=== PATIENT | female | born 1945 | race Caucasian/White ===

== ENCOUNTER → 2018-11-16 10:27 | Day surgery (SDC) | payer MEDICARE, OTHER ==
[~2018-11-16 10:27] MED LIST: Acetaminophen TAB* 325 MG PO PRN; Diazepam TAB(*) 5 MG ONE; Flumazenil* 0.1 MG/ML 5 ML MDV ONE; Lidocaine 1% INJ* 10 MG/ML 30 ML SDV ONE; Midazolam* 1 MG/ML 5 ML VIAL (5 MG) ONE; Naloxone* 0.4 MG/ML 1 ML VIAL ONE; ceFAZolin VIAL 1 GM in NS *SYRINGE * * 10 ML ONE; ceFAZolin* 2 GM* ONE DOSE (Duplex) IVPB; fentaNYL* 50 MCG/ML 2 ML VIAL (100 MCG VIAL) ONE
[2018-11-16 14:14] VITALS: BP 104/64
--- NOTE | 2018-11-17 00:14 | OP ---
CC: Dr. Anaya Nicole * DATE OF OPERATION: 11/16/18 - [facility] CATH DATE OF : 45 SURGEON: Umair Jarrett MD. ANESTHESIA: Local anesthesia with conscious sedation. PRE-OP DIAGNOSIS: Hypertrophic obstructive cardiomyopathy, ICD at elective replacement indicator. POST-OP DIAGNOSIS: Hypertrophic obstructive cardiomyopathy, ICD at elective replacement indicator. OPERATIVE PROCEDURE: Dual-chamber ICD generator change. ESTIMATED BLOOD LOSS: Nil. COMPLICATIONS: None. INDICATIONS: Patient is a 73-year-old female with a history of hypertrophic obstructive cardiomyopathy, history of ICD implantation in 2011. Patient has been followed by Dr. Nicole. Patient's ICD reached elective replacement indicator, generator change was recommended. DESCRIPTION OF PROCEDURE: Patient was brought to the procedure room in a fasting state. Informed consent had been obtained prior to the procedure. All labs were reviewed. Patient was placed supine on the procedure table. Her left deltopectoral area was cleaned and draped in usual fashion; 1% lidocaine was used for local anesthesia. A 4 cm incision was made across the previous incision line and blunt dissection was carried down to the fiber sheath. This fiber sheath was opened and the pacemaker was removed from the pocket. The pacemaker ICD was quickly transferred from the old generator to the new generator as patient was pacemaker dependent. Patient's explanted device is a Medtronic, model Q416YZZ, serial number [id number]. The new generator is a Medtronic, model [id number], serial number [id number]. The device was placed in the pocket. The device was checked and noted to be functioning normally. The atrial and ventricular leads were functioning normally. The surgical incision was closed in 3 layers. Patient returned to the holding area in stable condition. [id number]/[facility] #: [id number] [facility]
== END | disposition home or self-care (01) ==
LOC: CHICATH 10:27
PROVIDERS: ATTEND Specialist
DX: Z45.02 Encounter for adjustment and management of automatic implantable cardiac defibrillator (principal); I42.1 Obstructive hypertrophic cardiomyopathy; I50.32 Chronic diastolic (congestive) heart failure; I48.0 Paroxysmal atrial fibrillation; Z79.01 Long term (current) use of anticoagulants; I44.2 Atrioventricular block, complete; J44.9 Chronic obstructive pulmonary disease, unspecified; Z87.891 Personal history of nicotine dependence
CPT/HCPCS: 33263; 88300; A9270-GY; C1721; J0690; J2250; J2310; J3010

== ENCOUNTER 2019-09-16 17:22 | Inpatient (IN) | payer MEDICARE ==
--- NOTE | 2019-09-16 17:46 | ED ---
Shortness of Breath - HPI Summary HPI Summary: Patient is a 74 y/o F presenting to the ED for a chief complaint of shortness of breath that began on 09/16/18. Patient was seen by her visiting nurse and had labwork drawn on 09/16/18. The labs were sent to the patient's PCP who found that her WBC count was 13 and CO2 was 49, so her PCP recommended the patient be seen at [facility]. Patient refused to go to [facility] earlier in the day, but her called EMS after the patient's shortness of breath worsened. Patient admits cough and has abdominal distention at baseline, but denies fever , or bilateral LE edema. She denies any aggravating or alleviating factors. She is unable to ambulate at home. Patient uses 3 L of oxygen at home. PMHx is significant for hypertrophic cardiomyopathy, congestive heart failure, and COPD. - History of Current Complaint Chief Complaint: EDShortnessOfBreath Time Seen by Provider: 09/16/19 17:43 Hx Obtained From: Patient Onset/Duration: Sudden Onset, Still Present Timing: Constant Current Severity: Moderate Dyspnea At: Rest Aggravating Factors: Nothing Alleviating Factors: Nothing Associated Signs & Symptoms: Cough (Nonproductive) - Allergy/Home Medications Allergies/Adverse Reactions: Allergies Allergy/AdvReac Type Severity Reaction Status Date / Time MS Bupropion Allergy Hives Verified 06/14/14 18:28 [From Wellbutrin] MS Lactose Intolerance (GI) Allergy Diarrhea Verified 06/14/14 18:28 [Lactose Intolerance (GI)] MS Sotalol [Sotalol] Allergy Unknown Verified 06/27/14 21:22 Reaction Details MS Zolpidem [From Ambien] AdvReac Intermediate hearing Verified 06/14/14 18:28 voices Home Medications: Home Medications Acetaminophen [Acetaminophen Extra Strength] 1,000 mg PO TID PRN 09/16/19 [ History Confirmed 09/16/19] Aflibercept [Eylea] 2 mg INJ .Q4-6M 09/16/19 [History Confirmed 09/16/19] Aspirin EC TAB* [Ecotrin EC Low Dose 81 MG*] 81 mg PO DAILY 09/16/19 [History Confirmed 09/16/19] Cholecalciferol (Vitamin D3) [Vitamin D3] 2,000 unit PO DAILY 09/16/19 [History Confirmed 09/16/19] Cyanocobalamin TAB* [Vitamin B12 TAB*] 1,000 mcg PO DAILY 09/16/19 [History Confirmed 09/16/19] FLUoxetine CAP* [PROzac CAP*] 20 mg PO DAILY 09/16/19 [History Confirmed ] Fexofenadine (NF) [Leonor (NF)] 60 mg PO DAILY PRN 09/16/19 [History Confirmed 09/16/19] Folic Acid TAB* [Folvite TAB*] 1 mg PO DAILY 09/16/19 [History Confirmed ] L.acidoph,Paracasei, B.lactis [Probiotic] 1 cap PO DAILY 09/16/19 [History Confirmed 09/16/19] Magnesium Oxide TAB* [MagOx 400 TAB*] 400 mg PO DAILY 09/16/19 [History Confirmed 09/16/19] Metolazone TAB* [Zaroxolyn TAB*] 2.5 mg PO EVERY OTHER DAY 09/16/19 [History Confirmed 09/16/19] Potassium Chloride [Klor-Con M20] 20 meq PO BID 09/16/19 [History Confirmed 12/01] Rosuvastatin (NF) [Crestor (NF)] 40 mg PO DAILY 09/16/19 [History Confirmed 12/01] Sennosides/Docusate Sodium [Senokot S] 2 tab PO DAILY 09/16/19 [History Confirmed 09/16/19] Simethicone [Gas-X] 125 mg PO BID PRN 09/16/19 [History Confirmed 09/16/19] Spironolactone TAB* [Aldactone TAB*] 25 mg PO DAILY 09/16/19 [History Confirmed 09/16/19] Vit C/E/Zn/Coppr/Lutein/Zeaxan [Preservision Areds 2 Softgel] 2 cap PO DAILY 12/01 [History Confirmed 09/16/19] guaiFENesin ER TAB [Mucinex*] 1,200 mg PO BID 09/16/19 [History Confirmed ] PMH/Surg Hx/FS Hx/Imm Hx Previously Healthy: Yes Endocrine/Hematology History: Reports: Hx Anticoagulant Therapy, Hx Blood Disorders - anemia, Hx Anemia, Hx Unexplained Bleeding Denies: Hx Blood Transfusions, Hx Bone Marrow Disease, Hx Diabetes, Hx Systemic Lupus Erythematosus, Hx Sickle Cell Disease, Hx Thyroid Disease, Other Endocrine/Hematological Disorders Cardiovascular History: Reports: Hx Angina, Hx Auto Implanted Cardiovert Defib, Hx Cardiomegaly, Hx Congenital Heart Disease, Hx Congestive Heart Failure, Hx Coronary Artery Disease, Hx Hypercholesterolemia, Hx Hypotension, Hx Hypertension, Hx Pacemaker/ICD, Hx Rheumatic Fever, Hx Syncope, Other Cardiovascular Problems/Disorders - ABLASION X 3 AT [facility]; CAD; HEART MURMUR; Denies: Hx Aneurysm, Hx Angioplasty, Hx Cardiac Arrest, Hx Deep Vein Thrombosis, Hx Myocardial Infarction, Hx Peripheral Vascular Disease, Hx Valvular Heart Disease Respiratory History: Reports: Hx Chronic Obstructive Pulmonary Disease (COPD), Hx Pneumonia, Other Respiratory Problems/Disorders - PNA Denies: Hx Asthma, Hx Chronic Bronchitis, Hx Cystic Fibrosis, Hx Lung Cancer , Hx Pleural Effusion, Hx Pulmonary Edema, Hx Pulmonary Embolism, Hx Seasonal Allergies, Hx Sleep Apnea GI History: Reports: Hx Gastroesophageal Reflux Disease, Hx Hiatal Hernia, Hx Ulcer Denies: Hx Cirrhosis, Hx Crohn's Disease, Hx Diverticulosis, Hx Gall Bladder Disease, Hx Gastrointestinal Bleed, Hx Irritable Bowel, Hx Jaundice, Hx Obstructive Bowel, Hx Ileostomy, Hx Pyloric Stenosis, Other GI Disorders History: Denies: Hx Acute Renal Failure, Hx Benign Prostatic Hyperplasia, Hx Chronic Renal Failure, Hx Dialysis, Hx Kidney Infection, Hx Kidney Stones, Other Problems/Disorders Musculoskeletal History: Reports: Hx Arthritis - right knee & leg, Hx Back Problems - lower back pain, chronic undiagnosed Denies: Hx Bursitis, Hx Congenital Bone Abnormalities, Hx Fibromyalgia, Hx Gout, Hx Orthopedic Injury, Hx Osteoporosis, Hx Scoliosis, Hx Tendonitis, Other Musculoskeletal History Sensory History: Denies: Hx Cataracts, Hx Contacts or Glasses, Hx Eye Injury, Hx Eye Prosthesis, Hx Glaucoma, Hx Legally Blind, Hx Macular Degeneration, Hx Vision Problem, Hx Deafness, Hx Hearing Aid, Hx Hearing Problem, Other Sensory Impairments Opthamlomology History: Denies: Hx Cataracts, Hx Contacts or Glasses, Hx Eye Injury, Hx Eye Prosthesis, Hx Glaucoma, Hx Legally Blind, Hx Macular Degeneration, Hx Vision Problem, Other Sensory Impairments EENT History: Denies: Hx Deafness Neurological History: Reports: Hx Headaches, Hx Migraine, Other Neuro Impairments/Disorders - right leg neuritis Denies: Hx Dementia, Hx Developmental Delay, Hx Seizures, Hx Spinal Cord Injury, Hx Transient Ischemic Attacks (TIA) Psychiatric History: Reports: Hx Anxiety, Hx Depression Denies: Hx Attention Deficit Hyperactivity Disorder, Hx Eating Disorder, Hx Panic Disorder, Hx Post Traumatic Stress Disorder, Hx Inpatient Treatment, Hx Community Mental Health Tx, Hx Schizophrenia, Hx Bipolar Disorder, Hx Suicide Attempt, Hx of Violent Episodes Against Others, Hx Substance Abuse, Other Psychiatric Issues/Disorders - Cancer History Hx Chemotherapy: No Hx Radiation Therapy: No - Surgical History Surgical History: Yes Surgery Procedure, Year, and Place: bilateral cataract surgery-2011. tonsillectomy as a child. exploratory abdominal surgery . colonoscopies. ICD/pacer Hx Anesthesia Reactions: No - Immunization History Date of Tetanus Vaccine: UNKNOWN Infectious Disease History: No Infectious Disease History: Reports: Hx of Known/Suspected MRSA Denies: Hx Clostridium Difficile, Hx Hepatitis, Hx Human Immunodeficiency Virus (HIV), Hx Shingles, Hx Tuberculosis, Traveled Outside the in Last 30 Days - Family History Known Family History: Negative: Seizure Disorder - Social History Occupation: Retired Lives: With Family Alcohol Use: None Alcohol Amount: 1 beer every 2 months Hx Substance Use: No Substance Use Type: Reports: None Hx Tobacco Use: Yes Smoking Status (MU): Former Smoker Type: Cigarettes Amount Used/How Often: 1ppd Length of Time of Smoking/Using Tobacco: 30 Have You Smoked in the Last Year: No Review of Systems Negative: Fever Positive: Shortness Of Breath, Cough Positive: Other - Positive abdominal distention at baseline Negative: Edema - Bilateral LE All Other Systems Reviewed And Are Negative: Yes Physical Exam - Summary Physical Exam Summary: Constitutional: Well-developed. Elderly. Skin: Warm, Dry HENT: Normocephalic; Atraumatic Eyes: Conjunctiva normal Neck: Musculoskeletal ROM normal neck. (-) JVD, (-) Stridor, (-) Nuchal rigidity Cardio: Rhythm regular, rate normal, Heart sounds normal; Intact distal pulses; Radial pulses are 2+ and symmetric. (-) Murmur Pulmonary/Chest wall: (-) Wheezes, (-) Rales. + Tachypneic. Abd: Soft, (-) tenderness, (-) Guarding, (-) Rebound. Distended/protuberant abdomen. Musculoskeletal: (-) Edema Lymph: (-) Cervical adenopathy Neuro: Alert, Oriented x3 Psych: Mood and affect Normal Triage Information Reviewed: Yes Vital Signs On Initial Exam: Initial Vitals Temp Pulse Resp BP Pulse Ox 97.3 F 64 18 146/72 93 09/16/19 17:30 09/16/19 17:30 09/16/19 17:30 09/16/19 17:30 09/16/19 17:30 Vital Signs Reviewed: Yes Procedures - Sedation Patient Received Moderate/Deep Sedation with Procedure: No Diagnostics - Vital Signs Vital Signs Temp Pulse Resp BP Pulse Ox 09/16/19 17:30 97.3 F 64 18 146/72 93 - Laboratory Result Diagrams: 09/16/19 17:58 09/16/19 17:58 Lab Statement: Any lab studies that have been ordered have been reviewed, and results considered in the medical decision making process. - Radiology Chest X-ray Radiology Interpretation Completed By: ED Physician Summary of Radiographic Findings: Chest X-ray IMPRESSION: pulmonary edema. Reviewed and interpreted by Dr. Wen, pending official radiology report. - EKG 17:57 Cardiac Rate: Other Rate - [address] Segment: Normal Ectopy: None Summary of EKG Findings: An EKG at 17:57 reveals ventricular-paced rhythm with 92 BPM, nml axis, nml intervals. No STEMI. No acute changes. Compared to an EKG on 01/27/19, there is no significant change. Reviewed and interpreted by Dr. Wen. Course/Dx - Course Course Of Treatment: 74 y/o F w hx hypertrophic cardiomyopathy, congestive heart failure, and COPD p/w elevated CO2 likely in setting of COPD. - on baseline O2 2.5L (up to 3 L intermittently), labs here w CO2 44. CXR w ?pulm edema vs over penetration. BNP elevated, likely in setting of chronic CHF, does not appear overly volume overloaded. EKG paced, trop 0.08 lower than prior, no CP. - abg 7.4/85/77 likely chronic resp alkalosis, compensated. - admit to medicine for SOB. CT ordered by hospitalist. - Diagnoses Provider Diagnoses: Shortness of breath, Hypercarbia - Physician Notifications Discussed Care of Patient With: Niko Dailey - At 20:29, patients case was reviewed by Dr. Niko Dailey who agrees to admit the patient to [facility] with a diagnosis of shortness of breath. Time Discussed With Above Provider: 20:29 Instructed by Provider To: Admit As Inpatient Discharge ED - Sign-Out/Discharge Documenting (check all that apply): Patient Departure - Admit - Discharge Plan Condition: Stable Disposition: ADMITTED TO [facility] Referrals: Monico Dyson MD [Primary Care Provider] - - Billing Disposition and Condition Condition: STABLE Disposition: Admitted to [facility] - Attestation Statements Document Initiated by Scribe: Yes Documenting Scribe: Suly Henriquez Provider For Whom Marilin is Documenting (Include Credential): Lazaro Wen MD Scribe Attestation: ISuly, scribed for Lazaro Wen MD on 09/16/19 at 2050. Scribe Documentation Reviewed: Yes Provider Attestation: The documentation as recorded by the dimitriosibeSuly accurately reflects the service I personally performed and the decisions made by , Lazaro Wen MD Status of Scribe Document: Viewed
[2019-09-16 18:40] LABS: ABS Lymphocytes 0.9 10^3/ul (1.0-4.8); ABS Neutrophils 9.4 10^3/ul (1.5-7.7); Eosinophil % 0.4 %; Hematocrit 32 % (35-47); Hemoglobin 9.9 g/dL (12.0-16.0); Lymphocyte % 7.8 %; Mean Corpuscular HGB Conc 32 g/dL (31-36); Mean Corpuscular Hemoglobin 31 pg (27-31); Mean Corpuscular Volume 99 fL (80-97); Mean Platelet Volume 9.6 fL (7.4-10.4); Platelet Count 234 10^3/uL (150-450); Red Blood Count 3.18 10^6 /uL (3.70-4.87); Red Cell Distribution Width 14 % (10-15); White Blood Count 11.4 10^3/uL (3.5-10.8)
[2019-09-16 18:48] LABS: Blood Urea Nitrogen 21 mg/dL (6-24); Calcium 9.6 mg/dL (8.6-10.3); Chloride 88 mmol/L (101-111); EGFR African American 118.2 (>60); EGFR Non-African American 97.7 (>60); Glucose 145 mg/dL (70-100); Potassium 4.5 mmol/L (3.5-5.0); Sodium 139 mmol/L (135-145)
[2019-09-16 18:51] LABS: Troponin I 0.08 ng/mL (<0.03)
[2019-09-16 19:15] LABS: CO2 Carbon Dioxide 48 mmol/L (22-32)
[2019-09-16] MEDS ORDERED: Iodixanol* (CONTRAST) 320 MG/ML 100 ML SDV IV ONE (20:40)
[2019-09-16 23:04] LABS: Activated Partial Thrombo Time 47.8 seconds (26.0-38.0); INR 3.12 (0.82-1.09)
[2019-09-16 23:21] LABS: Troponin I 0.09 ng/mL (<0.03)
[2019-09-16] MEDS ORDERED: ALPRAZolam TAB* 0.5 MG PO PRN (23:27)
[2019-09-16] MEDS ORDERED: Docusate CAP* 100 MG PO PRN (23:27)
[2019-09-16] MEDS ORDERED: Cetirizine* 10 MG TAB PO PRN (23:27)
[2019-09-16] MEDS ORDERED: Polyethylene Glycol 3350* 17 GM PACKET PO PRN (23:27)
[2019-09-16] MEDS ORDERED: SIMETHICONE 125 MG PO PRN (23:27)
[2019-09-16] MEDS ORDERED: Calcium Carbonate CHEW TAB* 500 MG (TUMS) PO PRN (23:27)
[2019-09-16] MEDS ORDERED: Magnesium Hydroxide LIQ* 30 ML UDC PO ONE (23:52)
--- NOTE | 2019-09-17 01:36 | HP ---
CC: Dr. Ness Dennis; Dr. Anaya Nicole ADMISSION HISTORY AND PHYSICAL: DATE OF ADMISSION: 09/16/19 CHIEF COMPLAINT: Shortness of breath. PRIMARY CARE PHYSICIAN: Dr. Ness Dennis. PRIMARY ELECTRONIC ENGINEERING TECHNICIAN: Dr. Anaya Nicole. HISTORY OF PRESENT ILLNESS: This is a 74-year-old female with a past medical history of congestive heart failure due to obstructive hypertrophic cardiomyopathy with multiple ablations to the septum, on multiple diuretics; COPD; paroxysmal atrial fibrillation, on anticoagulation with Coumadin; chronic constipation; anemia; hypertension; cardiomyopathy, status post AICD and pacemaker, was sent to the hospital after primary care physician's abnormal labs. The patient had visiting nurses who luiz her labs, which showed elevated white count and elevated bicarb and recommended to be sent to the ER in the morning; however, the patient refused to go to the ER, but later on had worsened shortness of breath which has been ongoing for the last day, worsened and the decided to call EMS to bring her to the ER. The patient also stated that she has been having cough which is nonproductive. No fever or chills. Worsening shortness of breath. No chest pain or palpitations. According to the , she does have a hospital bed at home and mostly is bedbound and only gets up to use the bathroom, which she uses a wheelchair and also uses her as support to get to the bathroom. She denies any other lower extremity swelling, but she did state that she has been having worsening constipation for the last 3 days and her abdomen is a bit more distended than her baseline and thinks that that could also be contributing to her breathing difficulty. PAST MEDICAL HISTORY: Hypertrophic obstructive cardiomyopathy; congestive heart failure; COPD; chronic constipation; AFib, on Coumadin; AICD in situ with chronic pacemaker use; anemia; diastolic heart failure; glaucoma; depression; and wet macular degeneration. PAST SURGICAL HISTORY: Include 3 alcohol ablations to the septum, all done at [place] for which she was intubated and had a chest drainage, dual chamber pacemaker placement for which she had a followup appointment recently with her machine builder in [place]. FAMILY HISTORY: Father had heart disease, mother had diabetes and heart disease. There is a significant family history of cholesterol as well. SOCIAL HISTORY: She lives with her . 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 Has been mostly bedbound for the last year and a year and a half and only gets up to use the bathroom and that too with assistance with her . Uses hospital bed at home. She had a previous history of smoking, but quit in 2011. Prior to that had 35 years history of smoking. Denies any other alcohol or drug use and designates her , Billy, as the healthcare proxy and wishes to be full code and reiterates that she does not want to be DNR. REVIEW OF SYSTEMS: A 14-point review of systems did not reveal any new information other than what was mentioned in the HPI. PHYSICAL EXAMINATION GENERAL: The patient is awake, alert, and oriented x3, was morbidly obese female in no acute respiratory distress. VITAL SIGNS: In the ER, BP was noted to be 155/63, heart rate 73, respiration rate 31, saturation 94% on 4 L nasal cannula, temperature 97.3. HEAD AND NECK: Atraumatic, normocephalic. Bilateral pupils were reactive. Oral mucosa was dry. Neck was obese. Difficult to discern jugular venous distention. LUNGS: The patient had bibasilar crackles. HEART: S1, S2. Irregular rate and rhythm ABDOMEN: Obese and distended with positive bowel sounds without any tenderness. EXTREMITIES: No cyanosis, clubbing, or edema. DIAGNOSTIC STUDIES/LAB DATA: CBC shows minimally elevated white count at 11.4 , hemoglobin and hematocrit was low at 9.9 but stable when compared to her baseline from this morning, platelet count was normal. Coagulation profile shows INR of 3.09. ABG was showing pH of 7.42, pCO2 of 85 with oxygen saturation of 96% on nasal cannula. Comprehensive metabolic panel shows normal sodium and potassium, however, low chloride at 88 and bicarb elevated at 48. Random glucose elevated at 145. Troponin I initial 10.08, followup was 0.09. B-elias was noted to be 1235. EKG was showing ventricularly paced rhythm at 92 beats per minute, difficult to get any other information due to the fact that it was ventricularly paced. When compared to her old EKG from 2018, it is essentially unchanged. CT chest was read as mild cardiomegaly with pacemaker in position and coronary calcification, minimal right pleural effusion with slight interstitial prominence and minimal scattered fibroelastic changes and minimal patchy ground- glass infiltrates, mild prominence of main pulmonary artery measures 36 mm which may be seen with pulmonary hypertension, bilateral adrenal nodules which are incompletely visualized but are probably similar to previous suboptimal opacification of the pulmonary artery, pulmonary embolism was not excluded on the basis of this exam. IMPRESSION: This is a 74-year-old female with congestive heart failure, here due to worsening shortness of breath and cough without any fever and minimal white count, noted to have elevated bicarb as well. ASSESSMENT: 1. Worsening shortness of breath, likely secondary to congestive heart failure and possibly component of constipation causing inhibition of the diaphragmatic movement. For now, we will restart her home medications and give the patient laxatives. 2. Chronic obstructive pulmonary disease, does not appear to be in any exacerbation of chronic obstructive pulmonary disease. The elevated pCO2 is well compensated and the pH is more alkalotic suggesting this is a primary metabolic alkalosis likely secondary to diuretic use causing CO2 retention rather than an acute COPD with CO2 retention. For now, we will monitor the patient's oxygen status and restart her home medications. 3. History of congestive heart failure and hypertrophic cardiomyopathy, status post multiple septal ablation with elevated troponin. We will consult Cardiology in the morning to evaluate the patient and follow up an echocardiogram. 4. History of hypertension. Restart home medications. 5. History of depression. Restart home medications. 6. History of anxiety. Restart home medications. 7. History of dyslipidemia. Restart Crestor. 8. History of atrial fibrillation. Continue Coumadin. 9. DVT prophylaxis. The patient is already on therapeutic Coumadin. We will continue with daily INR 's. 10. Code status. The patient is otherwise full code with her , Billy, being healthcare proxy. [id number]/[facility] #: [id number] TATUM
[2019-09-17 03:27] LABS: Troponin I 0.08 ng/mL (<0.03)
--- NOTE | 2019-09-17 06:20 | PN ---
Resident Interval ProgressNote Date of Service: 09/17/19 Was called to see patient for asymmetric legs, Right lower extremity more swollen (slight difference), hot on palpitation, non tender, not redness Concern for DVT continue to monitor, consider US DVT
[2019-09-17] MEDS ORDERED: acetaZOLAMIDE TAB* 250 MG PO ONE (07:30)
[2019-09-17] MEDS: DISOPYRAMIDE 100 MG PO SCH ×3 (08:30→22:16)
[2019-09-17] MEDS: Cyanocobalamin TAB* 500 MCG PO SCH (08:30)
[2019-09-17] MEDS: Warfarin TAB(*) 5 MG PO SCH (08:42)
[2019-09-17] MEDS: Aspirin EC TAB* 81 MG TAB.EC PO SCH (08:42)
[2019-09-17] MEDS: FLUoxetine CAP* 20 MG PO SCH (08:43)
[2019-09-17] MEDS: Folic Acid TAB* 1 MG PO SCH (08:43)
[2019-09-17] MEDS: Lactobacillus Acidophilus* 1 TAB PO SCH (08:43)
[2019-09-17] MEDS: Potassium Chlor TAB* 20 MEQ TAB.ER PO SCH ×2 (08:44→22:18)
[2019-09-17] MEDS: guaiFENesin ER TAB 600 MG PO SCH ×2 (08:44→22:17)
[2019-09-17] MEDS: Magnesium Oxide TAB* 400 MG PO SCH (08:45)
[2019-09-17] MEDS: Spironolactone TAB* 25 MG PO SCH (08:46)
[2019-09-17] MEDS: Atorvastatin* 80 MG TAB PO SCH (08:46)
[2019-09-17] MEDS: Cholecalciferol TAB* 1000 UNITS PO SCH (08:46)
[2019-09-17] MEDS: Metoprolol Tartrate TAB* 50 mg PO SCH ×2 (08:47→22:16)
[2019-09-17] MEDS: Senna TAB 8.6 mg* TAB PO SCH (08:53)
[2019-09-17] MEDS: Docusate CAP* 100 MG PO SCH (08:53)
--- NOTE | 2019-09-17 11:37 | PN ---
Subjective Date of Service: 09/17/19 Interval History: Concern for asymmetric leg exam overnight (right calf is warm). Afebrile 4 BMs today. subacute complaint of pain warmth, redness of luis ermaker that was placed November 26 2018. At first she says this has been going on for a month but then that she has already been evaluated in [place] with Dr. Keen on 07/31 for these complaints. Reportedly functioning normally. Worse SOB (on chronic 2L),Orthopnea, abdominal bloating, dry cough for 1 week They don't weigh her at home, her eye sight is bad. She has some concerns about whether Jaswant could do weights but refused to elaborate. Objective Active Medications: Alprazolam (Xanax Tab*) 0.5 mg PO TID PRN PRN Reason: ANXIETY Aspirin (Aspirin Ec Tab*) 81 mg PO DAILY [facility] Last Admin: 09/17/19 08:42 Dose: 81 mg Atorvastatin Calcium (Lipitor*) 80 mg PO DAILY [facility] Last Admin: 09/17/19 08:46 Dose: 80 mg Bumetanide (Bumex Tab*) 2 mg PO EVERY OTHER DAY [facility] Bumetanide (Bumex*) 2 mg SLOW PUSH ONCE [facility] Calcium Carbonate (Tums*) 500 mg PO BID PRN PRN Reason: INDIGESTION Cetirizine HCl (Zyrtec*) 10 mg PO BEDTIME PRN; Protocol PRN Reason: Allergy Symptoms Cholecalciferol (Vitamin D Tab*) 2,000 units PO DAILY [facility] Last Admin: 09/17/19 08:46 Dose: 2,000 units Cyanocobalamin (Vitamin B12 Tab*) 1,000 mcg PO DAILY [facility] Disopyramide Phosphate (Norpace Cap*) 200 mg PO TID [facility] Docusate Sodium (Colace Cap*) 200 mg PO DAILY PRN PRN Reason: CONSTIPATION Docusate Sodium (Colace Cap*) 100 mg PO DAILY [facility] Last Admin: 09/17/19 08:53 Dose: Not Given Fluoxetine HCl (Prozac Cap*) 20 mg PO DAILY [facility] Last Admin: 09/17/19 08:43 Dose: 20 mg Folic Acid (Folvite Tab*) 1 mg PO DAILY [facility] Last Admin: 09/17/19 08:43 Dose: 1 mg Guaifenesin (Mucinex*) 1,200 mg PO BID [facility] Last Admin: 09/17/19 08:44 Dose: 1,200 mg Lactobacillus Rhamnosus (Lactobacillus Acidophilus*) 1 tab PO DAILY [facility] Last Admin: 09/17/19 08:43 Dose: 1 tab Magnesium Oxide (Magox 400 Tab*) 400 mg PO DAILY [facility] Last Admin: 09/17/19 08:45 Dose: 400 mg Metoprolol Tartrate (Lopressor Tab*) 75 mg PO BID [facility] Last Admin: 09/17/19 08:47 Dose: 75 mg Multivitamins/Minerals (Preservision Areds 2) 2 cap PO DAILY [facility] Non-Formulary Medication (Simethicone [Gas-X]) 125 mg PO BID PRN PRN Reason: gas Polyethylene Glycol/Electrolytes (Miralax*) 17 gm PO DAILY PRN PRN Reason: CONSTIPATION Potassium Chloride (Klor Con Er Tab*) 20 meq PO BID [facility] Last Admin: 09/17/19 08:44 Dose: 20 meq Senna (Senokot 8.6 Mg Tab*) 2 tab PO DAILY [facility] Last Admin: 09/17/19 08:53 Dose: Not Given Spironolactone (Aldactone Tab*) 25 mg PO DAILY [facility] Last Admin: 09/17/19 08:46 Dose: 25 mg Warfarin Sodium (Coumadin Tab(*)) 5 mg PO DAILY [facility]; Protocol Last Admin: 09/17/19 08:42 Dose: 5 mg Oxygen Devices in Use Now: Nasal Cannula Appearance: chronically ill appearing. Eyes: No Scleral Icterus Ears/Nose/Mouth/Throat: NL Teeth, Lips, Gums Neck: NL Appearance and Movements; NL JVP Respiratory: Symmetrical Chest Expansion and Respiratory Effort, Clear to Auscultation Cardiovascular: NL Sounds; No Murmurs; No JVD Abdominal: - - distended, soft, nontender, no rebound or guarding. Extremities: No Edema, - - right calf warm, no erythema Neurological: Alert and Oriented x 3 Nutrition: Taking PO's Result Diagrams: 09/16/19 17:58 09/16/19 17:58 Additional Lab and Data: Laboratory Results - last 24 hr 09/16/19 09/16/19 09/16/19 17:58 17:58 17:58 WBC 11.4 H RBC 3.18 L Hgb 9.9 L Hct 32 L MCV 99 H MCH 31 MCHC 32 RDW 14 Plt Count 234 MPV 9.6 Neut % (Auto) 82.4 Lymph % (Auto) 7.8 [place] % (Auto) 9.0 Eos % (Auto) 0.4 Baso % (Auto) 0.4 Absolute Neuts (auto) 9.4 H Absolute Lymphs (auto) 0.9 L Absolute Monos (auto) 1.0 H Absolute Eos (auto) 0.0 Absolute Basos (auto) 0.0 Absolute Nucleated RBC 0.0 Nucleated RBC % 0.0 INR (Anticoag Therapy) APTT Patient Temperature ABG pH ABG pH (Temp Correct) ABG pCO2 ABG pCO2 (Temp Corrct ABG pO2 ABG pO2 (Temp Correct ABG HCO3 ABG O2 Saturation ABG Base Excess Respiration Rate O2 Delivery Device Ventilator Type Vent Mode FiO2 Inspiratory Time PEEP Pressure Support Pressure Control EPAP IPAP BiPAP Sodium 139 Potassium 4.5 Chloride 88 L Carbon Dioxide 48 H* Anion Gap Not Reportable BUN 21 Creatinine 0.60 Est GFR ( Amer) 118.2 Est GFR (Non-Af Amer) 97.7 BUN/Creatinine Ratio 35.0 H Glucose 145 H Lactic Acid 1.0 Calcium 9.6 Troponin I 0.08 H* B-Natriuretic Peptide 09/16/19 09/16/19 09/16/19 17:58 20:36 22:49 WBC RBC Hgb Hct MCV MCH MCHC RDW Plt Count MPV Neut % (Auto) Lymph % (Auto) [place] % (Auto) Eos % (Auto) Baso % (Auto) Absolute Neuts (auto) Absolute Lymphs (auto) Absolute Monos (auto) Absolute Eos (auto) Absolute Basos (auto) Absolute Nucleated RBC Nucleated RBC % INR (Anticoag Therapy) APTT Patient Temperature Not Reportable ABG pH 7.42 ABG pH (Temp Correct) Not Reportable ABG pCO2 85 H* ABG pCO2 (Temp Corrct Not Reportable ABG pO2 77 L ABG pO2 (Temp Correct Not Reportable ABG HCO3 44.4 H* ABG O2 Saturation 96.0 ABG Base Excess 25.0 H Respiration Rate Not Reportable O2 Delivery Device N/c Ventilator Type Not Reportable Vent Mode Not Reportable FiO2 Not Reportable Inspiratory Time Not Reportable PEEP Not Reportable Pressure Support Not Reportable Pressure Control Not Reportable EPAP Not Reportable IPAP Not Reportable BiPAP Not Reportable Sodium Potassium Chloride Carbon Dioxide Anion Gap BUN Creatinine Est GFR ( Amer) Est GFR (Non-Af Amer) BUN/Creatinine Ratio Glucose Lactic Acid Calcium Troponin I 0.09 H* B-Natriuretic Peptide 1235 H 09/16/19 09/17/19 22:49 01:18 WBC RBC Hgb Hct MCV MCH MCHC RDW Plt Count MPV Neut % (Auto) Lymph % (Auto) [place] % (Auto) Eos % (Auto) Baso % (Auto) Absolute Neuts (auto) Absolute Lymphs (auto) Absolute Monos (auto) Absolute Eos (auto) Absolute Basos (auto) Absolute Nucleated RBC Nucleated RBC % INR (Anticoag Therapy) 3.12 H APTT 47.8 H Patient Temperature ABG pH ABG pH (Temp Correct) ABG pCO2 ABG pCO2 (Temp Corrct ABG pO2 ABG pO2 (Temp Correct ABG HCO3 ABG O2 Saturation ABG Base Excess Respiration Rate O2 Delivery Device Ventilator Type Vent Mode FiO2 Inspiratory Time PEEP Pressure Support Pressure Control EPAP IPAP BiPAP Sodium Potassium Chloride Carbon Dioxide Anion Gap BUN Creatinine Est GFR ( Amer) Est GFR (Non-Af Amer) BUN/Creatinine Ratio Glucose Lactic Acid Calcium Troponin I 0.08 H* B-Natriuretic Peptide Microbiology and Other Data: Microbiology 09/16/19 23:30 Nasal Nasal Screen MRSA (PCR) - Final Mrsa Not Detected Assess/Plan/Problems-Billing Assessment: 74 yo female PMH diastolic CHH, HOCM, pAfib(coumadin), morbid obesity (BMI 44), s/p AICD, COPD, chronic hypoxic respiratory failure p/w SOB, nonproductive cough, orthopnea for 1 week - Patient Problems (1) Acute and chronic respiratory failure Current Visit: Yes Status: Acute Code(s): J96.20 - ACUTE AND CHR RESP FAILURE, UNSP W HYPOXIA OR HYPERCAPNIA SNOMED Code(s): 79342345 Comment: DDx acute on chronic diastolic CHF vs PE (CTA could not rule out though of note patient is therapeutic with her anticoagulation, will add on DDimer) vs worsening anemia. ECHO. increase diuresis, daily weights, strict ios. Duplex US. Iron,TIBC,ferritin. (2) Acute on chronic heart failure Current Visit: No Status: Acute Priority: High Onset Date: 06/14/14 Code (s): I50.9 - HEART FAILURE, UNSPECIFIED SNOMED Code(s): 129150106 Comment: bumex 2mg IV now. strict io, daily weights. ECHO (3) Atrial fibrillation Current Visit: No Status: Acute Priority: High Onset Date: 06/14/14 Code (s): I48.91 - UNSPECIFIED ATRIAL FIBRILLATION SNOMED Code(s): 95358782 Comment: Paced. Continue metoprolol succinat 100mg BID, disopyramide 200mg TID and warfarin. INR therapeutic. (4) Constipation Current Visit: No Status: Acute Code(s): K59.00 - CONSTIPATION, UNSPECIFIED SNOMED Code(s): 12869937 Comment: Resolved. Patient has had multiple bowel movements. (5) COPD (chronic obstructive pulmonary disease) Current Visit: No Status: Chronic Priority: Medium Code(s): J44.9 - CHRONIC OBSTRUCTIVE PULMONARY DISEASE, UNSPECIFIED SNOMED Code(s): 88492009 Comment: try to find PFTs. no inhalers at home. reported 10 pack year former smoker. (6) Hypertension Current Visit: No Status: Chronic Priority: Medium Code(s): I10 - ESSENTIAL (PRIMARY) HYPERTENSION SNOMED Code(s): 43112959 Comment: SBP 110-150. Continue metoprolol,bumex, spironolacotone. (7) DVT prophylaxis Current Visit: No Status: Acute Code(s): OHU9835 - SNOMED Code(s): 196384425 Comment: INR therapeutic. (8) Full code status Current Visit: No Status: Acute Code(s): Z78.9 - OTHER SPECIFIED HEALTH STATUS SNOMED Code(s): 283478368 Status and Disposition: medicine inpatient, waiting on ECHO, duplex, diuresis.
[2019-09-17 11:41] LABS: ABS Lymphocytes 0.7 10^3/ul (1.0-4.8); ABS Monocytes 1.1 10^3/ul (0-0.8); ABS Neutrophils 11.7 10^3/ul (1.5-7.7); Eosinophil % 0.1 %; Hematocrit 30 % (35-47); Hemoglobin 9.8 g/dL (12.0-16.0); Lymphocyte % 4.9 %; Mean Corpuscular HGB Conc 32 g/dL (31-36); Mean Corpuscular Hemoglobin 31 pg (27-31); Mean Corpuscular Volume 98 fL (80-97); Mean Platelet Volume 9.7 fL (7.4-10.4); Nucleated Red Blood Cells % 0.1; Platelet Count 238 10^3/uL (150-450); Red Cell Distribution Width 14 % (10-15); White Blood Count 13.6 10^3/uL (3.5-10.8)
[2019-09-17 11:54] LABS: INR 2.78 (0.82-1.09)
[2019-09-17 11:57] LABS: BUN/Creatinine Ratio 32.4 (8-20); C Reactive Protein 57.42 mg/L (<8.01); Calcium 9.7 mg/dL (8.6-10.3); EGFR African American 97.4 (>60); EGFR Non-African American 80.5 (>60); Potassium 4.5 mmol/L (3.5-5.0)
[2019-09-17] MEDS: Bumetanide IV* 0.25 MG/ML 4 ML VIAL SLOW PUSH ONE ×2 (13:16→14:11)
[2019-09-17 13:20] LABS: % Iron Saturation 12 % (15-55); Iron 43 ug/dL (50-212); Total Iron Binding Capacity 363 mcg/dL (250-450); Transferrin 259 mg/dL (203-362)
[2019-09-17] MEDS ORDERED: Bumetanide TAB* 2 MG PO ONE (13:31)
[2019-09-17 13:40] LABS: Ferritin 64.8 ng/mL (11-307)
[2019-09-17] MEDS: SPIRIVA Respimat* (tiotropium) 2.5 mcg/inh Inhaler INH SCH (14:01)
[2019-09-17] MEDS: Mometasone/Formoter 200/5 MDI INH SCH ×2 (14:01→19:55)
[2019-09-17] MEDS: PTO:Multivitamins/Mins (NF) AREDS2 1 CAP CAP PO SCH (14:09)
[2019-09-17] MEDS ORDERED: Albuterol/Ipratropium NEB.SOL* Albuterol 2.5 MG/Ipratropium 0.5 MG 3 ML INH PRN (15:14)
[2019-09-17] MEDS: DOXYcycline CAP(*) 100 MG PO SCH ×2 (15:53→22:17)
[2019-09-17] MEDS ORDERED: Simethicone TAB* 80 MG TAB.CHEW PO PRN (15:57)
--- NOTE | 2019-09-17 16:34 | CONS ---
CC: Dr. Anaya Nicole; Dr. Keren Dennis CARDIOLOGY CONSULTATION: DATE OF CONSULT: 09/17/19 REFERRING PHYSICIAN: Dr. Kory Gaona and Dr. Niko Dailey. REASON FOR CONSULTATION: Increased serum bicarbonate in patient with history of hypertrophic cardiomyopathy. HISTORY OF PRESENT ILLNESS: The patient is accompanied by her on the medical joya where I am seeing her. She states that yesterday she had blood work drawn and had a high serum bicarbonate, so she was referred by her PCP to come to the hospital. The patient herself notes chronic shortness of breath, which may be a little worse than usual, but she denies chest pain or any other acute complaints. The patient's original blood work completed yesterday showed sodium 139, potassium 4.5, chloride 88, bicarbonate 48, BUN 21, and creatinine yesterday was 0.60. Today, her bicarbonate is decreased to 45 after receiving a dose of Diamox. Her troponin was minimally elevated to 0.09, 0.08, 0.10. BNP 1235, which seems overall stable for her. PAST MEDICAL HISTORY: Includes hypertrophic cardiomyopathy. She has had 3 alcohol septal ablations in the past at the [facility]. She has history of paroxysmal atrial fibrillation for which she has undergone AV josef ablation. She also has a history of an ICD placement and chronic pain at the ICD site, not felt to require revision. Other past medical history includes COPD, she is on 2 L of oxygen chronically; constipation; diastolic heart failure; glaucoma; depression; wet macular degeneration. OUTPATIENT MEDICATIONS: Include: 1. Lopressor 75 mg p.o. b.i.d. 2. Coumadin 5 mg once a day. 3. Disopyramide 200 mg p.o. t.i.d. 4. Bumex 2 mg p.o. every other day (apparently, the patient was prescribed Zaroxolyn also, but has not been taking). 5. Eylea 2 mg injections. 6. Aspirin 81 mg once a day. 7. Crestor 40 mg once a day. 8. Fluoxetine 20 mg once a day. 9. Aldactone 25 mg once a day. 10. Magnesium oxide 400 mg once a day. ALLERGIES TO MEDICATIONS: BUSPAR, LACTOSE, SOTALOL, AMBIEN. FAMILY HISTORY: Positive for cardiac disease and cancer as well as diabetes. No family history of stroke. SOCIAL HISTORY: She has been for 34 years and she is accompanied by her today. 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 and is a college graduate. She quit smoking in 2011 after having accumulated approximately 40-pack year. She does not abuse alcohol, no use of illicit drugs. She does not do regular exercise. REVIEW OF SYSTEMS: She denies personal history of stroke, cancer, vomiting up blood, coughing up blood, bright red blood per rectum, bleeding stomach ulcers, renal calculi, cholelithiasis. She denies asthma. She has had pneumonia requiring hospitalization. She denies tuberculosis, sleep apnea. She does use 2 L of nasal cannula chronically for her COPD. She denies diabetes. She denies hypertension. She has a history of hypertrophic cardiomyopathy as above. Apparently during one of her alcohol septal ablations, she was found to have CAD and underwent coronary PCI. She denies palpitations. She denies history of anxiety and depression. She denies lupus, psoriasis, seizures, Parkinson disease, myasthenia gravis, thyroid disorders, liver disorders, kidney disorders , claudication symptoms, pulmonary emboli, deep venous thrombosis, or peripheral arterial disease. She denies peripheral edema. She does note some heartburn. All other review of systems are negative x14 except as per this documentation. PHYSICAL EXAM: Height 5 feet 1 inch, weight 233 pounds. Temperature 97.6 degrees Fahrenheit, pulse 65, blood pressure 134/58, O2 saturation 93%. On general exam, she is a plethoric appearing lady, who is able to lie fairly flat , in no acute distress. HEENT shows the cranium is normocephalic and atraumatic. She has dry mucosal membranes. Neck veins are not distended on limited assessment. There are no carotid bruits. Visible skin warm and perfused. Affect appropriate. She appears oriented. She does become sleepy easily. Mild kyphoscoliosis on back exam. Lungs are clear to auscultation. No wheezes. No rales. Cardiac Exam: S1, S2. Regular rate. Soft systolic murmur heard without radiation. There is no rub or gallop. PMI is nondisplaced. Abdomen: Soft and nondistended, appears benign. Extremities with trivial peripheral edema. Pulses appear grossly intact. DIAGNOSTIC STUDIES/LAB DATA: Today, sodium 134, potassium 4.5, chloride 94, bicarbonate 45 (bicarbonate yesterday 48), and her bicarb has been as high as 45 on 06/28/15. Troponin 0.09 followed by 0.08 followed by 0.10. BNP 1235 and was 1023 and greater than 4906 in the past. Echocardiogram done in the past on 06/29/15 showed hyperdynamic left ventricular ejection fraction of greater than 65% with mild aortic stenosis. White blood cell count 13.6, hematocrit 30, platelet count 238. INR 2.78. A 12-lead EKG reviewed shows V-paced rhythm likely atrial sensing. IMPRESSION: Ms. Barger is a 74-year-old woman with history of hypertrophic cardiomyopathy, status post ICD with septal ablation and AV josef ablation as well as paroxysmal atrial fibrillation (well suppressed at this time). Her ICD site does appear benign today and she follows that with [facility]. She has been admitted with high serum bicarbonate, however, that is very well compensated as her blood gas done yesterday showed pH 7.42, pCO2 of 85, pO2 of 77. The increased pCO2 appears to be chronic obstructive pulmonary disease exacerbation and her chronically increased serum bicarb is compensatory with now some superimposed metabolic contraction alkalosis. If anything, I feel the patient is intravascularly volume depleted. There is no evidence of acute coronary syndrome and her increased BNP is likely due to chronic right heart strain. RECOMMENDATIONS: 1. I think it is reasonable to continue her on low dose Diamox as has been started here, and I would not increase the Bumex further (as was being considered) nor restart Zaroxolyn as the patient appears to be intravascularly volume depleted. Can follow serum bicarbonate which is chronically elevated. 2. At this point, there does not appear to be active cardiac issues and it appears that her shortness of breath is due to progressive COPD. 3. Given her history of CAD with PAF and normal LV function in the past, she will continue aspirin, statin, Norpace, Lopressor, Aldactone, Coumadin. I do think it is reasonable to decrease her Bumex especially as we are adding Diamox , to Bumex 2 mg alternating with 1 mg every other day. 4. May discontinue telemetry. 5. The patient may follow up with Dr. Nicole in next 2 to 3 weeks following discharge and consider further outpatient testing at that time including echocardiogram as outpatient. The case was discussed with Dr. Gaona. The case has been discussed with the patient and her and they appeared to be in agreement with these recommendations.The patient was originally wanting to leave today but she is now willing to stay until tomorrow morning to make sure she is tolerating her Diamox initiation. Dear Dr. Gaona, many thanks for this kind cardiovascular consultation opportunity. Please do not hesitate to contact me if you have any questions or concerns regarding the patient's cardiovascular consultative care. [id number]/[facility] #: [id number] TATUM
--- NOTE | 2019-09-17 21:37 | PN ---
Resident Interval ProgressNote Date of Service: 09/17/19 Called to see patient for fall, She wanted to go to bathroom badly, but her knee gave up, thus her body leaned forward, and eventually she hit the ground with her knee and buttock. Never hit head She denied dizziness, chest pain, palpitation before the fall, no loss of consciousness, no confusion, no seizure acitivities, no pain post fall, no headache, no vision changes PE: vital: stable other than sBP 150s which was not new Alert oriented x3 No tenderness over spine left buttock tenderness Left knee tenderness ROM intact for bilateral knee and hip, though mild tenderness on left knee on movement Neurological: PEERLA, mentation normal, strength intact, no hyperreflexia A: Fall P: XR left hip XR left knee Fall precaution Up with assistance
[2019-09-18 07:00] LABS: ABS Basophils 0.1 10^3/ul (0-0.2); ABS Lymphocytes 1.2 10^3/ul (1.0-4.8); ABS Neutrophils 9.8 10^3/ul (1.5-7.7); Eosinophil % 0.2 %; Hematocrit 30 % (35-47); Hemoglobin 9.8 g/dL (12.0-16.0); Lymphocyte % 9.8 %; Mean Corpuscular HGB Conc 33 g/dL (31-36); Mean Corpuscular Hemoglobin 32 pg (27-31); Mean Corpuscular Volume 97 fL (80-97); Mean Platelet Volume 9.5 fL (7.4-10.4); Platelet Count 237 10^3/uL (150-450); Red Blood Count 3.08 10^6 /uL (3.70-4.87); Red Cell Distribution Width 14 % (10-15); White Blood Count 12.1 10^3/uL (3.5-10.8)
[2019-09-18 07:16] LABS: INR 3.41 (0.82-1.09)
[2019-09-18 07:23] LABS: BUN/Creatinine Ratio 29.9 (8-20); Calcium 9.8 mg/dL (8.6-10.3); EGFR African American 88.7 (>60); EGFR Non-African American 73.3 (>60); Potassium 3.6 mmol/L (3.5-5.0)
[2019-09-18] MEDS: SPIRIVA Respimat* (tiotropium) 2.5 mcg/inh Inhaler INH SCH (08:21)
[2019-09-18] MEDS: Mometasone/Formoter 200/5 MDI INH SCH ×2 (08:22→20:00)
[2019-09-18] MEDS ORDERED: acetaZOLAMIDE TAB* 250 MG PO SCH (09:00)
[2019-09-18] MEDS ORDERED: Bumetanide TAB* 2 MG PO SCH (09:00)
[2019-09-18] MEDS: Spironolactone TAB* 25 MG PO SCH (09:05)
[2019-09-18] MEDS: Lactobacillus Acidophilus* 1 TAB PO SCH (09:05)
[2019-09-18] MEDS: Cyanocobalamin TAB* 500 MCG PO SCH (09:05)
[2019-09-18] MEDS: FLUoxetine CAP* 20 MG PO SCH (09:06)
[2019-09-18] MEDS: Aspirin EC TAB* 81 MG TAB.EC PO SCH (09:06)
[2019-09-18] MEDS: Warfarin TAB(*) 5 MG PO SCH (09:06)
[2019-09-18] MEDS: guaiFENesin ER TAB 600 MG PO SCH (09:06)
[2019-09-18] MEDS: Magnesium Oxide TAB* 400 MG PO SCH (09:06)
[2019-09-18] MEDS: Potassium Chlor TAB* 20 MEQ TAB.ER PO SCH (09:06)
[2019-09-18] MEDS: Senna TAB 8.6 mg* TAB PO SCH (09:07)
[2019-09-18] MEDS: DOXYcycline CAP(*) 100 MG PO SCH (09:07)
[2019-09-18] MEDS: Docusate CAP* 100 MG PO SCH (09:07)
[2019-09-18] MEDS: Metoprolol Tartrate TAB* 50 mg PO SCH (09:08)
[2019-09-18] MEDS: Atorvastatin* 80 MG TAB PO SCH (09:08)
[2019-09-18] MEDS: PTO:Multivitamins/Mins (NF) AREDS2 1 CAP CAP PO SCH (09:09)
[2019-09-18] MEDS: Folic Acid TAB* 1 MG PO SCH (09:09)
[2019-09-18] MEDS: DISOPYRAMIDE 100 MG PO SCH ×2 (09:10→15:33)
[2019-09-18] MEDS: Cholecalciferol TAB* 1000 UNITS PO SCH (10:45)
[2019-09-18 13:04] VITALS: BP 147/67
[2019-09-19] MEDS ORDERED: Bumetanide TAB* 2 MG PO SCH (09:00)
--- NOTE | 2019-09-19 11:06 | DS ---
DISCHARGE SUMMARY: DATE OF ADMISSION: 09/16/19 DATE OF DISCHARGE: 09/18/19 ADMITTING PROVIDER: Niko Dailey M.D. PRIMARY CARE PHYSICIAN: Ness Dennis MD OUTPATIENT TECHNICAL ACCOUNT EXECUTIVE: Anaya Nicole MD INPATIENT CONSULTING TECHNICAL ACCOUNT EXECUTIVE: Dr. Basim Yo. ATTENDING PHYSICIAN ON DAY OF DISCHARGE: Kory Gaona MD CHIEF COMPLAINT: Shortness of breath; abnormal lab value. PRINCIPAL DIAGNOSES: 1. [id number]-fp-fuufyeg hypoxic-hypercapnic respiratory failure. 2. Obesity-hypoventilation syndrome. 3. Chronic obstructive pulmonary disease. 4. Contraction metabolic acidosis in the setting of loop diuretic. HISTORY OF PRESENT ILLNESS/HOSPITAL COURSE: Britni Barger is a 74-year-old female with past medical history of diastolic congestive heart failure, obstructive hypertrophic cardiomyopathy, status post alcohol ablation, COPD ( unknown inhalers), paroxysmal atrial fibrillation, on Coumadin, hypertension, anemia, constipation, status post AICD. Please see H and P of Dr. Niko Dailey for full details, but briefly she had a visiting nurses draw labs, which showed elevated white count and bicarb, and they asked her to present to ED for further evaluation. She initially refused, but later drove via EMS given some worsening of shortness of breath. She had a nonproductive cough. Denies any fever or chills. She been mostly bedbound or wheelchair-bound. She had worsening mobility it seems after her recent pacemaker was changed in November and she has developed decreased mobility in the left shoulder. Initial workup included a chest x-ray, which demonstrated cardiomegaly and elevated left hemidiaphragm, but no definitive pneumonia, though evaluation was severely limited due to malpositioning. She had a chest CTA, which was also severely limited due to suboptimal opacification of the pulmonary arteries; pulmonary embolism could not be excluded on the basis of the exam. There was a minimal right pleural effusion with slight interstitial prominence and minimal scattered fibroatelectatic change and minimal patchy ground-glass infiltrates. She had mild prominence of the main pulmonary artery measuring 36 mm, which could be seen with pulmonary hypertension and bilateral adrenal nodules incompletely visualized, but probably similar to 03/19/13. Her BNP was elevated to 1235. Troponins were elevated and flat at 0.08, 0.09, 0.08, 0.10. She denied chest pain. EKG showed paced rhythm. Her ABG demonstrated a metabolic alkalosis with pH of 7.42, pCO2 of 85, pO2 of 77, and bicarb of 44.4, initial serum bicarb was 48. She was started on Diamox and bicarb downtrended to 45 and then [address] of [address] Basim Yo evaluated the patient in consultation and thought the patient's shortness of breath was not cardiac related and more likely related to COPD. On hospital day #2, she was started on new inhalers (she had been on briefly for about 1 year for the first time associated with COPD approximately in 2012), also started on doxycycline. She had some increased warmth in her right lower extremity compared to the left and she had a duplex Doppler that did show no DVT. The right peroneal vein could not be well visualized. She had a negative D-dimer at less than 200. An echocardiogram was ordered initially on admission , but Dr. Yo canceled that study. He did recommend that the patient's Bumex be decreased given concern for some contraction metabolic acidosis contributing to her symptoms and lab values. She had been on 2 mg every other day and this was changed to 2 mg alternating with 1 mg with a day in between each dose. She attested to snoring history, and given her BMI of 45.5, increased neck girth, and chronic hypercapnic respiratory failure, she was advised to pursue sleep study, which she has never done before she says, though there is concern that she may not be able to tolerate CPAP or BiPAP. She is not sure which ones she has been on before, but did not go well. Her course was complicated on hospital day #2 by an episode of weakness and she fell down onto her knees. She had a knee and a hip x-ray, which showed no acute process. As stated, one of the primary reasons she was in the hospital was concern for a lab value and she was a fairly poor historian about actually new and was eager and pleading for discharge ever since hospital day #2. She did have an episode where she seemed to be quite deeply asleep and required sternal rub on morning of discharge and attested that she had not been getting much sleep in the hospital. She is certainly at risk for developing worsening hypercapnic failure and the patient's goal saturation was emphasized to be between 88% and 92%. She had been on 2 L at home chronically. She was anemic with hemoglobin of 9.8 and hematocrit of 30. She had a mild leukocytosis between 11.4 and 13.6 and this is consistent with previous values stretching back to 2013. She does not know her dry weight and does not weigh herself at home, but they do have a scale. DISCHARGE MEDICATIONS: Include: 1. Acetaminophen 1000 mg p.o. t.i.d. 2. Acetazolamide 250 mg p.o. b.i.d. for 5 days (new). 3. Aflibercept 2 mg injections q.4 to 6 months. 4. Ventolin 1 puff inhaled q.6 hours p.r.n. (new). 5. Xanax 0.5 mg p.o. t.i.d. p.r.n. 6. Aspirin 81 mg daily. 7. Bumex 2 mg on day #1 followed by 0 on day #2, 1 mg on day #3, and then 0 mg on day #4, and repeat indefinitely this cycle. 8. Calcium carbonate 500 mg p.o. b.i.d. 9. Cholecalciferol 2000 units p.o. daily. 10. Cyanocobalamin 1000 mcg p.o. daily. 11. Disopyramide 200 mg p.o. t.i.d. 12. Docusate 200 mg p.o. daily p.r.n. 13. Doxycycline 100 mg p.o. b.i.d. for 4 more days. 14. Leonor 60 mg p.o. daily p.r.n. 15. Fluoxetine 20 mg p.o. daily. 16. Advair 1 puff inhaled b.i.d. (new). 17. Folic acid 1 mg p.o. daily. 18. Guaifenesin 1200 mg p.o. b.i.d. 19. Probiotic 1 capsule p.o. daily. 20. Magnesium oxide 400 mg p.o. daily. 21. Metoprolol tartrate 75 mg p.o. b.i.d. 22. MiraLAX 17 g p.o. daily. 23. Potassium chloride 20 mEq p.o. b.i.d. 24. Crestor 40 mg p.o. daily. 25. Sennosides-docusate sodium 2 tabs p.o. daily. 26. Simethicone 125 mg p.o. b.i.d. p.r.n. 27. Spironolactone 25 mg p.o. daily. 28. PreserVision AREDS 2 softgel p.o. daily. 29. Warfarin 5 mg p.o. daily. DISPOSITION: Home. CONDITION: Guarded. DIET: Heart healthy, unchanged. FOLLOWUP: The patient should follow up with PCP, Dr. Ness Dennis, within 7 days. She should follow up Dr. Nicole within 2 weeks. She will follow up with Dr. Winkler within 4 weeks with consideration to pursue sleep study. She should have repeat BMP drawn within 7 days. TIME SPENT ON DISCHARGE: 45 minutes. [id number]/[facility] #: [id number] MTDD
[2019-09-19] MEDS ORDERED: Warfarin TAB(*) 5 MG PO SCH (17:00)
[2019-09-21] MEDS ORDERED: Bumetanide TAB* 2 MG PO SCH (09:00)
== END 2019-09-18 17:50 | disposition home or self-care (01) | DRG 291 ==
LOC: ED 17:22 → MEDTELE 23:22
PROVIDERS: ADMIT Internal Medicine; ATTEND Internal Medicine
DX: I50.33 Acute on chronic diastolic (congestive) heart failure (principal); J96.22 Acute and chronic respiratory failure with hypercapnia; J96.21 Acute and chronic respiratory failure with hypoxia; E66.2 Morbid (severe) obesity with alveolar hypoventilation; Z68.42 Body mass index [BMI] 45.0-49.9, adult; E87.2 Acidosis; I42.1 Obstructive hypertrophic cardiomyopathy; I27.20 Pulmonary hypertension, unspecified; J44.9 Chronic obstructive pulmonary disease, unspecified; I11.0 Hypertensive heart disease with heart failure; I48.0 Paroxysmal atrial fibrillation; Z99.81 Dependence on supplemental oxygen; D64.9 Anemia, unspecified; M79.89 Other specified soft tissue disorders; K59.00 Constipation, unspecified; E78.5 Hyperlipidemia, unspecified; F32.9 Major depressive disorder, single episode, unspecified; F41.9 Anxiety disorder, unspecified; H35.3290 Exudative age-related macular degeneration, unspecified eye, stage unspecified; W18.30XA Fall on same level, unspecified, initial encounter; Y92.230 Patient room in hospital as the place of occurrence of the external cause; Z95.810 Presence of automatic (implantable) cardiac defibrillator; Z99.3 Dependence on wheelchair; Z74.01 Bed confinement status; Z82.49 Family history of ischemic heart disease and other diseases of the circulatory system; Z83.3 Family history of diabetes mellitus; Z83.42 Family history of familial hypercholesterolemia; Z87.891 Personal history of nicotine dependence; I25.10 Atherosclerotic heart disease of native coronary artery without angina pectoris
CPT/HCPCS: 36415; 71046; 71275; 80048; 82728; 82803; 83540; 83550; 83605; 83880; 84484; 85025; 85379; 85610; 85730; 86140; 87070; 87205; 87641; 93005; 93970; 94640; 99285; A9270-GY; J3535; Q9967

== ENCOUNTER 2019-09-22 05:35 | Inpatient (IN) | payer MEDICARE ==
--- NOTE | 2019-09-22 05:47 | ED ---
Altered Mental Status - HPI Summary HPI Summary: 74-year-old female with a significant past medical history of hypertrophic obstructive cardiomyopathy, congestive heart failure, COPD, chronic constipation , atrial fibrillation on Coumadin, AICD in situ with chronic pacemaker use, anemia, diastolic heart failure, glaucoma, depression, wet macular degeneration presents to the emergency department today via EMS with altered mental status. per EMS was called for AMS and mechanical fall from standing, became less responsive on way to ER in the ambulance. Patient was recently discharged from the hospital approximately 4 days ago for hypercarbic hypoxic respiratory failure. Patient presents to emergency department today with altered mental status as compared to baseline at discharge. Patient is alert and oriented to person and place but not time. Patient is in no acute distress and has no evidence of significant trauma. Patient is breathing well. GCS 10 upon arrival. Medical history is difficult to obtain due to patient's altered mental status. - History Of Current Complaint Stated Complaint: FALL PER PT Time Seen by Provider: 09/22/19 05:44 Hx Obtained From: EMS Hx From Patient Unobtainable Due To: Altered Mental Status Onset/Duration: Unknown Timing: Constant Severity Initially: Mild Severity Currently: Severe Character: Confusion, Lethargy Aggravating Factor(s): Unknown Alleviating Factor(s): Unknown Associated Signs And Symptoms: Negative: Vomiting, Fever - Allergies/Home Medications Allergies/Adverse Reactions: Allergies Allergy/AdvReac Type Severity Reaction Status Date / Time bupropion [From Wellbutrin] Allergy Hives Verified 09/16/19 23:34 lactose Allergy Diarrhea Verified 09/16/19 23:34 sotalol Allergy Unknown Verified 09/16/19 23:34 Reaction Details zolpidem [From Ambien] Allergy Hallucinati Verified 09/16/19 23:34 ons PMH/Surg Hx/FS Hx/Imm Hx Endocrine/Hematology History: Reports: Hx Anticoagulant Therapy, Hx Blood Disorders - anemia, Hx Anemia, Hx Unexplained Bleeding Denies: Hx Blood Transfusions, Hx Bone Marrow Disease, Hx Diabetes, Hx Systemic Lupus Erythematosus, Hx Sickle Cell Disease, Hx Thyroid Disease, Other Endocrine/Hematological Disorders Cardiovascular History: Reports: Hx Angina, Hx Auto Implanted Cardiovert Defib, Hx Cardiomegaly, Hx Congenital Heart Disease, Hx Congestive Heart Failure, Hx Coronary Artery Disease, Hx Hypercholesterolemia, Hx Hypotension, Hx Hypertension, Hx Pacemaker/ICD, Hx Rheumatic Fever, Hx Syncope, Other Cardiovascular Problems/Disorders - ABLASION X 3 AT [facility]; CAD; HEART MURMUR; Denies: Hx Aneurysm, Hx Angioplasty, Hx Cardiac Arrest, Hx Deep Vein Thrombosis, Hx Myocardial Infarction, Hx Peripheral Vascular Disease, Hx Valvular Heart Disease Respiratory History: Reports: Hx Chronic Obstructive Pulmonary Disease (COPD), Hx Pneumonia, Other Respiratory Problems/Disorders - PNA Denies: Hx Asthma, Hx Chronic Bronchitis, Hx Cystic Fibrosis, Hx Lung Cancer , Hx Pleural Effusion, Hx Pulmonary Edema, Hx Pulmonary Embolism, Hx Seasonal Allergies, Hx Sleep Apnea GI History: Reports: Hx Gastroesophageal Reflux Disease, Hx Hiatal Hernia, Hx Ulcer Denies: Hx Cirrhosis, Hx Crohn's Disease, Hx Diverticulosis, Hx Gall Bladder Disease, Hx Gastrointestinal Bleed, Hx Irritable Bowel, Hx Jaundice, Hx Obstructive Bowel, Hx Ileostomy, Hx Pyloric Stenosis, Other GI Disorders History: Denies: Hx Acute Renal Failure, Hx Benign Prostatic Hyperplasia, Hx Chronic Renal Failure, Hx Dialysis, Hx Kidney Infection, Hx Kidney Stones, Other Problems/Disorders Musculoskeletal History: Reports: Hx Arthritis - right knee & leg, Hx Back Problems - lower back pain, chronic undiagnosed Denies: Hx Bursitis, Hx Congenital Bone Abnormalities, Hx Fibromyalgia, Hx Gout, Hx Orthopedic Injury, Hx Osteoporosis, Hx Scoliosis, Hx Tendonitis, Other Musculoskeletal History Sensory History: Reports: Hx Cataracts, Hx Glaucoma, Hx Macular Degeneration, Hx Vision Problem Denies: Hx Contacts or Glasses, Hx Eye Injury, Hx Eye Prosthesis, Hx Legally Blind, Hx Deafness, Hx Hearing Aid, Hx Hearing Problem, Other Sensory Impairments Opthamlomology History: Reports: Hx Cataracts, Hx Glaucoma, Hx Macular Degeneration, Hx Vision Problem Denies: Hx Contacts or Glasses, Hx Eye Injury, Hx Eye Prosthesis, Hx Legally Blind, Other Sensory Impairments Neurological History: Reports: Hx Headaches, Hx Migraine, Other Neuro Impairments/Disorders - right leg neuritis Denies: Hx Dementia, Hx Developmental Delay, Hx Seizures, Hx Spinal Cord Injury, Hx Transient Ischemic Attacks (TIA) Psychiatric History: Reports: Hx Anxiety, Hx Depression Denies: Hx Attention Deficit Hyperactivity Disorder, Hx Eating Disorder, Hx Panic Disorder, Hx Post Traumatic Stress Disorder, Hx Inpatient Treatment, Hx Community Mental Health Tx, Hx Schizophrenia, Hx Bipolar Disorder, Hx Suicide Attempt, Hx of Violent Episodes Against Others, Hx Substance Abuse, Other Psychiatric Issues/Disorders - Cancer History Hx Chemotherapy: No Hx Radiation Therapy: No - Surgical History Surgery Procedure, Year, and Place: bilateral cataract surgery-2012. tonsillectomy as a child. exploratory abdominal surgery . colonoscopies. ICD/pacer Hx Anesthesia Reactions: No - Immunization History Date of Tetanus Vaccine: UNKNOWN Infectious Disease History: Reports: Hx of Known/Suspected MRSA Denies: Hx Clostridium Difficile, Hx Hepatitis, Hx Human Immunodeficiency Virus (HIV), Hx Shingles, Hx Tuberculosis, Traveled Outside the [place] in Last 30 Days - Family History Known Family History: Negative: Seizure Disorder - Social History Alcohol Use: None Alcohol Amount: 1 beer every 2 months Hx Substance Use: No Substance Use Type: Reports: None Hx Tobacco Use: Yes Smoking Status (MU): Former Smoker Type: Cigarettes Amount Used/How Often: 1ppd Length of Time of Smoking/Using Tobacco: 30 Have You Smoked in the Last Year: No Review of Systems - ROS Summary Review of Systems Summary: Adequate review of systems is difficult to obtain due to patient's mental status. Negative: Fever Negative: Cough Negative: Vomiting Positive: Weakness All Other Systems Reviewed And Are Negative: Yes Physical Exam - Summary Physical Exam Summary: Obese female in no acute distress. She has no evidence of cyanosis or jaundice. GCS 10 upon arrival. There is significant distention of the abdomen as well as mild edema of the lower extremities. No evidence of JVD. There are no significant musculoskeletal deformities. No evidence of hemotympanum or carranza sign indicative of basilar skull fracture. Patient is full passive range of motion of the hips and shoulders. Triage Information Reviewed: Yes Vital Signs Reviewed: Yes Appearance: Positive: No Pain Distress, Well-Nourished, Ill-Appearing, Obese Skin: Positive: Warm, Skin Color Reflects Adequate Perfusion Eyes: Positive: TIM, Conjunctiva Clear ENT: Positive: Hearing grossly normal Respiratory/Lung Sounds: Positive: Clear to Auscultation, Breath Sounds Present , Decreased Breath Sounds Cardiovascular: Positive: RRR, Murmur, S1, S2 Abdomen Description: Positive: Nontender, Soft, Distended. Negative: Guarding, Peritoneal Signs Bowel Sounds: Positive: Present Neurological: Positive: Disoriented, Facial Symmetry, Speech Normal. Negative: Alert, Oriented to Person Place, Time Psychiatric: Positive: Normal AVPU Assessment: Verbal (Reponds To) Procedures - Sedation Patient Received Moderate/Deep Sedation with Procedure: No Diagnostics - Laboratory Result Diagrams: 09/22/19 05:58 09/22/19 05:58 Lab Statement: Any lab studies that have been ordered have been reviewed, and results considered in the medical decision making process. Altered Mental Statu Course/Dx - Course Course Of Treatment: Patient was evaluated in the emergency department today for altered mental status. Patient was seen and evaluated her vitals were stable and she is afebrile. GCS upon arrival is 10. EKG was done promptly which shows atrial/ventricle dual paced rhythm at 75 bpm with no evidence of STEMI. This EKG is unchanged compared to prior done on 09/16/2019. POC Blood glucose was 151. Based on physical exam is a high suspicion for CO2 narcosis and laboratory studies were drawn. Chest x-ray shows significant pulmonary congestion consistent with CHF. Venous blood gas returned showing significant respiratory acidosis with a pH of 7.23 PCO2 of 94. Patient placed on BiPAP and given 40 mg of IV Lasix and topical nitro paste for CHF exacerbation and CO2 narcosis. CT scan of the brain without contrast shows no evidence of intracranial bleed. Labs returned showing leukocytosis with a white count of 15.6. There is mild anemia which is patients baseline. there are no significant electrolyte abnormalities however hyperglycemia is noted with a BG of 142. BUN is elevated at 31 which is likely caused by CHF. Negative toxicology screening. Troponin is 0.10 likely caused by demand ischemia from acute on chronic hypercarbic hypoxemic respiratory failure. urinalysis is negative for UTI. Soap Drier Operator, Dr. Brambila was consulted at 07 and agreed to admit the patient to the ICU for further managment. - Diagnoses Differential Diagnosis/HQI/PQRI: CVA, Hypoglycemia, Hypoxia, Injury, Intoxication, Intracranial Bleed, Metabolic Disorder, Postictal State, Seizure, TIA Provider Diagnoses: Altered mental status Is Visit Related: No - Provider Notifications Discussed Care Of Patient With: Marco Antonio Brambila - Agreed to admit pt to ICU Time Discussed With Above Provider: 07:30 Instructed by Provider To: Admit As Inpatient Admit/Transition Orders Completed By ED Provider: No - Critical Care Time Critical Care Time: 30-74 min - Upon my evaluation, this patient had a high probability of imminent or life-threatening deterioration due to respiratory failure which required my direct attention, intervention, and personal management. I have personally provided 35 minutes of critical care time exclusive of time spent on separately billable procedures. Time includes review of laboratory data, radiology results, discussion with consultants, and monitoring for potential decompensation. Interventions were performed as documented above. Lazaro Wen MD Discharge ED - Sign-Out/Discharge Documenting (check all that apply): Patient Departure - Discharge Plan Condition: Stable Disposition: ADMITTED TO [facility] - Billing Disposition and Condition Condition: STABLE Disposition: Admitted to [facility] - Attestation Statements Provider Attestation: I have seen the patient with the ERICKA and agree with the plan and documentation below except as noted: 24-year-old female who presents obtunded secondary to hypercarbia. Patient placed on BiPAP, repeat ABG with worsening CO2 likely in the setting of poor ventilation. ICU at bedside increased inspiratory pressure , tidal volume. Lazaro Wen MD
[2019-09-22 06:22] LABS: Hematocrit 33 % (35-47); Hemoglobin 10.6 g/dL (12.0-16.0); Mean Corpuscular HGB Conc 32 g/dL (31-36); Mean Corpuscular Hemoglobin 32 pg (27-31); Mean Corpuscular Volume 98 fL (80-97); Mean Platelet Volume 8.7 fL (7.4-10.4); Platelet Count 358 10^3/uL (150-450); Red Blood Count 3.34 10^6 /uL (3.70-4.87); Red Cell Distribution Width 14 % (10-15); White Blood Count 15.6 10^3/uL (3.5-10.8)
[2019-09-22 06:34] LABS: Urine Appearance Clear; Urine Bilirubin Negative (Negative); Urine Blood Negative (Negative); Urine Color Amber; Urine Glucose Negative (Negative); Urine Ketones Negative (Negative); Urine Nitrite Negative (Negative); Urine Protein Negative (Negative); Urine Urobilinogen Negative (Negative)
[2019-09-22 06:46] LABS: ALT 21 U/L (7-52); AST 21 U/L (13-39); Albumin 3.6 g/dL (3.2-5.2); Albumin/Globulin Ratio 1.2 (1-3); Alkaline Phosphatase 89 U/L (34-104); Anion Gap 5 mmol/L (2-11); BUN/Creatinine Ratio 41.3 (8-20); Blood Urea Nitrogen 31 mg/dL (6-24); CO2 Carbon Dioxide 38 mmol/L (22-32); Calcium 9.8 mg/dL (8.6-10.3); Chloride 87 mmol/L (101-111); EGFR African American 91.4 (>60); EGFR Non-African American 75.5 (>60); Glucose 142 mg/dL (70-100); Potassium 4.5 mmol/L (3.5-5.0); Sodium 130 mmol/L (135-145); Total Protein 6.6 g/dL (6.4-8.9)
[2019-09-22] MEDS ORDERED: Furosemide IV* 10 MG/ML VIAL (40 MG) IV ONE (07:01)
[2019-09-22] MEDS ORDERED: Nitro 2% OINT* (Nitroglycerin) 1 INCH/PAK PAK TOPICAL ONE (07:03)
[2019-09-22 07:09] LABS: Urine Benzodiazepine Screen None Detected (None Detect); Urine Opiates Screen None Detected (None Detect)
[2019-09-22 07:18] LABS: ABS Monocytes 1.5 10^3/ul (0-0.8); ABS Neutrophils 13.1 10^3/ul (1.5-7.7); ABS Nucleated RBC 0.1 10^3/ul; Eosinophil % 0.1 %; Lymphocyte % 6.5 %; Nucleated Red Blood Cells % 0.4
[2019-09-22 07:25] LABS: Acetaminophen < 15 mcg/mL; Alcohol < 10 mg/dL (<10); Salicylate < 2.50 mg/dL (<30)
[2019-09-22 07:41] LABS: TSH (Thyroid Stimulating Horm) 1.76 mcIU/mL (0.34-5.60)
[2019-09-22] MEDS ORDERED: Albuterol HFA INHALER* 8 gm MDI INH PRN (08:45)
[2019-09-22] MEDS ORDERED: Calcium Carbonate CHEW TAB* 500 MG (TUMS) PO PRN (08:45)
[2019-09-22] MEDS ORDERED: SIMETHICONE SUSP* ORALSYR 66.66 MG/ML PO PRN (08:45)
[2019-09-22] MEDS ORDERED: Cetirizine* 10 MG TAB PO PRN (08:45)
[2019-09-22] MEDS ORDERED: Docusate CAP* 100 MG PO PRN (08:45)
[2019-09-22] MEDS ORDERED: Polyethylene Glycol 3350* 17 GM PACKET PO PRN (08:45)
[2019-09-22] MEDS ORDERED: Iohexol 300* (CONTRAST) 10 ML SDV IV ONE (08:46)
[2019-09-22 08:51] LABS: INR 4.08 (0.82-1.09)
[2019-09-22] MEDS ORDERED: Enoxaparin(*) 40 MG/0.4 ML SYR SUBCUT SCH (09:00)
[2019-09-22] MEDS: Multivitamins/Minerals TAB PO SCH (10:44)
[2019-09-22] MEDS: Magnesium Oxide TAB* 400 MG PO SCH (10:44)
[2019-09-22] MEDS: Potassium Chlor TAB* 20 MEQ TAB.ER PO SCH ×2 (10:44→21:54)
[2019-09-22] MEDS: Spironolactone TAB* 25 MG PO SCH (10:44)
[2019-09-22] MEDS: Senna TAB 8.6 mg* TAB PO SCH (10:44)
[2019-09-22] MEDS: Mometasone/Formoter 200/5 MDI INH SCH ×2 (10:44→19:36)
[2019-09-22] MEDS: Metoprolol Tartrate TAB* 50 mg PO SCH ×2 (10:44→21:54)
[2019-09-22] MEDS: DISOPYRAMIDE 100 MG PO SCH ×3 (10:45→21:53)
[2019-09-22] MEDS: FLUoxetine CAP* 10 MG PO SCH (10:45)
[2019-09-22] MEDS: Aspirin EC TAB* 81 MG TAB.EC PO SCH (10:45)
[2019-09-22] MEDS: Cholecalciferol TAB* 1000 UNITS PO SCH (10:45)
[2019-09-22] MEDS: acetaZOLAMIDE TAB* 250 MG PO SCH ×2 (10:45→21:54)
[2019-09-22] MEDS: Folic Acid TAB* 1 MG PO SCH (10:45)
[2019-09-22] MEDS: Cyanocobalamin TAB* 500 MCG PO SCH (10:45)
[2019-09-22] MEDS: Lactobacillus Acidophilus* 1 TAB PO SCH (10:45)
[2019-09-22] MEDS: Atorvastatin* 80 MG TAB PO SCH (10:45)
[2019-09-22] MEDS: guaiFENesin ER TAB 600 MG PO SCH ×2 (10:45→21:54)
[2019-09-22] MEDS ORDERED: WARFARIN - No Order Today* 1 NOTE MISC FOLLOW UP SCH (11:00)
--- NOTE | 2019-09-22 11:23 | HP ---
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 Most of the history is taken from patient as patient was drowsy and not able to participate on history taking. According to her she was apparently well until today morning, when she got up from bed to go to bathroom and rocio a fall. She did not hit her head or sustained other trauma. She was not confused, no seizures and talking well after the fall. But after some time, she became confused and was altered which prompted her to call EMS and come to ED. She was recently admitted to [facility] from 09/15 to 09/18 and was discharged with diagnosis of Acute on chronic respiratory failure and suspected ADAIR/OHS. She was scheduled to see sleep clinic for CPAP/BiPAP. She was using 2 L of oxygen at home. Her denies fever and worsening cough; although she has baseline cough which is productive at times. Hospital Course She was brought by EMS and was lethargic and altered throughout. Her GCS was 10 on presentation. Her vitals were stable; slight systolic hypertension. Blood work showed WBC 15.6 with left shift, Hb 10.6, Na 130, CO2 38, Cl 87, Ammonia 65, Troponin 0.10, BNP>1300 and blood gas showing Respiratory acidosis. Patient placed on BiPAP and given 40 mg of IV Lasix and topical nitro paste for CHF exacerbation and CO2 narcosis. CT scan of the brain without contrast shows no evidence of intracranial bleed. Chest xray showed pulmonary edema with questionable consolidation on left side and pleural effusion. Negative toxicology screening. She was admitted to ICU service for hypoxia management and is on BiPAP. - Past Medical History Past Medical History: 1. Hypertrophic obstructive cardiomyopathy 2. Heart Failure with preserved Heart failure 3. COPD on home o2. 4. pAF on coumadin 5. AICD and pacemaker 6. Anemia 7. Depression 8. Glaucoma 9. Wet macular degeneration 10. Chronic constipation - Past Surgical History Past Surgical History: 1. Septal [place] X 3[place]. 2. Dual chamber pacemaker placement - Past Family History Past Family History: Father had heart disease and Mother had diabetes and heart disease. Family history positive for hyperlipidemia as well. - Past Social History Past Social History: She lives with her and he is her primary nougat candy maker helper. 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 She is bedbound since 1-2 year and only gets upto go to bathroom with her assistance. Uses hospital bed at home. She quit smoking in 2011; smoked for 35 years. Denies alcohol or recreational drug use. Her HCP is her , Billy. She is full code. Medications: Home Medications Medication Instructions Recorded Confirmed Type ALPRAZolam TAB* [Xanax TAB*] 0.5 mg PO TID PRN 06/27/14 09/22/19 History Calcium Carbonate CHEW TAB* [Tums*] 500 mg PO BID PRN 06/27/14 09/22/19 History Docusate CAP* [Colace Cap*] 200 mg PO DAILY PRN 06/27/14 09/22/19 History Polyethylene Glycol 3350* 17 gm PO DAILY PRN 06/27/14 09/22/19 History [Miralax*] Disopyramide CAP* [Norpace CAP*] 200 mg PO TID 06/28/15 09/22/19 History Metoprolol Tartrate TAB* 75 mg PO BID 06/28/15 09/22/19 History [Lopressor TAB*] Warfarin TAB(*) [Coumadin TAB(*)] 5 mg PO DAILY 06/28/15 09/22/19 History Acetaminophen [Acetaminophen Extra 1,000 mg PO TID PRN 09/16/19 09/22/19 History Strength] Aflibercept [Eylea] 2 mg INJ .Q4-6M 09/16/19 09/22/19 History Aspirin EC TAB* [Ecotrin EC Low 81 mg PO DAILY 09/16/19 09/22/19 History Dose 81 MG*] Cholecalciferol (Vitamin D3) 2,000 unit PO DAILY 09/16/19 09/22/19 History [Vitamin D3] Cyanocobalamin TAB* [Vitamin B12 1,000 mcg PO DAILY 09/16/19 09/22/19 History TAB*] FLUoxetine CAP* [Prozac CAP*] 20 mg PO DAILY 09/16/19 09/22/19 History Fexofenadine (NF) [Leonor (NF)] 60 mg PO DAILY PRN 09/16/19 09/22/19 History Folic Acid TAB* [Folvite TAB*] 1 mg PO DAILY 09/16/19 09/22/19 History L.acidoph,Paracasei, B.lactis 1 cap PO DAILY 09/16/19 09/22/19 History [Probiotic] Magnesium Oxide TAB* [MagOx 400 400 mg PO DAILY 09/16/19 09/22/19 History TAB*] Potassium Chloride [Klor-Con M20] 20 meq PO BID 09/16/19 09/22/19 History Rosuvastatin (NF) [Crestor (NF)] 40 mg PO DAILY 09/16/19 09/22/19 History Sennosides/Docusate Sodium 2 tab PO DAILY 09/16/19 09/22/19 History [Senokot-S Tablet] Simethicone [Gas-X] 125 mg PO BID PRN 09/16/19 09/22/19 History Spironolactone TAB* [Aldactone TAB 25 mg PO DAILY 09/16/19 09/22/19 History 25 MG*] Vit C/E/Zn/Coppr/Lutein/Zeaxan 2 cap PO DAILY 09/16/19 09/22/19 History [Preservision Areds 2 Softgel] guaiFENesin ER TAB [Mucinex*] 1,200 mg PO BID 09/16/19 09/22/19 History Albuterol HFA INHALER* [Ventolin 1 puff INH Q6H PRN #1 mdi 09/18/19 09/22/19 Rx HFA Inhaler*] Bumetanide TAB* [Bumex 2 MG TAB*] 2 mg PO SEE INSTRUCTIONS #30 tab 09/18/1906/03 Rx Doxycycline Monohydrate 100 mg PO BID #8 cap 09/18/19 09/22/19 Rx Fluticas/Salmet 230/21 HFA(NF) 1 puff INH BID #1 mdi 09/18/19 09/22/19 Rx [Advair HFA 23O (NF)] acetaZOLAMIDE TAB* [Diamox Tab*] 250 mg PO BID #10 tab 09/18/19 09/22/19 Rx Allergies/Adverse Reactions: Allergies Allergy/AdvReac Type Severity Reaction Status Date / Time bupropion [From Wellbutrin] Allergy Hives Verified 09/16/19 23:34 lactose Allergy Diarrhea Verified 09/16/19 23:34 sotalol Allergy Unknown Verified 09/16/19 23:34 Reaction Details zolpidem [From Ambien] Allergy Hallucinati Verified 09/16/19 23:34 ons Review of Systems - Review of Systems Constitutional: Negative: Fever, Chills, Sweats, Weakness, Malaise, Other Eyes: Negative: Pain, Vision Change, Conjunctivae Inflammation, Eyelid Inflammation, Redness, Other ENT: Negative: Ear Pain, Ear Discharge, Nose Pain, Nose Discharge, Nose Congestion, Mouth Pain, Mouth Swelling, Throat Pain, Throat Swelling, Other Respiratory: Positive: Cough, Shortness of Breath. Negative: Dry, Hemoptysis, SOB with Excertion, Pleuritic Pain, Sputum, Wheezing Cardiovascular: Negative: Chest Pain, Palpitations, Orthopnea, Paroxysmal Noc. Dyspnea, Edema, Light Headedness, Other Gastrointestinal: Positive: Constipation. Negative: Nausea, Vomiting, Abdominal Pain, Diarrhea, Melena, Hematochezia, Other Genitourinary: Negative: Dysuria, Frequency, Incontinence, Hematuria, Retention , Other Musculoskeletal: Negative: Neck Pain, Shoulder Pain, Arm Pain, Back Pain, Hand Pain, Leg Pain, Foot Pain, Other Skin: Negative: Rash, Lesions, Thompson, Bruising, Other Neurological: Positive: Confusion. Negative: Weakness, Numbness, Incoordination , Change in Speech, Seizures, Other Exam Vital Signs: Vital Signs (72 hours) 09/22/19 09/22/19 09/22/19 05:38 05:48 05:52 Temperature 95.8 F Pulse Rate 66 66 59 Respiratory 28 Rate Blood Pressure 163/74 163/74 (mmHg) O2 Sat by Pulse 97 97 91 Oximetry 09/22/19 09/22/19 09/22/19 06:00 06:23 06:57 Temperature 95.8 F Pulse Rate 57 62 52 Respiratory 28 23 Rate Blood Pressure 163/70 (mmHg) O2 Sat by Pulse 99 90 100 Oximetry 09/22/19 09/22/19 09/22/19 07:00 07:09 07:19 Temperature Pulse Rate 56 54 54 Respiratory 14 20 20 Rate Blood Pressure 125/56 151/55 (mmHg) O2 Sat by Pulse 100 100 100 Oximetry 09/22/19 09/22/19 09/22/19 07:49 08:00 08:19 Temperature Pulse Rate 55 55 55 Respiratory 23 20 21 Rate Blood Pressure 132/52 136/54 (mmHg) O2 Sat by Pulse 100 100 100 Oximetry 09/22/19 09/22/19 09/22/19 08:49 09:00 09:19 Temperature Pulse Rate 55 55 55 Respiratory 18 18 20 Rate Blood Pressure 121/52 135/42 (mmHg) O2 Sat by Pulse 100 100 98 Oximetry 09/22/19 09/22/19 09/22/19 10:00 10:20 10:25 Temperature 95.9 F Pulse Rate 55 65 55 Respiratory 20 22 23 Rate Blood Pressure 130/81 130/78 (mmHg) O2 Sat by Pulse 96 99 99 Oximetry Exam: Patient is lying on a bed with Bipap machine HEENT: On Bipap. PERRLA Neck: No JVD visible because of obesity Lungs: Distant breath sounds; minimally audible crackles Heart: Normal in rate and rhythm. Abdomen: Obese and distended and nontender. 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 Found to have acute on chronic respiratory failure with hypercapnia, acute exacerbation of HF, leucocytosis, hyperammoninemia, elevated troponin and elevated BNP. On BiPAP and on lasix. Plan: Hospital Diagnosis 1. Acute on chronic respiratory failure with hypercapnia 2. Acute exacerbation of HF 3. Elevated troponin-likley demand 4. Supratherapeutic INR Cardiovascular: (1) Acute HF exacerbation (2) pAF (3) HCOM (4) Hypertension (5) AICD and pacemaker --HR: 55-65 --SBP: 102-163 --Trop:0.1; likely demand from heart failure exacerbation; trend --BNP>1300 --Pending ECHO: last echo was on 2014 with normal EF, LV hypertrophy, mild to moderate LA dilatation. --CXR: pulmonary edema --continue iv lasix --Continue aspirin, statin, spironolactone, disopyramide, metoprolol. 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; no whezing --Continue home inhalers --Home med: fexofenadine, guaifenesin, advair, albuterol inhaler Gastrointestinal: (1) Constipation --Bowel regimen: senokot,miralax, --Gi prophylaxis: not needed --Home meds: senokot, miralax Neurological: (1) Altered mental status (2) Depression --secondary to hypercapnia --No focal deficit --Home meds: fluoxetine Infectious: None --WBC: 15 Temp 97.9 -- concern for consolidation on CXR --CT chest negative for consolidation; shows atelectasis and pulmonary edema with pleural effusion --pending urine legio and strept -- No abx at present --recently treated with doxy --Home meds: doxycycline Hematological: (1) Anemia (2) Supratherapeutic INR --Hb: 10.6 -Plt: 358 -has chronic anemia; macrocytic --takes coumadin for afib; inr is 4; hold warfarin for today --restart tomorrow. --Home meds: coumadin, Vitamin B12, folic acid Renal: None --Creatinine 0.75 --Na is 130; trend --Home meds: potassium chloride, mag oxide Metabolic: Respiratory acidosis --on diamox Other: None Condition: Critical Prognosis: Guarded DVT Prophylaxis: None; supratherapeutic INR Disposition: Continue ICU care updated at bedside regarding interval events and plan of care Cumulative time spent in the care of this patient (excluding any procedure time) : at least 65 minutes. Patient care included clinical interview (with patient and/or family), bedside exam of the patient, review of labs, x-rays, and other ancillary data, coordination of (respiratory, nursing care, review of patient's records, discussion regarding patients management with involved consultants, primary physician, pharmacists, and other healthcare personnel (dietary, case management , physical/occupational therapy etc.) Critical Care Time: 65 Attestation Documenting Resident: Kamala Tan Supervising Physician: Marco Antonio Brambila Attending/Supervising Physician Comment: Presents with acute on chronic hypercapnic respiratory failure secondary to obstructive sleep apnea +/- OHS. We have adjusted her BiPAP placed in the ED to a higher driving pressure as exam and ABG showed no improvement. With exhaled TV at 500 range and MV closer to 10L she is now wakeful and improved. She will clearly require formal sleep study as planned but also cannot be safely DC'd to home without some form of BiPAP in the interim. CT shows she's dropping lobes, needs bronchodilators and PPV on a routine basis to try and keep her open. She does not seem to be acutely infected. Weight loss is the definitive treatment of her problem. D/W in detail at bedside in ED. Attestation: This service has been performed in part by a resident under the direction of a teaching physician.I, Marco Antonio Brambila, performed the service, or was physically present during the critical, or prather portions of the service, furnished by the resident. I participated in the management of the patient.
[2019-09-22 11:58] LABS: Influenza A Molecular NEGATIVE (Negative); Influenza B Molecular NEGATIVE (Negative)
[2019-09-22] MEDS ORDERED: Furosemide IV* 10 MG/ML VIAL (40 MG) IV SCH (12:00)
[2019-09-22] MEDS ORDERED: Perflutren Lipid Microsphere* 3 ML VIAL ONE (14:09)
--- NOTE | 2019-09-22 16:41 | ECHO ---
*[facility]* [place] [address] Fax #: [phone] Transthoracic Echocardiogram Patient: Britni Barger : 1945 Study Date: 09/22/2019 Age: 74 Gender: F HR: 55 bpm Height: 61 in /154.9 cm BSA: 2.15 m^2 Weight: 269.4 lb /122.5 kg BMI: 51 kg/m^2 *Bolt Maker: Ying Castornea *Referring Physician: * Kamala Tan *Reading Physician: * Bruce Vera MD Indications: Congestive Heart Failure. History: Atrial fibrillation. Mitral stenosis. Risk factors: HOCM. COPD Labs, prior tests, procedures, and surgery: Permanent pacemaker system implantation. Conclusions Summary: - Left ventricle: The cavity size is mildly reduced. Wall thickness is moderately increased. Systolic function is vigorous. The estimated ejection fraction is 65-70%. - Right ventricle: The cavity size is normal. Pacer wire noted in the right ventricle. - Ventricular septum: There is abnormal interventricular septal wall motion consistent with an RV pacemaker. - Left atrium: The atrium is mildly to moderately dilated. - Mitral valve: Appears moderate to severely calcified. The leaflets are mildly thickened. The findings are consistent with mild stenosis. - Aortic valve: The findings are consistent with mild stenosis. - Pulmonary arteries: Systolic pressure is mildly increased. Recommendations: Compared to prior study from 06/2015, findings are similar. Study data: Transthoracic echocardiogram. Procedure: Transthoracic echocardiography was performed. Image quality was suboptimal. Intravenous Definity , 2 mlswas administered. Complete 2D, spectral Doppler, and color flow Doppler. Location: ICU Patient status: Inpatient. Patient room number: 10. Findings Left ventricle: The cavity size is mildly reduced. Wall thickness is moderately increased. Systolic function is vigorous. The estimated ejection fraction is 65-70%. Wall motion is normal; there are no regional wall motion abnormalities. Left ventricular diastolic function parameters are normal. Right ventricle: The cavity size is normal. Pacer wire noted in the right ventricle. Systolic function is normal. Ventricular septum: There is abnormal interventricular septal wall motion consistent with an RV pacemaker. Left atrium: The atrium is mildly to moderately dilated. Right atrium: Not well visualized. The atrium is normal in size. Pacer wire noted in right atrium. Mitral valve: Appears moderate to severely calcified. The leaflets are mildly thickened. The findings are consistent with mild stenosis. There is no significant regurgitation. Aortic valve: The valve is probably trileaflet. The leaflets are mildly calcified. The findings are consistent with mild stenosis. There is no significant regurgitation. Tricuspid valve: The leaflets are normal thickness. There is no evidence of stenosis. There is mild regurgitation. Pulmonic valve: Not well visualized. There is no evidence of stenosis. There is trace regurgitation. Aorta: The aortic root appears normal. Pericardium: There is no significant pericardial effusion. Pulmonary arteries: Systolic pressure is mildly increased. Systemic veins: Not visualized. Pulmonary veins: Not well visualized. Measurements Left ventricle Value Ref Aortic valve Value Ref SACHA, LAX 4.7 cm 3.8 - 5.2 Peak v, S 1.98 m/sec ----- ESD, LAX 3.0 cm 2.2 - 3.5 VTI, S 45.4 cm ----- FS, LAX 36 % 27 - 45 Mean grad, S 15.0 mm Hg ----- PW, ED, LAX (H) 1.3 cm 0.6 - 0.9 Peak grad, S 16.0 mm Hg ----- FS 36 % 27 - 45 PEPE, VTI 2.08 cm^2 ----- Mid-wall FS 12 % PEPE, Vmax 1.65 cm^2 ----- PW, ED (H) 1.3 cm 0.6 - 0.9 PW/ID, ED 0.27 Mitral valve Value Ref E', lat evelin, TDI 10.1 cm/sec >=10.0 Peak E 1.45 m/sec ----- E/e', lat evelin, 14 Peak A 0.3 m/sec --- -- TDI Decel time 489 ms ----- E', med evelin, TDI (L) 4.3 cm/sec >=7.0 PHT 112 ms ----- E/e', med evelin, 34 Mean grad, D 6.0 mm Hg --- -- TDI Peak grad, D 11.0 mm Hg ----- E', avg, TDI 7.2 cm/sec Peak E/A ratio 4.8 --- -- E/e', avg, TDI (H) 20 <=14 MVA, PHT 1.9 cm^2 ----- MVA, LVOT cont 1.8 cm^2 ----- LVOT Value Ref Diam, S 2.00 cm Pulmonic valve Value Ref Area 3.1 cm^2 Peak v, S 0.66 m/sec ----- Peak ny, S 1.04 m/sec Peak grad, S 2.0 mm Hg ----- Mean grad, S 3 mm Hg SV 75 ml Tricuspid valve Value Ref SV/bsa 35 ml/m^2 TR peak v (H) 3.06 m/sec <=2.8 Peak RV-RA grad, S 37 mm Hg ----- Ventricular septum Value Ref Max TR ny 3.06 m/sec ----- IVS, ED (H) 1.8 cm 0.6 - 0.9 Aortic root Value Ref Right ventricle Value Ref Root diam 3.0 cm <4.3 SACHA, LAX 4.0 cm SACHA minor ax, A4C (H) 3.7 cm 1.9 - 3.5 Ascending aorta Value Ref mid AAo AP diam, S 3.1 cm ----- Left atrium Value Ref Inferior vena cava Value Ref AP dim, ES (H) 4.40 cm 2.70 - Diam 1.7 cm ----- 3.80 Vol/bsa, ES, 1-p 26 ml/m^2 11 - 40 A4C Vol/bsa, ES, 1-p 35 ml/m^2 13 - 40 A2C Legend: (L) and (H) glo values outside specified reference range. Prepared and electronically signed by Bruce Vera MD 09/22/2019 16:40
[2019-09-22] MEDS ORDERED: ALBUMIN HUMAN 25% IV ONE (17:57)
[2019-09-22] MEDS: Albumin Human 5%* 12.5 GM/250 ML BTL IV SCH ×2 (18:00→19:23)
[2019-09-22] MEDS ORDERED: Phenylephrine 10 MG/ML VIAL* 50 MG in NS 0.9% 250 ML* 245 ML IV SCH (18:00)
[2019-09-23 05:48] LABS: Hematocrit 30 % (35-47); Hemoglobin 9.5 g/dL (12.0-16.0); Mean Corpuscular HGB Conc 32 g/dL (31-36); Mean Corpuscular Hemoglobin 32 pg (27-31); Mean Corpuscular Volume 98 fL (80-97); Mean Platelet Volume 8.3 fL (7.4-10.4); Platelet Count 339 10^3/uL (150-450); Red Blood Count 3.01 10^6 /uL (3.70-4.87); Red Cell Distribution Width 15 % (10-15); White Blood Count 15.4 10^3/uL (3.5-10.8)
[2019-09-23 05:58] LABS: ABS Eosinophils 0.1 10^3/ul (0-0.6); ABS Lymphocytes 1.5 10^3/ul (1.0-4.8); ABS Monocytes 1.7 10^3/ul (0-0.8); ABS Neutrophils 11.4 10^3/ul (1.5-7.7); Eosinophil % 0.4 %; Lymphocyte % 10.2 %; Nucleated Red Blood Cells % 0.2
[2019-09-23 06:06] LABS: Anion Gap 6 mmol/L (2-11); BUN/Creatinine Ratio 29.7 (8-20); Blood Urea Nitrogen 27 mg/dL (6-24); CO2 Carbon Dioxide 40 mmol/L (22-32); Calcium 9.2 mg/dL (8.6-10.3); Chloride 90 mmol/L (101-111); EGFR African American 73.1 (>60); EGFR Non-African American 60.4 (>60); Glucose 81 mg/dL (70-100); Potassium 3.5 mmol/L (3.5-5.0); Sodium 136 mmol/L (135-145)
[2019-09-23 06:11] LABS: Troponin I 0.14 ng/mL (<0.03)
[2019-09-23] MEDS: Mometasone/Formoter 200/5 MDI INH SCH ×2 (07:32→20:02)
[2019-09-23 08:38] LABS: INR 3.71 (0.82-1.09)
[2019-09-23] MEDS: Senna TAB 8.6 mg* TAB PO SCH (09:09)
[2019-09-23] MEDS: Lactobacillus Acidophilus* 1 TAB PO SCH (09:09)
[2019-09-23] MEDS: Cyanocobalamin TAB* 500 MCG PO SCH (09:09)
[2019-09-23] MEDS: Folic Acid TAB* 1 MG PO SCH (09:09)
[2019-09-23] MEDS: Magnesium Oxide TAB* 400 MG PO SCH (09:09)
[2019-09-23] MEDS: Docusate CAP* 100 MG PO SCH (09:09)
[2019-09-23] MEDS: Aspirin EC TAB* 81 MG TAB.EC PO SCH (09:09)
[2019-09-23] MEDS: guaiFENesin ER TAB 600 MG PO SCH ×2 (09:10→20:37)
[2019-09-23] MEDS: Atorvastatin* 80 MG TAB PO SCH (09:10)
[2019-09-23] MEDS: Spironolactone TAB* 25 MG PO SCH (09:10)
[2019-09-23] MEDS: Multivitamins/Minerals TAB PO SCH (09:10)
[2019-09-23] MEDS: Cholecalciferol TAB* 1000 UNITS PO SCH (09:10)
[2019-09-23] MEDS: DISOPYRAMIDE 100 MG PO SCH ×3 (09:11→20:37)
[2019-09-23] MEDS: Metoprolol Tartrate TAB* 50 mg PO SCH (09:11)
[2019-09-23] MEDS: FLUoxetine CAP* 10 MG PO SCH (09:24)
[2019-09-23] MEDS: Potassium Chlor TAB* 20 MEQ TAB.ER PO SCH ×2 (09:24→20:37)
--- NOTE | 2019-09-23 11:38 | PN ---
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 Found to have acute on chronic respiratory failure with hypercapnia, acute exacerbation of HF, leucocytosis, hyperammoninemia, elevated troponin and elevated BNP. On BiPAP. Lasix stopped because of hypotension. Most likely ADAIR/ OHS causing CO2 retention. Needs to be in positive pressure ventilation during sleep and while naping. HD 2 on 09/23 Overnight: No acute overnight events. saturating 98% on 4 L of oxygen Vitals: stable Patient is alert and oriented and says that the room is little warm. Saturating well on 4 L of oxygen. Patient counselled on need of sleep study and need of BiPAP/CPAP and she has wear it at night. Patient seems to understand. updated and says she is 90% better than what she was yesterday. Has atlectasis of lung; will order metaneb and will need pulm consult in future. She was recently treated for Pneumonia on last hospitalization 09/15-09/18/2019. Has elevated trop: looks demand; has chronic mild elevation of trop; likely right heart strain from ADAIR/OHS; patient needs positive pressure ventilation at discharge. Patient takes warfarin for atrial fibrillation; warfarin held because of supratherapeutic INR; need to trend INR and restart warfarin. Metoprolol and lasix not given this morning because of hypotension; can restart once normotensive. Vital Signs: Temp Pulse Resp BP SpO2 FiO2 98.1 F 56 25 136/55 96 40 09/23/19 03:54 09/23/19 10:09/23/19 10:09/23/19 10:09/23/19 10:09/22 20:00 Physical Exam: Gen:Patient resting on a bed with no acute distress. HEENT: Normocephalic and atraumatic Lungs: clear but diminished Cardiac: Normal in rate and rhythm Abdomen: soft, obese and nontender. Normal BS heard Extremities: warm and dry Neuro: Alert, oriented and coperative Fluid Balance (Past 24 Hours): I= O= Net Intake & Output 09/21/19 09/22/19 09/23/19 09/24/19 06:59 06:59 06:59 06:59 Intake Total 276 300 Output Total 1999 100 Balance -1724 200 Weight 122.47 kg 101.1 kg Intake: Medicated IV 276 GEN - Albumin 276 Oral 300 Output: Boyd 1999 100 Labs: Laboratory Results - last 24 hr 09/22/19 09/22/19 09/23/19 11:32 13:00 05:38 WBC 15.4 H RBC 3.01 L Hgb 9.5 L Hct 30 L MCV 98 H MCH 32 H MCHC 32 RDW 15 Plt Count 339 MPV 8.3 Neut % (Auto) 77.6 Lymph % (Auto) 10.2 [place] % (Auto) 11.6 Eos % (Auto) 0.4 Baso % (Auto) 0.2 Absolute Neuts (auto) 11.4 H Absolute Lymphs (auto) 1.5 Absolute Monos (auto) 1.7 H Absolute Eos (auto) 0.1 Absolute Basos (auto) 0.0 Absolute Nucleated RBC 0.0 Nucleated RBC % 0.2 INR (Anticoag Therapy) Patient Temperature Not Reportable ABG pH 7.44 ABG pH (Temp Correct) Not Reportable ABG pCO2 62 H ABG pCO2 (Temp Corrct Not Reportable ABG pO2 79 L ABG pO2 (Temp Correct Not Reportable ABG HCO3 36.5 H ABG O2 Saturation 96.4 ABG Base Excess 14.9 H Respiration Rate Not Reportable O2 Delivery Device bipap Ventilator Type Not Reportable Vent Mode Not Reportable FiO2 40 Inspiratory Time Not Reportable PEEP Not Reportable Pressure Support Not Reportable Pressure Control Not Reportable EPAP 5 IPAP 25 BiPAP Not Reportable Sodium Potassium Chloride Carbon Dioxide Anion Gap BUN Creatinine Est GFR ( Amer) Est GFR (Non-Af Amer) BUN/Creatinine Ratio Glucose Calcium Magnesium Troponin I Influenza A (Rapid) Negative Influenza B (Rapid) Negative 09/23/19 09/23/19 05:38 05:38 WBC RBC Hgb Hct MCV MCH MCHC RDW Plt Count MPV Neut % (Auto) Lymph % (Auto) [place] % (Auto) Eos % (Auto) Baso % (Auto) Absolute Neuts (auto) Absolute Lymphs (auto) Absolute Monos (auto) Absolute Eos (auto) Absolute Basos (auto) Absolute Nucleated RBC Nucleated RBC % INR (Anticoag Therapy) 3.71 H Patient Temperature ABG pH ABG pH (Temp Correct) ABG pCO2 ABG pCO2 (Temp Corrct ABG pO2 ABG pO2 (Temp Correct ABG HCO3 ABG O2 Saturation ABG Base Excess Respiration Rate O2 Delivery Device Ventilator Type Vent Mode FiO2 Inspiratory Time PEEP Pressure Support Pressure Control EPAP IPAP BiPAP Sodium 136 Potassium 3.5 Chloride 90 L Carbon Dioxide 40 H Anion Gap 6 BUN 27 H Creatinine 0.91 Est GFR ( Amer) 73.1 Est GFR (Non-Af Amer) 60.4 BUN/Creatinine Ratio 29.7 H Glucose 81 Calcium 9.2 Magnesium 2.0 Troponin I 0.14 H* Influenza A (Rapid) Influenza B (Rapid) Studies: 09/[address]: No acute intracranial abnormality. Left mastoiditis. Cyst or polyp in sphenoid sinus. CXR: Cardiogenic pulmonary edema with likely consolidation and pleural effusion CHest CT: Atelectasis of left upper lung and right lower lobe. small bilateral pleural effusion. 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 Found to have acute on chronic respiratory failure with hypercapnia, acute exacerbation of HF, leucocytosis, hyperammoninemia, elevated troponin and elevated BNP. On BiPAP. Lasix stopped because of hypotension. Most likely ADAIR/ OHS causing CO2 retention. Needs to be in positive pressure ventilation during sleep and while naping. Plan: Hospital Diagnosis 1. Acute on chronic respiratory failure with hypercapnia 2. Acute exacerbation of HF 3. Elevated troponin-likley demand 4. Supratherapeutic INR Cardiovascular: (1) Acute HF exacerbation (2) pAF (3) HCOM (4) Hypertension (5) AICD and pacemaker --HR: 55-61 --SBP: 98-145 --Trop:0.14; likely demand from right heart strain --BNP>1300 --TTE: EF of 65-70%; moderate LA dilatation; abnormal iv septum motion consistent with RV pacer; Mild MS and mild --CXR: pulmonary edema --lasix stopped because of Hypotension; can be restarted once normotensive --Continue aspirin, statin, spironolactone, disopyramide, metoprolol. --HOme meds: Aspirin, metoprolol, spironolactone, disopyramide, aflibercept, rosuvastatin, bumex Pulmonary: (1) Acute on chronic respiratory failure with hypercapnia (2) COPD on home o2 (3) sospicion of ADAIR/OHS --RR: 17-28 --Spo2: 96-98% on 4 L of oxygen --CXR: pulmonary edema --Chest CT: atelactasis with bilateral Pleural effusion and cardiomegaly --Continue Bipap --No e/o LEGAL ASSISTANT exacerbation; no wheezing --has atelectasis of lung: metaneb and bronchodilator to open her up --cmpleted course of doxycycline on last hospitalization; does not look acutely infected --Continue home inhalers --Home med: fexofenadine, guaifenesin, advair, albuterol inhaler Gastrointestinal: (1) Constipation --Bowel regimen: senokot,miralax, --Gi prophylaxis: not needed --Home meds: senokot, miralax Neurological: (1) Depression --secondary to hypercapnia --No focal deficit --Home meds: fluoxetine Infectious: None --WBC: 15.4 form 15.6 Temp 98.1 --CT chest negative for consolidation; shows atelectasis and pulmonary edema with pleural effusion --urine legio and strep negative -- No abx at present --recently treated with doxy --Home meds: doxycycline Hematological: (1) Anemia (2) Supratherapeutic INR --Hb: 9.5 from 10.6 -Plt: 339 from 358 -has chronic anemia; macrocytic --takes coumadin for afib; inr is 3.7; hold warfarin for today --restart when INR is 2-3 --Home meds: coumadin, Vitamin B12, folic acid Renal: None --Creatinine 0.75 --Na is 136 --Home meds: potassium chloride, mag oxide Metabolic: None Other: None Condition: Critical Prognosis: Guarded DVT Prophylaxis: None; supratherapeutic INR Disposition: Continue ICU care updated at bedside regarding interval events and plan of care Cumulative time spent in the care of this patient (excluding any procedure time) : at least 65 minutes. Patient care included clinical interview (with patient and/or family), bedside exam of the patient, review of labs, x-rays, and other ancillary data, coordination of (respiratory, nursing care, review of patient's records, discussion regarding patients management with involved consultants, primary physician, pharmacists, and other healthcare personnel (dietary, case management , physical/occupational therapy etc.) Critical Care Time: 65 <Roberta Winkler - Last Filed: 09/23/19 18:36> Vital Signs: Temp Pulse Resp BP SpO2 FiO2 98.5 F 55 21 144/51 98 40 09/23/19 18:16 09/23/19 15:01 09/23/19 15:01 09/23/19 15:01 09/23/19 15:01 09/23 14:25 Physical Exam: Gen: HEENT: Lungs: Cardiac: Abdomen: Extremities: Neuro: Fluid Balance (Past 24 Hours): I= O= Net Intake & Output 09/21/19 09/22/19 09/23/19 09/24/19 06:59 06:59 06:59 06:59 Intake Total 276 300 Output Total 1999 400 Balance -1724 -100 Weight 270 lb 222 lb 14.197 oz Intake: Medicated IV 276 GEN - Albumin 276 Oral 300 Output: Boyd 1999 400 Labs: Laboratory Results - last 24 hr 09/23/19 09/23/19 09/23/19 05:38 05:38 05:38 WBC 15.4 H RBC 3.01 L Hgb 9.5 L Hct 30 L MCV 98 H MCH 32 H MCHC 32 RDW 15 Plt Count 339 MPV 8.3 Neut % (Auto) 77.6 Lymph % (Auto) 10.2 [place] % (Auto) 11.6 Eos % (Auto) 0.4 Baso % (Auto) 0.2 Absolute Neuts (auto) 11.4 H Absolute Lymphs (auto) 1.5 Absolute Monos (auto) 1.7 H Absolute Eos (auto) 0.1 Absolute Basos (auto) 0.0 Absolute Nucleated RBC 0.0 Nucleated RBC % 0.2 INR (Anticoag Therapy) 3.71 H Sodium 136 Potassium 3.5 Chloride 90 L Carbon Dioxide 40 H Anion Gap 6 BUN 27 H Creatinine 0.91 Est GFR ( Amer) 73.1 Est GFR (Non-Af Amer) 60.4 BUN/Creatinine Ratio 29.7 H Glucose 81 Calcium 9.2 Magnesium 2.0 Troponin I 0.14 H* Plan: Attending physician attestation: Pt with acute on chronic hypercapnic resp failure, improved with BiPAP. Pt is stable this morning. Her CT chest showed progression of atlectasis and volume loss. Suspect dynamic collapse from bronchomalacia and mucus trapping. Her O2 status is improved with no urgent need for bronchoscopy. Would recommend bronchoscopic evaluation as out pt. This service has been performed in part by a resident under the direction of a teaching physician. I, Nate Winkler, performed the service, or was physically present during the critical, or prather portions of the service, furnished by the resident. I participated in the management of the patient.
[2019-09-24 05:39] LABS: ABS Eosinophils 0.1 10^3/ul (0-0.6); ABS Lymphocytes 1.4 10^3/ul (1.0-4.8); ABS Monocytes 1.3 10^3/ul (0-0.8); ABS Neutrophils 8.6 10^3/ul (1.5-7.7); Eosinophil % 0.9 %; Hematocrit 29 % (35-47); Hemoglobin 9.3 g/dL (12.0-16.0); Lymphocyte % 12.1 %; Mean Corpuscular HGB Conc 32 g/dL (31-36); Mean Corpuscular Hemoglobin 31 pg (27-31); Mean Corpuscular Volume 98 fL (80-97); Mean Platelet Volume 8.1 fL (7.4-10.4); Nucleated Red Blood Cells % 0.3; Platelet Count 317 10^3/uL (150-450); Red Blood Count 2.97 10^6 /uL (3.70-4.87); Red Cell Distribution Width 15 % (10-15); White Blood Count 11.4 10^3/uL (3.5-10.8)
[2019-09-24 05:48] LABS: INR 2.9 (0.82-1.09)
[2019-09-24 05:55] LABS: BUN/Creatinine Ratio 24.3 (8-20); Calcium 9.3 mg/dL (8.6-10.3); EGFR Non-African American 81.8 (>60); Potassium 3.3 mmol/L (3.5-5.0)
[2019-09-24] MEDS: Mometasone/Formoter 200/5 MDI INH SCH ×2 (08:13→20:22)
[2019-09-24] MEDS: Multivitamins/Minerals TAB PO SCH (08:38)
[2019-09-24] MEDS: Cholecalciferol TAB* 1000 UNITS PO SCH (08:38)
[2019-09-24] MEDS: guaiFENesin ER TAB 600 MG PO SCH ×2 (08:39→20:50)
[2019-09-24] MEDS: Docusate CAP* 100 MG PO SCH (08:39)
[2019-09-24] MEDS: Spironolactone TAB* 25 MG PO SCH (08:39)
[2019-09-24] MEDS: Aspirin EC TAB* 81 MG TAB.EC PO SCH (08:39)
[2019-09-24] MEDS: Senna TAB 8.6 mg* TAB PO SCH (08:39)
[2019-09-24] MEDS: Cyanocobalamin TAB* 500 MCG PO SCH (08:39)
[2019-09-24] MEDS: Folic Acid TAB* 1 MG PO SCH (08:39)
[2019-09-24] MEDS: Magnesium Oxide TAB* 400 MG PO SCH (08:40)
[2019-09-24] MEDS: FLUoxetine CAP* 10 MG PO SCH (08:40)
[2019-09-24] MEDS: Potassium Chlor TAB* 20 MEQ TAB.ER PO SCH ×2 (08:40→20:51)
[2019-09-24] MEDS: Lactobacillus Acidophilus* 1 TAB PO SCH (08:40)
[2019-09-24] MEDS: Atorvastatin* 80 MG TAB PO SCH (08:40)
[2019-09-24] MEDS: DISOPYRAMIDE 100 MG PO SCH ×3 (11:06→20:51)
[2019-09-24] MEDS: Simethicone TAB* 80 MG TAB.CHEW PO PRN (12:17)
--- NOTE | 2019-09-24 15:32 | PN ---
Subjective Date of Service: 09/24/19 Interval History: HOSPITALIST PROGRESS NOTE Patient seen and examined at bedside. Care reviewed and d/w Rosio Galan RN. She feels a little better today. Breathing is easier, but not back to baseline yet. C/o abdominal distention due to gas. Family History: Unchanged from Admission Social History: Unchanged from Admission Past Medical History: Unchanged from Admission Objective Active Medications: Albuterol (Ventolin Hfa Inhaler*) 1 puff INH Q6H PRN PRN Reason: SHORTNESS OF BREATH Aspirin (Aspirin Ec Tab*) 81 mg PO DAILY [facility] Last Admin: 09/24/19 08:39 Dose: 81 mg Atorvastatin Calcium (Lipitor*) 80 mg PO DAILY [facility] Last Admin: 09/24/19 08:40 Dose: 80 mg Calcium Carbonate (Tums*) 500 mg PO BID PRN PRN Reason: INDIGESTION Cetirizine HCl (Zyrtec*) 10 mg PO DAILY PRN; Protocol PRN Reason: Allergy Symptoms Cholecalciferol (Vitamin D Tab*) 2,000 units PO DAILY [facility] Last Admin: 09/24/19 08:38 Dose: 2,000 units Cyanocobalamin (Vitamin B12 Tab*) 1,000 mcg PO DAILY [facility] Last Admin: 09/24/19 08:39 Dose: 1,000 mcg Disopyramide Phosphate (Norpace Cap*) 200 mg PO TID [facility] Last Admin: 09/24/19 11:06 Dose: 200 mg Docusate Sodium (Colace Cap*) 200 mg PO DAILY PRN PRN Reason: CONSTIPATION Docusate Sodium (Colace Cap*) 100 mg PO DAILY [facility] Last Admin: 09/24/19 08:39 Dose: 100 mg Fluoxetine HCl (Prozac Cap*) 20 mg PO DAILY [facility] Last Admin: 09/24/19 08:40 Dose: 20 mg Folic Acid (Folvite Tab*) 1 mg PO DAILY [facility] Last Admin: 09/24/19 08:39 Dose: 1 mg Guaifenesin (Mucinex*) 1,200 mg PO BID [facility] Last Admin: 09/24/19 08:39 Dose: 1,200 mg Lactobacillus Rhamnosus (Lactobacillus Acidophilus*) 1 tab PO DAILY [facility] Last Admin: 09/24/19 08:40 Dose: 1 tab Magnesium Oxide (Magox 400 Tab*) 400 mg PO DAILY [facility] Last Admin: 09/24/19 08:40 Dose: 400 mg Mometasone Furoate/Formoterol Fumar (Dulera 200/5 Mdi*) 2 puff INH BID [facility]; Protocol Last Admin: 09/24/19 08:13 Dose: 2 puff Multivitamins/Minerals (Theragran/Minerals Tab*) 1 tab PO DAILY [facility] Last Admin: 09/24/19 08:38 Dose: 1 tab Pharmacy Profile Note (Coumadin Daily Reminder*) 1 note FOLLOW UP 1700 [facility] Last Admin: 09/23/19 19:15 Dose: 1 note Polyethylene Glycol/Electrolytes (Miralax*) 17 gm PO DAILY PRN PRN Reason: CONSTIPATION Last Admin: 09/23/19 16:19 Dose: 17 gm Potassium Chloride (Klor Con Er Tab*) 20 meq PO BID [facility] Last Admin: 09/24/19 08:40 Dose: 20 meq Senna (Senokot 8.6 Mg Tab*) 2 tab PO DAILY [facility] Last Admin: 09/24/19 08:39 Dose: 2 tab Simethicone (Mylicon Tab*) 80 mg PO Q6H PRN PRN Reason: Gas/Abdominal distention Last Admin: 09/24/19 12:17 Dose: 80 mg Spironolactone (Aldactone Tab*) 25 mg PO DAILY [facility] Last Admin: 09/24/19 08:39 Dose: 25 mg Vital Signs - 8 hr 09/24/19 09/24/19 07:55 11:57 Temperature 98.3 F 97.4 F Pulse Rate 63 56 Respiratory 22 24 Rate Blood Pressure 131/64 139/69 (mmHg) O2 Sat by Pulse 96 99 Oximetry Oxygen Devices in Use Now: Nasal Cannula Appearance: Elderly morbid obese lady sitting up in bed in [employer]. Eyes: No Scleral Icterus Ears/Nose/Mouth/Throat: Mucous Membranes Moist Neck: Trachea Midline Respiratory: Symmetrical Chest Expansion and Respiratory Effort, - - BS+ bilaterally diminished with no added sounds Cardiovascular: RRR - Normal S1 and S2 Abdominal: NL Sounds; No Tenderness; No Distention - obese Neurological: Alert and Oriented x 3, NL Muscle Strength and Tone Result Diagrams: 09/24/19 05:30 09/24/19 05:30 Microbiology and Other Data: Microbiology 09/22/19 11:32 Nasal Screen MRSA (PCR) - Final Nasal Mrsa Not Detected 09/22/19 06:15 Legionella Urinary Antigen - Final Urine Negative Legionella Antigen Streptococcus pneumoniae Ag Screen - Final Negative S. pneumo Antigen Assess/Plan/Problems-Billing Assessment: Mrs Barger is a 74yo F with PMH of HOCM s/p ablation, HFpEF, COPD on home O2 , PAF on Warfarin, s/p AICD/pacer, anemia, depression, glaucoma, recent admission to [facility] with acute on chronic hypercapnic respiratory failure secondary to COPD/OHS. Plan was for sleep study as outpatient, but patient was readmitted 4 days later. - Patient Problems (1) Acute on chronic heart failure Comment: - Acute diastolic CHF exacerbation. - Was diuresed with Furosemide, will change back to Bumetanide QOD. - Echo showed EF 65-70% with mildly reduced cavity size. (2) Acute and chronic respiratory failure Comment: - Acute on chronic hypercapnic respiratory failure secondary to CHF and likely OHS. - Continue BIPAP for naps and at night. (3) COPD (chronic obstructive pulmonary disease) Comment: - No exacerbation at this time. - Continue bronchodilators and inhaled steroids. (4) Atrial fibrillation Comment: - Paced rhythm. - Continue disopyramide 200mg. - INR 2.9 - resume Warfarin. - Resume Metoprolol at lower dose (50mg BID) and monitor BP. (5) DVT prophylaxis Comment: - Warfarin. (6) Full code status Status and Disposition: Inpatient.
[2019-09-24] MEDS ORDERED: Bumetanide TAB* 2 MG PO ONE (15:58)
[2019-09-24] MEDS: Warfarin TAB(*) 5 MG PO SCH (17:20)
[2019-09-24] MEDS ORDERED: Metoprolol Tartrate TAB* 50 mg PO SCH (21:00)
[2019-09-25] MEDS: Simethicone TAB* 80 MG TAB.CHEW PO PRN (03:57)
[2019-09-25 05:08] LABS: Hematocrit 32 % (35-47); Hemoglobin 10.2 g/dL (12.0-16.0); Mean Corpuscular HGB Conc 32 g/dL (31-36); Mean Corpuscular Hemoglobin 31 pg (27-31); Mean Corpuscular Volume 98 fL (80-97); Mean Platelet Volume 8.3 fL (7.4-10.4); Platelet Count 361 10^3/uL (150-450); Red Blood Count 3.24 10^6 /uL (3.70-4.87); Red Cell Distribution Width 15 % (10-15); White Blood Count 11.5 10^3/uL (3.5-10.8)
[2019-09-25 05:13] LABS: INR 2.76 (0.82-1.09)
[2019-09-25 05:25] LABS: BUN/Creatinine Ratio 19.5 (8-20); EGFR African American 88.7 (>60); EGFR Non-African American 73.3 (>60); Potassium 3.5 mmol/L (3.5-5.0)
[2019-09-25 05:29] LABS: ABS Basophils 0.1 10^3/ul (0-0.2); ABS Eosinophils 0.1 10^3/ul (0-0.6); ABS Lymphocytes 1.2 10^3/ul (1.0-4.8); ABS Monocytes 1.2 10^3/ul (0-0.8); ABS Nucleated RBC 0.1 10^3/ul; Eosinophil % 0.8 %; Lymphocyte % 10.3 %; Nucleated Red Blood Cells % 0.7
[2019-09-25] MEDS: Mometasone/Formoter 200/5 MDI INH SCH ×2 (08:04→20:58)
[2019-09-25] MEDS: DISOPYRAMIDE 100 MG PO SCH ×3 (08:59→20:47)
[2019-09-25] MEDS: Docusate CAP* 100 MG PO SCH (09:00)
[2019-09-25] MEDS ORDERED: Metoprolol Tartrate TAB* 25 MG PO SCH (09:00)
[2019-09-25] MEDS: Spironolactone TAB* 25 MG PO SCH (09:00)
[2019-09-25] MEDS: Senna TAB 8.6 mg* TAB PO SCH (09:01)
[2019-09-25] MEDS: Cholecalciferol TAB* 1000 UNITS PO SCH (09:01)
[2019-09-25] MEDS: Magnesium Oxide TAB* 400 MG PO SCH (09:02)
[2019-09-25] MEDS: guaiFENesin ER TAB 600 MG PO SCH ×2 (09:02→20:47)
[2019-09-25] MEDS: Cyanocobalamin TAB* 500 MCG PO SCH (09:02)
[2019-09-25] MEDS: Aspirin EC TAB* 81 MG TAB.EC PO SCH (09:02)
[2019-09-25] MEDS: Atorvastatin* 80 MG TAB PO SCH (09:03)
[2019-09-25] MEDS: Multivitamins/Minerals TAB PO SCH (09:03)
[2019-09-25] MEDS: Folic Acid TAB* 1 MG PO SCH (09:03)
[2019-09-25] MEDS: FLUoxetine CAP* 10 MG PO SCH (09:03)
[2019-09-25] MEDS: Potassium Chlor TAB* 20 MEQ TAB.ER PO SCH ×2 (09:04→20:48)
[2019-09-25] MEDS: Lactobacillus Acidophilus* 1 TAB PO SCH (09:04)
--- NOTE | 2019-09-25 14:08 | PN ---
Subjective Date of Service: 09/25/19 Interval History: HOSPITALIST PROGRESS NOTE Patient seen and examined at bedside. Care reviewed and d/w Angelina Kelly RN. She was compliant with her BIPAP last night and is wearing it this morning while napping. Easily arousable, Ox3, denies dyspnea. Family History: Unchanged from Admission Social History: Unchanged from Admission Past Medical History: Unchanged from Admission Objective Active Medications: Acetaminophen (Tylenol Tab*) 650 mg PO Q6H PRN PRN Reason: MILD PAIN or TEMP > 100.4 Albuterol (Ventolin Hfa Inhaler*) 1 puff INH Q6H PRN PRN Reason: SHORTNESS OF BREATH Aspirin (Aspirin Ec Tab*) 81 mg PO DAILY [facility] Last Admin: 09/25/19 09:02 Dose: 81 mg Atorvastatin Calcium (Lipitor*) 80 mg PO DAILY [facility] Last Admin: 09/25/19 09:03 Dose: 80 mg Bumetanide (Bumex Tab*) 2 mg PO EVERY OTHER DAY [facility] Calcium Carbonate (Tums*) 500 mg PO BID PRN PRN Reason: INDIGESTION Cetirizine HCl (Zyrtec*) 10 mg PO DAILY PRN; Protocol PRN Reason: Allergy Symptoms Cholecalciferol (Vitamin D Tab*) 2,000 units PO DAILY [facility] Last Admin: 09/25/19 09:01 Dose: 2,000 units Cyanocobalamin (Vitamin B12 Tab*) 1,000 mcg PO DAILY [facility] Last Admin: 09/25/19 09:02 Dose: 1,000 mcg Disopyramide Phosphate (Norpace Cap*) 200 mg PO TID [facility] Last Admin: 09/25/19 08:59 Dose: 200 mg Docusate Sodium (Colace Cap*) 200 mg PO DAILY PRN PRN Reason: CONSTIPATION Docusate Sodium (Colace Cap*) 100 mg PO DAILY [facility] Last Admin: 09/25/19 09:00 Dose: 100 mg Fluoxetine HCl (Prozac Cap*) 20 mg PO DAILY [facility] Last Admin: 09/25/19 09:03 Dose: 20 mg Folic Acid (Folvite Tab*) 1 mg PO DAILY [facility] Last Admin: 09/25/19 09:03 Dose: 1 mg Guaifenesin (Mucinex*) 1,200 mg PO BID [facility] Last Admin: 09/25/19 09:02 Dose: 1,200 mg Lactobacillus Rhamnosus (Lactobacillus Acidophilus*) 1 tab PO DAILY [facility] Last Admin: 09/25/19 09:04 Dose: Not Given Magnesium Oxide (Magox 400 Tab*) 400 mg PO DAILY [facility] Last Admin: 09/25/19 09:02 Dose: 400 mg Mometasone Furoate/Formoterol Fumar (Dulera 200/5 Mdi*) 2 puff INH BID [facility]; Protocol Last Admin: 09/25/19 08:04 Dose: 2 puff Multivitamins/Minerals (Theragran/Minerals Tab*) 1 tab PO DAILY [facility] Last Admin: 09/25/19 09:03 Dose: 1 tab Pharmacy Profile Note (Coumadin Daily Reminder*) 1 note FOLLOW UP 1700 [facility] Last Admin: 09/24/19 17:55 Dose: 1 note Polyethylene Glycol/Electrolytes (Miralax*) 17 gm PO DAILY PRN PRN Reason: CONSTIPATION Last Admin: 09/23/19 16:19 Dose: 17 gm Potassium Chloride (Klor Con Er Tab*) 20 meq PO BID [facility] Last Admin: 09/25/19 09:04 Dose: 20 meq Senna (Senokot 8.6 Mg Tab*) 2 tab PO DAILY [facility] Last Admin: 09/25/19 09:01 Dose: 2 tab Simethicone (Mylicon Tab*) 80 mg PO Q6H PRN PRN Reason: Gas/Abdominal distention Last Admin: 09/25/19 03:57 Dose: 80 mg Spironolactone (Aldactone Tab*) 25 mg PO DAILY [facility] Last Admin: 09/25/19 09:00 Dose: 25 mg Warfarin Sodium (Coumadin Tab(*)) 5 mg PO DAILY@1700 [facility]; Protocol Last Admin: 09/24/19 17:20 Dose: 5 mg Vital Signs - 8 hr 09/25/19 09/25/19 09/25/19 07:57 08:00 11:53 Temperature 98.3 F 97.3 F Pulse Rate 55 55 Respiratory 22 20 24 Rate Blood Pressure 113/41 148/51 (mmHg) O2 Sat by Pulse 98 100 Oximetry Oxygen Devices in Use Now: BiPAP Appearance: Elderly morbid obese lady lying in bed in NAD Eyes: No Scleral Icterus Ears/Nose/Mouth/Throat: Mucous Membranes Moist Neck: Trachea Midline Respiratory: Symmetrical Chest Expansion and Respiratory Effort, - - BS+ bilaterally diminished with no added sounds Cardiovascular: RRR - Normal S1 and S2 Abdominal: NL Sounds; No Tenderness; No Distention Neurological: Alert and Oriented x 3, NL Muscle Strength and Tone Result Diagrams: 09/25/19 04:36 09/25/19 04:36 Microbiology and Other Data: Microbiology 09/22/19 11:32 Nasal Screen MRSA (PCR) - Final Nasal Mrsa Not Detected 09/22/19 06:15 Legionella Urinary Antigen - Final Urine Negative Legionella Antigen Streptococcus pneumoniae Ag Screen - Final Negative S. pneumo Antigen Assess/Plan/Problems-Billing Assessment: Mrs Barger is a 74yo F with PMH of HOCM s/p ablation, HFpEF, COPD on home O2 , PAF on Warfarin, s/p AICD/pacer, anemia, depression, glaucoma, recent admission to [facility] with acute on chronic hypercapnic respiratory failure secondary to COPD/OHS. Plan was for sleep study as outpatient, but patient was readmitted 4 days later. - Patient Problems (1) Acute on chronic heart failure Comment: - Acute diastolic CHF exacerbation. - Was diuresed with Furosemide, will change back to Bumetanide QOD (2mg every other day instead of 2mg alternating with 1mg). - Echo showed EF 65-70% with mildly reduced cavity size. (2) Acute and chronic respiratory failure Comment: - Acute on chronic hypercapnic respiratory failure secondary to CHF and likely OHS. - Continue BIPAP for naps and at night. (3) COPD (chronic obstructive pulmonary disease) Comment: - No exacerbation at this time. - Continue bronchodilators and inhaled steroids. (4) Atrial fibrillation Comment: - Paced rhythm. - Continue disopyramide 200mg. - Continue Warfarin. - Metoprolol was held in the seeting of bradycardia - she is continuously paced. (5) DVT prophylaxis Comment: - Warfarin. (6) Full code status Status and Disposition: Inpatient.
[2019-09-25] MEDS: Warfarin TAB(*) 5 MG PO SCH (17:40)
[2019-09-25] MEDS: Acetaminophen TAB* 325 MG PO PRN (20:52)
[2019-09-26] MEDS: Simethicone TAB* 80 MG TAB.CHEW PO PRN ×2 (04:31→18:03)
[2019-09-26 06:11] LABS: INR 4.15 (0.82-1.09)
[2019-09-26 06:22] LABS: BUN/Creatinine Ratio 19.8 (8-20); EGFR Non-African American 64.5 (>60); Potassium 4.6 mmol/L (3.5-5.0)
[2019-09-26] MEDS: Mometasone/Formoter 200/5 MDI INH SCH ×2 (08:56→20:28)
[2019-09-26] MEDS: Multivitamins/Minerals TAB PO SCH (08:58)
[2019-09-26] MEDS: FLUoxetine CAP* 10 MG PO SCH (08:59)
[2019-09-26] MEDS: Potassium Chlor TAB* 20 MEQ TAB.ER PO SCH ×2 (08:59→20:39)
[2019-09-26] MEDS: Atorvastatin* 80 MG TAB PO SCH (08:59)
[2019-09-26] MEDS: Aspirin EC TAB* 81 MG TAB.EC PO SCH (08:59)
[2019-09-26] MEDS: Folic Acid TAB* 1 MG PO SCH (08:59)
[2019-09-26] MEDS: Magnesium Oxide TAB* 400 MG PO SCH (08:59)
[2019-09-26] MEDS: Cholecalciferol TAB* 1000 UNITS PO SCH (08:59)
[2019-09-26] MEDS: Lactobacillus Acidophilus* 1 TAB PO SCH (08:59)
[2019-09-26] MEDS: Cyanocobalamin TAB* 500 MCG PO SCH (09:00)
[2019-09-26] MEDS: guaiFENesin ER TAB 600 MG PO SCH ×2 (09:00→20:39)
[2019-09-26] MEDS: DISOPYRAMIDE 100 MG PO SCH ×3 (09:00→20:39)
[2019-09-26] MEDS ORDERED: Bumetanide TAB* 1 MG PO SCH (09:00)
[2019-09-26] MEDS: Spironolactone TAB* 25 MG PO SCH (09:00)
[2019-09-26] MEDS ORDERED: Bumetanide TAB* 2 MG PO SCH (09:00)
[2019-09-26] MEDS: Docusate CAP* 100 MG PO SCH (09:00)
[2019-09-26] MEDS: Senna TAB 8.6 mg* TAB PO SCH (09:00)
--- NOTE | 2019-09-26 11:53 | PN ---
Subjective Date of Service: 09/26/19 Interval History: Ms. Barger states that she feels weak today. She usually ambulates with the assistance of her and rarely uses a walker. She has been up to BR with walker. She states that her breathing is "pretty good" and that the BiPAP has improved her breathing greatly. She maintains her home dose of 2L supplemental O2 while in the hospital. She states she had some dizziness this a.m., since resolved. She c/o constipation, stating last BM was 2 days ago. No other complaints today. Family History: Unchanged from Admission Social History: Unchanged from Admission Past Medical History: Unchanged from Admission Objective Active Medications: Acetaminophen (Tylenol Tab*) 650 mg PO Q6H PRN PRN Reason: MILD PAIN or TEMP > 100.4 Last Admin: 09/25/19 20:52 Dose: 650 mg Albuterol (Ventolin Hfa Inhaler*) 1 puff INH Q6H PRN PRN Reason: SHORTNESS OF BREATH Aspirin (Aspirin Ec Tab*) 81 mg PO DAILY [facility] Last Admin: 09/26/19 08:59 Dose: 81 mg Atorvastatin Calcium (Lipitor*) 80 mg PO DAILY [facility] Last Admin: 09/26/19 08:59 Dose: 80 mg Bumetanide (Bumex Tab*) 2 mg PO EVERY OTHER DAY [facility] Last Admin: 09/26/19 08:59 Dose: 2 mg Calcium Carbonate (Tums*) 500 mg PO BID PRN PRN Reason: INDIGESTION Cetirizine HCl (Zyrtec*) 10 mg PO DAILY PRN; Protocol PRN Reason: Allergy Symptoms Cholecalciferol (Vitamin D Tab*) 2,000 units PO DAILY [facility] Last Admin: 09/26/19 08:59 Dose: 2,000 units Cyanocobalamin (Vitamin B12 Tab*) 1,000 mcg PO DAILY [facility] Last Admin: 09/26/19 09:00 Dose: 1,000 mcg Disopyramide Phosphate (Norpace Cap*) 200 mg PO TID [facility] Last Admin: 09/26/19 09:00 Dose: 200 mg Docusate Sodium (Colace Cap*) 200 mg PO DAILY PRN PRN Reason: CONSTIPATION Docusate Sodium (Colace Cap*) 100 mg PO DAILY [facility] Last Admin: 09/26/19 09:00 Dose: 100 mg Fluoxetine HCl (Prozac Cap*) 20 mg PO DAILY [facility] Last Admin: 09/26/19 08:59 Dose: 20 mg Folic Acid (Folvite Tab*) 1 mg PO DAILY [facility] Last Admin: 09/26/19 08:59 Dose: 1 mg Guaifenesin (Mucinex*) 1,200 mg PO BID [facility] Last Admin: 09/26/19 09:00 Dose: 1,200 mg Lactobacillus Rhamnosus (Lactobacillus Acidophilus*) 1 tab PO DAILY [facility] Last Admin: 09/26/19 08:59 Dose: 1 tab Magnesium Oxide (Magox 400 Tab*) 400 mg PO DAILY [facility] Last Admin: 09/26/19 08:59 Dose: 400 mg Mometasone Furoate/Formoterol Fumar (Dulera 200/5 Mdi*) 2 puff INH BID [facility]; Protocol Last Admin: 09/26/19 08:56 Dose: 2 puff Multivitamins/Minerals (Theragran/Minerals Tab*) 1 tab PO DAILY [facility] Last Admin: 09/26/19 08:58 Dose: 1 tab Pharmacy Profile Note (Coumadin Daily Reminder*) 1 note FOLLOW UP 1700 [facility] Last Admin: 09/25/19 17:41 Dose: 1 note Polyethylene Glycol/Electrolytes (Miralax*) 17 gm PO DAILY PRN PRN Reason: CONSTIPATION Last Admin: 09/23/19 16:19 Dose: 17 gm Potassium Chloride (Klor Con Er Tab*) 20 meq PO BID [facility] Last Admin: 09/26/19 08:59 Dose: 20 meq Senna (Senokot 8.6 Mg Tab*) 2 tab PO DAILY [facility] Last Admin: 09/26/19 09:00 Dose: 2 tab Simethicone (Mylicon Tab*) 80 mg PO Q6H PRN PRN Reason: Gas/Abdominal distention Last Admin: 09/26/19 04:31 Dose: 80 mg Spironolactone (Aldactone Tab*) 25 mg PO DAILY [facility] Last Admin: 09/26/19 09:00 Dose: 25 mg Warfarin Sodium (Coumadin Tab(*)) 5 mg PO DAILY@1700 [facility]; Protocol Last Admin: 09/25/19 17:40 Dose: 5 mg Vital Signs: Temp Pulse Resp BP Pulse Ox 97.3 F 58 17 119/52 100 09/26/19 10:55 09/26/19 10:55 09/26/19 10:55 09/26/19 10:55 09/26/19 10:55 Oxygen Devices in Use Now: Nasal Cannula Appearance: Ms. Barger is an obese, older white female who is laying flat in bed. She is breathing comfortably on 2L NC, her home dose, and appears to be in no acute distress. Eyes: No Scleral Icterus, PERRLA Ears/Nose/Mouth/Throat: NL Teeth, Lips, Gums, Clear Oropharnyx, Mucous Membranes Moist Neck: NL Appearance and Movements; NL JVP, Trachea Midline Respiratory: Symmetrical Chest Expansion and Respiratory Effort, Clear to Auscultation Cardiovascular: RRR, No Edema, - - systolic murmur; S1, S2 present without JVD or peripheral edema Abdominal: No Hepatosplenomegaly, - - BS in all quadrants; mildly tender to palpation throughout abd; no notable distention Extremities: No Edema, No Clubbing, Cyanosis Neurological: Alert and Oriented x 3, NL Muscle Strength and Tone, - - CN II- XII grossly intact Result Diagrams: 09/25/19 04:36 09/26/19 05:34 Microbiology and Other Data: Microbiology 09/22/19 11:32 Nasal Screen MRSA (PCR) - Final Nasal Mrsa Not Detected 09/22/19 06:15 Legionella Urinary Antigen - Final Urine Negative Legionella Antigen Streptococcus pneumoniae Ag Screen - Final Negative S. pneumo Antigen Assess/Plan/Problems-Billing Assessment: Mrs Barger is a 74yo F with PMH of HOCM s/p ablation, HFpEF, COPD on home O2 , PAF on Warfarin, s/p AICD/pacer, anemia, depression, glaucoma, recent admission to [facility] with acute on chronic hypercapnic respiratory failure secondary to COPD/OHS. Plan was for sleep study as outpatient, but patient was readmitted 4 days later. - Patient Problems (1) Acute on chronic heart failure Comment: -acute diastolic CHF exacerbation -was diuresed with furosemide -resume home bumetanide QOD (2mg every other day instead of 2mg alternating with 1mg every other day) -Echo showed EF 65-70% with mildly reduced cavity size (2) Acute and chronic respiratory failure Comment: -acute on chronic hypercapnic respiratory failure secondary to CHF and likely OHS -continue BiPAP for naps and at night -will require BiPAP at discharge (3) Atrial fibrillation Comment: -paced on tele -continue disopyramide, warfarin -metoprolol was held in the setting of bradycardia - she is continuously paced (4) COPD (chronic obstructive pulmonary disease) Comment: -does not appear to be in exacerbation -continue home inhalers (5) Hyperlipemia Comment: -continue statin (6) Depression Comment: -continue fluoxetine (7) DVT prophylaxis Comment: -continue warfarin; will hold x1 dose due to elevated INR -repeat INR in a.m. (8) Full code status Status and Disposition: Inpatient. Plan for d/c once BiPAP in place.
[2019-09-26] MEDS: Acetaminophen TAB* 325 MG PO PRN (20:42)
[2019-09-27 06:06] LABS: INR 3.48 (0.82-1.09)
[2019-09-27] MEDS: Mometasone/Formoter 200/5 MDI INH SCH (07:52)
[2019-09-27] MEDS: Potassium Chlor TAB* 20 MEQ TAB.ER PO SCH (08:14)
[2019-09-27] MEDS: Senna TAB 8.6 mg* TAB PO SCH (08:14)
[2019-09-27] MEDS: Docusate CAP* 100 MG PO SCH (08:14)
[2019-09-27] MEDS: Atorvastatin* 80 MG TAB PO SCH (08:14)
[2019-09-27] MEDS: Multivitamins/Minerals TAB PO SCH (08:14)
[2019-09-27] MEDS: Spironolactone TAB* 25 MG PO SCH (08:14)
[2019-09-27] MEDS: Folic Acid TAB* 1 MG PO SCH (08:14)
[2019-09-27] MEDS: Cyanocobalamin TAB* 500 MCG PO SCH (08:15)
[2019-09-27] MEDS: Aspirin EC TAB* 81 MG TAB.EC PO SCH (08:15)
[2019-09-27] MEDS: DISOPYRAMIDE 100 MG PO SCH ×2 (08:15→15:06)
[2019-09-27] MEDS: Cholecalciferol TAB* 1000 UNITS PO SCH (08:15)
[2019-09-27] MEDS: FLUoxetine CAP* 10 MG PO SCH (08:15)
[2019-09-27] MEDS: Lactobacillus Acidophilus* 1 TAB PO SCH (08:15)
[2019-09-27] MEDS: guaiFENesin ER TAB 600 MG PO SCH (08:15)
[2019-09-27] MEDS: Magnesium Oxide TAB* 400 MG PO SCH (08:15)
[2019-09-27] MEDS: Acetaminophen TAB* 325 MG PO PRN (08:21)
[2019-09-27] MEDS: Simethicone TAB* 80 MG TAB.CHEW PO PRN (10:07)
[2019-09-27 14:01] LABS: Hematocrit 32 % (35-47); Hemoglobin 10.2 g/dL (12.0-16.0); Mean Corpuscular HGB Conc 32 g/dL (31-36); Mean Corpuscular Hemoglobin 31 pg (27-31); Mean Corpuscular Volume 99 fL (80-97); Mean Platelet Volume 8.7 fL (7.4-10.4); Platelet Count 366 10^3/uL (150-450); Red Blood Count 3.23 10^6 /uL (3.70-4.87); Red Cell Distribution Width 15 % (10-15)
[2019-09-27 14:16] LABS: BUN/Creatinine Ratio 18.1 (8-20); Calcium 9.9 mg/dL (8.6-10.3); EGFR African American 81.3 (>60); EGFR Non-African American 67.2 (>60); Phosphorus 3.8 mg/dL (2.5-5.0)
[2019-09-27 14:18] LABS: Potassium 5.2 mmol/L (3.5-5.0)
[2019-09-27 14:27] LABS: ABS Basophils 0.1 10^3/ul (0-0.2); ABS Eosinophils 0.2 10^3/ul (0-0.6); ABS Lymphocytes 1.3 10^3/ul (1.0-4.8); ABS Monocytes 1.5 10^3/ul (0-0.8); ABS Neutrophils 10.9 10^3/ul (1.5-7.7); Eosinophil % 1.5 %; Nucleated Red Blood Cells % 0.1
[2019-09-27 15:10] VITALS: BP 122/44
[2019-09-27] MEDS ORDERED: Warfarin TAB(*) 5 MG PO SCH (17:00)
--- NOTE | 2019-09-27 18:43 | DS ---
CC: Dr. Monico Dyson * DISCHARGE SUMMARY: DATE OF ADMISSION: 09/22/19 DATE OF DISCHARGE: 09/27/19 PRIMARY CARE PROVIDER: Dr. Monico Dyson. HOSPITAL COURSE: The patient presented to [facility] on 09/22/19 only a few days after she was discharged due to acute on chronic hypoxic/ hypercapnic respiratory failure with obesity hypoventilation syndrome. She was discharged on 09/18/19 and returned to the emergency room on 09/22/19 with altered mentation where the patient did incur a fall after she was trying to get out of the bed to go to the bathroom. It was traumatic. She was unable to get out of the floor. She called EMS and was transported to the hospital. During her initial workup, she did show elevated white count 15,000 and her blood gas did show acute respiratory acidosis secondary to hypercapnia and CO2 narcosis. Blood gas on admission revealed pH 7.2, pCO2 103. She was placed on BiPAP and her repeat blood gas significantly improved with pH 7.44, pCO2 62, pO2 79. She was maintained in the hospital on BiPAP, and we were trying to get her approved for BiPAP in home setting and one of the criteria was suggested by the supply agency that the patient to have nocturnal oximetry on her home O2, and her nocturnal oximetry was done and did not show any significant hypoxia while on oxygen overnight. Her saturation below 88% was only for 4 seconds. Therefore, she did not qualify for the BiPAP based on the discharge respite care provider and the pulse oximetry at night. I saw the patient today for an initial. Given the fact that she was not on BiPAP yesterday, I ordered repeat blood gas today just to see if she does show any sign of CO2 retention. Her blood gas this afternoon on oxygen nasal cannula revealed pH 7.46 with pCO2 52, pO2 77, and bicarb 33, which seems well balanced and actually some slightly metabolic alkalosis pictures in it. Therefore, with this ABG this afternoon, I do not see the reasoning of trying to mandate BiPAP approval as she clearly shows no sign of CO2 retention at this time. Nonetheless, she would still benefit from outpatient sleep study. The patient's at bedside stated he is planning to call in for the appointment tomorrow. He only did not have a chance to do it yet as she was readmitted prior to him making the appointment. Therefore, I evaluated the patient, and it seemed she is medically stable for discharge; however, she is a very high risk for readmission. She is 100% dependent on her . I did visit with them the idea of correction placement. Both of them are against it and they are looking into visiting nurse service and possible private aide. Therefore, at this time with proper care at home and 24-hour supervision which the is willing to provide and declined placement, I see no reason for her ongoing inpatient hospitalization, although I hold high suspicion that she will be easily readmitted due to possible caregiver burnout. PHYSICAL EXAMINATION: Vital Signs: Temperature 97.3, pulse 55, respiratory rate 20, satting 97% on 2 L, blood pressure 122/44. General: She is awake, alert. She is generally and physically deconditioned. She requires assistance to assist her out of bed for examination or sitting at the edge of the bed. The volunteers that he will be able to provide care at home and declined placement. Head and Neck: Normocephalic, atraumatic. Poor air flow bilaterally, diminished breath sounds at the bases. Cardiovascular: S1, S2. Regular rate and rhythm. Abdomen: Obese. Lower Extremities: +1 edema bilaterally. INPATIENT DIAGNOSTIC STUDIES/LAB DATA: CBC multiple, significant for leukocytosis which is chronically elevated. No evidence of fever. INR was elevated at 4. Coumadin has been adjusted and held. Blood gas, pH on admission 7.2, repeated post BiPAP 7.44 and now 7.46 without BiPAP overnight; pCO2, presented with pCO2 103, down to 52 today. Chemistry multiple, significant for potassium of 5.2 today; however, she was on potassium b.i.d. along with spironolactone, which have been adjusted as per the discharge medications below. Influenza A and B negative. Imaging: She had a chest x-ray on 09/22/19, reveals atelectasis, pulmonary vascular congestion. CT of the brain, given the fact she is on warfarin and status post fall, shows no intracranial bleed, left mastoiditis. Chest CT on 09/22/19 reveals atelectasis of the left upper lobe with compressive atelectasis of the right lower lobe, small bilateral pleural effusion. Since then, she was treated with BiPAP. Echocardiogram on 09/22/19 revealed ejection fraction 65% to 70%, pacer wire in the right ventricle, left atrium moderately dilated, mild aortic stenosis, systolic pressure in the right ventricle mildly elevated, similar to her 2015. Nocturnal pulse oximetry on 2 L reveals no sign of hypoxemia where pO2 less than 88%. The most it was about 4 seconds only, which did not qualify for BiPAP. DISCHARGE MEDICATIONS: 1. Simethicone 80 mg every 6 hours as needed for gas. Continue home medications as follows: 1. Tums 500 b.i.d. 2. MiraLAX 17 g daily as needed. 3. Colace 200 mg every day as needed. 4. Xanax 0.5 t.i.d. as needed. 5. Metoprolol 75 b.i.d. 6. Norpace 200 mg 3 times a day. 7. Vitamin C. 8. Eylea 2 mg injection. 9. Guaifenesin 1200 b.i.d. 10. Tylenol as needed. 11. Vitamin B12 1000 mcg daily. 12. Aspirin 81 daily. 13. Probiotic every day. 14. Folic acid 1 mg daily. 15. Senokot 2 tabs every day. 16. Crestor 40 daily. 17. Vitamin D 2000 units daily. 18. Prozac 20 daily. 19. Aldactone 25 mg every day. 20. Magnesium oxide 400 mg daily. 21. Fexofenadine 60 mg every day as needed. 22. Albuterol p.r.n. 23. Bumex 2 mg tablet take as directed, 2 mg day 1, nothing day 2, 1 mg day 3, nothing day 4, and repeat. That was based on her last discharge instructions, which I will continue the same. 24. Doxycycline continue 100 mg b.i.d. 25. Advair. New medications on discharge: 1. Acetazolamide 250 mg, changed to every other day, to take it along with 1 mg a day of the Bumex. 2. Potassium 20 mEq, changed from b.i.d. down to once a day due to her potassium being 5.2. 3. Warfarin has been decreased to 2.5 mg every day with recommendation to have INR in 3 days, BMP in 3 days through her PCP. FOLLOWUP RECOMMENDATIONS: 1. With her primary care in 1 to 3 days. 2. Please follow up on her INR and BMP closely as she was slightly supratherapeutic, being on antibiotic doxycycline. Follow up her electrolytes carefully as I did initiate acetazolamide every other day and the same day with 1 mg of Bumex. Take all medications as prescribed. DISCHARGE CONDITION: Stable. DISCHARGE DISPOSITION: Home. PROGNOSIS: She is a very high risk for readmission due to caregiver burnout. The patient was against referral for correction placement, so does the . [id number]/[facility] #: [id number] TATUM
[2019-09-28] MEDS ORDERED: Bumetanide TAB* 2 MG PO SCH (09:00)
== END 2019-09-27 18:00 | disposition home health service (06) | DRG 189 ==
LOC: ED 05:35 → ICU 08:15 → MEDTELE 09-24 00:25
PROVIDERS: ADMIT Internal Medicine Critical Care Medicine; ATTEND Internal Medicine
DX: J96.22 Acute and chronic respiratory failure with hypercapnia (principal); I50.33 Acute on chronic diastolic (congestive) heart failure; I42.1 Obstructive hypertrophic cardiomyopathy; E66.2 Morbid (severe) obesity with alveolar hypoventilation; E87.4 Mixed disorder of acid-base balance; Z68.41 Body mass index [BMI] 40.0-44.9, adult; J96.11 Chronic respiratory failure with hypoxia; I25.10 Atherosclerotic heart disease of native coronary artery without angina pectoris; I11.0 Hypertensive heart disease with heart failure; E78.00 Pure hypercholesterolemia, unspecified; J44.9 Chronic obstructive pulmonary disease, unspecified; G89.29 Other chronic pain; M54.5 Low back pain; M17.11 Unilateral primary osteoarthritis, right knee; H40.9 Unspecified glaucoma; H35.30 Unspecified macular degeneration; G43.909 Migraine, unspecified, not intractable, without status migrainosus; F41.9 Anxiety disorder, unspecified; I48.0 Paroxysmal atrial fibrillation; R79.1 Abnormal coagulation profile; D53.9 Nutritional anemia, unspecified; F32.9 Major depressive disorder, single episode, unspecified; R40.2422 Glasgow coma scale score 9-12, at arrival to emergency department; K59.09 Other constipation; I95.9 Hypotension, unspecified; Z79.82 Long term (current) use of aspirin; Z95.0 Presence of cardiac pacemaker; Z99.81 Dependence on supplemental oxygen; Z88.6 Allergy status to analgesic agent; Z88.8 Allergy status to other drugs, medicaments and biological substances; Z87.891 Personal history of nicotine dependence; Z91.011 Allergy to milk products
CPT/HCPCS: 36415; 36600; 70450; 71045; 71260; 80048; 80053; 80307; 80320; 80329; 81003; 82140; 82803; 83605; 83735; 83880; 84100; 84443; 84484; 85025; 85610; 87641; 87899; 93005; 93306; 94640; 94660; 94762; 99285; A9270-GY; C8929; G0480; J1940; P9045; P9047; Q9967

== ENCOUNTER 2019-10-09 12:44 | Inpatient (IN) | payer MEDICARE ==
--- NOTE | 2019-10-09 13:01 | ED ---
Shortness of Breath - HPI Summary HPI Summary: This patient is a 74 y F BIBA via EMS to ED with a chief complaint of shortness of breath since a few days ago. She is minimally responsive. Today, the patient slid out of her chair and then called EMS. Patient arrives to ED with O2 sat at 77% so she is put on 5L oxygen and is sating in the 90s. Patient is only able to nod her head and answer questions. She reports she has new onset shortness of breath since a few days ago, but cannot vocalize too much otherwise. Patient is coughing. The patient rates the pain 0/10 in severity. Symptoms aggravated by nothing. Symptoms alleviated by nothing. Patient denies fever. - History of Current Complaint Chief Complaint: EDRespiratoryDistress Time Seen by Provider: 10/09/19 12:45 Hx Obtained From: Patient, EMS Onset/Duration: Gradual Onset, Lasting Days, Still Present, Worse Since Current Severity: Severe Dyspnea At: Rest Aggravating Factors: Nothing Alleviating Factors: Nothing Associated Signs & Symptoms: Negative - Fever, Cough (Nonproductive) - Allergy/Home Medications Allergies/Adverse Reactions: Allergies Allergy/AdvReac Type Severity Reaction Status Date / Time bupropion [From Wellbutrin] Allergy Hives Verified 09/16/19 23:34 lactose Allergy Diarrhea Verified 09/16/19 23:34 sotalol Allergy Unknown Verified 09/16/19 23:34 Reaction Details zolpidem [From Ambien] Allergy Hallucinati Verified 09/16/19 23:34 ons PMH/Surg Hx/FS Hx/Imm Hx Previously Healthy: No Endocrine/Hematology History: Reports: Hx Anticoagulant Therapy, Hx Anemia, Hx Unexplained Bleeding Cardiovascular History: Reports: Hx Angina, Hx Auto Implanted Cardiovert Defib, Hx Cardiomegaly, Hx Congenital Heart Disease, Hx Congestive Heart Failure, Hx Coronary Artery Disease, Hx Hypercholesterolemia, Hx Hypertension, Hx Pacemaker/ ICD, Hx Rheumatic Fever, Hx Syncope Respiratory History: Reports: Hx Chronic Obstructive Pulmonary Disease (COPD), Hx Pneumonia GI History: Reports: Hx Gastroesophageal Reflux Disease, Hx Hiatal Hernia, Hx Ulcer Musculoskeletal History: Reports: Hx Arthritis Neurological History: Reports: Hx Headaches, Hx Migraine, Other Neuro Impairments/Disorders - Right leg neuritis - Surgical History Surgery Procedure, Year, and Place: bilateral cataract surgery-2011. tonsillectomy as a child. exploratory abdominal surgery 1970s. colonoscopies. ICD/pacer Infectious Disease History: No Infectious Disease History: Denies: Traveled Outside the [place] in Last 30 Days - Family History Known Family History: Negative: Seizure Disorder - Social History Alcohol Use: Rare Alcohol Amount: 1 beer every 2 months Hx Substance Use: No Substance Use Type: Reports: None Hx Tobacco Use: Yes Smoking Status (MU): Former Smoker Type: Cigarettes Amount Used/How Often: 1ppd Have You Chewed or Dipped Tobacco in the LAST YEAR: No Length of Time of Smoking/Using Tobacco: 30 years Have You Smoked in the Last Year: No Review of Systems Negative: Fever Positive: Shortness Of Breath, Cough All Other Systems Reviewed And Are Negative: Yes Physical Exam - Summary Physical Exam Summary: Appearance: The patient is well-nourished in no acute distress and in no acute pain. Skin: The skin is warm and dry, and skin color reflects adequate perfusion. HEENT: The head is normocephalic and atraumatic. The pupils are equal and reactive. The conjunctivae are clear and without drainage. Nares are patent and without drainage. Mouth reveals moist mucous membranes, and the throat is without erythema and exudate. The external ears are intact. The ear canals are patent and without drainage. The tympanic membranes are intact. Neck: The neck is supple with full range of motion and non-tender. There are no carotid bruits. There is no neck vein distension. Respiratory: Decreased breath sounds on the left. Cardiovascular: Heart is regular rate and rhythm. There is no murmur or rub auscultated. Mild peripheral edema bilaterally, right worse than left. Abdomen: The abdomen is soft and non-tender. There are normal bowel sounds heard in all four quadrants and there is no organomegaly palpated. Musculoskeletal: Mild peripheral edema bilaterally, right worse than left. Neurological: Patient is alert and oriented to person, place and time. Alert and answering all questions. The patient has symmetrical motor strength in all four extremities. Cranial nerves are grossly intact. Deep tendon reflexes are symmetrical and equal in all four extremities. Psychiatric: The patient has an appropriate affect and does not exhibit any anxiety or depression. Triage Information Reviewed: Yes Vital Signs On Initial Exam: Initial Vitals Temp Pulse Resp BP Pulse Ox 97.0 F 57 20 128/54 97 10/09/19 12:48 10/09/19 12:48 10/09/19 12:48 10/09/19 12:48 10/09/19 12:48 Vital Signs Reviewed: Yes Procedures - Sedation Patient Received Moderate/Deep Sedation with Procedure: No - Intubation Time of Intubation: 12:20 - 20mg of etomidate given at 1219 Intubation Method: orotracheal Tube Size (cm): 7.5 Breath Sounds after Intubation: equal Intubation Complications: O2 saturation decreased - On first intubation attempt Post Intubation Xray: Yes - Done in ICU as patient taken there immediately after procedure. Diagnostics - Vital Signs Vital Signs Temp Pulse Resp BP Pulse Ox 10/09/19 12:48 97.0 F 57 20 128/54 97 - Laboratory Result Diagrams: 10/09/19 13:05 10/09/19 13:05 Lab Statement: Any lab studies that have been ordered have been reviewed, and results considered in the medical decision making process. - Radiology CXR Radiology Interpretation Completed By: Radiologist Summary of Radiographic Findings: LIMITED STUDY. PULMONARY INTERSTITIAL EDEMA. Dr. Dean has reviewed this radiology report. - EKG 1259 Cardiac Rate: NL - 60 Summary of EKG Findings: An EKG at 1259 revealed paced rhythm at [address] Dean has reviewed and interpreted this EKG. Re-Evaluation - Re-Evaluation First Eval Re-Evaluation Time: 14:10 Comment: Discussed Dr. Vera's suggestions with patient's who agrees with intubation. Risks and benefits discussed, informed consent obtained. Second Eval Re-Evaluation Time: 14:18 Comment: Performed intubation procedure on patient. 20mg etomidate given at 1419. First intubation attempted at 1420 unsuccessful as patient O2 sat dropped to 60% within seconds. Second intubation attempted at 1422 was successful without complications. Dr. Vera at bedside, took patient straight up to ICU, so post-intubation XR was done in ICU. Course/Dx - Course Course Of Treatment: Ms. Barger presented with respiratory insufficiency. She was answering questions and oriented 3. Her pulse ox would drop down she was taken off oxygen at all. Chest x-ray and labs including an ABG were obtained. Her ABG showed her PCO2 to be 88. We placed her on BiPAP. A chest x -ray showed her to have congestive heart failure and her BNP was quite elevated. She takes Bumex at home and was given IV Lasix here. In spite of the BiPAP she began to become much less responsive. I did consult with Dr. Vera who came to the department to evaluate the patient and recommended intubation. She was intubated and transferred to the intensive care unit. - Diagnoses Provider Diagnoses: Respiratory insufficiency, CHF (congestive heart failure) - Physician Notifications Discussed Care of Patient With: Duy Vera Time Discussed With Above Provider: 14:06 Instructed by Provider To: Other - Discussed patient case with Dr. Vera, who accepted the patient for admission to the ICU and recommended intubation. - Critical Care Time Critical Care Time: 30-74 min - 30 minutes Discharge ED - Sign-Out/Discharge Documenting (check all that apply): Patient Departure - Admit - Discharge Plan Condition: Fair Disposition: ADMITTED TO [facility] - Billing Disposition and Condition Condition: FAIR Disposition: Admitted to [facility] - Attestation Statements Document Initiated by Nidae: Yes Documenting Scribe: Yusuf Norwood Provider For Whom Marilin is Documenting (Include Credential): Reagan Dean MD Scribe Attestation: I, Yusuf Norwood, scribed for Reagan Dean MD on 10/09/19 at 1813. Scribe Documentation Reviewed: Yes Provider Attestation: The documentation as recorded by the Yusuf gonzalez accurately reflects the service I personally performed and the decisions made by me, Reagan Dean MD Status of Scribe Document: Viewed
[2019-10-09 13:18] LABS: ABS Lymphocytes 0.8 10^3/ul (1.0-4.8); ABS Monocytes 0.9 10^3/ul (0-0.8); ABS Neutrophils 8.3 10^3/ul (1.5-7.7); ABS Nucleated RBC 0.1 10^3/ul; Eosinophil % 0.2 %; Hematocrit 36 % (35-47); Lymphocyte % 8.3 %; Mean Corpuscular HGB Conc 31 g/dL (31-36); Mean Corpuscular Hemoglobin 31 pg (27-31); Mean Corpuscular Volume 99 fL (80-97); Mean Platelet Volume 8.7 fL (7.4-10.4); Nucleated Red Blood Cells % 0.6; Platelet Count 278 10^3/uL (150-450); Red Blood Count 3.58 10^6 /uL (3.70-4.87); Red Cell Distribution Width 15 % (10-15); White Blood Count 10.2 10^3/uL (3.5-10.8)
[2019-10-09 13:24] LABS: INR 3.61 (0.82-1.09)
[2019-10-09 13:30] LABS: ALT 82 U/L (7-52); AST 70 U/L (13-39); Albumin 3.5 g/dL (3.2-5.2); Albumin/Globulin Ratio 1.2 (1-3); Alkaline Phosphatase 125 U/L (34-104); BUN/Creatinine Ratio 32.9 (8-20); Blood Urea Nitrogen 27 mg/dL (6-24); C Reactive Protein 20.25 mg/L (<8.01); CO2 Carbon Dioxide 34 mmol/L (22-32); Calcium 9.7 mg/dL (8.6-10.3); Chloride 100 mmol/L (101-111); EGFR African American 82.5 (>60); EGFR Non-African American 68.1 (>60); Glucose 178 mg/dL (70-100); Sodium 138 mmol/L (135-145); Total Protein 6.5 g/dL (6.4-8.9)
[2019-10-09 13:31] LABS: Anion Gap 4 mmol/L (2-11); Potassium 5.6 mmol/L (3.5-5.0)
[2019-10-09 13:43] LABS: Troponin I 0.07 ng/mL (<0.03)
[2019-10-09] MEDS ORDERED: Furosemide IV* 10 MG/ML 10 ML VIAL (100 MG) IV ONE (14:01)
[2019-10-09] MEDS ORDERED: Propofol* 100 ML ONE (14:24)
[2019-10-09] MEDS ORDERED: Etomidate* 2 MG/ML 20 ML VIAL (40 MG) ONE (15:00)
[2019-10-09] MEDS ORDERED: Propofol* 100 ML IV SCH (15:00)
[2019-10-09] MEDS: Chlorhexidine MOUTHWASH 0.12%* 15 ML UDC SWISH SPIT SCH ×3 (15:38→23:01)
[2019-10-09] MEDS ORDERED: Docusate CAP* 100 MG PO PRN (15:56)
[2019-10-09] MEDS ORDERED: Heparin VIAL(*) 5000 UNITS/ML VIAL (FIVE THOUSAND) SUBCUT SCH (16:00)
[2019-10-09 16:27] LABS: Urine Appearance Cloudy; Urine Bilirubin Negative (Negative); Urine Blood Negative (Negative); Urine Color Amber; Urine Glucose Negative (Negative); Urine Ketones Negative (Negative); Urine Nitrite Negative (Negative); Urine Protein Negative (Negative); Urine Specific Gravity 1.019 (1.010-1.030); Urine Urobilinogen Negative (Negative)
[2019-10-09 16:42] LABS: Glucose 148 mg/dL (70-100); Magnesium 2.1 mg/dL (1.9-2.7)
[2019-10-09 16:47] LABS: Troponin I 0.05 ng/mL (<0.03)
[2019-10-09] MEDS: Propofol* 100 ML IV SCH (18:32)
--- NOTE | 2019-10-09 19:18 | HP ---
CC: Dr. Monico Dyson * ADMISSION HISTORY AND PHYSICAL: DATE OF ADMISSION: 10/09/19 PRIMARY CARE PROVIDER: Dr. Monico Dyson. ATTENDING FOR THIS ADMISSION: Dr. Duy Vera.* (DICTATED BY VALE MARTINEZ NP) HISTORY OF PRESENT ILLNESS: Ms. Barger is a 74-year-old female patient with recent admissions on both 09/16/19 and 09/22/19, both with respiratory distress and hypercarbia. Apparently, the patient was just discharged from the hospital on 09/27/19 after being admitted for hypoxic/hypercarbic respiratory failure. At that time, the discharge notes state that the patient did not qualify for BiPAP, although she clearly did need it throughout both of her hospital admissions and apparently the instrument used to determine whether the patient would qualify for BiPAP in the community is an overnight pulse oximetry study. Because the patient only had a 4-second O2 saturation that dipped to 88% on her overnight pulse ox, it was determined that the patient would not qualify for home BiPAP, so the patient was discharged to home without it. Unfortunately, the patient's issue is not an oxygenation issue, it is one of CO2 retention and she presented to the hospital today in the emergency department short of breath and altered. Per the ED notes, the patient started getting short of breath a few days ago and was minimally responsive. She apparently slid out of her chair and then EMS was called. Her O2 saturation was 77%, was placed on 5 L and then was satting in the 90s. The patient was able to answer questions in the ED initially with the emergency physician; however, when a blood gas was obtained, it was noted that her CO2 was 88, pH was 7.23. At that time, the patient was placed on BiPAP. The patient began to have further changes in mental status after being placed on BiPAP and became minimally responsive. At that point, the ED physician reached out to the ICU for admission and we determined at that time that the patient should be intubated for airway protection and altered mental status. She was subsequently intubated by Dr. Alessio Dean, the emergency physician. She has since been placed on sedation with propofol and we are admitting the patient to ICU service. PAST MEDICAL HISTORY: Significant for COPD, on home oxygen at 2 L continuous; probable obstructive sleep apnea and obesity hypoventilation syndrome; atrial fibrillation, status post ablations; pacemaker insertion; chronic anemia; hypertension; obesity; hypertrophic cardiomyopathy; and heart failure with preserved ejection fraction. PAST SURGICAL HISTORY: Significant for septal ablation x3 at [facility], dual chamber pacemaker placement. SOCIAL HISTORY: The patient lives at home with her . She did have a smoking history, quit in 2011. No history of alcohol or drug use. She is essentially disabled, unable to ambulate without any assistance. She is otherwise bedbound. Healthcare proxy is her , Jaswant. She is a full code. FAMILY HISTORY: Father with coronary artery disease, mother with heart disease and diabetes. ALLERGIES: The patient has allergies to BUPROPION, LACTULOSE, SOTALOL and ZOLPIDEM. MEDICATIONS: Home medications, which have not been reconciled yet, but per the record are: 1. Guaifenesin 1200 mg p.o. b.i.d. 2. Diamox 250 mg p.o. every other day. 3. Warfarin 2.5 mg p.o. daily. 4. PreserVision AREDS 2 softgels 2 caps p.o. daily. 5. Aldactone 25 mg p.o. daily. 6. Simethicone 125 mg p.o. b.i.d. and 80 mg p.o. q.6 hours as needed. 7. Senokot 2 tabs p.o. daily. 8. Crestor 40 mg p.o. daily. 9. Klor-Con 20 mEq p.o. daily. 10. MiraLAX 17 g p.o. daily as needed. 11. Lopressor 75 mg p.o. b.i.d. 12 Mag-Ox 400 mg p.o. daily. 13. Probiotic 1 cap p.o. daily. 14. Folic acid 1 mg p.o. daily. 15. Advair 1 puff inhaled b.i.d. 16. Leonor 60 mg p.o. daily as needed. 17. Prozac 20 mg p.o. daily. 18. Docusate 200 mg p.o. daily as needed. 19. Norpace 200 mg p.o. 3 times a day . 20 Vitamin B12 1000 mcg p.o. daily. 21. Vitamin D3 2000 units p.o. daily. 22. Aspirin 81 mg p.o. daily. 23. Bumex 2 mg day 1, skip a day, 1 mg day 3, skip a day and then repeat, alternating with her Diamox. 24. Tums as needed. 25. Ventolin inhaler 1 puff inhaled q.6 hours as needed. 26. Aflibercept 2 mg injected q.4 to 6 months. 27. Tylenol 1000 mg p.o. 3 times a day as needed. 28. Xanax 0.5 mg p.o. 3 times a day as needed. REVIEW OF SYSTEMS: Unable to obtain secondary to intubation and sedation. PHYSICAL EXAMINATION GENERAL: The patient again is intubated and appears comfortable on sedation. HEENT: The patient is atraumatic, normocephalic. She has PERRLA with nonicteric sclerae. She is edentulous. Oral mucosa is dry. NECK: Obese. Unable to assess for JVD, but no bruits noted. LUNGS: Clear at the apices, otherwise diminished throughout the lung conrad. CARDIOVASCULAR: S1, S2 present. Rate is paced, rhythm is regular. ABDOMEN: Obese, soft, hypoactive bowel sounds noted. : Deferred. MUSCULOSKELETAL: There is no clubbing, no cyanosis, no peripheral edema. She has brisk cap refill. NEURO: Sedated on propofol. DIAGNOSTIC STUDIES/LAB DATA: WBC 10.2, RBC 3.58, hemoglobin 11.0, hematocrit 36 , MCV 99, MCH 31, MCHC 31, RDW 15, platelets 278. Sodium 138, potassium 5.6, chloride 100, CO2 of 34, anion gap 4, BUN 27, creatinine 0.82, GFR 68.1. BUN- creatinine ratio 32.9, glucose 178, lactic acid 1.4, calcium 9.7, bilirubin 0.30 , AST 70, ALT 82, alk phos 125. Troponin 0.07. CRP 20.25. BNP greater than 1300. Total protein 6.5, albumin 3.5, globulin 3.0, albumin-globulin ratio 1.2. INR 3.61. ABG; pH of 7.23, pCO2 of 88, pO2 of 94, bicarb 29.6, O2 saturation 97.2, base excess 6.1. Imaging: Chest x-ray as interpreted by radiologist, reads pulmonary interstitial edema, does not appear to be any consolidation. EKG appears to be a paced rhythm with rate of 60. IMPRESSION: Ms. Barger is a 74-year-old female with a past medical history of chronic obstructive pulmonary disease; congestive heart failure; paroxysmal atrial fibrillation, on Coumadin; multiple recent admissions for hypoxic/ hypercarbic respiratory failure who presents to the emergency department today, also in acute exacerbation of heart failure and having acute on chronic respiratory failure again, exhibiting hypercapnia and hypoxia, having failed BiPAP in the emergency department, now currently intubated. DIAGNOSES: 1. Acute on chronic hypoxic/hypercarbic respiratory failure. 2. Acute on chronic diastolic heart failure with pulmonary edema. 3. Troponinemia. 4. Supratherapeutic INR. 5. Transaminitis. PLAN: The patient has been admitted to ICU. Neuro: The patient is currently intubated. She has been sedated with propofol. She will be titrated to a RASS of negative 1. Weaning will commence when respiratory status is stable. Cardiovascular: Currently she is pacing on telemetry. Systolic blood pressures were initially stable, now they have dipped likely secondary to propofol. However, she does not appear to need pressors at this time. Her BNP is quite elevated at greater than 1300. 80 mg of Lasix has been ordered. Boyd catheter has been inserted for hemodynamic monitoring. She just recently had an echocardiogram, which shows hypertrophied LV and an ejection fraction of 65% to 70%, I do not see the utility in repeating this as it was done just a week ago. Her chest x-ray does appear to show pulmonary edema and similar to her last presentation. We will see how she diureses, check her I's and O's strictly and then continue to monitor her daily weights. We will dose her Lasix based on her response. We will continue her home aspirin, spironolactone , her metoprolol, and her statin. We will hold her Bumex for now since she will be getting Lasix IV. From a pulmonary standpoint, again she has been intubated. Currently, her sats are acceptable in the 97% to 98% range. Vent settings are CMV with a PEEP of 5 at 40%. She is getting volumes of about 370 to 390. VAP bundle has been ordered. Chest x- ray again with pulmonary edema. Chest CT from her last admission showed that she had bilateral pleural effusions and some cardiomegaly. I do not feel further imaging is required at this time. We will continue her on her home inhalers, DuoNeb. We will hold off on steroids for now. From a GI perspective, the patient will be placed on bowel regimen. Per the note, she is prone to constipation. GI prophylaxis, she will be placed on an H2. From an ID standpoint, she has no white count and no temperature, no consolidation on chest x-ray. She was recently on doxycycline at home, but she does not appear to need any coverage. Her lactic acid is within normal limits at 1.4 and she does not appear toxic. From a heme standpoint, her INR is elevated. We will hold her Coumadin and check her INRs daily. She does have transaminitis. This is unclear, apparently her LFTs were elevated in 2014. Follow her labs again tomorrow. Renal: Renal function currently is within normal limits. Her BUN slightly elevated at 27. We will continue to monitor her labs daily. For DVT prophylaxis, the patient is currently supratherapeutic on her INR. We will restart Coumadin when her numbers are within range. Code status: She is full code. The rest of the patient's course should be determined by further diagnostics, laboratories and any other input from other providers as warranted during this admission. CRITICAL CARE TIME SPENT: 65 minutes on admission planning. This plan of care has been discussed with Dr. Duy Vera, the piping engineer on this case and he is in agreement with the admission plan of care. VALE MARTINEZ NP [id number]/[facility] #: [id number] [facility]
[2019-10-09] MEDS: Mometasone/Formoter 200/5 MDI INH SCH (19:23)
[2019-10-09] MEDS: Famotidine IV* 10 MG/ML 2 ML (20 mg) IV SLOW PU SCH (21:30)
[2019-10-10] MEDS: Chlorhexidine MOUTHWASH 0.12%* 15 ML UDC SWISH SPIT SCH ×6 (02:14→21:42)
[2019-10-10] MEDS: Propofol* 100 ML IV SCH ×4 (05:36→21:01)
[2019-10-10 06:35] LABS: Albumin 3.1 g/dL (3.2-5.2); CO2 Carbon Dioxide 27 mmol/L (22-32); Calcium 8.9 mg/dL (8.6-10.3); Chloride 98 mmol/L (101-111); Sodium 138 mmol/L (135-145)
[2019-10-10 06:41] LABS: ALT 66 U/L (7-52); Albumin/Globulin Ratio 1.3 (1-3); Alkaline Phosphatase 123 U/L (34-104); Blood Urea Nitrogen 30 mg/dL (6-24); EGFR African American 65.6 (>60); EGFR Non-African American 54.2 (>60); Globulin 2.4 g/dL (2-4); Glucose 98 mg/dL (70-100); Total Protein 5.5 g/dL (6.4-8.9)
[2019-10-10 06:44] LABS: Anion Gap 13 mmol/L (2-11)
[2019-10-10 06:55] LABS: Hematocrit 34 % (35-47); Hemoglobin 10.4 g/dL (12.0-16.0); Mean Corpuscular HGB Conc 31 g/dL (31-36); Mean Corpuscular Hemoglobin 30 pg (27-31); Mean Corpuscular Volume 97 fL (80-97); Mean Platelet Volume 9.1 fL (7.4-10.4); Platelet Count 231 10^3/uL (150-450); Red Blood Count 3.44 10^6 /uL (3.70-4.87); Red Cell Distribution Width 15 % (10-15); White Blood Count 11.3 10^3/uL (3.5-10.8)
[2019-10-10 07:15] LABS: Potassium Redraw 3.7 mmol/L (3.5-5.0)
[2019-10-10 07:19] LABS: ABS Lymphocytes 0.8 10^3/ul (1.0-4.8); ABS Monocytes 1.7 10^3/ul (0-0.8); ABS Neutrophils 8.8 10^3/ul (1.5-7.7); ABS Nucleated RBC 0.1 10^3/ul; Eosinophil % 0.1 %; Lymphocyte % 7.2 %; Nucleated Red Blood Cells % 0.5
[2019-10-10] MEDS: Mometasone/Formoter 200/5 MDI INH SCH ×2 (07:59→21:59)
[2019-10-10 08:39] LABS: INR 2.07 (0.82-1.09)
[2019-10-10] MEDS: Famotidine IV* 10 MG/ML 2 ML (20 mg) IV SLOW PU SCH ×2 (09:33→21:42)
[2019-10-10] MEDS ORDERED: Furosemide IV* 10 MG/ML 10 ML VIAL (100 MG) IV ONE (11:07)
--- NOTE | 2019-10-10 13:18 | PN ---
Date of Service: 10/10/19 Critical Care Services: Intubated and sedated. Per nursing, follows commands off sedation. Placed on spontaneous breathing trial this morning but became tachypneic with low tidal volumes. Afebrile. Vital Signs: Temp Pulse Resp BP SpO2 FiO2 99.1 F 55 18 138/60 97 35 10/10/19 12:15 10/10/19 12:15 10/10/19 06:00 10/10/19 12:00 10/10/19 12:15 10/10 04:00 Physical Exam: Gen: No acute distress. Intubated and sedated. HEENT: Head normocephalic and atraumatic. Pupils equal and reactive. ETT and OGT in place. Trachea midline. Lungs: Clear to auscultation but diminished breath sounds. Tachypneic while on CPAP. Cardiac: Bradycardic, paced. Abdomen: Soft, obese. Bowel sounds present. Extremities: Warm, palpable pedal pulses. Neuro: Sedated. RASS -2. Fluid Balance (Past 24 Hours): I= O= Net -1.8L Intake & Output 10/08/19 10/09/19 10/10/19 10/11/19 06:59 06:59 06:59 06:59 Intake Total 350 Output Total 2185 20 Balance -1834 Weight 223 lb 15.834 oz 221 lb 12.56 oz Intake: IV Fluids 65 NS 65 Medicated IV 285 Propofol 285 Output: Boyd 2185 20 Labs: Laboratory Results - last 24 hr 10/09/19 10/09/19 10/09/19 13:00 13:05 13:05 WBC 10.2 RBC 3.58 L Hgb 11.0 L Hct 36 MCV 99 H MCH 31 MCHC 31 RDW 15 Plt Count 278 MPV 8.7 Neut % (Auto) 81.9 Lymph % (Auto) 8.3 [place] % (Auto) 9.2 Eos % (Auto) 0.2 Baso % (Auto) 0.4 Absolute Neuts (auto) 8.3 H Absolute Lymphs (auto) 0.8 L Absolute Monos (auto) 0.9 H Absolute Eos (auto) 0.0 Absolute Basos (auto) 0.0 Absolute Nucleated RBC 0.1 Nucleated RBC % 0.6 INR (Anticoag Therapy) ABG pH 7.23 L ABG pCO2 88 H* ABG pO2 94 ABG HCO3 29.6 ABG O2 Saturation 97.2 ABG Base Excess 6.1 H Sodium 138 Potassium 5.6 H Chloride 100 L Carbon Dioxide 34 H Anion Gap 4 BUN 27 H Creatinine 0.82 Est GFR ( Amer) 82.5 Est GFR (Non-Af Amer) 68.1 BUN/Creatinine Ratio 32.9 H Glucose 178 H POC Glucose (mg/dL) Lactic Acid Calcium 9.7 Magnesium Total Bilirubin 0.30 AST 70 H ALT 82 H Alkaline Phosphatase 125 H Troponin I 0.07 H* C-Reactive Protein 20.25 H B-Natriuretic Peptide Total Protein 6.5 Albumin 3.5 Globulin 3.0 Albumin/Globulin Ratio 1.2 Urine Color Urine Appearance Urine pH Ur Specific [place] Urine Protein Urine Ketones Urine Blood Urine Nitrate Urine Bilirubin Urine Urobilinogen Ur Leukocyte Esterase Urine Glucose Urine Ascorbic Acid 10/09/19 10/09/19 10/09/19 13:05 13:05 13:05 WBC RBC Hgb Hct MCV MCH MCHC RDW Plt Count MPV Neut % (Auto) Lymph % (Auto) [place] % (Auto) Eos % (Auto) Baso % (Auto) Absolute Neuts (auto) Absolute Lymphs (auto) Absolute Monos (auto) Absolute Eos (auto) Absolute Basos (auto) Absolute Nucleated RBC Nucleated RBC % INR (Anticoag Therapy) 3.61 H ABG pH ABG pCO2 ABG pO2 ABG HCO3 ABG O2 Saturation ABG Base Excess Sodium Potassium Chloride Carbon Dioxide Anion Gap BUN Creatinine Est GFR ( Amer) Est GFR (Non-Af Amer) BUN/Creatinine Ratio Glucose POC Glucose (mg/dL) Lactic Acid 1.4 Calcium Magnesium Total Bilirubin AST ALT Alkaline Phosphatase Troponin I C-Reactive Protein B-Natriuretic Peptide > 1300 H Total Protein Albumin Globulin Albumin/Globulin Ratio Urine Color Urine Appearance Urine pH Ur Specific [place] Urine Protein Urine Ketones Urine Blood Urine Nitrate Urine Bilirubin Urine Urobilinogen Ur Leukocyte Esterase Urine Glucose Urine Ascorbic Acid 10/09/19 10/09/19 10/09/19 16:16 16:16 21:20 WBC RBC Hgb Hct MCV MCH MCHC RDW Plt Count MPV Neut % (Auto) Lymph % (Auto) [place] % (Auto) Eos % (Auto) Baso % (Auto) Absolute Neuts (auto) Absolute Lymphs (auto) Absolute Monos (auto) Absolute Eos (auto) Absolute Basos (auto) Absolute Nucleated RBC Nucleated RBC % INR (Anticoag Therapy) ABG pH ABG pCO2 ABG pO2 ABG HCO3 ABG O2 Saturation ABG Base Excess Sodium Potassium Chloride Carbon Dioxide Anion Gap BUN Creatinine Est GFR ( Amer) Est GFR (Non-Af Amer) BUN/Creatinine Ratio Glucose 148 H POC Glucose (mg/dL) 128 H Lactic Acid Calcium Magnesium 2.1 Total Bilirubin AST ALT Alkaline Phosphatase Troponin I 0.05 H* C-Reactive Protein B-Natriuretic Peptide Total Protein Albumin Globulin Albumin/Globulin Ratio Urine Color [place] Urine Appearance Cloudy Urine pH 5.0 Ur Specific [place] 1.019 Urine Protein Negative Urine Ketones Negative Urine Blood Negative Urine Nitrate Negative Urine Bilirubin Negative Urine Urobilinogen Negative Ur Leukocyte Esterase Negative Urine Glucose Negative Urine Ascorbic Acid * A 10/10/19 10/10/19 10/10/19 00:38 05:49 06:14 WBC RBC Hgb Hct MCV MCH MCHC RDW Plt Count MPV Neut % (Auto) Lymph % (Auto) [place] % (Auto) Eos % (Auto) Baso % (Auto) Absolute Neuts (auto) Absolute Lymphs (auto) Absolute Monos (auto) Absolute Eos (auto) Absolute Basos (auto) Absolute Nucleated RBC Nucleated RBC % INR (Anticoag Therapy) ABG pH ABG pCO2 ABG pO2 ABG HCO3 ABG O2 Saturation ABG Base Excess Sodium 138 Potassium TNP Chloride 98 L Carbon Dioxide 27 Anion Gap 13 H BUN 30 H Creatinine 1.00 H Est GFR ( Amer) 65.6 Est GFR (Non-Af Amer) 54.2 BUN/Creatinine Ratio 30.0 H Glucose 98 POC Glucose (mg/dL) 100 119 H Lactic Acid Calcium 8.9 Magnesium Total Bilirubin 0.40 AST TNP ALT 66 H Alkaline Phosphatase 123 H Troponin I C-Reactive Protein B-Natriuretic Peptide Total Protein 5.5 L Albumin 3.1 L Globulin 2.4 Albumin/Globulin Ratio 1.3 Urine Color Urine Appearance Urine pH Ur Specific [place] Urine Protein Urine Ketones Urine Blood Urine Nitrate Urine Bilirubin Urine Urobilinogen Ur Leukocyte Esterase Urine Glucose Urine Ascorbic Acid 10/10/19 10/10/19 10/10/19 06:22 06:22 08:19 WBC 11.3 H RBC 3.44 L Hgb 10.4 L Hct 34 L MCV 97 MCH 30 MCHC 31 RDW 15 Plt Count 231 MPV 9.1 Neut % (Auto) 77.7 Lymph % (Auto) 7.2 [place] % (Auto) 14.6 Eos % (Auto) 0.1 Baso % (Auto) 0.4 Absolute Neuts (auto) 8.8 H Absolute Lymphs (auto) 0.8 L Absolute Monos (auto) 1.7 H Absolute Eos (auto) 0.0 Absolute Basos (auto) 0.0 Absolute Nucleated RBC 0.1 Nucleated RBC % 0.5 INR (Anticoag Therapy) 2.07 H ABG pH ABG pCO2 ABG pO2 ABG HCO3 ABG O2 Saturation ABG Base Excess Sodium Potassium 3.7 Chloride Carbon Dioxide Anion Gap BUN Creatinine Est GFR ( Amer) Est GFR (Non-Af Amer) BUN/Creatinine Ratio Glucose POC Glucose (mg/dL) Lactic Acid Calcium Magnesium Total Bilirubin AST 45 H ALT Alkaline Phosphatase Troponin I C-Reactive Protein B-Natriuretic Peptide Total Protein Albumin Globulin Albumin/Globulin Ratio Urine Color Urine Appearance Urine pH Ur Specific [place] Urine Protein Urine Ketones Urine Blood Urine Nitrate Urine Bilirubin Urine Urobilinogen Ur Leukocyte Esterase Urine Glucose Urine Ascorbic Acid Studies: None Nutrition: NPO. Impression: 74F with h/o CHF and COPD with recent admissions for hypercapnic respiratory failure, admitted again with respiratory distress and hypercarbia. Failed SBT this morning. Plan: Neuro: Sedation with propofol while intubated. CV: acute on chronic systolic heart failure with pulmonary edema. H/o HTN, hyperlipidemia. Redose lasix 80 mg. Holding home Bumex while receiving lasix. Continue home ASA, spironolactone, metoprolol. Continue home rosuvastatin Respiratory: acute on chronic hypoxic and hypercapnic respiratory failure. Back on CMV. SBT tomorrow. CXR in AM Continue Dulera and Duoneb prn GI: No acute issues. Start tube feeds today via OGT and hold in AM for possible extubation. Bowel regimen (docusate and MiraLax prn), h/o constipation. GI ppx: H2 danna : Boyd for accurate I&Os. Receiving lasix ID: No acute issues. No leukocytosis and afebrile. Heme: Supratherapeutic INR on admission. INR 2.07 this morning. Continue home warfarin 2.5mg. Recheck INR in AM. DVT ppx: anticoagulated Endo: D/c POC glucose q4hrs. Change to POC glucose BID. No hyperglycemia since admission, but will monitor once tube feeding started. Critical Care Time: 40 min
[2019-10-10] MEDS ORDERED: Polyethylene Glycol 3350* 17 GM PACKET PO PRN (13:44)
[2019-10-10] MEDS: Metoprolol Tartrate TAB* 50 mg PO SCH (21:42)
[2019-10-10] MEDS: Warfarin TAB(*) 2.5 MG PO SCH (21:42)
[2019-10-11] MEDS: Propofol* 100 ML IV SCH ×2 (01:12→06:04)
[2019-10-11] MEDS: Chlorhexidine MOUTHWASH 0.12%* 15 ML UDC SWISH SPIT SCH ×3 (02:00→09:30)
[2019-10-11 04:28] LABS: Hematocrit 31 % (35-47); Hemoglobin 10.1 g/dL (12.0-16.0); Mean Corpuscular HGB Conc 32 g/dL (31-36); Mean Corpuscular Hemoglobin 31 pg (27-31); Mean Corpuscular Volume 96 fL (80-97); Mean Platelet Volume 8.9 fL (7.4-10.4); Platelet Count 218 10^3/uL (150-450); Red Blood Count 3.27 10^6 /uL (3.70-4.87); Red Cell Distribution Width 15 % (10-15); White Blood Count 11.1 10^3/uL (3.5-10.8)
[2019-10-11 04:35] LABS: INR 1.28 (0.82-1.09)
[2019-10-11 04:49] LABS: BUN/Creatinine Ratio 32.8 (8-20); Calcium 8.9 mg/dL (8.6-10.3); EGFR African American 55.3 (>60); EGFR Non-African American 45.7 (>60); Globulin 2.9 g/dL (2-4); Potassium 3.3 mmol/L (3.5-5.0); Total Bilirubin 0.3 mg/dL (0.2-1.0); Total Protein 5.9 g/dL (6.4-8.9)
[2019-10-11 06:43] LABS: ABS Basophils 0.1 10^3/ul (0-0.2); ABS Eosinophils 0.1 10^3/ul (0-0.6); ABS Lymphocytes 0.8 10^3/ul (1.0-4.8); ABS Monocytes 1.2 10^3/ul (0-0.8); Eosinophil % 0.5 %; Lymphocyte % 7.2 %; Nucleated Red Blood Cells % 0.3
[2019-10-11] MEDS ORDERED: Potassium Chloride* LIQUID 20 MEQ/15 ML UDC PO ONE (07:40)
[2019-10-11] MEDS: Mometasone/Formoter 200/5 MDI INH SCH (08:03)
[2019-10-11] MEDS ORDERED: Atorvastatin* 80 MG TAB PO SCH (09:00)
[2019-10-11] MEDS: Aspirin EC TAB* 81 MG TAB.EC PO SCH (09:30)
[2019-10-11] MEDS: Metoprolol Tartrate TAB* 50 mg PO SCH ×2 (09:30→20:19)
[2019-10-11] MEDS: Spironolactone TAB* 25 MG PO SCH (09:31)
[2019-10-11] MEDS: Famotidine IV* 10 MG/ML 2 ML (20 mg) IV SLOW PU SCH (09:31)
[2019-10-11] MEDS: Warfarin TAB(*) 2.5 MG PO SCH (09:31)
--- NOTE | 2019-10-11 12:58 | PN ---
Date of Service: 10/11/19 Critical Care Services: Intubated and sedated. Started on SBT this morning and doing well. Continues to take shallow breaths but maintains end tidal CO2 <50. No acute events overnight. Afebrile, Tmax 100.4. Vital Signs: Temp Pulse Resp BP SpO2 FiO2 100.4 F 55 39 146/78 95 30 10/11/19 11:30 10/11/19 11:30 10/11/19 11:00 10/11/19 11:00 10/11/19 11:30 10/11 08:00 Physical Exam: Gen: No acute distress. Intubated. HEENT: Normocephalic and atraumatic. Pupils equal and reactive. No scleral icterus. ETT and OGT in place. Neck supple, trachea midline. Lungs: Coarse breath sounds bilaterally. No accessory muscle use on CPAP. Cardiac: RRR, bradycardic and paced. Abdomen: Soft, obese, nontender. Bowel sounds present. Extremities: Warm, pedal pulses palpable. No edema. Skin: Warm and dry. Neuro: Sedation off for SBT. Awake, calm. Moves all extremities. Fluid Balance (Past 24 Hours): I= O= Net +414 ml/24h Intake & Output 10/09/19 10/10/19 10/11/19 10/12/19 06:59 06:59 06:59 06:59 Intake Total 350 1019.7 Output Total 2185 605 152 Balance -1835 414.7 -152 Weight 223 lb 15.834 oz 219 lb 5.759 oz Intake: IV Fluids 65 116.7 NS 65 116.7 Medicated IV 285 428 Propofol 285 428 Tube Feeding 475 Output: Boyd 2185 605 152 Labs: Laboratory Results - last 24 hr 10/10/19 10/11/19 10/11/19 19:57 04:16 04:16 WBC 11.1 H RBC 3.27 L Hgb 10.1 L Hct 31 L MCV 96 MCH 31 MCHC 32 RDW 15 Plt Count 218 MPV 8.9 Neut % (Auto) 80.7 Lymph % (Auto) 7.2 [place] % (Auto) 11.0 Eos % (Auto) 0.5 Baso % (Auto) 0.6 Absolute Neuts (auto) 9.0 H Absolute Lymphs (auto) 0.8 L Absolute Monos (auto) 1.2 H Absolute Eos (auto) 0.1 Absolute Basos (auto) 0.1 Absolute Nucleated RBC 0.0 Nucleated RBC % 0.3 Hem Pathologist Commnt INR (Anticoag Therapy) Sodium 138 Potassium 3.3 L D Chloride 96 L Carbon Dioxide 34 H Anion Gap 8 BUN 38 H Creatinine 1.16 H Est GFR ( Amer) 55.3 Est GFR (Non-Af Amer) 45.7 BUN/Creatinine Ratio 32.8 H Glucose 202 H POC Glucose (mg/dL) 195 H Calcium 8.9 Total Bilirubin 0.30 AST 31 ALT 48 Alkaline Phosphatase 120 H Total Protein 5.9 L Albumin 3.0 L Globulin 2.9 Albumin/Globulin Ratio 1.0 10/11/19 04:16 WBC RBC Hgb Hct MCV MCH MCHC RDW Plt Count MPV Neut % (Auto) Lymph % (Auto) [place] % (Auto) Eos % (Auto) Baso % (Auto) Absolute Neuts (auto) Absolute Lymphs (auto) Absolute Monos (auto) Absolute Eos (auto) Absolute Basos (auto) Absolute Nucleated RBC Nucleated RBC % Hem Pathologist Commnt INR (Anticoag Therapy) 1.28 H Sodium Potassium Chloride Carbon Dioxide Anion Gap BUN Creatinine Est GFR ( Amer) Est GFR (Non-Af Amer) BUN/Creatinine Ratio Glucose POC Glucose (mg/dL) Calcium Total Bilirubin AST ALT Alkaline Phosphatase Total Protein Albumin Globulin Albumin/Globulin Ratio Studies: CXR 10/11/19- pulmonary edema, overall unchanged from previous exam. Nutrition: Tube feeds at 30 ml/h. Paused for extubation. Impression: 74F with acute on chronic hypoxic and hypercarbic respiratory failure. Acute on chronic hypoxic respiratory failure, improving. Acute on chronic hypercarbic respiratory failure, improving Acute on chronic systolic heart failure with pulmonary edema. Edema on chest xray unchanged, but clinically appears to be improving. HTN, stable. Paroxysmal a fib, stable. Plan: Neuro: Sedation with propofol. D/c propofol after extubation. Tylenol prn for pain or fever. Delirium precautions and avoid benzodiazepines. CV: Continue home ASA, spironolactone and metoprolol. Continue home rosuvastatin. Hold home Bumex for now. Respiratory: Plan for extubation today. May need BiPAP Wean FiO2 to keep sat >92% Continue Dulera and Duoneb prn. Pulmonary toilet. D/c VAP bundle after extubation GI: Tube feeds held for extubation. Plan to advance to heart healthy diet when respiratory status is stable. GI prophylaxis: H2 danna. D/c after extubation. Renal: Boyd for accurate I&Os. D/c later today or tomorrow after extubation. Strict I& Os. Hypokalemia- K replaced for goal >4. Heme: Anticoagulation with warfarin, subtherapeutic today at 1.28. Home warfarin dose of 2.5mg given last night, continue 2.5 mg tonight and recheck INR in AM. DVT prophylaxis: anticoagulated. If INR remains subtherapeutic may need to add Lovenox daily. ID: No acute issues. Mild leukocytosis (WBC 11.1) and low grade fevers up to 100.4. Will monitor and order cultures if becomes febrile. Trend WBC daily. Endo: Goal blood glucose <200. Insulin protocol as needed. MSK: OOB to chair after extubation as tolerated. Wounds: None. Lines: PIV Dispo: ICU for ventilator and/or BiPAP Status: Critical Code status: Full Critical Care Time: 50 min
[2019-10-11] MEDS ORDERED: Lactated Ringers 1000 ML Bag* 1,000 ML IV SCH (19:00)
[2019-10-11] MEDS: Atorvastatin* 80 MG TAB PO SCH (20:19)
[2019-10-12] MEDS: Mometasone/Formoter 200/5 MDI INH SCH ×3 (01:09→20:26)
[2019-10-12 05:11] LABS: Hematocrit 30 % (35-47); Hemoglobin 9.5 g/dL (12.0-16.0); Mean Corpuscular HGB Conc 31 g/dL (31-36); Mean Corpuscular Hemoglobin 30 pg (27-31); Mean Corpuscular Volume 97 fL (80-97); Mean Platelet Volume 8.9 fL (7.4-10.4); Platelet Count 209 10^3/uL (150-450); Red Blood Count 3.14 10^6 /uL (3.70-4.87); Red Cell Distribution Width 15 % (10-15); White Blood Count 8.4 10^3/uL (3.5-10.8)
[2019-10-12 05:16] LABS: INR 1.39 (0.82-1.09)
[2019-10-12 05:23] LABS: Albumin 2.8 g/dL (3.2-5.2); Albumin/Globulin Ratio 0.9 (1-3); BUN/Creatinine Ratio 35.6 (8-20); Calcium 8.7 mg/dL (8.6-10.3); EGFR African American 94.3 (>60); EGFR Non-African American 77.9 (>60); Potassium 3.7 mmol/L (3.5-5.0); Total Bilirubin 0.4 mg/dL (0.2-1.0); Total Protein 5.8 g/dL (6.4-8.9)
[2019-10-12 05:55] LABS: Polychromasia 1+
[2019-10-12 05:56] LABS: Microcytosis 1+
[2019-10-12 05:57] LABS: ABS Eosinophils 0.1 10^3/ul (0-0.6); ABS Lymphocytes 0.7 10^3/ul (1.0-4.8); ABS Monocytes 1.4 10^3/ul (0-0.8); ABS Neutrophils 6.1 10^3/ul (1.5-7.7); Eosinophil % 1.2 %; Lymphocyte % 8.8 %; Nucleated Red Blood Cells % 0.2
[2019-10-12] MEDS: Warfarin TAB(*) 2.5 MG PO SCH (08:26)
[2019-10-12] MEDS: Aspirin EC TAB* 81 MG TAB.EC PO SCH (08:26)
[2019-10-12] MEDS: Metoprolol Tartrate TAB* 50 mg PO SCH ×2 (08:26→21:05)
[2019-10-12] MEDS: Spironolactone TAB* 25 MG PO SCH (08:26)
[2019-10-12] MEDS: Bumetanide TAB* 1 MG PO SCH (10:21)
--- NOTE | 2019-10-12 12:16 | PN ---
Date of Service: 10/12/19 Critical Care Services: Extubated yesterday to bipap. Bipap removed this morning to nasal cannula 2L ( home requirement). Patient has no specific complaints. She reports SOB but improved since admission. She denies chest pain. She reports central abdominal pain which she thinks is due to constipation. She has not had a bowel movement in the hospital. She does not feel hungry. Vital Signs: Temp Pulse Resp BP SpO2 FiO2 99.3 F 56 20 155/63 93 30 10/12/19 09:45 10/12/19 09:45 10/12/19 11:00 10/12/19 09:00 10/12/19 09:45 10/12 04:00 Physical Exam: Gen: No acute distress. HEENT: Normocephalic and atraumatic. Pupils equal and no scleral icterus. Moist mucous membranes. Neck supple, trachea midline. Lungs: Wheezes on left. Equal air entry bilaterally. Mildly increased work of breathing and mild tachypnea (RR 20s) but no accessory muscle use. Cardiac: Bradycardic and paced. Abdomen: Soft, nontender, nondistended Extremities: Warm, palpable pedal pulses. Minimal pedal edema b/l. Skin: warm and dry. Intact Neuro: Alert and oriented x3. Moves all extremities equally. Psych: Affect normal. Fluid Balance (Past 24 Hours): I= O= Net -358ml Intake & Output 10/10/19 10/11/19 10/12/19 10/13/19 06:59 06:59 06:59 06:59 Intake Total 350 1019.7 474 Output Total 2185 605 832 155 Balance -1835 414.7 -358 -155 Weight 223 lb 15.834 oz 219 lb 5.759 oz 218 lb 4.8 oz Intake: IV Fluids 65 116.7 409 NS 65 116.7 409 Medicated IV 285 428 65 Propofol 285 428 65 Tube Feeding 475 Output: Boyd 2185 605 832 155 Labs: Laboratory Results - last 24 hr 10/11/19 10/11/19 10/11/19 10:47 13:43 16:02 WBC RBC Hgb Hct MCV MCH MCHC RDW Plt Count MPV Neut % (Auto) Lymph % (Auto) [place] % (Auto) Eos % (Auto) Baso % (Auto) Absolute Neuts (auto) Absolute Lymphs (auto) Absolute Monos (auto) Absolute Eos (auto) Absolute Basos (auto) Absolute Nucleated RBC Neutrophils % Lymphocytes % Monocytes % Nucleated RBC % Normal RBC Morphology Polychromasia Hypochromasia Anisocytosis Microcytosis Macrocytosis Stomatocytes INR (Anticoag Therapy) VBG pH VBG pCO2 VBG pO2 VBG HCO3 VBG O2 Saturation VBG Base Excess Sodium Potassium TNP 3.8 Chloride Carbon Dioxide Anion Gap BUN Creatinine Est GFR ( Amer) Est GFR (Non-Af Amer) BUN/Creatinine Ratio Glucose POC Glucose (mg/dL) 180 H Calcium Total Bilirubin AST ALT Alkaline Phosphatase Total Protein Albumin Globulin Albumin/Globulin Ratio 10/11/19 10/11/19 10/12/19 16:40 19:57 05:00 WBC 8.4 RBC 3.14 L Hgb 9.5 L Hct 30 L MCV 97 MCH 30 MCHC 31 RDW 15 Plt Count 209 MPV 8.9 Neut % (Auto) 72.3 Lymph % (Auto) 8.8 [place] % (Auto) 17.2 Eos % (Auto) 1.2 Baso % (Auto) 0.5 Absolute Neuts (auto) 6.1 Absolute Lymphs (auto) 0.7 L Absolute Monos (auto) 1.4 H Absolute Eos (auto) 0.1 Absolute Basos (auto) 0.0 Absolute Nucleated RBC 0.0 Neutrophils % 79.0 Lymphocytes % 6.0 Monocytes % 15.0 Nucleated RBC % 0.2 Normal RBC Morphology Not Reportable Polychromasia 1+ Hypochromasia 1+ Anisocytosis 1+ Microcytosis 1+ Macrocytosis 1+ Stomatocytes 1+ INR (Anticoag Therapy) VBG pH 7.46 H VBG pCO2 54 H VBG pO2 51.0 H VBG HCO3 34.2 H VBG O2 Saturation 86.1 H VBG Base Excess 12.3 H Sodium Potassium Chloride Carbon Dioxide Anion Gap BUN Creatinine Est GFR ( Amer) Est GFR (Non-Af Amer) BUN/Creatinine Ratio Glucose POC Glucose (mg/dL) 148 H Calcium Total Bilirubin AST ALT Alkaline Phosphatase Total Protein Albumin Globulin Albumin/Globulin Ratio 10/12/19 10/12/19 10/12/19 05:00 05:00 08:22 WBC RBC Hgb Hct MCV MCH MCHC RDW Plt Count MPV Neut % (Auto) Lymph % (Auto) [place] % (Auto) Eos % (Auto) Baso % (Auto) Absolute Neuts (auto) Absolute Lymphs (auto) Absolute Monos (auto) Absolute Eos (auto) Absolute Basos (auto) Absolute Nucleated RBC Neutrophils % Lymphocytes % Monocytes % Nucleated RBC % Normal RBC Morphology Polychromasia Hypochromasia Anisocytosis Microcytosis Macrocytosis Stomatocytes INR (Anticoag Therapy) 1.39 H VBG pH VBG pCO2 VBG pO2 VBG HCO3 VBG O2 Saturation VBG Base Excess Sodium 142 Potassium 3.7 Chloride 101 Carbon Dioxide 35 H Anion Gap 6 BUN 26 H Creatinine 0.73 Est GFR ( Amer) 94.3 Est GFR (Non-Af Amer) 77.9 BUN/Creatinine Ratio 35.6 H Glucose 114 H POC Glucose (mg/dL) 133 H Calcium 8.7 Total Bilirubin 0.40 AST 27 ALT 37 Alkaline Phosphatase 107 H Total Protein 5.8 L Albumin 2.8 L Globulin 3.0 Albumin/Globulin Ratio 0.9 L Nutrition: Start heart healthy diet. Impression: 74F admitted with respiratory failure, improving and now on nasal cannula. Acute on chronic hypoxic respiratory failure, resolved. Acute on chronic hypercarbic respiratory failure, improving. Acute on chronic systolic heart failure with pulmonary edema, improving. HTN, stable. Paroxysmal a fib, stable. Plan: Neuro: Tylenol for pain or fever. Delirium precautions, avoid benzos. CV: Continue home ASA, spironolactone, metoprolol. Start home Bumex at 1mg daily. Continue atorvastatin (substitute for home rosuvastatin). Respiratory: Off bipap during the day, continue home requirement of 2L NC. Will need to document hypercarbia for home Bipap approval. Plan to hold bipap tonight and check ABG in the morning or sooner if respiratory status or mental status declines. Wean FiO2 to keep O2 sat >90% Continue Dulera and duoneb prn. Pulmonary toilet. GI: Start heart healthy diet as tolerated. Schedule Miralax for constipation. GI ppx: not indicated. Renal: D/c Boyd. D/c IVF. Strict I&Os. Start Bumex. Heme: Subtherapeutic INR, 1.39. Will give warfarin 5 mg once tonight then continue home dose of warfarin 2.5 mg tomorrow. Recheck INR tomorrow. DVT ppx: Will give Lovenox once today. If INR in AM remains subtherapeutic, will plan to continue Lovenox. ID: Normal WBC and afebrile. Trend CBC. Endo: Insulin protocol for BG >200. MSK: OOB to chair as tolerated. Wounds: None Lines: PIV Dispo: Transfer to floor later today if remains stable on nasal cannula Status: Guarded Critical Care Time: 30 min
[2019-10-12] MEDS ORDERED: Warfarin TAB(*) 2.5 MG PO ONE (13:30)
[2019-10-12] MEDS: Polyethylene Glycol 3350* 17 GM PACKET PO SCH (13:34)
[2019-10-12] MEDS: Albuterol/Ipratropium NEB.SOL* Albuterol 2.5 MG/Ipratropium 0.5 MG 3 ML INH PRN (15:28)
[2019-10-12] MEDS: Atorvastatin* 80 MG TAB PO SCH (21:05)
[2019-10-13 06:48] LABS: INR 1.49 (0.82-1.09)
[2019-10-13 06:49] LABS: ABS Eosinophils 0.1 10^3/ul (0-0.6); ABS Lymphocytes 0.5 10^3/ul (1.0-4.8); ABS Monocytes 1.3 10^3/ul (0-0.8); ABS Neutrophils 4.1 10^3/ul (1.5-7.7); Eosinophil % 2.4 %; Hematocrit 32 % (35-47); Hemoglobin 9.8 g/dL (12.0-16.0); Mean Corpuscular HGB Conc 31 g/dL (31-36); Mean Corpuscular Hemoglobin 30 pg (27-31); Mean Corpuscular Volume 99 fL (80-97); Nucleated Red Blood Cells % 0.3; Platelet Count 191 10^3/uL (150-450); Red Blood Count 3.24 10^6 /uL (3.70-4.87); Red Cell Distribution Width 15 % (10-15); White Blood Count 6.1 10^3/uL (3.5-10.8)
[2019-10-13 06:52] LABS: Albumin 2.9 g/dL (3.2-5.2); Calcium 8.5 mg/dL (8.6-10.3); Potassium 3.9 mmol/L (3.5-5.0); Total Bilirubin 0.3 mg/dL (0.2-1.0)
[2019-10-13 06:58] LABS: BUN/Creatinine Ratio 30.4 (8-20); EGFR Non-African American 105.8 (>60); Globulin 2.8 g/dL (2-4); Total Protein 5.7 g/dL (6.4-8.9)
[2019-10-13] MEDS: Mometasone/Formoter 200/5 MDI INH SCH ×2 (08:08→19:11)
[2019-10-13] MEDS: Bumetanide TAB* 1 MG PO SCH (08:54)
[2019-10-13] MEDS: Metoprolol Tartrate TAB* 50 mg PO SCH ×2 (08:55→19:47)
[2019-10-13] MEDS: Aspirin EC TAB* 81 MG TAB.EC PO SCH (08:57)
[2019-10-13] MEDS: Spironolactone TAB* 25 MG PO SCH (08:57)
[2019-10-13] MEDS: Polyethylene Glycol 3350* 17 GM PACKET PO SCH ×2 (08:57→08:59)
[2019-10-13 12:07] LABS: Magnesium 2.3 mg/dL (1.9-2.7)
--- NOTE | 2019-10-13 15:41 | PN ---
Subjective Date of Service: 10/13/19 Interval History: Resting in recliner on assessment. NC in place. Reports breathing has improved, but still has some sob. Reports sore throat and mild cough since intubation. Reports bilateral leg pain due to position in chair (usual for her). Denies cp, lightheadedness, fever, chills, abd pain, nausea, vomiting. Objective Active Medications: Albuterol/Ipratropium (Duoneb (Albuterol 2.5 Mg/Ipratropium 0.5 Mg)) 1 neb INH Q4H PRN PRN Reason: SOB/WHEEZING Last Admin: 10/12/19 15:28 Dose: 1 neb Aspirin (Aspirin Ec Tab*) 81 mg PO DAILY [facility] Last Admin: 10/13/19 08:57 Dose: 81 mg Atorvastatin Calcium (Lipitor*) 80 mg PO 2100 [facility] Last Admin: 10/12/19 21:05 Dose: 80 mg Bumetanide (Bumex Tab*) 1 mg PO DAILY [facility] Last Admin: 10/13/19 08:54 Dose: 1 mg Docusate Sodium (Colace Cap*) 200 mg PO DAILY PRN PRN Reason: CONSTIPATION Metoprolol Tartrate (Lopressor Tab*) 75 mg PO BID [facility] Last Admin: 10/13/19 08:55 Dose: 75 mg Mometasone Furoate/Formoterol Fumar (Dulera 200/5 Mdi*) 2 puff INH BID [facility]; Protocol Last Admin: 10/13/19 08:08 Dose: 2 puff Pharmacy Profile Note (Coumadin Per Pharmacy*) 1 note FOLLOW UP .PER PHARMACY PROTOC [facility]; Protocol Polyethylene Glycol/Electrolytes (Miralax*) 17 gm PO DAILY [facility] Last Admin: 10/13/19 08:59 Dose: Not Given Spironolactone (Aldactone Tab*) 25 mg PO DAILY [facility] Last Admin: 10/13/19 08:57 Dose: 25 mg Warfarin Sodium (Coumadin Tab(*)) 2.5 mg PO DAILY@1700 [facility]; Protocol Stop: 10/13/19 17:01 Vital Signs - 8 hr 10/13/19 10/13/19 10/13/19 08:00 11:42 15:22 Temperature 98.1 F 97.4 F Pulse Rate 55 56 Respiratory 20 24 22 Rate Blood Pressure 118/54 139/52 (mmHg) O2 Sat by Pulse 100 100 Oximetry Oxygen Devices in Use Now: Nasal Cannula Appearance: Comfortable, NAD Eyes: No Scleral Icterus Ears/Nose/Mouth/Throat: Clear Oropharnyx, Mucous Membranes Moist Neck: NL Appearance and Movements; NL JVP Respiratory: - - Very mild increase in resp effect. Sporadic scant wheeze throughout. Sporadic rhonchi that cleared with cough. No crackles. Mildly diminished Cardiovascular: NL Sounds; No Murmurs; No JVD, RRR, No Edema Abdominal: NL Sounds; No Tenderness; No Distention Lymphatic: No Cervical Adenopathy Extremities: No Clubbing, Cyanosis Skin: No Rash or Ulcers Neurological: Alert and Oriented x 3 Nutrition: Taking PO's Result Diagrams: 10/13/19 06:12 10/13/19 06:12 Additional Lab and Data: Laboratory Results - last 24 hr 10/12/19 10/12/19 10/13/19 05:00 05:00 05:50 WBC RBC Hgb Hct MCV MCH MCHC RDW Plt Count MPV Neut % (Auto) Lymph % (Auto) [place] % (Auto) Eos % (Auto) Baso % (Auto) Absolute Neuts (auto) Absolute Lymphs (auto) Absolute Monos (auto) Absolute Eos (auto) Absolute Basos (auto) Absolute Nucleated RBC Nucleated RBC % Hem Pathologist Commnt INR (Anticoag Therapy) ABG pH 7.39 ABG pCO2 67 H ABG pO2 92 ABG HCO3 34.7 H ABG O2 Saturation 98.2 H ABG Base Excess 12.6 H Sodium 142 Potassium 3.7 Chloride 101 Carbon Dioxide 35 H Anion Gap 6 BUN 26 H Creatinine 0.73 Est GFR ( Amer) 94.3 Est GFR (Non-Af Amer) 77.9 BUN/Creatinine Ratio 35.6 H Glucose 114 H Calcium 8.7 Magnesium 2.3 Total Bilirubin 0.40 AST 27 ALT 37 Alkaline Phosphatase 107 H Total Protein 5.8 L Albumin 2.8 L Globulin 3.0 Albumin/Globulin Ratio 0.9 L 10/13/19 10/13/19 10/13/19 06:12 06:12 06:12 WBC 6.1 RBC 3.24 L Hgb 9.8 L Hct 32 L MCV 99 H MCH 30 MCHC 31 RDW 15 Plt Count 191 MPV 9.0 Neut % (Auto) 67.5 Lymph % (Auto) 9.0 [place] % (Auto) 20.6 Eos % (Auto) 2.4 Baso % (Auto) 0.5 Absolute Neuts (auto) 4.1 Absolute Lymphs (auto) 0.5 L Absolute Monos (auto) 1.3 H Absolute Eos (auto) 0.1 Absolute Basos (auto) 0.0 Absolute Nucleated RBC 0.0 Nucleated RBC % 0.3 Hem Pathologist Commnt INR (Anticoag Therapy) 1.49 H ABG pH ABG pCO2 ABG pO2 ABG HCO3 ABG O2 Saturation ABG Base Excess Sodium 141 Potassium 3.9 Chloride 100 L Carbon Dioxide 32 Anion Gap 9 BUN 17 Creatinine 0.56 Est GFR ( Amer) 128.0 Est GFR (Non-Af Amer) 105.8 BUN/Creatinine Ratio 30.4 H Glucose 112 H Calcium 8.5 L Magnesium Cancelled Total Bilirubin 0.30 AST 25 ALT 30 Alkaline Phosphatase 105 H Total Protein 5.7 L Albumin 2.9 L Globulin 2.8 Albumin/Globulin Ratio 1.0 Microbiology and Other Data: . Assess/Plan/Problems-Billing Assessment: 74 yr old female with hx of COPD, ADAIR, Afib, Anemia, HTN, obesity, HF; presented with heart failure exacerbation, hypercapnia, and hypoxia. - Patient Problems (1) Acute and chronic respiratory failure Comment: - Continue BiPAP for naps and at night - Will require BiPAP at discharge. Had qualifying abg yesterday - 2L NC during day - Cont resp treatment (2) Acute on chronic heart failure Comment: - Cont spironoloactone and Bumex - Echo approx one week ago showed EF 65-70% with mildly reduced cavity size - Daily weights and Strict I&O (3) Anemia Comment: - Chronic - Stable (4) Atrial fibrillation Comment: - Paced - Cont Metoprolol (5) Hypertension Comment: - Normotensive - Cont home metoprolol (6) Full code status Comment: - Full Code (7) DVT prophylaxis Comment: - Warfarin Attending: Barney Nieto
[2019-10-13] MEDS: Acetaminophen TAB* 325 MG PO PRN (15:56)
[2019-10-13] MEDS ORDERED: Warfarin TAB(*) 2.5 MG PO ONE (17:00)
[2019-10-13] MEDS: Albuterol/Ipratropium NEB.SOL* Albuterol 2.5 MG/Ipratropium 0.5 MG 3 ML INH PRN (19:11)
[2019-10-13] MEDS: Atorvastatin* 80 MG TAB PO SCH (19:48)
[2019-10-14 05:06] LABS: ABS Eosinophils 0.3 10^3/ul (0-0.6); ABS Lymphocytes 0.9 10^3/ul (1.0-4.8); ABS Monocytes 1.4 10^3/ul (0-0.8); ABS Neutrophils 4.1 10^3/ul (1.5-7.7); Eosinophil % 4.1 %; Hematocrit 32 % (35-47); Hemoglobin 9.9 g/dL (12.0-16.0); Lymphocyte % 13.2 %; Mean Corpuscular HGB Conc 31 g/dL (31-36); Mean Corpuscular Hemoglobin 30 pg (27-31); Mean Corpuscular Volume 97 fL (80-97); Mean Platelet Volume 8.5 fL (7.4-10.4); Nucleated Red Blood Cells % 0.2; Platelet Count 235 10^3/uL (150-450); Red Blood Count 3.31 10^6 /uL (3.70-4.87); Red Cell Distribution Width 15 % (10-15); White Blood Count 6.7 10^3/uL (3.5-10.8)
[2019-10-14 05:16] LABS: Albumin 2.8 g/dL (3.2-5.2); Calcium 8.9 mg/dL (8.6-10.3); Potassium 3.5 mmol/L (3.5-5.0); Total Bilirubin 0.4 mg/dL (0.2-1.0)
[2019-10-14 05:17] LABS: INR 1.41 (0.82-1.09)
[2019-10-14 05:21] LABS: Albumin/Globulin Ratio 1.1 (1-3); BUN/Creatinine Ratio 24.2 (8-20); EGFR African American 105.9 (>60); EGFR Non-African American 87.5 (>60); Globulin 2.6 g/dL (2-4); Total Protein 5.4 g/dL (6.4-8.9)
[2019-10-14] MEDS: Acetaminophen TAB* 325 MG PO PRN (08:17)
[2019-10-14] MEDS: Aspirin EC TAB* 81 MG TAB.EC PO SCH (08:19)
[2019-10-14] MEDS: Bumetanide TAB* 1 MG PO SCH (08:21)
[2019-10-14] MEDS: Mometasone/Formoter 200/5 MDI INH SCH ×2 (08:26→19:38)
[2019-10-14] MEDS: Metoprolol Tartrate TAB* 50 mg PO SCH ×2 (08:28→20:14)
[2019-10-14] MEDS: Polyethylene Glycol 3350* 17 GM PACKET PO SCH (08:29)
[2019-10-14] MEDS: Spironolactone TAB* 25 MG PO SCH (08:29)
[2019-10-14] MEDS: Albuterol/Ipratropium NEB.SOL* Albuterol 2.5 MG/Ipratropium 0.5 MG 3 ML INH PRN ×3 (11:04→19:38)
[2019-10-14] MEDS ORDERED: Warfarin TAB(*) 3 MG PO ONE (17:00)
--- NOTE | 2019-10-14 17:12 | PN ---
Subjective Date of Service: 10/14/19 Interval History: Patient lying in bed on assessment with at bedside. She reports work of breathing continues to improving. She reports she still have cough and sore throat. Denies cp, dizziness, nausea, vomiting. Objective Active Medications: Acetaminophen (Tylenol Tab*) 650 mg PO Q6H PRN PRN Reason: PAIN - MILD Last Admin: 10/14/19 08:17 Dose: 650 mg Albuterol/Ipratropium (Duoneb (Albuterol 2.5 Mg/Ipratropium 0.5 Mg)) 1 neb INH Q4H PRN PRN Reason: SOB/WHEEZING Last Admin: 10/14/19 15:22 Dose: 1 neb Aspirin (Aspirin Ec Tab*) 81 mg PO DAILY [facility] Last Admin: 10/14/19 08:19 Dose: 81 mg Atorvastatin Calcium (Lipitor*) 80 mg PO 2100 [facility] Last Admin: 10/13/19 19:48 Dose: 80 mg Bumetanide (Bumex Tab*) 1 mg PO DAILY [facility] Last Admin: 10/14/19 08:21 Dose: 1 mg Docusate Sodium (Colace Cap*) 200 mg PO DAILY PRN PRN Reason: CONSTIPATION Metoprolol Tartrate (Lopressor Tab*) 75 mg PO BID [facility] Last Admin: 10/14/19 08:28 Dose: 75 mg Mometasone Furoate/Formoterol Fumar (Dulera 200/5 Mdi*) 2 puff INH BID [facility]; Protocol Last Admin: 10/14/19 08:26 Dose: 2 puff Pharmacy Profile Note (Coumadin Per Pharmacy*) 1 note FOLLOW UP .PER PHARMACY PROTOC [facility]; Protocol Polyethylene Glycol/Electrolytes (Miralax*) 17 gm PO DAILY [facility] Last Admin: 10/14/19 08:29 Dose: Not Given Spironolactone (Aldactone Tab*) 25 mg PO DAILY [facility] Last Admin: 10/14/19 08:29 Dose: 25 mg Vital Signs - 8 hr 10/14/19 10/14/19 10/14/19 11:05 11:30 15:15 Temperature 98 F Pulse Rate 55 55 56 Respiratory 16 16 24 Rate Blood Pressure 111/38 (mmHg) O2 Sat by Pulse 97 100 97 Oximetry 10/14/19 15:23 Temperature 97.4 F Pulse Rate 64 Respiratory 18 Rate Blood Pressure 138/54 (mmHg) O2 Sat by Pulse 100 Oximetry Oxygen Devices in Use Now: Nasal Cannula Appearance: NAD, Mild dyspnea noted Eyes: No Scleral Icterus Ears/Nose/Mouth/Throat: Clear Oropharnyx, Mucous Membranes Moist Neck: NL Appearance and Movements; NL JVP Respiratory: - - Mild increase in resp effect. Rhonchi clears with cough. Mildly diminished aeration. Cardiovascular: NL Sounds; No Murmurs; No JVD, RRR, No Edema Abdominal: NL Sounds; No Tenderness; No Distention Lymphatic: No Cervical Adenopathy Extremities: No Edema Skin: No Rash or Ulcers Nutrition: Taking PO's Result Diagrams: 10/14/19 04:39 10/14/19 04:39 Additional Lab and Data: Laboratory Results - last 24 hr 10/14/19 10/14/19 10/14/19 04:39 04:39 04:39 WBC 6.7 RBC 3.31 L Hgb 9.9 L Hct 32 L MCV 97 MCH 30 MCHC 31 RDW 15 Plt Count 235 MPV 8.5 Neut % (Auto) 61.5 Lymph % (Auto) 13.2 [place] % (Auto) 20.6 Eos % (Auto) 4.1 Baso % (Auto) 0.6 Absolute Neuts (auto) 4.1 Absolute Lymphs (auto) 0.9 L Absolute Monos (auto) 1.4 H Absolute Eos (auto) 0.3 Absolute Basos (auto) 0.0 Absolute Nucleated RBC 0.0 Nucleated RBC % 0.2 INR (Anticoag Therapy) 1.41 H VBG pH VBG pCO2 VBG pO2 VBG HCO3 VBG O2 Saturation VBG Base Excess Sodium 141 Potassium 3.5 Chloride 97 L Carbon Dioxide 41 H* Anion Gap 3 BUN 16 Creatinine 0.66 Est GFR ( Amer) 105.9 Est GFR (Non-Af Amer) 87.5 BUN/Creatinine Ratio 24.2 H Glucose 118 H Calcium 8.9 Total Bilirubin 0.40 AST 21 ALT 33 Alkaline Phosphatase 90 Total Protein 5.4 L Albumin 2.8 L Globulin 2.6 Albumin/Globulin Ratio 1.1 10/14/19 13:04 WBC RBC Hgb Hct MCV MCH MCHC RDW Plt Count MPV Neut % (Auto) Lymph % (Auto) [place] % (Auto) Eos % (Auto) Baso % (Auto) Absolute Neuts (auto) Absolute Lymphs (auto) Absolute Monos (auto) Absolute Eos (auto) Absolute Basos (auto) Absolute Nucleated RBC Nucleated RBC % INR (Anticoag Therapy) VBG pH 7.38 VBG pCO2 74 H VBG pO2 39.0 VBG HCO3 35.8 H VBG O2 Saturation 70.8 VBG Base Excess 14.9 H Sodium Potassium Chloride Carbon Dioxide Anion Gap BUN Creatinine Est GFR ( Amer) Est GFR (Non-Af Amer) BUN/Creatinine Ratio Glucose Calcium Total Bilirubin AST ALT Alkaline Phosphatase Total Protein Albumin Globulin Albumin/Globulin Ratio Microbiology and Other Data: . Assess/Plan/Problems-Billing Assessment: 74 yr old female with hx of COPD, ADAIR, Afib, Anemia, HTN, obesity, HF; presented with heart failure exacerbation, hypercapnia, and hypoxia. - Patient Problems (1) Acute and chronic respiratory failure Comment: - Kayli brought Noninvasive Vent to patient today to teach patient and - Continue BiPAP for naps and at night - 2L NC during day - Cont resp treatment (2) Acute on chronic heart failure Comment: - Weight stable. No s/s of fluid overload - Cont spironoloactone and Bumex - Echo approx one week ago showed EF 65-70% with mildly reduced cavity size - Daily weights and Strict I&O (3) Anemia Comment: - Mild normocytic anemia - Stable (4) Atrial fibrillation Comment: - Cont tele - Paced - Cont Metoprolol (5) Hypertension Comment: - Normotensive - Cont home metoprolol (6) Full code status Comment: - Full Code (7) DVT prophylaxis Comment: - Warfarin Attending: Barney Nieto
[2019-10-14] MEDS: Atorvastatin* 80 MG TAB PO SCH (20:15)
[2019-10-15 06:55] LABS: ABS Basophils 0.1 10^3/ul (0-0.2); ABS Eosinophils 0.2 10^3/ul (0-0.6); ABS Monocytes 1.3 10^3/ul (0-0.8); ABS Neutrophils 4.8 10^3/ul (1.5-7.7); Eosinophil % 2.4 %; Hematocrit 31 % (35-47); Hemoglobin 9.7 g/dL (12.0-16.0); Lymphocyte % 13.3 %; Mean Corpuscular HGB Conc 31 g/dL (31-36); Mean Corpuscular Hemoglobin 30 pg (27-31); Mean Corpuscular Volume 95 fL (80-97); Mean Platelet Volume 8.5 fL (7.4-10.4); Nucleated Red Blood Cells % 0.1; Platelet Count 251 10^3/uL (150-450); Red Blood Count 3.27 10^6 /uL (3.70-4.87); Red Cell Distribution Width 15 % (10-15); White Blood Count 7.3 10^3/uL (3.5-10.8)
[2019-10-15 06:56] LABS: INR 2.28 (0.82-1.09)
[2019-10-15 07:08] LABS: BUN/Creatinine Ratio 23.6 (8-20); Calcium 8.8 mg/dL (8.6-10.3); EGFR African American 130.7 (>60); Potassium 3.6 mmol/L (3.5-5.0)
[2019-10-15] MEDS: Albuterol/Ipratropium NEB.SOL* Albuterol 2.5 MG/Ipratropium 0.5 MG 3 ML INH PRN (08:07)
[2019-10-15] MEDS: Mometasone/Formoter 200/5 MDI INH SCH (08:08)
[2019-10-15] MEDS: Aspirin EC TAB* 81 MG TAB.EC PO SCH (09:01)
[2019-10-15] MEDS: Metoprolol Tartrate TAB* 50 mg PO SCH (09:01)
[2019-10-15] MEDS: Bumetanide TAB* 1 MG PO SCH (09:01)
[2019-10-15] MEDS: Spironolactone TAB* 25 MG PO SCH (09:02)
[2019-10-15] MEDS: Polyethylene Glycol 3350* 17 GM PACKET PO SCH (09:03)
[2019-10-15 13:51] VITALS: BP 115/42
[2019-10-15] MEDS ORDERED: Warfarin TAB(*) 2.5 MG PO ONE (17:00)
--- NOTE | 2019-10-15 22:40 | DS ---
CC: Dr. Monico Dyson * DISCHARGE SUMMARY: DATE OF ADMISSION: 10/09/19 DATE OF DISCHARGE: 10/15/19 PRIMARY CARE PROVIDER: Dr. Monico Dyson. ATTENDING PHYSICIAN: Dr. Karla Johnston * (dictated by Radhika Machado NP) PRIMARY DIAGNOSES: 1. Acute on chronic hypoxic/hypercarbic respiratory failure. 2. Acute on chronic diastolic heart failure with pulmonary edema. 3. Elevated troponin. 4. Supratherapeutic INR. 5. Transaminitis. SECONDARY DIAGNOSES: 1. Chronic obstructive pulmonary disease. 2. Obstructive sleep apnea. 3. Atrial fibrillation. 4. Chronic anemia. 5. Hypertension. 6. Obesity. 7. Hypertrophic cardiomyopathy. 8. Heart failure with preserved ejection fraction. STUDIES WHILE IN THE HOSPITAL: 1. EKG: Paced rhythm. 2. Chest x-ray: Limited study. Pulmonary interstitial edema. 3. Chest x-ray: Pulmonary interstitial edema. Left mid lung atelectasis versus consolidation. Left pleural effusion. Line and tubes in place. 4. Chest x-ray: Lines and tubes as above. Cardiomegaly. Pulmonary interstitial edema. Atelectasis versus consolidation of left mid lung. Left pleural effusion. DISCHARGE HOME MEDICATIONS: There are no new home medications. No medications were changed. No medications were discontinued. Continued home medications: 1. Acetaminophen 1000 mg p.o. t.i.d. p.r.n. 2. Xanax 0.5 mg p.o. t.i.d. p.r.n. 3. Aspirin 81 mg p.o. daily. 4. Albuterol HFA inhaler 1 puff inhalation q.6 hours p.r.n. 5. Eylea 2 mg injection q.4-6 months. 6. Vitamin D3 2000 units every other day. 7. Calcium carbonate 500 mg p.o. b.i.d. p.r.n. 8. Bumex 2 mg tabs. Take 2 mg on day #1, nothing on day #2; 1 mg on day #3, nothing on day #4 and repeat. 9. Vitamin B12 1000 mcg p.o. daily. 10. Colace 200 mg p.o. daily p.r.n. 11. Norpace 200 mg p.o. t.i.d. 12. Prozac 20 mg p.o. daily. 13. Advair HFA 1 puff inhalation b.i.d. 14. Leonor 60 mg p.o. daily p.r.n. 15. Mag-Ox 400 mg p.o. daily. 16. Acidophilus 1 cap p.o. daily. 17. Folic acid 1 mg p.o. daily. 18. Potassium 20 mEq p.o. daily. 19. MiraLAX 17 g p.o. daily p.r.n. 18. Metoprolol tartrate tab 75 mg p.o. b.i.d. 19. Senokot S tablet 2 tabs p.o. daily. 20. Crestor 40 mg p.o. daily. 21. Gas-X 125 mg p.o. b.i.d. p.r.n. 22. PreserVision AREDS 2 softgels 2 caps p.o. daily. 23. Spironolactone 25 mg p.o. daily. 24. Warfarin 2.5 mg p.o. daily. 25. Guaifenesin 1200 mg p.o. b.i.d. 26. Diamox 250 mg p.o. every other day. HISTORY OF PRESENT ILLNESS/HOSPITAL COURSE: Ms. Barger is a 74-year-old female patient with a past medical history significant for COPD; ADAIR; obesity- hypoventilation syndrome; AFib, status post ablations, pacemaker insertion; chronic anemia; hypertension; obesity; hypertrophic cardiomyopathy; HFpEF, who presented to the emergency room on 10/09/19 in both respiratory distress and hypercarbia. Please see history and physical dictated by Kayla Flynn NP for complete summary of events leading up to hospitalization, but in short, the patient had reasonably admitted for hypoxic/hypercarbic respiratory failure, at that time did not qualify for BiPAP on her previous hospital admission. Per the ED notes, the patient started to get short of breath few days ago and was minimally responsive. She slid out of her chair and EMS was called. While in the emergency room, her oxygen saturation was 77 on room air and was placed on 5 liters and then was sating in the 90s. A blood gas was obtained and she was noted to have CO2 of 88 and a pH of 7.23. Therefore, she was placed on BiPAP. While on BiPAP, the patient continued to have further changes in her mental status and became minimally responsive. The patient was then intubated to protect her airway. The patient was admitted to the ICU. The patient was initially diuresed with Lasix given her BNP was greater than 1300. The patient was placed on strict Is and Os. An echocardiogram was not repeated during this hospital stay as she recently had an echocardiogram that showed an ejection fraction of 65% to 70% with hypertrophic LV. In addition, her chest x-ray did show pulmonary edema and it was similar to her last presentation. While in the ICU, the patient was on a vent. The patient did not necessitate antibiotic therapy given she had no white count, no temperature, and no consolidation seen on her chest x-ray. The patient did well with respiratory support of a ventilator and was extubated on 10/11/19. She was then placed on BiPAP. The patient was then weaned from BiPAP during the day and placed on nasal cannula and BiPAP at night. The patient was transferred to the medical floor where she further improved. During this hospital stay, she has had repeat ABGs, specifically after an evening with no BiPAP and the patient qualified for home BiPAP. Kayli presented the patient with a noninvasive ventilator for home, which she has used overnight while in the hospital and tolerated it well. The patient reports she is at her baseline respiratory status. The patient reports that she is at her baseline mobility. The patient reports she feels stable and ready for discharge. at bedside, reports he feels comfortable bringing her home. It should be mentioned that we did believe the patient might benefit from rehab, but she refuses at this time. It should also be mentioned that today, 10/15/19, we did discuss possibly repeating a chest x-ray to reassess and the patient refused. The patient is stable for discharge home. REVIEW OF SYSTEMS: The patient reports mild shortness of breath, though this is her baseline. The patient reports occasional cough. The patient reports sore throat, which she attributes to being intubated. The patient denies chest pain, dizziness, diaphoresis, nausea, vomiting, abdominal pain, weakness, fever , chills. A 14-point review of systems was performed and all others were negative. PHYSICAL EXAMINATION: Vital Signs: Temp 98.9, HR 54, RR 20, O2 saturation 100 % on 2 L, BP 115/42. General: Ms. Barger is lying in bed. She appears to be in no acute distress. She appears stated age. HEENT: Visual conrad grossly intact. PERRLA. Oral mucosa is moist without lesions. Posterior pharynx is clear. Neck: Full range of motion. No lymphadenopathy. Respiratory : Symmetrical chest expansion. No accessory muscle use. Sporadic scant rhonchi heard on auscultation that clears well with cough. No wheezes or crackles. CV: S1, S2 present. No murmurs, rubs, or gallops. Extremities: Skin is warm and smooth bilaterally. No edema. Musculoskeletal: No pain or deformities. Abdomen: Soft, nontender. Bowel sounds normoactive. Neuro: Awake, alert, oriented x4. Muscle strength is 5/5 in the upper and lower extremities. Skin: Grossly intact without lesions. DIAGNOSTIC STUDIES/LABORATORY DATA: WBC 7.3, hemoglobin 9.7, hematocrit 31, platelets 251. INR 2.28. Sodium 140, potassium 3.6, chloride 97, carbon dioxide 38, BUN 13, creatinine 0.55, glucose 115. Blood gas on admission; pH 7.23, pCO2 of 88, pO2 of 94, HCO3 of 29.6, O2 saturation 97.2, base excess 6.1. Venous gas after treatment on 10/14/19; pH 7.38; pCO2 of 74, pO2 of 39, HCO3 of 35.8, O2 saturation 70.8, base excess 14.9. DISCHARGE PLAN/FOLLOWUP: 1. Acute on chronic hypoxic/hypercarbic respiratory failure: The patient has improved greatly since her admission. She is mentating well. She is breathing at her baseline. She is on 2 L of nasal cannula during the day and BiPAP/ noninvasive ventilator at night. The patient should continue her oxygen during the day and BiPAP/noninvasive ventilator at night. [facility] will be following up with the patient. 2. [id number] diastolic heart failure with pulmonary edema. As mentioned above, the patient was diuresed while here in the hospital with Lasix. The patient's weight has been steady since diuresis. The patient has no signs of hypo or hypervolemia at this time. I did want to repeat a chest x- ray, but the patient refused. The patient should continue her home diuretics. 3. Elevated troponin. The patient had a slightly elevated troponin on admission at 0.75, which trended down. We suspect this was demand ischemia given her respiratory status. 4. Supratherapeutic INR. On admission, the patient's INR was supratherapeutic at 3.61. Her Coumadin was adjusted accordingly and today at discharge, her INR is 2.28. She was discharged on her home dose of 2.5 and she should follow up with her INR early next week. 5. Transaminitis. On admission, the patient had an elevated AST and ALT, which has trended down and normalized during her hospital stay. We suspect this was due to her acute condition. 6. Chronic obstructive pulmonary disease. The patient should continue her home inhalers and respiratory treatment. 7. Obstructive sleep apnea and obesity hypoventilation syndrome. The patient should continue her supplemental oxygen and home BiPAP/noninvasive ventilator. 8. Atrial fibrillation, status post ablation and pacemaker insertion. The patient should continue her home medications as same. The patient should follow up with her fishing game warden as recommended. 9. Chronic anemia. The patient has been noted to be slightly normocytic anemic while in the hospital. The labs are stable or consistent with her baseline. We will defer this to her primary care provider. 10. Hypertrophic cardiomyopathy and heart failure with preserved ejection fraction. The patient should continue her home medications and follow up with her fishing game warden. 11. Followup: The patient should followup with her primary care in 1 to 3 days. The patient should have a repeat INR in 1 to 3 days. 12. Education: The patient was educated to [facility] and/or present to the emergency department if she has any issues at all with her BiPAP/noninvasive ventilator. The patient was educated on signs and symptoms of new or worsening conditions and when to return to the emergency department. The patient stated understanding. This is a summarized report of a complex medical history and hospital stay. For further details, please see the entire medical record. TIME SPENT: Approximately 45 minutes was spent on this discharge, greater than half that time was spent [id number] with the patient discussing discharge plans and instructions. This plan was discussed with my attending, Dr. Johnston, who is in agreement with my plan of care. RADHIKA MACHADO, PETRA [id number]/[facility] #: [id number] TATUM
== END 2019-10-15 15:00 | disposition home health service (06) | DRG 208 ==
LOC: EDUNIT# → EDBD → ED 12:44 → ICU 14:28 → MEDTELE 10-12 13:21
PROVIDERS: ADMIT Internal Medicine Critical Care Medicine; ATTEND Surgery Surgical Critical Care
PROC: 0BH17EZ Insertion of Endotracheal Airway into Trachea, Via Natural or Artificial Opening (ICD-10-PCS; principal; 2019-10-09)
PROC: 5A1945Z Respiratory Ventilation, 24-96 Consecutive Hours (ICD-10-PCS; 2019-10-09)
PROC: 5A09357 Assistance with Respiratory Ventilation, Less than 24 Consecutive Hours, Continuous Positive Airway Pressure (ICD-10-PCS; 2019-10-09)
DX: J96.21 Acute and chronic respiratory failure with hypoxia (principal); I50.43 Acute on chronic combined systolic (congestive) and diastolic (congestive) heart failure; Z68.41 Body mass index [BMI] 40.0-44.9, adult; I42.2 Other hypertrophic cardiomyopathy; E66.2 Morbid (severe) obesity with alveolar hypoventilation; I24.8 Other forms of acute ischemic heart disease; D64.9 Anemia, unspecified; R79.1 Abnormal coagulation profile; R74.0 Nonspecific elevation of levels of transaminase and lactic acid dehydrogenase [LDH]; I48.0 Paroxysmal atrial fibrillation; J96.22 Acute and chronic respiratory failure with hypercapnia; I25.10 Atherosclerotic heart disease of native coronary artery without angina pectoris; I11.0 Hypertensive heart disease with heart failure; E78.00 Pure hypercholesterolemia, unspecified; J44.9 Chronic obstructive pulmonary disease, unspecified; K21.9 Gastro-esophageal reflux disease without esophagitis; M19.90 Unspecified osteoarthritis, unspecified site; E87.6 Hypokalemia; K59.00 Constipation, unspecified; G43.909 Migraine, unspecified, not intractable, without status migrainosus; D72.829 Elevated white blood cell count, unspecified; Z99.81 Dependence on supplemental oxygen; Z88.8 Allergy status to other drugs, medicaments and biological substances; Z87.891 Personal history of nicotine dependence; Z95.0 Presence of cardiac pacemaker; Z91.011 Allergy to milk products; Z79.82 Long term (current) use of aspirin; Z79.01 Long term (current) use of anticoagulants; Z79.899 Other long term (current) drug therapy; Z99.89 Dependence on other enabling machines and devices
CPT/HCPCS: 36415; 36600; 71045; 80048; 80053; 81003; 82803; 82947; 83605; 83735; 83880; 84132; 84484; 85025; 85060; 85610; 86140; 93005; 94003; 94640; 94660; 99285; A9270-GY; J1644; J1940; J2704

== ENCOUNTER 2019-11-02 11:00 | Day surgery (SDC) | payer MEDICARE ==
[~2019-11-02 11:00] MED LIST changes: -Acetaminophen TAB* 325 MG PO PRN; +Buffered Lidocaine 1% SYRIN* 1 ML/SYRINGE INTRADERM ONE; -Diazepam TAB(*) 5 MG ONE; -Flumazenil* 0.1 MG/ML 5 ML MDV ONE; +Lactated Ringers 1000 ML Bag* 1,000 ML IV SCH; -Lidocaine 1% INJ* 10 MG/ML 30 ML SDV ONE; -Midazolam* 1 MG/ML 5 ML VIAL (5 MG) ONE; +NS 0.45% 1000 ML BAG* 1,000 ML IV SCH; -Naloxone* 0.4 MG/ML 1 ML VIAL ONE; +Sodium Citrate/Citric Acid* 15 ML UDC PO ONE; -ceFAZolin VIAL 1 GM in NS *SYRINGE * * 10 ML ONE; -ceFAZolin* 2 GM* ONE DOSE (Duplex) IVPB; -fentaNYL* 50 MCG/ML 2 ML VIAL (100 MCG VIAL) ONE
[2019-11-02] MEDS ORDERED: Buffered Lidocaine 1% SYRIN* 1 ML/SYRINGE INTRADERM ONE (11:23)
[2019-11-02] MEDS ORDERED: Propofol* 10 MG/ML 20 ML BTL ONE (12:20)
[2019-11-02] MEDS ORDERED: Lidocaine 2% PF * 5 ML VIAL ONE (13:10)
[2019-11-02 14:32] VITALS: BP 119/62
--- NOTE | 2019-12-02 15:11 | CARD ---
CC: Dr. Ness Dennis * DATE OF PROCEDURE: 11/02/2019 - [facility] CATH PROCEDURE PERFORMED: Electrical cardioversion. PREPROCEDURE DIAGNOSIS: Atrial fibrillation. POSTPROCEDURE DIAGNOSIS: Atrial fibrillation. PROCEDURE: The indications, risks and benefits were discussed with the patient and her and they were amenable to proceeding. The anesthesia was performed by the anesthesiologist and documented separately. AP patches were applied to the chest wall. A time out was called. Sedation provided by Anesthesia. We verified the patient remained in A-fib using her pacemaker intracardiac electrograms. Once the patient was sedated, she received 150 joules synchronously delivered across the chest wall with successful cardioversion to dual chamber pacing (again confirmed by pacemaker interrogation). CONCLUSION: Successful cardioversion from A-fib to AV sequential pacing. There were no complications. The patient was hemodynamically stable throughout the procedure. [id number]/[facility] #: [id number] MTDD
== END 2019-11-02 15:31 | disposition home or self-care (01) ==
LOC: CHICATH 11:00
PROVIDERS: ATTEND Specialist
DX: I48.0 Paroxysmal atrial fibrillation (principal); I44.2 Atrioventricular block, complete; Z95.810 Presence of automatic (implantable) cardiac defibrillator; I50.32 Chronic diastolic (congestive) heart failure; J96.21 Acute and chronic respiratory failure with hypoxia; I42.8 Other cardiomyopathies; Z79.01 Long term (current) use of anticoagulants; R60.9 Edema, unspecified; I11.0 Hypertensive heart disease with heart failure; I25.10 Atherosclerotic heart disease of native coronary artery without angina pectoris; I08.3 Combined rheumatic disorders of mitral, aortic and tricuspid valves; Z87.891 Personal history of nicotine dependence
CPT/HCPCS: 92960; J2704

== ENCOUNTER 2019-11-16 07:07 | Day surgery (SDC) | payer MEDICARE ==
[~2019-11-16 07:07] MED LIST changes: -Lactated Ringers 1000 ML Bag* 1,000 ML IV SCH; -NS 0.45% 1000 ML BAG* 1,000 ML IV SCH; +NS 0.9% 1000 ML** 1,000 ML IV SCH; -Sodium Citrate/Citric Acid* 15 ML UDC PO ONE
[2019-11-16] MEDS ORDERED: Propofol* 10 MG/ML 20 ML BTL ONE (08:31)
[2019-11-16] MEDS ORDERED: Naloxone* 0.4 MG/ML 1 ML VIAL IV PRN (08:32)
--- NOTE | 2019-11-16 09:53 | CARD ---
CC: Dr. Ness Dennis DATE OF PROCEDURE: 11/16/19 PROCEDURE: Electrical cardioversion. DIAGNOSIS: Atrial fibrillation, flutter. PROCEDURE PERFORMED BY: Dr. Nicole. The indication, risks and benefits were discussed with the patient in the presence of her . Q uestions were answered and she was amenable to proceeding. Anesthesia sedated the patient and this was documented separately. DESCRIPTION OF PROCEDURE: AP patches have been applied to the chest wall. Following sedation, the pa tient received 150 joules synchronously delivered across the chest wall with successful cardioversion to sinus rhythm and ventricular pacing. P-waves were clearly visible. The patient was hemodynamically stable throughout the procedure and on transfer to the recovery area. CONCLUSION: Successful cardioversion without complications. [id number]/[facility] #: [id number]
[2019-11-16 11:14] VITALS: BP 109/55
== END 2019-11-16 11:14 | disposition home or self-care (01) ==
LOC: OR 07:07
PROVIDERS: ATTEND Specialist
DX: I48.0 Paroxysmal atrial fibrillation (principal); R06.02 Shortness of breath; Z79.01 Long term (current) use of anticoagulants; I44.2 Atrioventricular block, complete; I42.8 Other cardiomyopathies; I50.9 Heart failure, unspecified; I11.0 Hypertensive heart disease with heart failure; R60.9 Edema, unspecified; E78.2 Mixed hyperlipidemia; Z87.891 Personal history of nicotine dependence; G47.33 Obstructive sleep apnea (adult) (pediatric)
CPT/HCPCS: 92960; J2704

== ENCOUNTER 2019-11-17 12:37 | Inpatient (IN) | payer MEDICARE ==
--- NOTE | 2019-11-17 12:40 | ED ---
Respiratory - HPI Summary HPI Summary: Patient is a 74 y/o F presenting to the ED via EMS for a chief complaint of respiratory distress. Patient is present with her . Per EMS, patient was cyanotic, hypoxic, and had decreased responsiveness on arrival and placed on a duo-nebulizer. After starting the duo-nebulizer, patient said "hi" and later became unresponsive. Patient is still on respiratory therapy on arrival to [facility]. PSHx is significant for pacemaker placement. It is unknown if the patient is on blood thinners. Patient's states the patient was seen at [facility] for two cardioversions for a reason he does not know. Patient is supposed to be on BiPAP, but has not been compliant with this therapy. Her notes patient has increased shortness of breath recently and has a chronic cough, but has not noticed any change in the cough from baseline. Her denies the patient has had a fever or chills lately. HISTORY OF PRESENT ILLNESS IS LIMITED DUE TO LEVEL 5 CAVEAT - UNRESPONSIVENESS. - History of Current Complaint Stated Complaint: CHEST PAIN Hx Obtained From: Family/[employer] - , EMS Hx From Patient Unobtainable Due To: Altered Mental Status Onset/Duration: Sudden Onset Timing: Constant Initial Severity: Severe Current Severity: Severe Character: Dyspnea at Rest Sputum Amount: None Aggravating Factor(s): Nothing Alleviating Factor(s): Oxygen Associated Signs and Symptoms: SOB, Dyspnea - Allergy/Home Medications Allergies/Adverse Reactions: Allergies Allergy/AdvReac Type Severity Reaction Status Date / Time bupropion [From Wellbutrin] Allergy Hives Verified 11/16/19 07:55 lactose Allergy Diarrhea Verified 11/16/19 07:55 sotalol Allergy Unknown Verified 11/16/19 07:55 Reaction Details zolpidem [From Ambien] Allergy Hallucinati Verified 11/16/19 07:55 ons ENVIRONMENTAL Allergy Intermediate Congestion Uncoded 11/16/19 07:55 Home Medications: Home Medications ALPRAZolam TAB* [Xanax TAB*] 0.5 mg PO ONCE PRN 06/27/14 [History Confirmed 01/01] Calcium Carbonate CHEW TAB* [Tums*] 500 mg PO BID PRN 06/27/14 [History Confirmed 11/16/19] Docusate CAP* [Colace Cap*] 200 mg PO QPM 06/27/14 [History Confirmed 11/16/19] Polyethylene Glycol 3350* [Miralax (17 GM DOSE REFUGIO)] 17 gm PO DAILY PRN [History Confirmed 11/16/19] Disopyramide CAP* [Norpace CAP*] 200 mg PO 1200 06/28/15 [History Confirmed 01/01] Metoprolol Tartrate TAB* [Lopressor TAB*] 75 mg PO BID 06/28/15 [History Confirmed 11/16/19] Acetaminophen [Acetaminophen Extra Strength] 500 mg PO BID 09/16/19 [History Confirmed 11/16/19] Aflibercept [Eylea] 2 mg INJ .Q4-6M 09/16/19 [History Confirmed 11/16/19] Aspirin EC TAB* [Ecotrin EC Low Dose 81 MG*] 81 mg PO QAM 09/16/19 [History Confirmed 11/16/19] Cholecalciferol (Vitamin D3) [Vitamin D3] 2,000 unit PO EVERY OTHER DAY [History Confirmed 11/16/19] Cyanocobalamin TAB* [Vitamin B12 TAB*] 1,000 mcg PO QAM 09/16/19 [History Confirmed 11/16/19] Fexofenadine (NF) [Leonor (NF)] 60 mg PO DAILY PRN 09/16/19 [History Confirmed 11/16/19] Folic Acid TAB* [Folvite TAB*] 1 mg PO QAM 09/16/19 [History Confirmed 11/16/19] L.acidoph,Paracasei, B.lactis [Probiotic] 1 cap PO QAM 09/16/19 [History Confirmed 11/16/19] Magnesium Oxide TAB* [MagOx 400 TAB*] 400 mg PO QAM 09/16/19 [History Confirmed 11/16/19] Sennosides/Docusate Sodium [Senokot-S Tablet] 2 tab PO BEDTIME 09/16/19 [ History Confirmed 11/16/19] Simethicone [Gas-X] 125 mg PO BID PRN 09/16/19 [History Confirmed 11/16/19] Spironolactone TAB* [Aldactone TAB 25 MG*] 25 mg PO QAM 09/16/19 [History Confirmed 11/16/19] Vit C/E/Zn/Coppr/Lutein/Zeaxan [Preservision Areds 2 Softgel] 2 cap PO 1200 12/01 [History Confirmed 11/16/19] guaiFENesin ER TAB [Mucinex*] 600 mg PO BID 09/16/19 [History Confirmed 11/16/19 ] acetaZOLAMIDE TAB* [Diamox Tab*] 250 mg PO EVERY OTHER DAY 30 Days #15 tab 09/27 [Rx Confirmed 11/16/19] Albuterol HFA INHALER* [Ventolin HFA Inhaler*] 2 puff INH Q4H PRN 11/01/19 [ History Confirmed 11/16/19] Bumetanide TAB* [Bumex 2 MG TAB*] 1 mg PO .EVERY OTHER DAY 11/01/19 [History Confirmed 11/16/19] FLUoxetine CAP* [Prozac CAP*] 20 mg PO QPM 11/01/19 [History Confirmed 11/16/19] Potassium Chloride [Klor-Con M20] 20 meq PO QPM 11/01/19 [History Confirmed 01/01] Rosuvastatin Calcium 40 mg PO QAM 11/01/19 [History Confirmed 11/16/19] Acetaminophen [Acetaminophen ER] 650 mg PO BID 11/15/19 [History Confirmed 11/15] Disopyramide CAP* [Norpace CAP*] 300 mg PO BID 11/15/19 [History Confirmed 11/15] Warfarin TAB(*) [Coumadin TAB(*)] 2.5 mg PO BEDTIME 11/15/19 [History Confirmed 11/16/19] PMH/Surg Hx/FS Hx/Imm Hx Previously Healthy: No - LIMITED DUE TO LEVEL 5 CAVEAT - UNRESPONSIVENESS. Endocrine/Hematology History: Reports: Hx Anticoagulant Therapy, Hx Blood Disorders - anemia, Hx Anemia - HX OF-FAM REPORTS INFUSIONS 8 YEARS AGO; BLOOD TRANSFUSIONS-4 YRS AGO, Hx Unexplained Bleeding Denies: Hx Blood Transfusions, Hx Bone Marrow Disease, Hx Diabetes, Hx Systemic Lupus Erythematosus, Hx Sickle Cell Disease, Hx Thyroid Disease, Other Endocrine/Hematological Disorders Cardiovascular History: Reports: Hx Angina, Hx Auto Implanted Cardiovert Defib, Hx Cardiomegaly, Hx Congenital Heart Disease, Hx Congestive Heart Failure - HX OF-PT REPORTS-DX 2011, Hx Coronary Artery Disease, Hx Hypercholesterolemia, Hx Hypotension, Hx Hypertension - HX OF-ON MEDICATION FOR, Hx Pacemaker/ICD - HX OF -FAM REPORTS 06/2012;REPLACEMENT 11/2018, Hx Rheumatic Fever - HX OF-PT REPORTS [place] [facility] [place], Hx Syncope, Hx Valvular Heart Disease - HX OF-FAM REPORTS ALCOHOL ABLATION-2011,2013,2016-[place], Other Cardiovascular Problems /Disorders - HX OF-FAM REPORTS AFIB Denies: Hx Aneurysm, Hx Angioplasty, Hx Cardiac Arrest, Hx Deep Vein Thrombosis, Hx Myocardial Infarction, Hx Peripheral Vascular Disease Respiratory History: Reports: Hx Chronic Obstructive Pulmonary Disease (COPD) - on 2L O2 at home, Hx Pneumonia, Hx Sleep Apnea - HX OF-USES BIPAP MACHINE, Other Respiratory Problems/Disorders - HX OF-FAM REPORTS-COPD;HX OF PNEUMONIA- 2011 AND 09/2019 Denies: Hx Asthma, Hx Chronic Bronchitis, Hx Cystic Fibrosis, Hx Lung Cancer , Hx Pleural Effusion, Hx Pulmonary Edema, Hx Pulmonary Embolism, Hx Seasonal Allergies GI History: Reports: Hx Gastroesophageal Reflux Disease - HX OF-PRN MEDICATION FOR, Hx Ulcer - HX OF-FAM REPORTS ULCER-UNKNOWN TYPE-, Other GI Disorders - HX OF HEMORRHOIDS-PRN MEDICATION FOR Denies: Hx Cirrhosis, Hx Crohn's Disease, Hx Diverticulosis, Hx Gall Bladder Disease, Hx Gastrointestinal Bleed, Hx Hiatal Hernia, Hx Irritable Bowel, Hx Jaundice, Hx Obstructive Bowel, Hx Ileostomy, Hx Pyloric Stenosis History: Denies: Hx Acute Renal Failure, Hx Benign Prostatic Hyperplasia, Hx Chronic Renal Failure, Hx Dialysis, Hx Kidney Infection, Hx Kidney Stones, Other Problems/Disorders Musculoskeletal History: Reports: Hx Arthritis - HX OF-RIGHT HIP, KNEE AND LEFT SHOULDER, Hx Back Problems - lower back pain, chronic undiagnosed, Hx Bursitis - HX OF-RIGHT HIP, KNEE AND LEFT SHOULDER Denies: Hx Congenital Bone Abnormalities, Hx Fibromyalgia, Hx Gout, Hx Orthopedic Injury, Hx Osteoporosis, Hx Scoliosis, Hx Tendonitis, Other Musculoskeletal History Sensory History: Reports: Hx Cataracts - BILATERAL, Hx Contacts or Glasses - GLASSES-DOES NOT WEAR, Hx Glaucoma - HX OF-FAM [id number], Hx Macular Degeneration, Hx Vision Problem Denies: Hx Eye Injury, Hx Eye Prosthesis, Hx Legally Blind, Hx Deafness, Hx Hearing Aid, Hx Hearing Problem, Other Sensory Impairments Opthamlomology History: Reports: Hx Cataracts - BILATERAL, Hx Contacts or Glasses - GLASSES-DOES NOT WEAR, Hx Glaucoma - HX OF-FAM [id number] , Hx Macular Degeneration, Hx Vision Problem Denies: Hx Eye Injury, Hx Eye Prosthesis, Hx Legally Blind, Other Sensory Impairments EENT History: Denies: Hx Deafness Neurological History: Reports: Hx Headaches - HX OF-PRN MEDICATION FOR, Other Neuro Impairments/Disorders - HX OF-RIGHT LEG AND LEFT SHOULDER NEURITIS-PRN APAP Denies: Hx Dementia, Hx Developmental Delay, Hx Migraine, Hx Seizures, Hx Spinal Cord Injury, Hx Transient Ischemic Attacks (TIA) Psychiatric History: Reports: Hx Anxiety - HX OF-PRN MEDICATION FOR, Hx Depression - HX OF-ON MEDICATION FOR Denies: Hx Attention Deficit Hyperactivity Disorder, Hx Eating Disorder, Hx Panic Disorder, Hx Post Traumatic Stress Disorder, Hx Inpatient Treatment, Hx Community Mental Health Tx, Hx Schizophrenia, Hx Bipolar Disorder, Hx Suicide Attempt, Hx of Violent Episodes Against Others, Hx Substance Abuse, Other Psychiatric Issues/Disorders - Cancer History Hx Chemotherapy: No Hx Radiation Therapy: No - Surgical History Surgical History: Yes Surgery Procedure, Year, and Place: TONSILLECTOMY A CHILD. BILATERAL CATARACT SURGERY-2011. EXPLORATORY ABDOMINAL SURGERY-. COLONOSCOPIES. ICD/PACEMAKER-2011. REPLACEMENT PACEMAKER-11/2018. CARDIAC VALVES-REPORTS ALCOHOL ABLATION-2011,2013,2017-[place] Hx Anesthesia Reactions: No - Immunization History Date of Tetanus Vaccine: UNKNOWN Infectious Disease History: Yes Infectious Disease History: Reports: Hx of Known/Suspected MRSA Denies: Hx Clostridium Difficile, Hx Hepatitis, Hx Human Immunodeficiency Virus (HIV), Hx Shingles, Hx Tuberculosis - Family History Known Family History: Negative: Seizure Disorder - Social History Occupation: Retired Lives: With Family Alcohol Use: None Alcohol Amount: 1 beer every 2 months Hx Substance Use: No Substance Use Type: Reports: None Hx Tobacco Use: Yes Smoking Status (MU): Former Smoker Type: Cigarettes Amount Used/How Often: 1 PPD X 25 YEARS Length of Time of Smoking/Using Tobacco: 30 years Have You Smoked in the Last Year: No Review of Systems Negative: Fever, Chills Positive: Shortness Of Breath, Cough - Chronic, unchanged from baseline, Other - Positive hypoxia Positive: Other - Positive cyanotic Neurological/Mental Status: Other - Positive decreased responsiveness All Other Systems Reviewed And Are Negative: No - Comments Additional Review of Systems Comments: REVIEW OF SYSTEMS IS LIMITED DUE TO LEVEL 5 CAVEAT - UNRESPONSIVENESS. Physical Exam - Summary Physical Exam Summary: PHYSICAL EXAM IS LIMITED DUE TO LEVEL 5 CAVEAT - UNRESPONSIVENESS. Constitutional: Well-developed, Well-nourished, Unresponsive. Skin: Warm, Dry HENT: Normocephalic; Atraumatic Eyes: Conjunctiva normal Neck: Musculoskeletal ROM normal neck. (-) JVD, (-) Stridor, (-) Tracheal deviation Cardio: Rhythm regular, rate normal, Heart sounds normal; Intact distal pulses; The pedal pulses are 2+ and symmetric. Radial pulses are 2+ and symmetric. Pulmonary/Chest wall: (-) Wheezes, (-) Rales. Agonal respiration, minimal air movement. Abd: Soft, (-) tenderness, (-) Distension, (-) Guarding, (-) Rebound Musculoskeletal: (-) Edema Neuro: Unresponsive. Psych: Mood and affect Normal Triage Information Reviewed: Yes Vital Signs Reviewed: Yes Completion Of Physical Exam Limited Due To: Altered Mental Status, Level 5 Procedures - Procedure Summary Procedure Summary: Procedure Summary: assisted with manual aero pharyngeal, first O2 saturation was 90% and increased with ventilator, left tibia IO needle was placed and patient was given 20 mg atomic through the needle. Patient was intubated with a 7.5 cm ET tube that is at 25 cm at the lip, patient is on mechanical ventilation and was sedated on propofol, she has minimal air movement. Post intubation chest X-ray shows bilateral diffuse interstitial effusion in the left lung that is opacifying almost the entire lung. OG tube is in place. - Sedation Patient Received Moderate/Deep Sedation with Procedure: No - Intubation Time of Intubation: 12:54 Intubation Method: orotracheal Tube Size (cm): 7.5 Medications: Succinylcholine Post Intubation Xray: Yes Progress/Xray Impression: Bilateral diffuse interstitial effusion in left lung opacifying most lung Diagnostics - Laboratory Result Diagrams: 11/17/19 13:09 11/17/19 13:08 Lab Statement: Any lab studies that have been ordered have been reviewed, and results considered in the medical decision making process. - Radiology Chest X-ray Radiology Interpretation Completed By: Radiologist Summary of Radiographic Findings: Chest X-ray IMPRESSION: LINES AND TUBES ABOVE. PLEASE NOTE THAT NO GASTRIC TUBE IS VISIBLE ON THE CURRENT EXAMINATION. PULMONARY INTERSTITIAL AND ALVEOLAR EDEMA WITH A LEFT PLEURAL EFFUSION. Reviewed by Dr. Benton. - EKG 13:47 Cardiac Rate: Other Rate - 95 BPM EKG Rhythm: Sinus Rhythm ST Segment: Normal Ectopy: None Summary of EKG Findings: An EKG at 13:47 reveals ventricular paced-rhythm with 95 BPM, nml axis, nml intervals. No STEMI. No acute changes. Reviewed and interpreted by Dr. Benton. Disposition - Course Course Of Treatment: LIMITED DUE TO LEVEL 5 CAVEAT - UNRESPONSIVENESS. Patient is a 74 y/o F presenting to the ED via EMS for a chief complaint of respiratory distress. Patient is present with her . Per EMS, patient was cyanotic, hypoxic, and had decreased responsiveness on arrival and placed on a duo- nebulizer. After starting the duo-nebulizer, patient said "hi" and later became unresponsive. Patient is still on respiratory therapy on arrival to [facility]. PSHx is significant for pacemaker placement. It is unknown if the patient is on blood thinners. Patient's states the patient was seen at [facility] for two cardioversions for a reason he does not know. Patient is supposed to be on BiPAP , but has not been compliant with this therapy. Her notes patient has increased shortness of breath recently and has a chronic cough, but has not noticed any change in the cough from baseline. Her denies the patient has had a fever or chills lately. On exam, unresponsive, agonal respiration, minimal air movement. In the ED course, patient was given IV fluids, azithromycin 500 mg IVPB, magnesium sulfate 2 gm IVPB, Propofol 20 mcg IV, Decadron 10 mg IVPB, Amidate 20 mg IV, Anectine 150 mg IV. Procedure Summary: assisted with manual aero pharyngeal, first O2 saturation was 90% and increased with ventilator, left tibia IO needle was placed and patient was given 20 mg atomic through the needle. Patient was intubated with a 7.5 cm ET tube that is at 25 cm at the lip, patient is on mechanical ventilation and was sedated on propofol, she has minimal air movement. Laboratory abnormal findings: Carbon dioxide 41, lactic acid 2.2, troponin I 0.08, VBG pCO2 107, VBG O2 saturation 88.5, VBG base excess 10.4. All other abnormal lab results are not pertinent to current cc. An EKG at 13:47 reveals ventricular paced-rhythm with 95 BPM, nml axis, nml intervals. No STEMI. No acute changes. Chest X-ray IMPRESSION: LINES AND TUBES ABOVE. PLEASE NOTE THAT NO GASTRIC TUBE IS VISIBLE ON THE CURRENT EXAMINATION. PULMONARY INTERSTITIAL AND ALVEOLAR EDEMA WITH A LEFT PLEURAL EFFUSION. Post intubation chest X-ray shows bilateral diffuse interstitial effusion in the left lung that is opacifying almost the entire lung. OG tube is in place. At 13:29, Dr. Marco Antonio Brambila reviewed the patient s case and agrees to admit the patient to [facility] [place] with a diagnosis of respiratory failure. Patient will be admitted to [facility] [place] with a diagnosis of respiratory failure. - Diagnoses Provider Diagnoses: Respiratory failure - Physician Notifications Discussed Care Of Patient With: Marco Antonio Brambila - At 13:29, Dr. Marco Antonio Brambila reviewed the patients case and agrees to admit the patient to [facility] [place] with a diagnosis of respiratory failure. Time Discussed With Above Provider: 13:29 Instructed by Provider To: Admit As Inpatient - Critical Care Time Critical Care Time: 30-74 min - 40min cct Discharge ED - Sign-Out/Discharge Documenting (check all that apply): Patient Departure - Admit - Discharge Plan Condition: Stable Disposition: ADMITTED TO [facility] - Billing Disposition and Condition Condition: STABLE Disposition: Admitted to [facility] - Attestation Statements Document Initiated by Scribe: Yes Documenting Scribe: Suly Henriquez Provider For Whom Marilin is Documenting (Include Credential): Marco Antonio Benton MD Scribe Attestation: Suly Leigh, scribed for Marco Antonio Benton MD on 11/17/19 at 1852. Scribe Documentation Reviewed: Yes Provider Attestation: The documentation as recorded by the Suly gonzalez accurately reflects the service I personally performed and the decisions made by me, Marco Antonio Benton MD Status of Scribe Document: Viewed
[2019-11-17] MEDS ORDERED: Etomidate* 2 MG/ML 20 ML VIAL (40 MG) ONE (12:41)
[2019-11-17] MEDS ORDERED: Succinylcholine* 20 MG/ML 10 ML VIAL ONE (12:41)
[2019-11-17] MEDS ORDERED: Propofol* 100 ML ONE (12:43)
--- OUTSIDE RECORDS SUMMARY | 2019-11-17 12:55 | XMS REPORT ---
:1945 Author Organization [facility] Care Team Providers Name Role Phone Unavailable Unavailable Unavailable Problems Condition Condition Condition Status Onset Resolution Last Treating Comments Name Details Category Date Date Treatment Clinician Date Acute on Acute on Diagnosis Active Ewelina chronic chronic 10-15 Diaz diastolic diastolic [id number] (congestive (congestive ) heart ) heart failure failure Acute and Acute and Diagnosis Active Ewelina chronic chronic 2 Diaz respiratory respiratory [id number] failure failure with with hypoxia hypoxia Chronic Chronic Diagnosis Active 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 [id number] disease, disease, unspecified unspecified Unspecified Unspecified Diagnosis Active Ewelina atrial atrial 09-30 Diaz fibrillatio fibrillatio [id number] n n Essential Essential Diagnosis Active Ewelina (primary) (primary) 09-30 Diaz hypertensio hypertensio [id number] n n Anemia, Anemia, Diagnosis Active Ewelina unspecified unspecified 09-30 Diaz [id number] 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, disorder, [id number] recurrent, recurrent, unspecified unspecified 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 [id number] n n 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 supplementa [id number] l oxygen l oxygen Presence of Presence of Diagnosis Active Ewelina cardiac cardiac Diaz pacemaker pacemaker [id number] Pain frequent Pain Mgmt Resolve 2019-10-24 Gina pain d 09-30 14:24:00 [place] 08:45: [id number] 00 Cardio pacemaker/I Cardiovasc Resolve 2019-10-24 Gina CD ular d 09-30 14:24:00 [place] 08:45: [id number] Respiratory lung sounds Respirator Resolve 2019-10-24 Gina deficit y d 09-30 14:24:00 [place] 08:45: [id number] 00 Respiratory dyspnea Respirator Resolve 2019-10-31 Gina present y d 09-30 14:48:00 [place] 08:45: [id number] 00 Respiratory oxygen Respirator Resolve 2019-10-31 Gina treatments y d 09-30 14:48:00 [place] in home 08:45: [id number] 00 Endo/Leonid anti-coagul Endo/Leonid Resolve 2019-10-31 Gina ation d 09-30 14:48:00 [place] therapy 08:45: [id number] 00 Sensory impaired Sensory Resolve 2019-10-31 Gina hearing d 09-30 14:48:00 [place] 08:45: [id number] 00 Integument skin Integument Resolve 2019-10-31 Gina integrity d 09-30 14:48:00 [place] risk 08:45: [id number] 00 Nutrition nutritional Nutrition Resolve 2019-10-24 Gina restriction d 09-30 14:24:00 [place] s 08:45: [id number] 00 Elimination urinary Eliminatio Resolve 2019-10-24 Gina incontinenc n d 09-30 14:24:00 [place] e 08:45: [id number] 00 Neuro confusion Neuro/Emot Resolve 2019-10-31 Gina present ion d 09-30 14:48:00 [place] 08:45: [id number] 00 Neuro impaired Neuro/Emot Resolve 2019-10-31 Gina decision-ma ion d 09-30 14:48:00 [place] gloria 08:45: [id number] 00 Activity ADL Activity Resolve 2019-10-31 Gina assistance d 09-30 14:48:00 [place] required 08:45: [id number] 00 Activity self-care Activity Resolve 2019-10-31 Gina deficit d 09-30 14:48:00 [place] 08:45: [id number] 00 Safety cannot be Safety Resolve 2019-10-31 Gina left alone d 09-30 14:48:00 [place] 08:45: [id number] 00 Safety fall risk Safety Resolve 2019-10-31 Gina factor d 09-30 14:48:00 Cherise present 08:45: [id number] Safety risk for Safety Resolve 2019-10-31 Gina hospitaliza d 09-30 14:48:00 Cherise tion 08:45: [id number] 00 Medication oral med Meds Resolve 2019-10-05 Gina assistance d 09-30 13:34:00 Cherise required 08:45: [id number] 00 Medication knowledge/s Meds Resolve 2019-10-05 Gina kill d 09-30 13:34:00 [place] deficit: pt 08:45: [id number] 00 Musculoskel transfer Musculoske Resolve 2019-10-31 Gina etal assistance letal d 09-30 14:48:00 Cherise required 08:45: [id number] 00 Musculoskel requires Musculoske Resolve 2019-10-31 Gina etal human letal d 09-30 14:48:00 Cherise assist to 08:45: [id number] leave home 00 Safety structural Safety Resolve 2019-10-31 Laura barriers d 09-30 14:48:00 Oleary present 13:50: [id number] 00 Bed mobility/tr PT/OT: Bed Resolve 2019-10-31 Laura Mobility/Tr ansfer Mobility/T d 09-30 14:48:00 Oleary ansfer device ransfer 13:50: [id number] present 00 Bed knowledge/s PT/OT: Bed Resolve 2019-10-31 Laura Mobility/Tr kill Mobility/T d 09-30 14:48:00 Oleary ansfer deficit: pt ransfer 13:50: [id number] 00 Balance/End balance/meeting coordinator PT/OT: Resolve 2019-10-31 Laura urance rdination Balance/En d 09-30 14:48:00 Oleary deficit durance 13:50: [id number] 00 Balance/End knowledge/s PT/OT: Resolve 2019-10-31 Laura urance kill Balance/En d 09-30 14:48:00 [place]ary deficit: pt durance 13:50: [id number] 00 Gait/Locomo gait PT/OT: Resolve 2019-10-31 Laura tion assistive Gait/Locom d 1-17 14:48:00 Oleary problems device otion 13:50: [id number] present 00 Gait/Locomo gait PT/OT: Resolve 2019-10-31 Laura tion deficit Gait/Locom d -17 14:48:00 [place]ary problems otion 13:50: [id number] 00 Gait/Locomo knowledge/s PT/OT: Resolve 2019-10-31 Laura tion kill Gait/Locom d 09-30 14:48:00 [place] problems deficit: pt otion 13:50: [id number] 00 Respiratory ventilator Respirator Resolve 2019-10-24 Ewelina treatments y d 2-03 14:24:00 Diaz in home 14:30: [id number] 00 Medication oral med Meds Resolve 2019-10-24 Ewelina assistance d 2-03 14:24:00 Diaz required 14:30: [id number] 00 Bed transfer PT/OT: Bed Resolve 2019-10-31 Juan F Mobility/Tr deficit: Mobility/T d 2-03 14:48:00 peewee Mcconnell sit/stand ransfer 15:15: PT 00 [id number] Bed transfer PT/OT: Bed Resolve 2019-10-31 Juan F Mobility/Tr deficit: Mobility/T d 2-03 14:48:00 peewee Mcconnell standing ransfer 15:15: PT pivot 00 [id number] Bed transfer PT/OT: Bed Resolve 2019-10-31 Juan F Mobility/Tr deficit: Mobility/T d 2-03 14:48:00 peewee Mcconnell toilet/comm ransfer 15:15: PT ode 00 [id number] Bed bed PT/OT: Bed Resolve 2019-10-31 Juan F Mobility/Tr mobility Mobility/T d 2-03 14:48:00 peewee Mcconnell deficit ransfer 15:15: PT 00 [id number] Allergies, Adverse Reactions, Alerts Allergy Name Allergy Status Severity Reaction(s) Onset Inactive Treating Comments Type Date Date Clinician Wellbutrin Medication Active Unknown Rash 2018-09 Kelsi Beam Name ID 09-17 Ambien Medication Active Unknown Reaction 2018-09 Kelsi Beam Name ID Unknown 09-17 sotalol Base Active Unknown Reaction 2018-09 Kelsi Beam Ingredient Unknown 09-17 lactose Base Active Unknown Reaction Kelsi Beam Ingredient Unknown 09-27 Medications Ordered Filled Start Stop Current Ordering Indication Dosage Frequency Signature Comments Components Medication Medication Date Date Medication? Clinician (SIG) Name Name simhannahicone simethicone 2020- Yes Karis Unknown Unknown 80 mg 80 mg 09-30 Monico DALY chewable chewable tablet tablet calcium calcium 2020- Yes Karis Unknown Unknown carbonate carbonate 09-30 Monico DALY 200 mg 200 mg calcium calcium (500 mg) (500 mg) chewable chewable tablet tablet polyethylen polyethylen 2020- Yes Karis Unknown Unknown e glycol e glycol 09-30 Monico DALY 3350 17 3350 17 gram/dose gram/dose oral powder oral powder docusate docusate 2020- Yes Karis Unknown Unknown sodium 100 sodium 100 09-30 Monico DALY capsule mg capsule ALPRAZolam ALPRAZolam 0 2020- Yes Karis Unknown Unknown 0.5 mg 0.5 mg 09-30 Monico DALY tablet tablet metoprolol metoprolol 0 2020- Yes Karis Unknown Unknown tartrate 50 tartrate 50 09-30 Monico DALY mg tablet mg tablet disopyramid disopyramid 0 2020- Yes Karis Unknown Unknown e phosphate e phosphate 09-30 Monico DALY 100 mg 100 mg capsule capsule PreserVisio PreserVisio 0 2020- Yes Karis Unknown Unknown n AREDS-2 n AREDS-2 09-30 Monico DALY 250 mg-200 250 mg-200 unit-40 unit-40 mg-1 mg mg-1 mg capsule capsule Mucinex Mucinex 0 2020- Yes Karis Unknown Unknown 1,200 mg 1,200 mg 09-30 Monico DALY tablet, tablet, extended extended release release Acetaminoph Acetaminoph 0 2020- Yes Karis Unknown Unknown en Extra en Extra 09-30 Monico DALY Strength Strength 500 mg 500 mg tablet tablet cyanocobala cyanocobala 0 2020- Yes Karis Unknown Unknown min (vit min (vit 09-30 ,Monico B-12) 1,000 B-12) 1,000 mcg tablet mcg tablet Aspirin Low Aspirin Low 2019- 2020- Yes Karis Unknown Unknown Dose 81 mg Dose 81 mg 09-30 Monico DALY tablet,gurvinder tablet,gurvinder yed release yed release Probiotic Probiotic 2019-0 2020- Yes Karis Unknown Unknown 10 billion 10 billion 09-30 Monico DALY cell cell capsule capsule folic acid folic acid 0 2020- Yes Karis Unknown Unknown 1 mg tablet 1 mg tablet 09-30 Monico DALY sennosides sennosides 0 2020- Yes Karis Unknown Unknown 8.6 mg 8.6 mg 09-30 Monico DALY capsule capsule rosuvastati rosuvastati 0 2020- Yes Karis Unknown Unknown n 40 mg n 40 mg 09-30 Monico DALY tablet tablet cholecalcif cholecalcif 0 2020- Yes Karis Unknown Unknown gladis gladis 09-30 Monico DALY (vitamin (vitamin D3) 2,000 D3) 2,000 unit tablet unit tablet FLUoxetine FLUoxetine 0 2020- Yes Karis Unknown Unknown 20 mg 20 mg 09-30 Monico DALY capsule capsule spironolact spironolact 0 2020- Yes Karis Unknown Unknown one 25 mg one 25 mg 09-30 Monico DALY tablet tablet magnesium magnesium 0 2020- Yes Karis Unknown Unknown 400 mg (as 400 mg (as 09-30 Monico DALY magnesium magnesium oxide) oxide) capsule capsule fexofenadin fexofenadin 0 2020- Yes Karis Unknown Unknown e 60 mg e 60 mg 09-30 Monico DALY tablet tablet albuterol albuterol 0 2020- Yes Karis Unknown Unknown sulfate HFA sulfate HFA 09-30 Monico DALY 90 90 mcg/actuati mcg/actuati on aerosol on aerosol inhaler inhaler bumetanide bumetanide 0 2020- Yes Karis Unknown Unknown 2 mg tablet 2 mg tablet 09-30 Monico DALY doxycycline doxycycline 0 2020- Yes Karis Unknown Unknown monohydrate monohydrate 09-30 Monico DALY 100 mg 100 mg capsule capsule fluticasone fluticasone 2020- Yes Karis Unknown Unknown propionate- propionate- 09-30 Monico DALY salmeterol salmeterol 230 mcg-21 230 mcg-21 mcg/actuati mcg/actuati on HFA on HFA inhaler inhaler acetaZOLAMI acetaZOLAMI 2020- Yes Karis Unknown Unknown DE 250 mg DE 250 mg 09-30 ,Monico tablet tablet Klor-Con Klor-Con 2020- Yes Karis Unknown Unknown M20 mEq M20 mEq 09-30 Monico DLAY tablet,exte tablet,exte nded nded release release warfarin 3 warfarin 3 2020- Yes Karis Unknown Unknown mg tablet mg tablet 09-30 Monico DALY warfarin 1 warfarin 1 2020- Yes Karis Unknown Unknown mg tablet mg tablet 09-30 Monico DALY Vital Signs Vital Name Observation Time Observation Value Comments SYSTOLIC mm[Hg] 2019-11-02 18:10:28 130 mm[Hg] mm[Hg] Method: Sit SYSTOLIC mm[Hg] 2019-09-30 18:09:55 116 mm[Hg] mm[Hg] Method: Stand SYSTOLIC mm[Hg] 2019-10-31 18:10:26 106 mm[Hg] mm[Hg] Method: Lie DIASTOLIC mm[Hg] 2019-11-02 18:10:28 64 mm[Hg] mm[Hg] Method: Sit DIASTOLIC mm[Hg] 2019-09-30 18:09:55 66 mm[Hg] mm[Hg] Method: Stand DIASTOLIC mm[Hg] 2019-10-31 18:10:26 62 mm[Hg] mm[Hg] Method: Lie PULSE 2019-11-02 18:10:28 56 /min /min RESP RATE 2019-11-01 18:10:27 18 /min /min TEMP 2019-11-02 18:10:28 98.3 [degF] Procedures This patient has no known procedures. Results This patient has no known results.
--- OUTSIDE RECORDS SUMMARY | 2019-11-17 12:55 | XMS REPORT | Continuity of Care Document ---
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 Atrial fibrillation Onset: 01/19/2018 Chronic obstructive lung disease Onset: 07/23/2018 Hypertrophic cardiomyopathy Onset: 07/24/2017 Automatic implantable cardiac defibrillator in situ Onset: 06/26/2014 Coronary atherosclerosis Monico Dyson MD Onset: 09/04/2019 Social History Type Date Description Comments Sex Unknown Tobacco Use Start: Unknown End: Unknown Patient is a former smoker Smoking Status Reviewed: 09/29/19 Patient is a former smoker Allergies, Adverse Reactions, Alerts Active Allergies Reaction Severity Comments Date Bupropion urticaria 05/20/2019 Ambien Severe 09/29/2019 Wellbutrin Hives Severe 09/29/2019 Sotalol 09/29/2019 Medications Active Medications SIG Qnty Indications Ordering Date Provider Metoprolol Succinate oral; take 1.5 Ness Wineholt, 10/20/2019 ER tabs by mouth 50mg Tablets ER 24HR daily Tums 1 tab by mouth 360units Ness Wineholt, 09/27/2019 500mg Chewtabs twice a day as MD needed Miralax 17 gm by mouth Unknown 09/27/2019 [id number] Powder every day as needed Gas-X 1 tab by mouth 360units Ness Wineholt, 09/27/2019 80mg Chewtabs every 6 hours as MD needed Colace 2 tabs by mouth 180caps Ness Wineholt, 09/27/2019 100mg Capsules every day as MD needed Preservision Areds 2 2 cap by mouth 120caps [facility], 09/27/2019 + Multi Vitamin every day as MD Areponce 2 directed Capsules Mucinex 2 tab by mouth 120tabs [facility], 09/27/2019 600mg Tablets twice a day as ER 12HR directed Acetaminophen Extra 2 tab by mouth 90tabs [facility], 09/27/2019 Strength three times a day MD 500mg Tablets as needed Vitamin B 12 2 tab by mouth 120tabs [facility], 09/27/2019 500mcg every day as MD Tablets directed Probiotic 1 cap by mouth 120caps [facility], 09/27/2019 Capsules every day as MD directed Vitamin D3 Complete 2000 unit by 120tabs [facility], 09/27/2019 mouth every day MD Tablets as directed Magnesium 1 tab by mouth 90tabs [facility], 09/27/2019 400mg Tablets every day as MD directed Fexofenadine HCL 1 tab by mouth 180tabs [facility], 09/27/2019 60mg every day as MD Tablets needed Ventolin HFA 2 puff inhalation 18gm [facility], 09/27/2019 every 6 hours as 108(90Base) mcg/Act needed Aerosol Acetazolamide 1 tab by mouth Unknown 09/15/2019 250mg every other day Tablets Take same day as bumex 1mg day Doxycycline 1 tab 2 x daily 14caps Unknown 09/15/2019 Monohydrate 100mg Capsules Advair Diskus 1 puff inhalation 180units Unknown 09/15/2019 twice a day as 100-50mcg/Dose directed Aerosol Disopyramide 2 caps by mouth 90caps Unknown 02/23/2019 Phosphate three times a day 100mg Capsules Rosuvastatin Calcium 1 tab by mouth 90tabs Unknown 01/25/2019 every day as 40mg Tablets directed Fluoxetine HCL 1 tab by mouth 90caps Unknown 11/02/2018 20mg every day as Capsules directed Spironolactone tab by mouth 90tabs Unknown 07/23/2018 25mg every day as Tablets directed Warfarin Sodium oral; take one 90tabs [facility], 07/14/2018 5mg tablet by mouth MD Tablets once daily Warfarin Sodium Oral; Take One To 90tabs Unknown 03/09/2018 4mg Two Tablets By Tablets Mouth Everyday as Directed Alprazolam 1 tab by mouth 90tabs Unknown 01/19/2018 0.5mg three times a day Tablets as needed Bumetanide 2 mg day 1, 180tabs Unknown 07/23/2016 2mg Tablets nothing day 2, 1mg day 3 nothing day 4. Repeat Warfarin Sodium Oral; Take One To 90tabs Unknown 02/13/2016 1mg Two Tablets By Tablets Mouth Once Daily , Variable Dose as Directed Klor-Con M20 20 meq by mouth 180tabs Unknown 01/14/2016 20Meq twice a day to 20 Tablets ER meq by mouth every day. Folic Acid 1 mg by mouth 90tabs Unknown 01/14/2016 1mg Tablets every day as directed Aspirin Ec 1 daily Oral Unknown 06/26/[address] Sevilla 2 tab by mouth 120tabs Unknown 06/26/2014 8.6mg Tablets every day as directed Fluticasone 1 puff Twice Unknown Propionate-Salmeterol Daily 230mcg-21mcg History Medications Metoprolol Succinate 1 by mouth every Ness Dennis MD 10/20/2019 - ER day 10/20/2019 50mg Tablets ER 24HR Simethicone 1 tab by mouth 90units Unknown 09/27/2019 - 80mg every 6 hours as 09/29/2019 Chewtabs needed Albuterol Sulfate 2 puffs inhalation 8.500gm Ness Dennis MD 2019 - HFA as needed 09/29/2019 108(90Base) mcg/Act Aerosol Immunizations CPT Code Status Date Vaccine Lot # [id number] Given 06/23/2019 Flu High Dose [id number] 54210 Given 07/23/2018 Influenza Virus Vaccine, Quadrivalent, Split, Im Use 0.25ML 14849 Given 07/23/2018 Influenza Virus Vaccine, Quadrivalent, Split, Im Use 0.25ML 61474 Given 07/23/2018 Influenza Virus Vaccine, Quadrivalent, Split, Im Use 0.25ML 87041 Given 07/23/2018 Flu < 65 years 51085 Given 07/23/2018 Influenza Virus Vaccine, Quadrivalent, Split, Preservative Free 47345 Given 07/23/2018 Flumist 27086 Given 07/23/2018 Flu High Dose 39265 Given 07/23/2018 Influenza Virus Vaccine, Split, Preserv Free, Intradermal Use 39114 Given 07/24/2017 Influenza Virus Vaccine, Split, Preserv Free, Intradermal Use 37514 Given 07/24/2017 Flu High Dose 81921 Given 07/24/2017 Flumist 81901 Given 07/24/2017 Influenza Virus Vaccine, Quadrivalent, Split, Preservative Free 71470 Given 07/24/2017 Flu < 65 years 90347 Given 07/24/2017 Influenza Virus Vaccine, Quadrivalent, Split, Im Use 0.25ML 62133 Given 07/24/2017 Influenza Virus Vaccine, Quadrivalent, Split, Im Use 0.25ML 06140 Given 07/24/2017 Influenza Virus Vaccine, Quadrivalent, Split, Im Use 0.25ML 02188 Given 10/24/2014 Prevnar 13 83293 Given 06/29/2014 Influenza Virus Vaccine, Quadrivalent, Split, Im Use 0.25ML 60838 Given 06/29/2014 Influenza Virus Vaccine, Quadrivalent, Split, Im Use 0.25ML 81485 Given 06/29/2014 Influenza Virus Vaccine, Quadrivalent, Split, Im Use 0.25ML 88490 Given 06/29/2014 Flu < 65 years 64645 Given 06/29/2014 Influenza Virus Vaccine, Quadrivalent, Split, Preservative Free 87256 Given 06/29/2014 Flumist 60569 Given 06/29/2014 Flu High Dose 77964 Given 07/04/2013 Flu High Dose 13632 Given 07/04/2013 Flumist 86216 Given 07/04/2013 Influenza Virus Vaccine, Quadrivalent, Split, Preservative Free 53765 Given 07/04/2013 Flu < 65 years 62875 Given 07/04/2013 Influenza Virus Vaccine, Quadrivalent, Split, Im Use 0.25ML 04365 Given 07/04/2013 Influenza Virus Vaccine, Quadrivalent, Split, Im Use 0.25ML 72908 Given 07/04/2013 Influenza Virus Vaccine, Quadrivalent, Split, Im Use 0.25ML 98794 Given 05/05/2012 Influenza Virus Vaccine, Quadrivalent, Split, Im Use 0.25ML 58556 Given 05/05/2012 Influenza Virus Vaccine, Quadrivalent, Split, Im Use 0.25ML 59570 Given 05/05/2012 Influenza Virus Vaccine, Quadrivalent, Split, Im Use 0.25ML 56930 Given 05/05/2012 Flu < 65 years 96010 Given 05/05/2012 Influenza Virus Vaccine, Quadrivalent, Split, Preservative Free 10729 Given 05/05/2012 Flumist 08500 Given 05/05/2012 Flu High Dose 25912 Given 10/24/2011 Tdap - Boostrix/Adacel 94964 Given 06/28/2011 Influenza Virus Vaccine, Quadrivalent, Split, Im Use 0.25ML 73704 Given 06/28/2011 Influenza Virus Vaccine, Quadrivalent, Split, Im Use 0.25ML 80321 Given 06/28/2011 Influenza Virus Vaccine, Quadrivalent, Split, Im Use 0.25ML 21291 Given 06/28/2011 Flu < 65 years 86211 Given 06/28/2011 Influenza Virus Vaccine, Quadrivalent, Split, Preservative Free 58737 Given 06/28/2011 Flumist 62074 Given 06/28/2011 Flu High Dose 17005 Given 05/15/2010 Pneumovax - for >=2years - PPSV23 92569 Given 08/22/2009 Influenza Virus Vaccine, Quadrivalent, Split, Im Use 0.25ML 07821 Given 06/14/2008 Influenza Virus Vaccine, Quadrivalent, Split, Im Use 0.25ML 09342 Given 07/22/2006 Influenza Virus Vaccine, Quadrivalent, Split, Im Use 0.25ML Vital Signs Date Vital Result Comment 09/29/2019 11:16am BP Systolic 100 mmHg BP Diastolic 50 mmHg Weight 219.00 lb Heart Rate 80 /min Body Temperature 97.9 F O2 % BldC Oximetry 95 % 09/16/2019 10:13am BP Systolic 126 mmHg BP Diastolic 50 mmHg Heart Rate 65 /min Body Temperature 98.6 F O2 % BldC Oximetry 95 % Results Test Acquired Facility Test Result H/L Range Note Date INR/Protime 11/02/2019 [facility] INR 4.20 High 0.82-1.[address] [place] [address] [phone] Laboratory test 11/02/2019 [facility] B-Type > 1300 High <= [address] Natriuretic pg/[place] [address] Peptide BNP [phone] CBC Auto Diff 11/02/2019 [facility] White Blood 7.7 Normal 3.5 -10.[address] Count 10^3/[place] [address] [phone] Red Blood Count 4.01 10^6/uL Normal 3.70-4.87 Hemoglobin 11.5 g/dL Low 12.0-16.0 Hematocrit 39 % Normal 35-47 Mean Corpuscular Volume 96 fL Normal 80-97 Mean Corpuscular Hemoglobin 29 pg Normal 27-31 Mean Corpuscular HGB Conc 30 g/dL Low 31-36 Red Cell Distribution Width 16 % High 10-15 Platelet Count 419 10^3/uL Normal 150-450 Mean Platelet Volume 10.0 fL Normal 7.4-10.4 Abs Neutrophils 5.7 10^3/uL Normal 1.5-7.7 Abs Lymphocytes 1.0 10^3/uL Normal 1.0-4.8 Abs Monocytes 0.8 10^3/uL Normal 0-0.8 Abs Eosinophils 0.1 10^3/uL Normal 0-0.6 Abs Basophils 0.1 10^3/uL Normal 0-0.2 Abs Nucleated RBC 0.0 10^3/uL Granulocyte % 73.8 % Lymphocyte % 12.9 % Monocyte % 10.7 % Eosinophil % 1.3 % Basophil % 1.3 % Nucleated Red Blood Cells % 0.1 Comp Metabolic 11/02/2019 [facility] Sodium 141 mmol/L Normal 135-[address] [place] [address] [phone] Potassium 4.6 mmol/L Normal 3.5-5.0 Chloride 100 mmol/L Low 101-111 Co2 Carbon Dioxide 34 mmol/L High 22-32 Anion Gap 7 mmol/L Normal 2-11 Glucose 98 mg/dL Normal 70-100 Blood Urea Nitrogen 9 mg/dL Normal 6-24 Creatinine 0.69 mg/dL Normal 0.51-0.95 BUN/Creatinine Ratio 13.0 Normal 8-20 Calcium 9.3 mg/dL Normal 8.6-10.3 Total Protein 6.0 g/dL Low 6.4-8.9 Albumin 3.3 g/dL Normal 3.2-5.2 Globulin 2.7 g/dL Normal 2-4 Albumin/Globulin Ratio 1.2 Normal 1-3 Total Bilirubin 0.30 mg/dL Normal 0.2-1.0 Alkaline Phosphatase 111 U/L High 34-104 Alt 20 U/L Normal 7-52 Ast 20 U/L Normal 13-39 Egfr Non- 83.2 >60 Egfr 100.6 >60 2 Laboratory test 11/02/2019 [facility] Magnesium 2.1 mg/dL Normal 1.9-2.7 finding [address] [place], [place] [id number] [phone] C Reactive Protein 4.66 mg/L Normal <8.01 INR/Protime 10/24/2019 [facility] INR 2.36 High 0.82-1.09 3 [address] [place] [address] [phone] Basic Metabolic 10/24/2019 [facility] Sodium 140 mmol/L Normal 135-145 Panel [address] [place] [address] [phone] Chloride 101 mmol/L Normal 101-111 Co2 Carbon Dioxide 38 mmol/L High 22-32 Glucose 105 mg/dL High 70-100 Blood Urea Nitrogen 12 mg/dL Normal 6-24 Creatinine 0.59 mg/dL Normal 0.51-0.95 BUN/Creatinine Ratio 20.3 High 8-20 Calcium 8.8 mg/dL Normal 8.6-10.3 Egfr Non- 99.6 >60 Egfr 120.6 >60 4 Potassium 5.3 mmol/L High 3.5-5.0 Anion Gap 1 mmol/L Low 2-11 Laboratory test 10/21/2019 [facility] INR 2.5 finding ( )- - Arterial Blood Gas 10/09/2019 [facility] PH Arterial 7.23 Low 7.35-7.45 [address] [place] [address] [phone] Pco2 Arterial 88 mmHg Critical high 35-45 5 Po2 Arterial 94 mmHg Normal 80-100 O2 Saturation Arterial 97.2 % Normal 94.0-98.0 Base Excess Arterial 6.1 mmol/L High -2.0-2.0 6 Hco3 Arterial 29.6 mmol/L Normal 19-31 Laboratory test 09/29/2019 [facility] INR 1.8 finding ( )- - Basic Metabolic 09/29/2019 [facility] Sodium 139 mmol/L Normal 135-145 7 Panel [address] [place], [place] [id number] [phone] Potassium 4.9 mmol/L Normal 3.5-5.0 Chloride 100 mmol/L Low 101-111 Co2 Carbon Dioxide 32 mmol/L Normal 22-32 Anion Gap 7 mmol/L Normal 2-11 Glucose 131 mg/dL High 70-100 Blood Urea Nitrogen 16 mg/dL Normal 6-24 Creatinine 0.96 mg/dL High 0.51-0.95 BUN/Creatinine Ratio 16.7 Normal 8-20 Calcium 9.5 mg/dL Normal 8.6-10.3 Egfr Non- 56.8 >60 Egfr 68.7 >60 8 Laboratory test 09/22/2019 [facility] B-Type > 1300 High <= [address] Natriuretic pg/[place] [address] Peptide BNP [phone] Legionella Urine Antigen SEE RESULT BELOW 9 CBC Auto 09/22/2019 [facility] White Blood 15.6 10^3/uL High 3.5-10.[address] [place] [address] [phone] Red Blood Count 3.34 10^6/uL Low 3.70-4.87 Hemoglobin 10.6 g/dL Low 12.0-16.0 Hematocrit 33 % Low 35-47 Mean Corpuscular Volume 98 fL High 80-97 Mean Corpuscular Hemoglobin 32 pg High 27-31 Mean Corpuscular HGB Conc 32 g/dL Normal 31-36 Red Cell Distribution Width 14 % Normal 10-15 Platelet Count 358 10^3/uL Normal 150-450 Mean Platelet Volume 8.7 fL Normal 7.4-10.4 Abs Neutrophils 13.1 10^3/uL High 1.5-7.7 Abs Lymphocytes 1.0 10^3/uL Normal 1.0-4.8 Abs Monocytes 1.5 10^3/uL High 0-0.8 Abs Eosinophils 0.0 10^3/uL Normal 0-0.6 Abs Basophils 0.0 10^3/uL Normal 0-0.2 Abs Nucleated RBC 0.1 10^3/uL Granulocyte % 83.7 % Lymphocyte % 6.5 % Monocyte % 9.4 % Eosinophil % 0.1 % Basophil % 0.3 % Nucleated Red Blood Cells % 0.4 Laboratory test 09/22/2019 [facility] Magnesium 2.0 mg/dL Normal 1.9-2.7 finding [address] [place] [address] [phone] Troponin-I (TnI) 0.10 ng/mL Critical high <0.03 10 Acetaminophen < 15 g/mL 11 Alcohol < 10 mg/dL Normal <10 Salicylate < 2.50 mg/dL <30 TSH (Thyroid Stim Horm) 1.76 mcIU/mL Normal 0.34-5.60 Comp Metabolic Panel 09/22/2019 [facility] Sodium 130 mmol/L Low 135-145 [address] [place] [address] [phone] Potassium 4.5 mmol/L Normal 3.5-5.0 Chloride 87 mmol/L Low 101-111 Co2 Carbon Dioxide 38 mmol/L High 22-32 Anion Gap 5 mmol/L Normal 2-11 Glucose 142 mg/dL High 70-100 Blood Urea Nitrogen 31 mg/dL High 6-24 Creatinine 0.75 mg/dL Normal 0.51-0.95 BUN/Creatinine Ratio 41.3 High 8-20 Calcium 9.8 mg/dL Normal 8.6-10.3 Total Protein 6.6 g/dL Normal 6.4-8.9 Albumin 3.6 g/dL Normal 3.2-5.2 Globulin 3.0 g/dL Normal 2-4 Albumin/Globulin Ratio 1.2 Normal 1-3 Total Bilirubin 0.20 mg/dL Normal 0.2-1.0 Alkaline Phosphatase 89 U/L Normal 34-104 Alt 21 U/L Normal 7-52 Ast 21 U/L Normal 13-39 Egfr Non- 75.5 >60 Egfr 91.4 >60 12 Urine Drug 09/22/2019 [facility] Urine None Detected None Detect SCR ED & [address] [facility] A[place] [address] Screen [phone] Urine Barbiturates Screen None Detected None Detect Urine Benzodiazepine Screen None Detected None Detect Urine Cannabinoids Screen None Detected None Detect Urine Cocaine Screen None Detected None Detect Urine Opiates Screen None Detected None Detect Urine Phencyclidine Screen None Detected None Detect 13 Laboratory test 09/22/2019 [facility] Ammonia TNP mcmol/L 16- 53 14 finding [address] [place] [address] [phone] Lactic Acid 0.5 mmol/L Normal 0.5-2.0 15 Urinalysis Profile 09/22/2019 [facility] Urine Color Yuliya [address] [place], [place] [id number] [phone] Urine Appearance Clear Urine Specific Drayden 1.020 Normal 1.010-1.030 Urine pH 6.0 Normal 5-9 Urine Urobilinogen Negative Negative Urine Ketones Negative Negative Urine Protein Negative Negative Urine Leukocytes Negative Negative Urine Blood Negative Negative * * Abnormal Negative 16 Urine Nitrite Negative Negative Urine Bilirubin Negative Negative Urine Glucose Negative Negative Laboratory test 09/22/2019 [facility] Point of 151 mg/dL High 70-100 17 finding [address] [facility] Glucose [place], [place] [id number] [phone] Venous Blood 09/22/2019 [facility] Venous Blood 7.23 Low 7.32- 7.43 Gas [address] [facility] pH [place], [place] [id number] [phone] Venous Pco2 94 mmHg High 41-51 Venous Po2 54.0 mmHg High 35-45 Venous O2 Saturation 85.6 % High 70-80 Venous Blood Base Excess 8.1 mmol/L High 0.0-4.0 18 Venous Bicarbonate Hco3 30.9 mmol/L High 24-28 Laboratory test 09/22/2019 [facility] Ammonia 65 mcmol/L High 16-53 finding [address] [place] [address] [phone] Arterial Blood Gas 09/22/2019 [facility] Fio2 100 [address] [place], [place] [id number] [phone] Resp Rate 20 Ipap 18 Epap 7 PH Arterial 7.20 Low 7.35-7.45 Pco2 Arterial 103 mmHg Critical high 35-45 19 Po2 Arterial 345 mmHg High 80-100 O2 Saturation Arterial 98.2 % High 94.0-98.0 Base Excess Arterial 8.2 mmol/L High -2.0-2.0 20 Hco3 Arterial 31.3 mmol/L High 19-31 INR/Protime 09/22/2019 [facility] INR 4.08 High 0.82-1.09 21 [address] [place], [place] [address] [phone] INR/Protime 09/16/2019 [facility] INR 3.09 High 0.82-1.09 22 [address] [place] [address] [phone] Comp Metabolic 09/16/2019 [facility] Sodium 141 mmol/L Normal 135-145 Panel [address] [place] [address] [phone] Potassium 4.4 mmol/L Normal 3.5-5.0 Chloride 91 mmol/L Low 101-111 Glucose 178 mg/dL High 70-100 Blood Urea Nitrogen 19 mg/dL Normal 6-24 Creatinine 0.58 mg/dL Normal 0.51-0.95 BUN/Creatinine Ratio 32.8 High 8-20 Calcium 9.0 mg/dL Normal 8.6-10.3 Total Protein 5.3 g/dL Low 6.4-8.9 Albumin 3.1 g/dL Low 3.2-5.2 Globulin 2.2 g/dL Normal 2-4 Albumin/Globulin Ratio 1.4 Normal 1-3 Total Bilirubin 0.20 mg/dL Normal 0.2-1.0 Alkaline Phosphatase 79 U/L Normal 34-104 Alt 9 U/L Normal 7-52 Ast 13 U/L Normal 13-39 Egfr Non- 101.6 >60 Egfr 123.0 >60 23 Co2 Carbon Dioxide 49 mmol/L Critical high 22-32 24 Laboratory 09/16/2019 [facility] TSH (Thyroid 0.85 Normal 0.34 -5.60 test finding [address] Stim Horm) mcIU/[place] [address] [phone] CBC No Diff 09/16/2019 [facility] White Blood 12.9 High 3.5- 10.8 201 Count 10^3/[place] [address] [phone] Red Blood Count 2.94 10^6/uL Low 3.70-4.87 Hemoglobin 9.3 g/dL Low 12.0-16.0 Hematocrit 29 % Low 35-47 Mean Corpuscular Volume 99 fL High 80-97 Mean Corpuscular Hemoglobin 32 pg High 27-31 Mean Corpuscular HGB Conc 32 g/dL Normal 31-36 Red Cell Distribution Width 14 % Normal 10-15 Platelet Count 187 10^3/uL Normal 150-450 Mean Platelet Volume 10.0 fL Normal 7.4-10.4 Laboratory 09/16/2019 [facility] Troponin-I 0.08 Critical < 0.03 25 test finding [address] (TnI) ng/[place] [address] [phone] Basic 09/16/2019 [facility] Sodium 139 Normal 135-[address] mmol/[place] [address] [phone] Potassium 4.5 mmol/L Normal 3.5-5.0 Chloride 88 mmol/L Low 101-111 Glucose 145 mg/dL High 70-100 Blood Urea Nitrogen 21 mg/dL Normal 6-24 Creatinine 0.60 mg/dL Normal 0.51-0.95 BUN/Creatinine Ratio 35.0 High 8-20 Calcium 9.6 mg/dL Normal 8.6-10.3 Egfr Non- 97.7 >60 Egfr 118.2 >60 26 Co2 Carbon Dioxide 48 mmol/L Critical high 22-32 27 Laboratory test 09/16/2019 [facility] Lactic Acid 1.0 mmol/L Normal 0.5-2.0 [address] [place] [address] [phone] B-Type Natriuretic Peptide BNP 1235 pg/mL High <=100 CBC Auto 09/16/2019 [facility] White Blood 11.4 10^3/uL High 3.5-10.[address] [place] [address] [phone] Red Blood Count 3.18 10^6/uL Low 3.70-4.87 Hemoglobin 9.9 g/dL Low 12.0-16.0 Hematocrit 32 % Low 35-47 Mean Corpuscular Volume 99 fL High 80-97 Mean Corpuscular Hemoglobin 31 pg Normal 27-31 Mean Corpuscular HGB Conc 32 g/dL Normal 31-36 Red Cell Distribution Width 14 % Normal 10-15 Platelet Count 234 10^3/uL Normal 150-450 Mean Platelet Volume 9.6 fL Normal 7.4-10.4 Abs Neutrophils 9.4 10^3/uL High 1.5-7.7 Abs Lymphocytes 0.9 10^3/uL Low 1.0-4.8 Abs Monocytes 1.0 10^3/uL High 0-0.8 Abs Eosinophils 0.0 10^3/uL Normal 0-0.6 Abs Basophils 0.0 10^3/uL Normal 0-0.2 Abs Nucleated RBC 0.0 10^3/uL Granulocyte % 82.4 % Lymphocyte % 7.8 % Monocyte % 9.0 % Eosinophil % 0.4 % Basophil % 0.4 % Nucleated Red Blood Cells % 0.0 Arterial Blood Gas 09/16/2019 [facility] O2 Device N/C [address] [place] [address] [phone] PH Arterial 7.42 Normal 7.35-7.45 Pco2 Arterial 85 mmHg Critical high 35-45 29 Po2 Arterial 77 mmHg Low 80-100 O2 Saturation Arterial 96.0 % Normal 94.0-98.0 Base Excess Arterial 25.0 mmol/L High -2.0-2.0 30 Hco3 Arterial 44.4 mmol/L Critical high 19-31 31 Laboratory test 09/16/2019 [facility] Partial 47.8 High 26.0- 38.[address] [place] [address] PTT [phone] Troponin-I (TnI) 0.09 ng/mL Critical high <0.03 32 INR/Protime 09/16/2019 [facility] INR 3.12 High 0.82-1.[address] [place] [address] [phone] Xray 07/20/2019 [facility] Chest 2 Views <pendin [address] g> [place] [address] [phone] Laboratory test 07/18/2019 [facility] CFM INR 2.3 finding ( )- - Laboratory test 06/23/2019 [facility] CFM INR 3.8 finding ( )- - Laboratory test 06/23/2019 [facility] Hemoglobin A1c 5.9 % High 4.0-5.6 [address] (Glyco HGB) [place] [address] [phone] Comp Metabolic 06/23/2019 [facility] Sodium 138 Normal 135- [address] mmol/[place] [address] [phone] Potassium 4.7 mmol/L Normal 3.5-5.0 Chloride 95 mmol/L Low 101-111 Co2 Carbon Dioxide 35 mmol/L High 22-32 Anion Gap 8 mmol/L Normal 2-11 Glucose 170 mg/dL High 70-100 Blood Urea Nitrogen 19 mg/dL Normal 6-24 Creatinine 0.86 mg/dL Normal 0.51-0.95 BUN/Creatinine Ratio 22.1 High 8-20 Calcium 9.4 mg/dL Normal 8.6-10.3 Total Protein 6.3 g/dL Low 6.4-8.9 Albumin 3.7 g/dL Normal 3.2-5.2 Globulin 2.6 g/dL Normal 2-4 Albumin/Globulin Ratio 1.4 Normal 1-3 Total Bilirubin 0.20 mg/dL Normal 0.2-1.0 Alkaline Phosphatase 93 U/L Normal 34-104 Alt 16 U/L Normal 7-52 Ast 20 U/L Normal 13-39 Egfr Non- 64.5 >60 Egfr 78.0 >60 35 Laboratory test 06/15/2019 [facility] CF INR 2.85 finding ( )- - Comp Metabolic Panel 06/14/2019 [facility] Sodium 140 mmol/L Normal 135-[address] [place] [address] [phone] Chloride 94 mmol/L Low 101-111 Co2 Carbon Dioxide 37 mmol/L High 22-32 Glucose 238 mg/dL High 70-100 Blood Urea Nitrogen 18 mg/dL Normal 6-24 Creatinine 0.98 mg/dL High 0.51-0.95 BUN/Creatinine Ratio 18.4 Normal 8-20 Calcium 9.9 mg/dL Normal 8.6-10.3 Total Protein 6.6 g/dL Normal 6.4-8.9 Albumin 3.9 g/dL Normal 3.2-5.2 Globulin 2.7 g/dL Normal 2-4 Albumin/Globulin Ratio 1.4 Normal 1-3 Total Bilirubin 0.20 mg/dL Normal 0.2-1.0 Alkaline Phosphatase 104 U/L Normal 34-104 Alt 16 U/L Normal 7-52 Ast 21 U/L Normal 13-39 Egfr Non- 55.5 >60 Egfr 67.1 >60 36 Potassium 5.5 mmol/L High 3.5-5.0 Anion Gap 9 mmol/L Normal 2-11 Laboratory test 06/14/2019 [facility] Vitamin B12 394 pg/mL Normal 180-914 [address] [place] [address] [phone] Vitamin D Total 25(Oh) 38.6 ng/mL Normal 20-50 38 Protime W/ INR 06/14/2019 N2N/CCD Import International Normalized Ratio 2.85 1 Standard intensity warfarin therapeutic range: 2.0-3.0 High intensity warfarin therapeutic range: 2.5-3.5 2 Because ethnic data is not always readily available, this report includes an eGFR for both -Americans and non- Americans. The National Kidney Disease Education Program (NKDEP) does not endorse the use of the MDRD equation for patients that are not between the ages of 18 and 70, are , have extremes of body size, muscle mass, or nutritional status, or are non- or non-. According to the National Kidney Foundation, irrespective of diagnosis, the stage of the disease is based on the level of kidney function: Stage Description GFR(mL/min/1.73 m(2)) 1 Kidney damage with normal or decreased GFR 90 2 Kidney damage with mild decrease in GFR 60-89 3 Moderate decrease in GFR 30-59 4 Severe decrease in GFR 15-29 5 Kidney failure <15 (or dialysis) 3 Standard intensity warfarin therapeutic range: 2.0-3.0 High intensity warfarin therapeutic range: 2.5-3.5 4 Because ethnic data is not always readily available, this report includes an eGFR for both -Americans and non- Americans. The National Kidney Disease Education Program (NKDEP) does not endorse the use of the MDRD equation for patients that are not between the ages of 18 and 70, are , have extremes of body size, muscle mass, or nutritional status, or are non- or non-. According to the National Kidney Foundation, irrespective of diagnosis, the stage of the disease is based on the level of kidney function: Stage Description GFR(mL/min/1.73 m(2)) 1 Kidney damage with normal or decreased GFR 90 2 Kidney damage with mild decrease in GFR 60-89 3 Moderate decrease in GFR 30-59 4 Severe decrease in GFR 15-29 5 Kidney failure <15 (or dialysis) 5 Verbal to [id number] by [id number] at 1317 on 10/09/19. Results read back accurately. 6 Reference ranges based on room air. 7 [id number] 8 Because ethnic data is not always readily available, this report includes an eGFR for both -Americans and non- Americans. The National Kidney Disease Education Program (NKDEP) does not endorse the use of the MDRD equation for patients that are not between the ages of 18 and 70, are , have extremes of body size, muscle mass, or nutritional status, or are non- or non-. According to the National Kidney Foundation, irrespective of diagnosis, the stage of the disease is based on the level of kidney function: Stage Description GFR(mL/min/1.73 m(2)) 1 Kidney damage with normal or decreased GFR 90 2 Kidney damage with mild decrease in GFR 60-89 3 Moderate decrease in GFR 30-59 4 Severe decrease in GFR 15-29 5 Kidney failure <15 (or dialysis) 9 SEE RESULT BELOW Name: ELROY DU : [address]: Marco Antonio Brambila MD Acct: [id number] Unit: [id number] AGE: 74 Location: ICU [id number] Re09/22/19 SEX: F Status: ADM IN SPEC: [id number] TATA: 09/22/19 [facility] DR: Jona AZAR REQ: [id number] RECD: 09/22/19 STATUS: LALITHA LARRY DR: [facility] Monico Dyson MD _ SOURCE: URINE SPDESC: ORDERED: Legion Ur Ag S.pneumo Ur Ag Procedure Result Reported Site Legionella Urine Antigen Final 09/22/19- 1316 ML Organism 1 Negative Legionella Antigen Antigen testing by enzyme immunoassay. As with all diagnostic procedures, the laboratory results obtained should be used in conjunction with other clinical information available to the physician, including confirmation by another method, as applicable. Strep. Pneumonia Urine Antigen Final 09/22/19- 1316 ML Organism 1 Negative S. pneumo Antigen Antigen testing by enzyme immunoassay. As with all diagnostic procedures, the laboratory results obtained should be used in conjunction with other clinical information available to the physician, including confirmation by another method, as applicable. * [facility] - Main Lab . END OF REPORT DEPARTMENT OF PATHOLOGY, [address] [place] [address] Zeke Richmond M.D. Director [facility] # [id number] 10 Result TnIDx:0.10 Called to [id number] at: 06:48:08 by:[id number] Read back by: [id number] Troponin-I testing on Plasma Separator Tubes (PST) has a known false positive rate of 0.20-0.40%. All positive troponins reflex immediately to secondary confirmatory testing. Using the [employer] DxI 800 Access Immunoassay systems, the 99th percentile upper reference limit was demonstrated to be < 0.03 ng/mL. 11 Therapeutic concentration: <50 ug/mL Toxic concentration: >120 ug/mL 12 Because ethnic data is not always readily available, this report includes an eGFR for both -Americans and non- Americans. The National Kidney Disease Education Program (NKDEP) does not endorse the use of the MDRD equation for patients that are not between the ages of 18 and 70, are , have extremes of body size, muscle mass, or nutritional status, or are non- or non-. According to the National Kidney Foundation, irrespective of diagnosis, the stage of the disease is based on the level of kidney function: Stage Description GFR(mL/min/1.73 m(2)) 1 Kidney damage with normal or decreased GFR 90 2 Kidney damage with mild decrease in GFR 60-89 3 Moderate decrease in GFR 30-59 4 Severe decrease in GFR 15-29 5 Kidney failure <15 (or dialysis) 13 The urine specimen was tested at the listed cutoffs: Drug class test level (ng/mL) Amphetamines 500 Barbiturates 200 Benzodiazepine metabolites 200 Cocaine metabolites 150 Cannabinoids 50 Opiates 300 Pcp 25 Specimen was received without chain of custody. Results should be used for medical purposes only. 14 Unable to report test result due to hemolysis. 15 Specimen hemolyzed. Result may not be valid. [facility] Severe Sepsis and Septic Shock Management Bundle Measure requires all lactic acids initially measuring >2.0 mmol/L be repeated. 16 *Ascorbic acid is present which may interfere with detection of blood. 17 Video Journalist: [id number] 18 Reference ranges based on room air. 19 Verbal to [id number] by [id number] at 0815 on 09/22/19. Results read back accurately. 20 Reference ranges based on room air. 21 Standard intensity warfarin therapeutic range: 2.0-3.0 High intensity warfarin therapeutic range: 2.5-3.5 22 Standard intensity warfarin therapeutic range: 2.0-3.0 High intensity warfarin therapeutic range: 2.5-3.5 23 Because ethnic data is not always readily available, this report includes an eGFR for both -Americans and non- Americans. The National Kidney Disease Education Program (NKDEP) does not endorse the use of the MDRD equation for patients that are not between the ages of 18 and 70, are , have extremes of body size, muscle mass, or nutritional status, or are non- or non-. According to the National Kidney Foundation, irrespective of diagnosis, the stage of the disease is based on the level of kidney function: Stage Description GFR(mL/min/1.73 m(2)) 1 Kidney damage with normal or decreased GFR 90 2 Kidney damage with mild decrease in GFR 60-89 3 Moderate decrease in GFR 30-59 4 Severe decrease in GFR 15-29 5 Kidney failure <15 (or dialysis) 24 Critical Result CO2:49 Called to TYLER SANCHEZ CFM at: 13:33:08 by:[id number] Read back by:TYLER SANCHEZ CFM 25 Result TnIDx:0.08 Called to [id number] at: 18:49:49 by:[id number] Read back by: [id number] Troponin-I testing on Plasma Separator Tubes (PST) has a known false positive rate of 0.20-0.40%. All positive troponins reflex immediately to secondary confirmatory testing. Using the [employer] 800 Access Immunoassay systems, the 99th percentile upper reference limit was demonstrated to be < 0.03 ng/mL. 26 Because ethnic data is not always readily available, this report includes an eGFR for both -Americans and non- Americans. The National Kidney Disease Education Program (NKDEP) does not endorse the use of the MDRD equation for patients that are not between the ages of 18 and 70, are , have extremes of body size, muscle mass, or nutritional status, or are non- or non-. According to the National Kidney Foundation, irrespective of diagnosis, the stage of the disease is based on the level of kidney function: Stage Description GFR(mL/min/1.73 m(2)) 1 Kidney damage with normal or decreased GFR 90 2 Kidney damage with mild decrease in GFR 60-89 3 Moderate decrease in GFR 30-59 4 Severe decrease in GFR 15-29 5 Kidney failure <15 (or dialysis) 27 Critical Result CO2:48 Called to [id number] at: 19:13:28 by:[id number] Read back by:[id number] 28 [place] Severe Sepsis and Septic Shock Management Bundle Measure requires all lactic acids initially measuring >2.0 mmol/L be repeated. 29 Verbal to [id number] by [id number] at 2048 on 09/16/19. Results read back accurately. 30 Reference ranges based on room air. 31 Verbal to [id number] by [id number] at 2048 on 09/16/19. Results read back accurately. 32 Result TnIDx:0.09 Called to [id number] at: 23:20:01 by:[id number] Read back by: [id number] Troponin-I testing on Plasma Separator Tubes (PST) has a known false positive rate of 0.20-0.40%. All positive troponins reflex immediately to secondary confirmatory testing. Using the [employer] 800 Access Immunoassay systems, the 99th percentile upper reference limit was demonstrated to be < 0.03 ng/mL. 33 Standard intensity warfarin therapeutic range: 2.0-3.0 High intensity warfarin therapeutic range: 2.5-3.5 34 Therapeutic target for the treatment of diabetes mellitus patients is <7% HBA1C, and in selective patients <6.0%. Please refer to [place] [employer] diabetic care guidelines for further information. 35 Because ethnic data is not always readily available, this report includes an eGFR for both -Americans and non- Americans. The National Kidney Disease Education Program (NKDEP) does not endorse the use of the MDRD equation for patients that are not between the ages of 18 and 70, are , have extremes of body size, muscle mass, or nutritional status, or are non- or non-. According to the National Kidney Foundation, irrespective of diagnosis, the stage of the disease is based on the level of kidney function: Stage Description GFR(mL/min/1.73 m(2)) 1 Kidney damage with normal or decreased GFR 90 2 Kidney damage with mild decrease in GFR 60-89 3 Moderate decrease in GFR 30-59 4 Severe decrease in GFR 15-29 5 Kidney failure <15 (or dialysis) 36 Because ethnic data is not always readily available, this report includes an eGFR for both -Americans and non- Americans. The National Kidney Disease Education Program (NKDEP) does not endorse the use of the MDRD equation for patients that are not between the ages of 18 and 70, are , have extremes of body size, muscle mass, or nutritional status, or are non- or non-. According to the National Kidney Foundation, irrespective of diagnosis, the stage of the disease is based on the level of kidney function: Stage Description GFR(mL/min/1.73 m(2)) 1 Kidney damage with normal or decreased GFR 90 2 Kidney damage with mild decrease in GFR 60-89 3 Moderate decrease in GFR 30-59 4 Severe decrease in GFR 15-29 5 Kidney failure <15 (or dialysis) 37 Normal Range 180 to 914 Indeterminate Range 145 to 180 Deficient Range <145 38 Total 25-Hydroxyvitamin D2 and D3 (25-OH-VitD) <10 ng/mL (severe deficiency) 10-19 ng/mL (mild to moderate deficiency) 20-50 ng/mL (optimum levels) 51-80 ng/mL (increased risk of hypercalciuria) >80 ng/mL (toxicity possible) Procedures Date Code Description Status 11/03/2019 18404 Anticoagulant MGMT For Patient Taking Warfarin, Inc Review Completed & Intr 10/25/2019 86341 Anticoagulant MGMT For Patient Taking Warfarin, Inc Review Completed & Intr 10/21/2019 20036 Anticoagulant MGMT For Patient Taking Warfarin, Inc Review Completed & Intr 07/12/2019 35241 Anticoagulant MGMT For Patient Taking Warfarin, Inc Review Completed & Intr 06/15/2019 55390 Anticoagulant MGMT For Patient Taking Warfarin, Inc Review Completed & Intr Medical Devices Description No Information Available Encounters Type Date Location Provider Dx Diagnosis Office Visit 09/29/2019 CF Benjamín Dennis MD E87.79 Other fluid overload 11:15a I48.91 Unspecified atrial fibrillation M25.512 Pain in left shoulder J96.92 Respiratory failure, unspecified with hypercapnia Office Visit 07/18/2019 3:45p CFM Benjamín Dennis, T82.897D Oth complication of cardiac prosth dev/grft, subs I48.91 Unspecified atrial fibrillation Office Visit 06/23/2019 2:15p CF BRIAN Detnon R73.9 Hyperglycemia, unspecified E87.5 Hyperkalemia I48.91 Unspecified atrial fibrillation Z23 Encounter for immunization Assessments Date Code Description Provider 10/21/2019 I48.91 Unspecified atrial fibrillation Ness Dennis MD 09/29/2019 E87.79 Other fluid overload Ness Dennis MD 09/29/2019 I48.91 Unspecified atrial fibrillation Ness Dennis MD 09/29/2019 M25.512 Pain in left shoulder Nses Dennis MD 09/29/2019 J96.92 Respiratory failure, unspecified with Ness Dennis MD hypercapnia 09/16/2019 I48.91 Unspecified atrial fibrillation Ness Dennis MD 09/16/2019 N18.9 Chronic kidney disease, unspecified Ness Dennis MD 09/16/2019 I42.1 Obstructive hypertrophic cardiomyopathy Ness Dennis MD 07/18/2019 T82.897D Other specified complication of cardiac Ness Dennis MD prosthetic devices, implants and grafts, subsequent encounter 07/18/2019 I48.91 Unspecified atrial fibrillation Ness Dennis MD 06/23/2019 R73.9 Hyperglycemia, unspecified BRIAN Gabriel 06/23/2019 E87.5 Hyperkalemia BRIAN Gabriel 06/23/2019 I48.91 Unspecified atrial fibrillation BRIAN Gabriel 06/23/2019 Z23 Encounter for immunization BRIAN Gabriel Plan of Treatment No Information Available Functional Status Description No Information Available Mental Status Description No Information Available Referrals Refer to Reason for Referral Status Appt Date Roberta Winkler Patient with hospitalization for respiratory Sent failure with hypercapnea, recommendation of sleep evaluation as an outpatient [address] BE[place]O Nava [id number] [phone] [facility] Left shoulder pain and limited range of motion Sent
--- OUTSIDE RECORDS SUMMARY | 2019-11-17 12:56 | XMS REPORT | Continuity of Care Document ---
:1945 External Reference #:[id number] Author Name Anaya Nicole M.D. (transmitted by agent of provider Celestina Cali) Address [address] [place] [address] Care Team Providers Name Role Phone Ness Dennis M.D. 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 Onset: 10/31/2011 Other Hypertrophic Cardiomyopathy Leah Parker M.D. Onset: 2011 Mitral valve disorder Leah Parker M.D. Onset: 10/31/2011 Electrocardiogram abnormal Leah Parker M.D. Onset: 10/31/2011 Benign essential hypertension Leah Parker M.D. Onset: 06/08/2012 Hypertrophic Obstructive Cardiomyopathy Leah Parker M.D. Onset: Coronary arteriosclerosis Leah Parker M.D. Onset: 08/13/2012 Automatic implantable cardiac Leah Parker M.D. Onset: 08/13/2012 defibrillator in situ Primary cardiomyopathy Leah Parker M.D. Onset: 10/08/2012 Premature beats Leah Parker M.D. Onset: 10/08/2012 Palpitations Leah Parker M.D. Onset: 10/08/2012 Heart murmur Leah Parker M.D. Onset: 10/08/2012 Atrial fibrillation Leah Parker M.D. Onset: 01/24/2014 Dyspnea Leah Parker M.D. Onset: 01/24/2014 Mixed hyperlipidemia Leah Parker M.D. Onset: 01/24/2014 Chronic obstructive lung disease Anaya Nicole M.D. Onset: 08/28/2014 Essential hypertension Anaya Nicole M.D. Onset: 08/28/2014 Backache Anaya Nicole M.D. Onset: 08/28/2014 Difficulty breathing Anaya Nicole M.D. Onset: 11/07/2014 Edema Anaya Nicole M.D. Onset: 11/07/2014 Congestive heart failure Anaya Nicole M.D. Onset: 11/07/2014 Constipation Anaya Nicole M.D. Onset: 11/07/2014 Anemia Anaya Nicole M.D. Onset: 11/07/2014 Chronic diastolic heart failure Anaya Nicole M.D. Onset: 07/03/2015 Obstructive hypertrophic cardiomyopathy Anaya Nicole M.D. Onset: 07/17/2015 Paroxysmal atrial fibrillation Anaya Nicole M.D. Onset: 04/14/2016 Complete atrioventricular block Anaya Nicole M.D. Onset: 11/04/2018 Social History Type Date Description Comments Sex Unknown Tobacco Use Start: Unknown End: Former Cigarette Smoker Unknown Smoking Status Reviewed: 10/28/19 Former Cigarette Smoker ETOH Use Denies alcohol use Tobacco Use Start: Unknown End: Patient is a former Quit 06/22/12 Unknown smoker Recreational Drug Use Denies Drug Use Exercise Type/Frequency Does not exercise Allergies, Adverse Reactions, Alerts Active Allergies Reaction Severity Comments Date Wellbutrin rash 08/13/2012 Ambien 07/03/2015 Sotalol unknown per pt 07/03/2015 Inactive Allergies NKDA 04/21/2011 Medications Active Medications SIG Qnty Indications Ordering Date Provider Brenda M20 1 tablet by mouth 180tabs Anaya Nicole, 10/10/2015 20Meq Once a day M.DTami Tablets ER Magnesium Oxide 1 by mouth every 90tabs Anaya Nicole, 01/06/2015 day M.D. 400(240Mg) mg Tablets Disopyramide Phosphate 2 cap three times 540caps Anaya Nicole, 11/28/2014 a day M.D. 100mg Capsules Bumetanide 1 by mouth every 60tabs Anaya Nicole, 11/23/2014 2mg Tablets other day M.D. Spironolactone 1 by mouth every 90tabs Anaya Nicole, 11/12/2014 25mg day M.D. Tablets Alprazolam 1 tab up to tid 10tabs Qutaybeh S. 08/13/2012 0.5mg Tablets portia Parker M.D. Metoprolol Tartrate 1 and 1/2 tablet Unknown 50mg bid Tablets Eylea one injection Unknown 2mg/0.05ML Solution both eyes every 4-6 months Fluoxetine HCL 2 tablet po daily Malorie Chavez 10mg MD Vivian Tablets Mucinex 1 tablet po twice Unknown 1200mg daily [facility] Vitamin 2 cap po daily Unknown Gas-X as needed Unknown Warfarin Sodium as directed Unknown 5mg Tablets Warfarin Sodium as directed Unknown 1mg Tablets Leonor Allergy 1 by mouth every Unknown 60mg day as needed Tablets Vitamin D3 1 by mouth every Unknown 2000Unit other day Capsules Acetazolamide 1 by mouth every Unknown 250mg other day Tablets Albuterol Sulfate HFA Unknown 108(90Base) mcg/Act Aerosol Proctocream as directed Unknown Tylenol Extra Strength 2 by mouth one 100tabs Unknown time daily 500mg Tablets Vitamin B12 daily Unknown 1mg Miralax 17 gm every day 1mon Unknown 3350NF Packet as needed Aspir-Low 1 by mouth every Unknown 81mg Tablets DR day Probiotic Daily 1 tablet po daily Unknown Capsules Folic Acid 1 po qd 90tabs Unknown 1mg Tablets Rosuvastatin 1 po qd 90tabs Unknown 40mg Tablets Senokot S 2 tabs po once 30tabs Unknown 8.6-50mg daily Tablets Colace 2 po daily 60caps Unknown 100mg Capsules Oxygen 2 l nc continous 1units Unknown Misc Tums prn Unknown 500mg Chewtabs Immunizations Description No Information Available Vital Signs Date Vital Result Comment 10/28/2019 1:28pm Height 61.5 inches 5'1.50" Heart Rate 60 /min BP Systolic Sitting 110 mmHg lue lg cuff BP Diastolic Sitting 60 mmHg lue lg cuff Respiratory Rate 16 /min Ejection Fraction 65-70% echo. 09/22/2019 07/11/2019 1:42pm Height 61.5 inches 5'1.50" Weight 220.00 lb With Shoes/Approx Deferred D/T Mobility BP Systolic Sitting 110 mmHg Rue Large Cuff BP Diastolic Sitting 60 mmHg Rue Large Cuff Respiratory Rate 16 /min BMI (Body Mass Index) 40.9 kg/m2 Ejection Fraction >65% ECHO.06/29/15 Results Test Acquired Date Facility Test Result H/L Range Note Laboratory test 10/28/2019 [facility] Magnesium <pending> finding [address] [place] [address] [phone] C Reactive Protein <pending> Laboratory test 10/28/2019 [facility] B-Type <pending> finding [address] [place] [address] Peptide BNP [phone] Inr/Protime 09/22/2019 [facility] Inr 4.08 High 0.82- [address] [place] [address] [phone] 1 Standard intensity warfarin therapeutic range: 2.0-3.0 High intensity warfarin therapeutic range: 2.5-3.5 Procedures Date Code Description Status 10/28/2019 98144 Interrogation Implant Cardiovasc Monitor System Incl Completed Analysis Int 10/28/2019 34438 Icd Eval With Inerative Adjustmt Dual Lead System Completed 09/22/2019 90485 ECHO Transthorasic Realtime 2D W Doppler & Color Flow Completed Hosp 08/30/2019 42227 Interrogation Device Eval Remote Up To 30 Days Completed Analysis,Rev,RP 08/30/2019 39356 Interrogation Device Eval Remote Up To 30 Days Completed Analysis,Rev,RP 08/30/2019 96353 Icd Eval Sing,Dual,Multi Lead Remote Recpt Transm Tech Completed Rev Tech S 08/30/2019 24653 Icd Eval Sing,Dual,Multi Lead Remote Recpt Transm Tech Completed Rev Tech S 08/30/2019 09498 Icd Check Remote Up To 90 Days Single,Dual,Multiple Completed Lead 08/30/2019 52296 Icd Check Remote Up To 90 Days Single,Dual,Multiple Completed Lead 07/11/2019 04380 Icd Eval With Inerative Adjustmt Dual Lead System Completed 07/11/2019 73389 Icd Eval With Inerative Adjustmt Dual Lead System Completed 07/11/2019 56508 Interrogation Implant Cardiovasc Monitor System Incl Completed Analysis Int 07/11/2019 26838 Interrogation Implant Cardiovasc Monitor System Incl Completed Analysis Int 05/23/2019 91034 Interrogation Device Eval Remote Up To 30 Days Completed Analysis,Rev,RP 05/23/2019 49069 Interrogation Device Eval Remote Up To 30 Days Completed Analysis,Rev,RP 05/23/2019 36029 Icd Eval Sing,Dual,Multi Lead Remote Recpt Transm Tech Completed Rev Tech S 05/23/2019 27620 Icd Eval Sing,Dual,Multi Lead Remote Recpt Transm Tech Completed Rev Tech S 05/23/2019 69821 Icd Check Remote Up To 90 Days Single,Dual,Multiple Completed Lead 05/23/2019 39711 Icd Check Remote Up To 90 Days Single,Dual,Multiple Completed Lead 01/04/2015 05395188 Mammogram Completed 10/24/2010 [id number] Bone Mineral Density Test Completed Medical Devices Description No Information Available Encounters Type Date Location Provider Dx Diagnosis Office Visit 10/14/2019 [facility] J96.20 Acute and chr resp 12:49p Assoc,pc Shortle, [employer]AR[employer] OPERATOR failure, unsp w Hospitalists hypoxia or hypercapnia I11.0 Hypertensive heart disease with heart failure I50.9 Heart failure, unspecified Office Visit 10/13/2019 [facility] J96.20 Acute and chr 12:48p Assoc,pc Shortle, [employer]ARBLE SAW OPERATOR resp failure, Hospitalists unsp w hypoxia or hypercapnia I11.0 Hypertensive heart disease with heart failure I50.9 Heart failure, unspecified Office Visit 10/12/2019 12:48p [facility] Joan June MD J96.22 Acute and chronic respiratory failure with hypercapnia I50.23 Acute on chronic systolic (congestive) heart failure J81.1 Chronic pulmonary edema I11.0 Hypertensive heart disease with heart failure Office Visit 10/11/2019 12:47p [facility] Joan June MD J96.21 Acute and chronic respiratory failure with hypoxia J96.22 Acute and chronic respiratory failure with hypercapnia I50.23 Acute on chronic systolic (congestive) heart failure J81.1 Chronic pulmonary edema I11.0 Hypertensive heart disease with heart failure Office Visit 10/10/2019 12:47p [facility]iv[facility] Joan June MD J96.21 Acute and chronic respiratory failure with hypoxia J96.22 Acute and chronic respiratory failure with hypercapnia I50.23 Acute on chronic systolic (congestive) heart failure Office Visit 10/09/2019 12:47p [facility] Kayla Nevarez J96.21 Acute and chronic Doto, [employer] OPERATOR respiratory failure with hypoxia J96.22 Acute and chronic respiratory failure with hypercapnia I50.33 Acute on chronic diastolic (congestive) heart failure R79.89 Other specified abnormal findings of blood chemistry R79.1 Abnormal coagulation profile [facility] and 11:51a Assoc,levy Mancia M.D. chronic Hospitalists respiratory failure with hypercapnia R41.82 Altered mental status, unspecified Office Visit 09/26/2019 [facility] Maria A I50.31 Acute diastolic 11:50a Assoc,NISSA Parker (congestive) Hospitalists heart failure J96.22 Acute and chronic respiratory failure with hypercapnia I48.91 Unspecified atrial fibrillation J44.9 Chronic obstructive pulmonary disease, unspecified Office Visit 09/25/2019 11:50a [facility] Tatiana J96.22 Acute and chronic Assoc,levy Owens M.D. respiratory Hospitalists failure with hypercapnia I50.31 Acute diastolic (congestive) heart failure J44.9 Chronic obstructive pulmonary disease, unspecified I48.91 Unspecified atrial fibrillation Office Visit 09/24/2019 11:50a [facility] Tatiana J96.22 Acute and chronic Assoc,levy Owens M.D. respiratory Hospitalists failure with hypercapnia I50.31 Acute diastolic (congestive) heart failure J44.9 Chronic obstructive pulmonary disease, unspecified I48.91 Unspecified atrial fibrillation Office Visit 09/22/2019 11:49a [facility] Marco Antonio Brambila, J96.22 Acute and chronic M.D. respiratory failure with hypercapnia I50.9 Heart failure, unspecified R79.1 Abnormal coagulation profile R41.82 Altered mental status, unspecified [facility] Acute and chronic Assoc,levy DALY respiratory Hospitalists failure with hypoxia J96.22 Acute and chronic respiratory failure with hypercapnia J44.9 Chronic obstructive pulmonary disease, unspecified E66.01 Morbid (severe) obesity due to excess calories Office Visit 09/17/2019 3:16p [facility] Basim Tex R74.9 Abnormal serum Of Mona Yo M.D., enzyme level, FACC, FASNC unspecified J44.1 Chronic obstructive pulmonary disease w (acute) exacerbation I25.10 Athscl heart disease of [place] coronary artery w/o ang pctrs I48.0 Paroxysmal atrial fibrillation Office Visit 09/17/2019 10:46a [facility] Kory Gaona, J96.20 Acute and chr Assoc,levy DALY resp failure, Hospitalists unsp w hypoxia or hypercapnia I48.91 Unspecified atrial fibrillation I10 Essential (primary) hypertension J44.9 Chronic obstructive pulmonary disease, unspecified Office Visit 09/16/2019 10:45a [facility] Tali Cortés, R06.02 Shortness of Assoc,levy Wong breath Hospitalists J44.9 Chronic obstructive pulmonary disease, unspecified Office Visit 07/11/2019 [place] Anaya Nicole, I44.2 Atrioventricular 1:50p Cardiology Of M.DTami block, complete Mona Z95.810 Presence of automatic (implantable) cardiac defibrillator I48.0 Paroxysmal atrial fibrillation I42.1 Obstructive hypertrophic cardiomyopathy I50.32 Chronic diastolic (congestive) heart failure M25.512 Pain in left shoulder Assessments Date Code Description Provider 10/28/2019 I48.0 Paroxysmal atrial fibrillation Anaya Nicole M.D. 10/28/2019 I48.91 Unspecified atrial fibrillation Ica Pacer Schedule 10/28/2019 I44.2 Atrioventricular block, complete Anaya Nicole M.D. 10/28/2019 I44.2 Atrioventricular block, complete Ica Pacer Schedule 10/28/2019 Z95.810 Presence of automatic (implantable) Anaya Nicole M.D. cardiac defibrillator 10/28/2019 Z95.810 Presence of automatic (implantable) Ica Pacer Schedule cardiac defibrillator 10/28/2019 I50.32 Chronic diastolic (congestive) heart Anaya Nicole M.D. failure 10/28/2019 I50.32 Chronic diastolic (congestive) heart Ica Pacer Schedule failure 10/28/2019 J96.21 Acute and chronic respiratory failure Anaya Nicole M.D. with hypoxia 10/15/2019 J96.21 Acute and chronic respiratory failure Angelia Galindo, [employer] OPERATOR with hypoxia 10/15/2019 J96.22 Acute and chronic respiratory failure Angelia Galindo, [employer]AR[employer]W OPERATOR with hypercapnia 10/15/2019 I50.33 Acute on chronic diastolic Angelia Galindo, WARBLE SAW OPERATOR (congestive) heart failure 10/15/2019 R79.1 Abnormal coagulation profile Angelia Galindo, [employer]ARBLE SAW OPERATOR 10/15/2019 R74.0 Nonspecific elevation of levels of Angelia Galindo, [employer]ARBLE SAW OPERATOR transaminase and lactic acid dehydrogenase [LDH] 10/15/2019 R79.89 Other specified abnormal findings of Angelia Galindo, [employer]ARBLE [employer]W OPERATOR blood chemistry 10/14/2019 J96.20 Acute and chronic respiratory Angelia Shortle, WARBLE SAW OPERATOR failure, unspecified whether with hypoxia or hypercapnia 10/14/2019 I11.0 Hypertensive heart disease with heart Angelia Shortle, WARBLE SAW OPERATOR failure 10/14/2019 I50.9 Heart failure, unspecified Angelia Shortle, WARBLE SAW OPERATOR 10/13/2019 J96.20 Acute and chronic respiratory Angelia Shortle, WARBLE SAW OPERATOR failure, unspecified whether with hypoxia or hypercapnia 10/13/2019 I11.0 Hypertensive heart disease with heart Angelia Shortle, [employer]AR[employer]W OPERATOR failure 10/13/2019 I50.9 Heart failure, unspecified Angelia Shortle, WARBLE SAW OPERATOR 10/12/2019 J96.22 Acute and chronic respiratory failure Joan June MD with hypercapnia 10/12/2019 I50.23 Acute on chronic systolic Joan June MD (congestive) heart failure 10/12/2019 J81.1 Chronic pulmonary edema Joan June MD 10/12/2019 I11.0 Hypertensive heart disease with heart Joan June MD failure 10/11/2019 J96.21 Acute and chronic respiratory failure Joan June MD with hypoxia 10/11/2019 J96.22 Acute and chronic respiratory failure Joan June MD with hypercapnia 10/11/2019 I50.23 Acute on chronic systolic Joan June MD (congestive) heart failure 10/11/2019 J81.1 Chronic pulmonary edema Joan June MD 10/11/2019 I11.0 Hypertensive heart disease with heart Joan June MD failure 10/10/2019 J96.21 Acute and chronic respiratory failure Joan June MD with hypoxia 10/10/2019 J96.22 Acute and chronic respiratory failure Joan June MD with hypercapnia 10/10/2019 I50.23 Acute on chronic systolic Joan June MD (congestive) heart failure 10/09/2019 J96.21 Acute and chronic respiratory failure Kayla Roquefield Rina NP with hypoxia 10/09/2019 J96.22 Acute and chronic respiratory failure Kayla Mofield Rina NP with hypercapnia 10/09/2019 I50.33 Acute on chronic diastolic Kayla Mofield Rina NP (congestive) heart failure 10/09/2019 R79.89 Other specified abnormal findings of Kayla CalderonPETRA nolan blood chemistry 10/09/2019 R79.1 Abnormal coagulation profile Kayla CalderonPETRA nolan 09/27/2019 J96.22 Acute and chronic respiratory failure Dorian Mancia M.D. with hypercapnia 09/27/2019 R41.82 Altered mental status, unspecified Dorian Mancia M.D. 09/26/2019 I50.31 Acute diastolic (congestive) heart NISSA Sanders failure 09/26/2019 J96.22 Acute and chronic respiratory failure NISSA Sanders with hypercapnia 09/26/2019 I48.91 Unspecified atrial fibrillation NISSA Sanders 09/26/2019 J44.9 Chronic obstructive pulmonary NISSA Sanders disease, unspecified 09/25/2019 J96.22 Acute and chronic respiratory failure Tatiana Owens M.D. with hypercapnia 09/25/2019 I50.31 Acute diastolic (congestive) heart Tatiana Owens M.D. failure 09/25/2019 J44.9 Chronic obstructive pulmonary Tatiana Owens M.D. disease, unspecified 09/25/2019 I48.91 Unspecified atrial fibrillation Tatiana Owens M.D. 09/24/2019 J96.22 Acute and chronic respiratory failure Tatiana Owens M.D. with hypercapnia 09/24/2019 I50.31 Acute diastolic (congestive) heart Tatiana Owens M.D. failure 09/24/2019 J44.9 Chronic obstructive pulmonary Tatiana Owens M.D. disease, unspecified 09/24/2019 I48.91 Unspecified atrial fibrillation Tatiana Owens M.D. 09/23/2019 J96.22 Acute and chronic respiratory failure Kamala Tan MD with hypercapnia 09/23/2019 I50.9 Heart failure, unspecified Kamala Tan MD 09/23/2019 J90 Pleural effusion, not elsewhere Kamala Tan MD classified 09/23/2019 I51.7 Cardiomegaly Kamala Tan MD 09/23/2019 R79.1 Abnormal coagulation profile Kamala Tan MD 09/22/2019 I50.9 Heart failure, unspecified Bruce Vera, FACC 09/22/2019 J96.22 Acute and chronic respiratory failure Marco Antonio Brambila M.D. with hypercapnia 09/22/2019 I50.9 Heart failure, unspecified Marco Antonio Brambila M.D. 09/22/2019 R79.1 Abnormal coagulation profile Marco Antonio Brambila M.D. 09/22/2019 R41.82 Altered mental status, unspecified Marco Antonio Brambila M.D. 09/18/2019 J96.21 Acute and chronic respiratory failure Kory Gaona MD with hypoxia 09/18/2019 J96.22 Acute and chronic respiratory failure Kory Gaona MD with hypercapnia 09/18/2019 J44.9 Chronic obstructive pulmonary Kory Gaona MD disease, unspecified 09/18/2019 E66.01 Morbid (severe) obesity due to excess Kory Gaona MD calories 09/17/2019 R74.9 Abnormal serum enzyme level, Basim Yo M.D., FACC, unspecified FASNC 09/17/2019 J96.20 Acute and chronic respiratory Kory Gaona MD failure, unspecified whether with hypoxia or hypercapnia 09/17/2019 J44.1 Chronic obstructive pulmonary disease Basim Yo M.D., [facility], with (acute) exacerbation FASMD 09/17/2019 I25.10 Atherosclerotic heart disease of Basim Yo M.D., [facility], [place] coronary artery without angina FASMD pectoris 09/17/2019 I48.91 Unspecified atrial fibrillation Kory Gaona MD 09/17/2019 I48.0 Paroxysmal atrial fibrillation Basim Yo M.D., [facility] , FASNC 09/17/2019 I10 Essential (primary) hypertension Kory Gaona MD 09/17/2019 J44.9 Chronic obstructive pulmonary Kory Gaona MD disease, unspecified 09/16/2019 R06.02 Shortness of breath Tali Cortés M.D. 09/16/2019 J44.9 Chronic obstructive pulmonary Tali Cortés M.D. disease, unspecified 08/30/2019 I44.2 Atrioventricular block, complete Anaya Nicole M.D. 08/30/2019 I44.2 Atrioventricular block, complete Remote Device Checks 08/30/2019 I50.32 Chronic diastolic (congestive) heart Anaya Nicole M.D. failure 08/30/2019 I50.32 Chronic diastolic (congestive) heart Remote Device Checks failure 08/30/2019 Z95.810 Presence of automatic (implantable) Anaya Nicole M.D. cardiac defibrillator 08/30/2019 Z95.810 Presence of automatic (implantable) Remote Device Checks cardiac defibrillator 08/30/2019 I48.0 Paroxysmal atrial fibrillation Anaya Nicole M.D. 08/30/2019 I48.0 Paroxysmal atrial fibrillation Remote Device Checks 07/11/2019 I44.2 Atrioventricular block, complete Anaya Nicole M.D. 07/11/2019 I44.2 Atrioventricular block, complete Ica Pacer Schedule 07/11/2019 I50.32 Chronic diastolic (congestive) heart Anaya Nicole M.D. failure 07/11/2019 Z95.810 Presence of automatic (implantable) Anaya Bonnie, M.D. cardiac defibrillator 07/11/2019 I50.32 Chronic diastolic (congestive) heart Ica Pacer Schedule failure 07/11/2019 Z95.810 Presence of automatic (implantable) Anaya Nicole M.D. cardiac defibrillator 07/11/2019 I48.0 Paroxysmal atrial fibrillation Anaya Nicole M.D. 07/11/2019 Z95.810 Presence of automatic (implantable) Ica Pacer Schedule cardiac defibrillator 07/11/2019 I42.1 Obstructive hypertrophic Anaya Nicole M.D. cardiomyopathy 07/11/2019 I50.32 Chronic diastolic (congestive) heart Anaya Nicole M.D. failure 07/11/2019 M25.512 Pain in left shoulder Anaya Nicole M.D. 05/23/2019 I44.2 Atrioventricular block, complete Anaya Nicole M.D. 05/23/2019 I44.2 Atrioventricular block, complete Remote Device Checks 05/23/2019 I50.32 Chronic diastolic (congestive) heart Anaya Nicole M.D. failure 05/23/2019 I50.32 Chronic diastolic (congestive) heart Remote Device Checks failure 05/23/2019 Z95.810 Presence of automatic (implantable) Anaya Nicole M.D. cardiac defibrillator 05/23/2019 Z95.810 Presence of automatic (implantable) Remote Device Checks cardiac defibrillator Plan of Treatment Future Appointment(s):11/10/2019 1:10 pm - Anaya Nicole M.D. at [facility]11/02/2019 11:00 am - Anaya Nicole M.D. at [facility] [place] [facility] [place] - Anaya Nicole M.D.I48.0 Paroxysmal atrial fibrillationNew Orders:Cardioversion, Scheduled: 11/02/19Comments:You have been a. fib for weeks, I think this is causing/contributing to fluid in lungs and breathingissues.I44.2 Atrioventricular block, wgiwaelyT55.810 Presence of automatic (implantable) cardiac defibrillatorComments:Your device is working normally.I50.32 Chronic diastolic (congestive) heart yoxzrbxP41.21 Acute and chronic respiratory failure with hypoxiaComments:Cough, could bronchitis on top of your congestive heart failure. Functional Status Description No Information Available Mental Status Description No Information Available Referrals Description No Information Available
--- OUTSIDE RECORDS SUMMARY | 2019-11-17 12:56 | XMS REPORT ---
:1945 Author Organization [facility] Care Team Providers Name Role Phone Unavailable Unavailable Unavailable Problems Condition Condition Condition Status Onset Resolution Last Treating Comments Name Details Category Date Date Treatment Clinician Date Heart Heart Diagnosis Active Ewelina failure, failure, 09-30 Diaz unspecified unspecified [id number] Chronic Chronic Diagnosis Active 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 [id number] disease, disease, unspecified unspecified Unspecified Unspecified Diagnosis Active Ewelina atrial atrial 09-30 Diaz fibrillatio fibrillatio [id number] n n Essential Essential Diagnosis Active Ewelina (primary) (primary) 09-30 Diaz hypertensio hypertensio [id number] n n Anemia, Anemia, Diagnosis Active Ewelina unspecified unspecified 09-30 Diaz [id number] Presence of Presence of Diagnosis Active Ewelina cardiac cardiac 09-30 Diaz pacemaker pacemaker [id number] Major Major Diagnosis Active Ewelina depressive depressive Diaz disorder, disorder, [id number] recurrent, recurrent, unspecified unspecified Chronic Chronic Diagnosis Active Ewelina idiopathic idiopathic Diaz constipatio constipatio [id number] n n Dependence Dependence Diagnosis Active Ewelina on on Diaz supplementa supplementa [id number] l oxygen l oxygen Pain frequent Pain Mgmt Active 2020-0 Gina pain 09-30 [place] 08:45: [id number] Cardio pacemaker/I Cardiovasc Active 2020-0 Gina CD ular 09-30 [place] 08:45: [id number] 00 Respiratory lung sounds Respirator Active 2020-0 Gina deficit y 09-30 [place] 08:45: [id number] 00 Respiratory dyspnea Respirator Active 2020-0 Gina present y 09-30 [place] 08:45: [id number] Respiratory oxygen Respirator Active 2019-0 Gina treatments y 09-30 [place] in home 08:45: [id number] 00 Endo/Leonid anti-coagul Endo/Leonid Active 2020-0 Gina ation 09-30 [place] therapy 08:45: [id number] 00 Sensory impaired Sensory Active 2020-0 Gina hearing 09-30 [place] 08:45: [id number] 00 Integument skin Integument Active 2020-0 Gian integrity 09-30 [place] risk 08:45: [id number] Nutrition nutritional Nutrition Active 2020-0 Gina restriction 09-30 [place] s 08:45: [id number] 00 Elimination urinary Eliminatio Active 2020-0 Gina incontinenc n 09-30 [place] e 08:45: [id number] 00 Neuro confusion Neuro/Emot Active 2020-0 Gina present ion 09-30 [place] 08:45: [id number] 00 Neuro impaired Neuro/Emot Active 2020-0 Gina decision-ma ion 09-30 [place] gloria 08:45: [id number] 00 Activity ADL Activity Active 2020-0 Gina assistance 09-30 [place] required 08:45: [id number] Activity self-care Activity Active 2020-0 Gina deficit 09-30 [place] 08:45: [id number] 00 Safety cannot be Safety Active 2020-0 Gina left alone 09-30 [place] 08:45: [id number] 00 Safety fall risk Safety Active 2020-0 Gina factor 09-30 [place] present 08:45: [id number] Safety risk for Safety Active 2020-0 Gina hospitaliza 09-30 [place] tion 08:45: [id number] 00 Medication oral med Meds Resolve 2020-0 2019-10-05 Gina assistance d 09-30 13:34:00 [place] required 08:45: [id number] 00 Medication knowledge/s Meds Resolve 2020-0 2019-10-05 Gina kill d 09-30 13:34:00 [place] deficit: pt 08:45: [id number] 00 Musculoskel transfer Musculoske Active 2020-0 Gina etal assistance letal 09-30 [place] required 08:45: [id number] 00 Musculoskel requires Musculoske Active 2020-0 Gina etal human letal 09-30 [place] assist to 08:45: [id number] leave home 00 Safety structural Safety Active 2020-0 Laura barriers 1-17 [place] present 13:50: [id number] 00 Bed mobility/tr PT/OT: Bed Active 2020-0 Laura Mobility/Tr ansfer Mobility/T 1-17 [place] ansfer device ransfer 13:50: [id number] present 00 Bed knowledge/s PT/OT: Bed Active 2020-0 Laura Mobility/Tr kill Mobility/T 1-17 [place] ansfer deficit: pt ransfer 13:50: [id number] 00 Balance/End balance/ur coordinator PT/OT: Active 2019-0 Laura urance rdination Balance/En 1-17 [place] deficit durance 13:50: [id number] 00 Balance/End knowledge/s PT/OT: Active 2019-0 Laura urance kill Balance/En 1-17 [place] deficit: pt durance 13:50: [id number] 00 Gait/Locomo gait PT/OT: Active 2019-0 Laura tion assistive Gait/Locom 1-17 [place] problems device otion 13:50: [id number] present 00 Gait/Locomo gait PT/OT: Active 2019- Laura tion deficit Gait/Locom 1-17 [place] problems otion 13:50: [id number] 00 Gait/Locomo knowledge/s PT/OT: Active 2019- Laura tion kill Gait/Locom 1-17 [place] problems deficit: pt otion 13:50: [id number] 00 Respiratory ventilator Respirator Active 2019- Ewelina treatments y 2-03 [place] in home 14:30: [id number] 00 Medication oral med Meds Active 2019-0 Ewelina assistance 2-03 [place] required 14:30: [id number] Bed transfer PT/OT: Bed Active 2020-0 Juan F Mobility/Tr deficit: Mobility/T 2-03 peewee Mcconnell sit/stand ransfer 15:15: PT 00 [id number] Bed transfer PT/OT: Bed Active 2020-0 Juan F Mobility/Tr deficit: Mobility/T 2-03 peewee Mcconnell standing ransfer 15:15: PT pivot 00 [id number] Bed transfer PT/OT: Bed Active 2020-0 Juan F Mobility/Tr deficit: Mobility/T 2-03 peewee Mcconnell toilet/comm ransfer 15:15: PT ode [id number] Bed bed PT/OT: Bed Active Juan F Mobility/Tr mobility Mobility/T 10-17 peewee Mcconnell ransfer 15:15: PT Allergies, Adverse Reactions, Alerts Allergy Name Allergy [...] Date Date Medication? Clinician (SIG) Name Name simethicone simethicone 2020-0 Yes Karis Unknown Unknown 80 mg 80 mg 09-30 [place] DALY chewable chewable tablet tablet calcium calcium 2020-0 Yes Karis Unknown Unknown carbonate carbonate 09-30 [place] DALY 200 mg 200 mg calcium calcium (500 mg) (500 mg) chewable chewable tablet tablet polyethylen polyethylen 2020-0 Yes Karis Unknown Unknown e glycol e glycol 09-30 Monico DALY 3350 17 3350 17 gram/dose gram/dose oral powder oral powder docusate docusate 2020-0 Yes Karis Unknown Unknown sodium 100 sodium 100 09-30 [place] DALY capsule mg capsule ALPRAZolam ALPRAZolam 2020-0 Yes Karis Unknown Unknown 0.5 mg 0.5 mg 09-30 Mon[place] DALY tablet tablet metoprolol metoprolol 2019-0 Yes Karis Unknown Unknown tartrate 50 tartrate 50 09-30 [place] DALY mg tablet mg tablet disopyramid disopyramid 2020-0 Yes Karis Unknown Unknown e phosphate e phosphate 09-30 [place] DALY 100 mg 100 mg capsule capsule PreserVisio PreserVisio 2020-0 Yes Karis Unknown Unknown n AREDS-2 n AREDS-2 09-30 Monico DALY 250 mg-200 250 mg-200 unit-40 unit-40 mg-1 mg mg-1 mg capsule capsule Mucinex Mucinex 2019-0 Yes Karis Unknown Unknown 1,200 mg 1,200 mg 09-30 Monico DALY tablet, tablet, extended extended release release Acetaminoph Acetaminoph 2020-0 Yes Karis Unknown Unknown en Extra en Extra 09-30 Monico DALY Strength Strength 500 mg 500 mg tablet tablet cyanocobala cyanocobala 2020-0 Yes Karis Unknown Unknown min (vit min (vit 09-30 ,Monico B-12) 1,000 B12) 1,000 mcg tablet mcg tablet Aspirin Low Aspirin Low 2020-0 Yes Karis Unknown Unknown Dose 81 mg Dose 81 mg 09-30 Monico DALY tablet,gurvnider tablet,gurvinder yed release yed release Probiotic Probiotic 2020-0 Yes Karis Unknown Unknown 10 billion 10 billion 09-30 Monico DALY cell cell capsule capsule folic acid folic acid 2019-0 Yes Karis Unknown Unknown 1 mg tablet 1 mg tablet 09-30 Monico DALY sennosides sennosides 2019-0 Yes Karis Unknown Unknown 8.6 mg 8.6 mg 09-30 Monico DALY capsule capsule rosuvastati rosuvastati 2019-0 Yes Karis Unknown Unknown n 40 mg n 40 mg 09-30 [place] DALY tablet tablet cholecalcif cholecalcif 2020-0 Yes Karis Unknown Unknown gladis gladis 09-30 [place] DALY (vitamin (vitamin D3) 2,000 D3) 2,000 unit tablet unit tablet FLUoxetine FLUoxetine 2019-0 Yes Karis Unknown Unknown 20 mg 20 mg 09-30 [place] DALY capsule capsule spironolact spironolact 2019-0 Yes Karis Unknown Unknown one 25 mg one 25 mg 09-30 [place] DALY tablet tablet magnesium magnesium 2020-0 Yes Karis Unknown Unknown 400 mg (as 400 mg (as 09-30 Monico DALY magnesium magnesium oxide) oxide) capsule capsule fexofenadin fexofenadin 2019-0 Yes Karis Unknown Unknown e 60 mg e 60 mg 09-30 [place] DALY tablet tablet albuterol albuterol 2019-0 Yes Karis Unknown Unknown sulfate HFA sulfate HFA 09-30 [place] DALY 90 90 mcg/actuati mcg/actuati on aerosol on aerosol inhaler inhaler bumetanide bumetanide 2019-0 Yes Karis Unknown Unknown 2 mg tablet 2 mg tablet 09-30 [place] DALY doxycycline doxycycline 2019-0 Yes Karis Unknown Unknown monohydrate monohydrate 09-30 [place] DALY 100 mg 100 mg capsule capsule fluticasone fluticasone 2019-0 Yes Karis Unknown Unknown propionate- propionate- 09-30 [place] DALY salmeterol salmeterol 230 mcg-21 230 mcg-21 mcg/actuati mcg/actuati on HFA on HFA inhaler inhaler acetaZOLAMI acetaZOLAMI 2019- Yes Karis Unknown Unknown DE 250 mg DE 250 mg 09-30 ,Monico tablet tablet Klor-Con Klor-Con Yes Karis Unknown Unknown M20 mEq M20 mEq 09-30 Mon[place] DALY tablet,exte tablet,exte nded nded release release warfarin 3 warfarin 3 2019-0 Yes Karis Unknown Unknown mg tablet mg tablet 09-30 [place] DALY warfarin 1 warfarin 1 Yes Karis Unknown Unknown mg tablet mg tablet 09-30 [place] DALY Vital Signs Vital Name Observation Time Observation Value Comments SYSTOLIC mm[Hg] 2019-10-19 18:10:14 112 mm[Hg] mm[Hg] Method: Sit SYSTOLIC mm[Hg] 2019-09-30 18:09:55 116 mm[Hg] mm[Hg] Method: Stand SYSTOLIC mm[Hg] 2019-10-07 18:10:02 108 mm[Hg] mm[Hg] Method: Lie DIASTOLIC mm[Hg] 2019-10-19 18:10:14 64 mm[Hg] mm[Hg] Method: Sit DIASTOLIC mm[Hg] 2019-09-30 18:09:55 66 mm[Hg] mm[Hg] Method: Stand DIASTOLIC mm[Hg] 2019-10-07 18:10:02 64 mm[Hg] mm[Hg] Method: Lie PULSE 2019-10-19 18:10:14 56 /min /min RESP RATE 2019-10-19 18:10:14 22 /min /min TEMP 2019-10-19 18:10:14 97.6 [degF] Procedures This patient has no known procedures. Results This patient has no known results.
--- OUTSIDE RECORDS SUMMARY | 2019-11-17 12:56 | XMS REPORT ---
:1945 Author Organization [facility] Care Team Providers Name Role Phone Unavailable Unavailable Unavailable Problems Condition Condition Condition Status Onset Resolution Last Treating Comments Name Details Category Date Date Treatment Clinician Date Acute on Acute on Diagnosis Active Ewelina chronic chronic 10-15 Diaz diastolic diastolic [id number] (congestive (congestive ) heart ) heart failure failure Acute and Acute and Diagnosis Active Ewelina chronic chronic 2 Diaz respiratory respiratory [id number] failure failure with with hypoxia hypoxia Chronic Chronic Diagnosis Active by obstructive obstructive 09-30 Diaz pulmonary pulmonary [id number] disease, disease, unspecified unspecified Unspecified Unspecified Diagnosis Active Ewelina atrial atrial 09-30 Diaz fibrillatio fibrillatio [id number] n n Essential Essential Diagnosis Active Ewelina (primary) (primary) 09-30 Diaz hypertensio hypertensio [id number] n n Anemia, Anemia, Diagnosis Active Ewelina unspecified unspecified 09-30 Diaz [id number] 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, disorder, [id number] recurrent, recurrent, unspecified unspecified 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 [id number] n n 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 supplementa [id number] l oxygen l oxygen Presence of Presence of Diagnosis Active cardiac cardiac Diaz pacemaker pacemaker [id number] Pain frequent Pain Mgmt Active 2019-0 Gina pain 09-30 [place] 08:45: [id number] 00 Cardio pacemaker/I Cardiovasc Active 2020-0 Gina CD ular 09-30 [place] 08:45: [id number] 00 Respiratory lung sounds Respirator Active 2020-0 Gina deficit y 09-30 [place] 08:45: [id number] 00 Respiratory dyspnea Respirator Active 2020-0 Gina present y 09-30 [place] 08:45: [id number] 00 Respiratory oxygen Respirator Active 2020-0 Gina treatments y 09-30 [place] in home 08:45: [id number] 00 Endo/Leonid anti-coagul Endo/Leonid Active 2020-0 Gina ation 09-30 [place] therapy 08:45: [id number] 00 Sensory impaired Sensory Active 2020-0 Gina hearing 09-30 [place] 08:45: [id number] 00 Integument skin Integument Active 2020-0 Gina integrity 09-30 [place] risk 08:45: [id number] 00 Nutrition nutritional Nutrition Active 2020-0 Gina restriction 09-30 [place] s 08:45: [id number] 00 Elimination urinary Eliminatio Active 2020-0 Gian incontinenc n 09-30 [place] e 08:45: [id number] 00 Neuro confusion Neuro/Emot Active 2020-0 Gina present ion 09-30 [place] 08:45: [id number] 00 Neuro impaired Neuro/Emot Active 2020-0 Gina decision-ma ion 09-30 [place] gl[place] 08:45: [id number] 00 Activity ADL Activity Active 2020-0 Gina assistance 09-30 [place] required 08:45: [id number] 00 Activity self-care Activity Active 2020-0 Gina deficit 09-30 [place] 08:45: [id number] 00 Safety cannot be Safety Active 2020-0 Gina left alone 09-30 [place] 08:45: [id number] 00 Safety fall risk Safety Active 2020-0 Gina factor 09-30 [place] present 08:45: [id number] 00 Safety risk for Safety Active 2020-0 Gina hospitaliza 09-30 [place] tion 08:45: [id number] 00 Medication oral med Meds Resolve 2019-0 2019-10-05 Gina assistance d 09-30 13:34:00 [place] required 08:45: [id number] 00 Medication knowledge/s Meds Resolve 2020-0 2019-10-05 Gina kill d 09-30 13:34:00 [place] deficit: pt 08:45: [id number] 00 Musculoskel transfer Musculoske Active 2020-0 Gina etal assistance letal 09-30 [place] required 08:45: [id number] 00 Musculoskel requires Musculoske Active 2020-0 Gina etal human letal 1-17 [place] assist to 08:45: [id number] leave home 00 Safety structural Safety Active 2019- Laura barriers 1-17 [place] present 13:50: [id number] 00 Bed mobility/tr PT/OT: Bed Active 2020- Laura Mobility/Tr ansfer Mobility/T 1-17 [place] ansfer device ransfer 13:50: [id number] present 00 Bed knowledge/s PT/OT: Bed Active 2020- Laura Mobility/Tr kill Mobility/T 1-17 [place] ansfer deficit: pt ransfer 13:50: [id number] 00 Balance/End balance/implant coordinator PT/OT: Active 2019- Laura urance rdination Balance/En 1-17 [place] deficit durance 13:50: [id number] 00 Balance/End knowledge/s PT/OT: Active 2019- Laura urance kill Balance/En 1-17 [place] deficit: pt durance 13:50: [id number] 00 Gait/Locomo gait PT/OT: Active 2019- Laura tion assistive Gait/Locom 1-17 [place] problems device otion 13:50: [id number] present 00 Gait/Locomo gait PT/OT: Active 2019- Laura tion deficit Gait/Locom 1-17 [place] problems otion 13:50: [id number] 00 Gait/Locomo knowledge/s PT/OT: Active 2019- Laura tion kill Gait/Locom 1-17 [place] problems deficit: pt otion 13:50: [id number] 00 Respiratory ventilator Respirator Active 2019- Ewelina treatments y 2-03 [place] in home 14:30: [id number] 00 Medication oral med Meds Active 2019- Ewelina assistance 2-03 [place] required 14:30: [id number] 00 Bed transfer PT/OT: Bed Active 2019- Juan F Mobility/Tr deficit: Mobility/T 2-03 peewee Mcconnell sit/stand ransfer 15:15: PT 00 [id number] Bed transfer PT/OT: Bed Active 2020- Juan F Mobility/Tr deficit: Mobility/T 2-03 peewee Mcconnell standing ransfer 15:15: PT pivot 00 [id number] Bed transfer PT/OT: Bed Active 20200 Juan F Mobility/Tr deficit: Mobility/T 2-03 peewee Mcconnell toilet/comm ransfer 15:15: PT ode Bed bed PT/OT: Bed Active Juan F Mobility/Tr mobility Mobility/T 2-03 peewee Mcconnell deficit ransfer 15:15: PT [id number] Allergies, Adverse Reactions, Alerts Allergy Name Allergy [...] Medication? Clinician (SIG) Name Name simethicone simethicone 2019-0 Yes Karis Unknown Unknown 80 mg 80 [...] 09-30 Monico DALY tablet tablet metoprolol metoprolol 2020-0 Yes Karis Unknown Unknown tartrate 50 tartrate 50 09-30 Mon[place] DALY mg tablet mg tablet disopyramid disopyramid 2020-0 Yes Karis Unknown Unknown e phosphate e phosphate 09-30 Monico DALY 100 mg 100 mg capsule capsule PreserVisio PreserVisio 2020-0 Yes Karis Unknown Unknown n AREDS-2 n AREDS-2 09-30 Monico DALY 250 mg-200 250 mg-200 unit-40 unit-40 mg-1 mg mg-1 mg capsule capsule Mucinex Mucinex 2020-0 Yes Karis Unknown Unknown 1,200 mg 1,200 mg 09-30 Mon[place] DALY tablet, tablet, extended extended release release Acetaminoph Acetaminoph 2019-0 Yes Karis Unknown Unknown en Extra en [...] mg tablet 09-30 Monico DALY sennosides sennosides 2020-0 Yes Karis Unknown Unknown 8.6 mg 8.6 [...] Unknown 20 mg 20 mg 09-30 Monico ADLY capsule capsule spironolact spironolact 2019-0 Yes Karis Unknown Unknown one 25 mg one 25 mg 09-30 Monico DALY tablet tablet magnesium magnesium 2020-0 Yes Karis Unknown Unknown 400 mg (as 400 mg (as 09-30 Monico DALY magnesium magnesium oxide) oxide) capsule capsule fexofenadin fexofenadin 2020-0 Yes Karis Unknown Unknown e 60 mg [...] mg 100 mg capsule capsule fluticasone fluticasone 2019- Yes Karis Unknown Unknown propionate- propionate- 09-30 Monico DALY salmeterol salmeterol 230 mcg-21 230 mcg-21 mcg/actuati mcg/actuati on HFA on HFA inhaler inhaler acetaZOLAMI acetaZOLAMI 2019- Yes Karis Unknown Unknown DE 250 mg DE 250 mg 09-30 ,Monico tablet tablet Klor-Con Klor-Con 0 Yes Karis Unknown Unknown M20 mEq M20 mEq 09-30 Monico DALY tablet,exte tablet,exte nded nded release release warfarin 3 warfarin 3 2019- Yes Karis Unknown Unknown mg tablet mg [...]
--- OUTSIDE RECORDS SUMMARY | 2019-11-17 12:56 | XMS REPORT ---
:1945 Author Organization [facility] Care Team Providers Name Role Phone Unavailable Unavailable Unavailable Problems Condition Condition Condition Status Onset Resolution Last Treating Comments Name Details Category Date Date Treatment Clinician Date Acute on Acute on Diagnosis Active Ewelina chronic chronic 10-15 Diaz diastolic diastolic [id number] (congestive (congestive ) heart ) heart failure failure Acute and Acute and Diagnosis Active Ewelina chronic chronic 2 Diaz respiratory respiratory [id number] failure failure with with hypoxia hypoxia Chronic Chronic Diagnosis Active by obstructive obstructive 09-30 Diaz pulmonary pulmonary [id number] disease, disease, unspecified unspecified Unspecified Unspecified Diagnosis Active Ewelina atrial atrial 09-30 Diaz fibrillatio fibrillatio [id number] n n Essential Essential Diagnosis Active Ewelina (primary) (primary) 09-30 Diaz hypertensio hypertensio [id number] n n Anemia, Anemia, Diagnosis Active Ewelina unspecified unspecified 09-30 Diaz [id number] 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, disorder, [id number] recurrent, recurrent, unspecified unspecified 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 [id number] n n Dependence Dependence Diagnosis Active on on Daiz supplementa supplementa [id number] l oxygen l oxygen Presence of Presence of Diagnosis Active cardiac cardiac Diaz pacemaker pacemaker [id number] Pain frequent Pain Mgmt Active 2019-0 Gina pain 09-30 [place] 08:45: [id number] 00 Cardio pacemaker/I Cardiovasc Active 2020-0 Gina CD ular 09-30 [place] 08:45: [id number] 00 Respiratory lung sounds Respirator Active 2020-0 Gina deficit y 09-30 [place] 08:45: [id number] 00 Respiratory dyspnea Respirator Active 2020-0 Gina present y 09-30 [place] 08:45: [id number] 00 Respiratory oxygen Respirator Active 2020-0 Gina treatments y 09-30 [place] in home 08:45: [id number] 00 Endo/Leonid anti-coagul Endo/Leonid Active 2020-0 Gina ation 09-30 [place] therapy 08:45: [id number] 00 Sensory impaired Sensory Active 2020-0 Gina hearing 09-30 [place] 08:45: [id number] 00 Integument skin Integument Active 2020-0 Gina integrity 09-30 [place] risk 08:45: [id number] 00 Nutrition nutritional Nutrition Active 2020-0 Gina restriction 09-30 [place] s 08:45: [id number] 00 Elimination urinary Eliminatio Active 2020-0 Gina incontinenc n 09-30 [place] e 08:45: [id number] 00 Neuro confusion Neuro/Emot Active 2020-0 Gina present ion 09-30 [place] 08:45: [id number] 00 Neuro impaired Neuro/Emot Active 2020-0 Gina decision-ma ion 09-30 [place] gloria 08:45: [id number] 00 Activity ADL Activity Active 2020-0 Gina assistance 09-30 [place] required 08:45: [id number] 00 Activity self-care Activity Active 2020-0 Gina deficit 09-30 [place] 08:45: [id number] 00 Safety cannot be Safety Active 2020-0 Gina left alone 09-30 [place] 08:45: [id number] 00 Safety fall risk Safety Active 2020-0 Gina factor 09-30 [place] present 08:45: [id number] 00 Safety risk for Safety Active 2020-0 Gina hospitaliza 09-30 [place] tion 08:45: [id number] 00 Medication oral med Meds Resolve 2019-0 2019-10-05 Gina assistance d 09-30 13:34:00 [place] required 08:45: [id number] 00 Medication knowledge/s Meds Resolve 2020-0 2019-10-05 Gina kill d 09-30 13:34:00 [place] deficit: pt 08:45: [id number] 00 Musculoskel transfer Musculoske Active 2020-0 Gina etal assistance letal 09-30 [place] required 08:45: [id number] 00 Musculoskel requires Musculoske Active 2020-0 Gina etal human letal 1-17 [place] assist to 08:45: [id number] leave home 00 Safety structural Safety Active 2019- Laura barriers 1-17 [place] present 13:50: [id number] 00 Bed mobility/tr PT/OT: Bed Active 2020- Laura Mobility/Tr ansfer Mobility/T 1-17 [place] ansfer device ransfer 13:50: [id number] present 00 Bed knowledge/s PT/OT: Bed Active 2020- Laura Mobility/Tr kill Mobility/T 1-17 [place] ansfer deficit: pt ransfer 13:50: [id number] 00 Balance/End balance/registration coordinator PT/OT: Active 2019- Laura urance rdination Balance/En 1-17 [place] deficit durance 13:50: [id number] 00 Balance/End knowledge/s PT/OT: Active 2019- Laura urance kill Balance/En 1-17 [place] deficit: pt durance 13:50: [id number] 00 Gait/Locomo gait PT/OT: Active 2019- Laura tion assistive Gait/Locom 1-17 [place] problems device otion 13:50: [id number] present 00 Gait/Locomo gait PT/OT: Active 2019- Laura tion deficit Gait/Locom 1-17 [place] problems otion 13:50: [id number] 00 Gait/Locomo knowledge/s PT/OT: Active 2019- Laura tion kill Gait/Locom 1-17 [place] problems deficit: pt otion 13:50: [id number] 00 Respiratory ventilator Respirator Active 2019- Ewelina treatments y 2-03 [place] in home 14:30: [id number] 00 Medication oral med Meds Active 2019- Ewelina assistance 2-03 [place] required 14:30: [id number] 00 Bed transfer PT/OT: Bed Active 2019- Juan F Mobility/Tr deficit: Mobility/T 2-03 peewee Mcconenll sit/stand ransfer 15:15: PT 00 [id number] Bed transfer PT/OT: Bed Active 2020- Juan F Mobility/Tr deficit: Mobility/T 2-03 peewee Mcconnell standing ransfer 15:15: PT pivot 00 [id number] Bed transfer PT/OT: Bed Active 20200 Juan [...]
--- OUTSIDE RECORDS SUMMARY | 2019-11-17 12:56 | XMS REPORT ---
:1945 Author Organization [facility] Care Team Providers Name Role Phone Unavailable Unavailable Unavailable Problems Condition Condition Condition Status Onset Resolution Last Treating Comments Name Details Category Date Date Treatment Clinician Date Acute on Acute on Diagnosis Active Ewelina chronic chronic 10-15 Diaz diastolic diastolic [id number] (congestive (congestive ) heart ) heart failure failure Acute and Acute and Diagnosis Active Ewelina chronic chronic 2 Diaz respiratory respiratory [id number] failure failure with with hypoxia hypoxia Chronic Chronic Diagnosis Active by obstructive obstructive 09-30 Diaz pulmonary pulmonary [id number] disease, disease, unspecified unspecified Unspecified Unspecified Diagnosis Active Ewelina atrial atrial 09-30 Diaz fibrillatio fibrillatio [id number] n n Essential Essential Diagnosis Active Ewelina (primary) (primary) 09-30 Diaz hypertensio hypertensio [id number] n n Anemia, Anemia, Diagnosis Active Ewelina unspecified unspecified 09-30 Diaz [id number] 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, disorder, [id number] recurrent, recurrent, unspecified unspecified 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 [id number] n n 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 supplementa [id number] l oxygen l oxygen Presence of Presence of Diagnosis Active cardiac cardiac Diaz pacemaker pacemaker [id number] Pain frequent Pain Mgmt Active 2019-0 Gina pain 09-30 [place] 08:45: [id number] Cardio pacemaker/I Cardiovasc Active 2020-0 Gina CD ular 09-30 [place] 08:45: [id number] 00 Respiratory lung sounds Respirator Active 2020-0 Gina deficit y 09-30 [place] 08:45: [id number] 00 Respiratory dyspnea Respirator Active 2020-0 Gina present y 09-30 [place] 08:45: [id number] 00 Respiratory oxygen Respirator Active 2020-0 Gina treatments y 09-30 [place] in home 08:45: [id number] 00 Endo/Leonid anti-coagul Endo/Leonid Active 2020-0 Gina ation 09-30 [place] therapy 08:45: [id number] 00 Sensory impaired Sensory Active 2020-0 Gina hearing 09-30 [place] 08:45: [id number] 00 Integument skin Integument Active 2020-0 Gina integrity 09-30 [place] risk 08:45: [id number] 00 Nutrition nutritional Nutrition Active 2020-0 Gina restriction 09-30 [place] s 08:45: [id number] 00 Elimination urinary Eliminatio Active 2020-0 Gina incontinenc n 09-30 [place] e 08:45: [id number] 00 Neuro confusion Neuro/Emot Active 2020-0 Gina present ion 09-30 [place] 08:45: [id number] 00 Neuro impaired Neuro/Emot Active 2020-0 Gina decision-ma ion 09-30 [place] gloria 08:45: [id number] 00 Activity ADL Activity Active 2020-0 Gina assistance 09-30 [place] required 08:45: [id number] 00 Activity self-care Activity Active 2020-0 Gina deficit 09-30 [place] 08:45: [id number] 00 Safety cannot be Safety Active 2020-0 Gina left alone 09-30 [place] 08:45: [id number] 00 Safety fall risk Safety Active 2020-0 Gina factor 09-30 [place] present 08:45: [id number] 00 Safety risk for Safety Active 2020-0 Gina hospitaliza 09-30 [place] tion 08:45: [id number] 00 Medication oral med Meds Resolve 2019-0 2019-10-05 Gina assistance d 09-30 13:34:00 [place] required 08:45: [id number] 00 Medication knowledge/s Meds Resolve 2020-0 2019-10-05 Gina kill d 09-30 13:34:00 [place] deficit: pt 08:45: [id number] 00 Musculoskel transfer Musculoske Active 2020-0 Gina etal assistance letal 09-30 [place] required 08:45: [id number] 00 Musculoskel requires Musculoske Active 2020-0 Gina etal human letal 1-17 [place] assist to 08:45: [id number] leave home 00 Safety structural Safety Active 2019- Laura barriers 1-17 [place] present 13:50: [id number] 00 Bed mobility/tr PT/OT: Bed Active 2020- Laura Mobility/Tr ansfer Mobility/T 1-17 [place] ansfer device ransfer 13:50: [id number] present 00 Bed knowledge/s PT/OT: Bed Active 2020- Laura Mobility/Tr kill Mobility/T 1-17 [place] ansfer deficit: pt ransfer 13:50: [id number] 00 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/OT: Active 2019- Laura urance rdination Balance/En 1-17 [place] deficit durance 13:50: [id number] 00 Balance/End knowledge/s PT/OT: Active 2019- Laura urance kill Balance/En 1-17 [place] deficit: pt durance 13:50: [id number] 00 Gait/Locomo gait PT/OT: Active 2019- Laura tion assistive Gait/Locom 1-17 [place] problems device otion 13:50: [id number] present 00 Gait/Locomo gait PT/OT: Active 2019- Laura tion deficit Gait/Locom 1-17 [place] problems otion 13:50: [id number] 00 Gait/Locomo knowledge/s PT/OT: Active 2019- Laura tion kill Gait/Locom 1-17 [place] problems deficit: pt otion 13:50: [id number] 00 Respiratory ventilator Respirator Active 2019- Ewelina treatments y 2-03 [place] in home 14:30: [id number] 00 Medication oral med Meds Active 2019- Ewelina assistance 2-03 [place] required 14:30: [id number] 00 Bed transfer PT/OT: Bed Active 2019- Juan F Mobility/Tr deficit: Mobility/T 2-03 peewee Mcconnell sit/stand ransfer 15:15: PT 00 [id number] Bed transfer PT/OT: Bed Active 2020- Juan F Mobility/Tr deficit: Mobility/T 2-03 peewee Mcconnell standing ransfer 15:15: PT pivot 00 [id number] Bed transfer PT/OT: Bed Active 20200 Juan [...] Unknown tartrate 50 tartrate 50 09-30 Monico DLAY mg tablet mg tablet disopyramid disopyramid 2020-0 [...] Karis Unknown Unknown gladis gladis 09-30 Monico DLAY (vitamin (vitamin D3) 2,000 D3) 2,000 unit [...] 2019-10-19 18:10:14 56 /min /min RESP RATE 2019-10-24 18:10:19 18 /min /min TEMP 2019-10-19 18:10:14 97.6 [degF] Procedures This patient has no known procedures. Results This patient has no known results.
--- OUTSIDE RECORDS SUMMARY | 2019-11-17 12:56 | XMS REPORT ---
:1945 Author Organization [facility], [facility]1983 Care Team Providers Name Role Phone Unavailable Unavailable Unavailable Problems Condition Condition Condition Status Onset Resolution Last Treating Comments Name Details Category Date Date Treatment Clinician Date Heart Heart Diagnosis Active Ewelina failure, failure, 09-30 Diaz unspecified unspecified [id number] Chronic Chronic Diagnosis Active 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 [id number] disease, disease, unspecified unspecified Unspecified Unspecified Diagnosis Active Ewelina atrial atrial 09-30 Diaz fibrillatio fibrillatio [id number] n n Essential Essential Diagnosis Active Ewelina (primary) (primary) 09-30 Diaz hypertensio hypertensio [id number] n n Anemia, Anemia, Diagnosis Active Ewelina unspecified unspecified 09-30 Diaz [id number] Presence of Presence of Diagnosis Active Ewelina cardiac cardiac 09-30 Diaz pacemaker pacemaker [id number] Major Major Diagnosis Active Ewelina depressive depressive Diaz disorder, disorder, [id number] recurrent, recurrent, unspecified unspecified Chronic Chronic Diagnosis Active Ewelina idiopathic idiopathic Diaz constipatio constipatio [id number] n n Dependence Dependence Diagnosis Active Ewelina on on Diaz supplementa supplementa [id number] l oxygen l oxygen Pain frequent Pain Mgmt Active 2020-0 Gina pain 09-30 [place] 08:45: [id number] 00 Cardio pacemaker/I Cardiovasc Active 2020-0 Gina CD ular 09-30 [place] 08:45: [id number] 00 Respiratory lung sounds Respirator Active 2020-0 Gina deficit y 09-30 [place] 08:45: [id number] 00 Respiratory dyspnea Respirator Active 2020-0 Gina present y 09-30 [place] 08:45: [id number] 00 Respiratory oxygen Respirator Active 2019-0 Gina treatments y 09-30 [place] in home 08:45: [id number] 00 Endo/Leonid anti-coagul Endo/Leonid Active 2020-0 Gina ation 09-30 [place] therapy 08:45: [id number] 00 Sensory impaired Sensory Active 2020-0 Gina hearing 09-30 [place] 08:45: [id number] 00 Integument skin Integument Active 2020-0 Gina integrity 09-30 [place] risk 08:45: [id number] 00 Nutrition nutritional Nutrition Active 2020-0 Gina restriction 09-30 [place] s 08:45: [id number] 00 Elimination urinary Eliminatio Active 2020-0 Gina incontinenc n 09-30 [place] e 08:45: [id number] 00 Neuro confusion Neuro/Emot Active 2020-0 Gina present ion 09-30 [place] 08:45: [id number] 00 Neuro impaired Neuro/Emot Active 2020-0 Gina decision-ma ion 09-30 [place] gloria 08:45: [id number] 00 Activity ADL Activity Active 2020-0 Gina assistance 09-30 [place] required 08:45: [id number] 00 Activity self-care Activity Active 2020-0 Gina deficit 09-30 [place] 08:45: [id number] 00 Safety cannot be Safety Active 2020-0 Gina left alone 09-30 [place] 08:45: [id number] 00 Safety fall risk Safety Active 2020-0 Gina factor 09-30 [place] present 08:45: [id number] 00 Safety risk for Safety Active 2020-0 Gina hospitaliza 09-30 [place] tion 08:45: [id number] 00 Medication oral med Meds Resolve 2020-0 2019-10-05 Gina assistance d 09-30 13:34:00 [place] required 08:45: [id number] 00 Medication knowledge/s Meds Resolve 2020-0 2019-10-05 Gina kill d 09-30 13:34:00 [place] deficit: pt 08:45: [id number] 00 Musculoskel transfer Musculoske Active 2020-0 Gina etal assistance letal 09-30 [place] required 08:45: [id number] 00 Musculoskel requires Musculoske Active 2020-0 Gina etal human letal 09-30 [place] assist to 08:45: [id number] leave home 00 Safety structural Safety Active 2020-0 Laura barriers 1-17 [place] present 13:50: [id number] 00 Bed mobility/tr PT/OT: Bed Active 2020-0 Laura Mobility/Tr ansfer Mobility/T 1-17 [place] ansfer device ransfer 13:50: [id number] present 00 Bed knowledge/s PT/OT: Bed Active 2020-0 Laura Mobility/Tr kill Mobility/T 1-17 [place] ansfer deficit: pt ransfer 13:50: [id number] 00 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/OT: Active 2020-0 Laura urance rdination Balance/En -17 [place] deficit durance 13:50: [id number] 00 Balance/End knowledge/s PT/OT: Active 2020-0 Laura urance kill Balance/En -17 [place] deficit: pt durance 13:50: [id number] 00 Gait/Locomo gait PT/OT: Active 2019-0 Laura tion assistive Gait/Locom 1-17 [place] problems device otion 13:50: [id number] present 00 Gait/Locomo gait PT/OT: Active 2020- Laura tion deficit Gait/Locom 1-17 [place] problems otion 13:50: [id number] 00 Gait/Locomo knowledge/s PT/OT: Active 2019- Laura tion kill Gait/Locom 1-17 [place] problems deficit: pt otion 13:50: [id number] 00 Respiratory ventilator Respirator Active Ewelina treatments y 2- Diaz in home 14:30: [id number] 00 Medication oral med Meds Active Ewelina assistance 2 Diaz required 14:30: [id number] 00 Allergies, Adverse Reactions, Alerts Allergy Name Allergy [...] sodium 100 sodium 100 09-30 Monico DALY mg capsule mg capsule ALPRAZolam ALPRAZolam 2019-0 Yes Karis Unknown Unknown 0.5 mg 0.5 mg 09-30 Monico DALY tablet tablet metoprolol metoprolol 2019-0 Yes Karis Unknown Unknown tartrate 50 tartrate 50 09-30 Monico DALY mg tablet mg tablet disopyramid disopyramid 2019-0 Yes Karis Unknown Unknown e phosphate e [...] Unknown Unknown min (vit min (vit 09-30 Monico DALY B-12) 1,000 B12) 1,000 mcg tablet mcg [...] 09-30 Monico DALY tablet tablet cholecalcif cholecalcif 2019-0 Yes Karis Unknown Unknown gladis gladis 09-30 Monico DALY (vitamin (vitamin D3) 2,000 D3) 2,000 unit tablet unit tablet FLUoxetine FLUoxetine 2019-0 Yes Karis Unknown Unknown 20 mg 20 mg 09-30 Monico DALY capsule capsule spironolact spironolact 2019-0 Yes Karis Unknown Unknown one 25 mg one 25 mg 09-30 Monico DALY tablet tablet magnesium magnesium 2019-0 Yes Karis Unknown Unknown 400 mg (as [...] HFA on HFA inhaler inhaler acetaZOLAMI acetaZOLAMI 2019-0 Yes Karis Unknown Unknown DE 250 mg DE 250 mg 09-30 Monico DALY tablet tablet Klor-Con Klor-Con 2019-0 Yes Karis Unknown Unknown M20 mEq M20 mEq 09-30 Monico DALY tablet,exte tablet,exte nded nded release release warfarin 3 warfarin 3 2019-0 Yes Karis Unknown Unknown mg tablet mg tablet 09-30 Monico DALY warfarin 1 warfarin 1 2019-0 Yes Karis Unknown Unknown mg tablet mg tablet 09-30 Monico DALY Vital Signs Vital Name Observation Time Observation Value Comments SYSTOLIC mm[Hg] 2019-10-18 18:10:13 142 mm[Hg] mm[Hg] Method: Sit SYSTOLIC mm[Hg] 2019-09-30 18:09:55 116 mm[Hg] mm[Hg] Method: Stand SYSTOLIC mm[Hg] 2019-10-07 18:10:02 108 mm[Hg] mm[Hg] Method: Lie DIASTOLIC mm[Hg] 2019-10-18 18:10:13 76 mm[Hg] mm[Hg] Method: Sit DIASTOLIC mm[Hg] 2019-09-30 18:09:55 66 mm[Hg] mm[Hg] Method: Stand DIASTOLIC mm[Hg] 2019-10-07 18:10:02 64 mm[Hg] mm[Hg] Method: Lie PULSE 2019-10-18 18:10:13 68 /min /min RESP RATE 2019-10-18 18:10:13 18 /min /min TEMP 2019-10-18 18:10:13 97.7 [degF] Procedures This patient has no known procedures. Results This patient has no known results.
--- OUTSIDE RECORDS SUMMARY | 2019-11-17 12:56 | XMS REPORT ---
:1945 Author Organization [facility] Care Team Providers Name Role Phone Unavailable Unavailable Unavailable Problems Condition Condition Condition Status Onset Resolution Last Treating Comments Name Details Category Date Date Treatment Clinician Date Acute on Acute on Diagnosis Active Ewelina chronic chronic 10-15 Diaz diastolic diastolic [id number] (congestive (congestive ) heart ) heart failure failure Acute and Acute and Diagnosis Active Ewelina chronic chronic 2 Diaz respiratory respiratory [id number] failure failure with with hypoxia hypoxia Chronic Chronic Diagnosis Active 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 [id number] disease, disease, unspecified unspecified Unspecified Unspecified Diagnosis Active Ewelina atrial atrial 09-30 Diaz fibrillatio fibrillatio [id number] n n Essential Essential Diagnosis Active Ewelina (primary) (primary) 09-30 Diaz hypertensio hypertensio [id number] n n Anemia, Anemia, Diagnosis Active Ewelina unspecified unspecified 09-30 Diaz [id number] 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, disorder, [id number] recurrent, recurrent, unspecified unspecified 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 [id number] n n 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 supplementa [id number] l oxygen l oxygen Presence of Presence of Diagnosis Active Ewelina cardiac cardiac Diaz pacemaker pacemaker [id number] Pain frequent Pain Mgmt Resolve 2019-10-24 Gina pain d 09-30 14:24:00 [place] 08:45: [id number] 00 Cardio pacemaker/I Cardiovasc Resolve 2019-10-24 Gina CD ular d 09-30 14:24:00 [place] 08:45: [id number] 00 Respiratory lung sounds Respirator Resolve 2019-10-24 Gina deficit y d 09-30 14:24:00 [place] 08:45: [id number] 00 Respiratory dyspnea Respirator Active 2020-0 Gina present y 09-30 [place] 08:45: [id number] 00 Respiratory oxygen Respirator Active 2020-0 Gina treatments y 09-30 [place] in home 08:45: [id number] 00 Endo/Leonid anti-coagul Endo/Leonid Active 2020-0 Gina ation 09-30 [place] therapy 08:45: [id number] 00 Sensory impaired Sensory Active 2020-0 Gina hearing 09-30 [place] 08:45: [id number] 00 Integument skin Integument Active 2019-0 Gina integrity 09-30 [place] risk 08:45: [id number] 00 Nutrition nutritional Nutrition Resolve 2019-10-24 Gina restriction d 09-30 14:24:00 [place] s 08:45: [id number] 00 Elimination urinary Eliminatio Resolve 2019-10-24 Gina incontinenc n d 09-30 14:24:00 [place] e 08:45: [id number] 00 Neuro confusion Neuro/Emot Active 2020-0 Gina present ion 09-30 [place] 08:45: [id number] 00 Neuro impaired Neuro/Emot Active 2020-0 Gina decision-ma ion 09-30 [place] gloria 08:45: [id number] 00 Activity ADL Activity Active 2020-0 Gina assistance 09-30 [place] required 08:45: [id number] 00 Activity self-care Activity Active 2020-0 Gina deficit 09-30 [place] 08:45: [id number] 00 Safety cannot be Safety Active 2020-0 Gina left alone 09-30 [place] 08:45: [id number] 00 Safety fall risk Safety Active 2020-0 Gina factor 09-30 [facility] 08:45: [id number] 00 Safety risk for Safety Active 2020-0 Gina hospitaliza 09-30 [place] tion 08:45: [id number] 00 Medication oral med Meds Resolve 2019-0 2019-10-05 Gina assistance d 09-30 13:34:00 [place] required 08:45: [id number] 00 Medication knowledge/s Meds Resolve 2019-10-05 Gina kill d 09-30 13:34:00 [place] deficit: pt 08:45: [id number] 00 Musculoskel transfer Musculoske Active 2019- Gina etal assistance letal 09-30 [place] required 08:45: [id number] 00 Musculoskel requires Musculoske Active 2019- Gina etal human letal 09-30 [place] assist to 08:45: [id number] leave home 00 Safety structural Safety Active 2019- Laura barriers 1-17 [place] present 13:50: [id number] 00 Bed mobility/tr PT/OT: Bed Active 2019-0 Laura Mobility/Tr ansfer Mobility/T 1-17 [place] ansfer device ransfer 13:50: [id number] present 00 Bed knowledge/s PT/OT: Bed Active 2019-0 Laura Mobility/Tr kill Mobility/T 1-17 [place] ansfer deficit: pt ransfer 13:50: [id number] 00 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/OT: Active 2019- Laura urance rdination Balance/En 1-17 [place] deficit durance 13:50: [id number] 00 Balance/End knowledge/s PT/OT: Active 2019-0 Laura urance kill Balance/En 1-17 [place] deficit: pt durance 13:50: [id number] 00 Gait/Locomo gait PT/OT: Active 2019-0 Laura tion assistive Gait/Locom 1-17 [place] problems device otion 13:50: [id number] present 00 Gait/Locomo gait PT/OT: Active 2019-0 Laura tion deficit Gait/Locom 1-17 [place] problems otion 13:50: [id number] 00 Gait/Locomo knowledge/s PT/OT: Active 2019-0 Laura tion kill Gait/Locom 1-17 [place] problems deficit: pt otion 13:50: [id number] 00 Respiratory ventilator Respirator Resolve 2019-10-24 Ewelina treatments y d 10-17 14:24:00 [place] in home 14:30: [id number] 00 Medication oral med Meds Resolve 2019-10-24 Ewelina assistance d 2 14:24:00 [place] required 14:30: [id number] 00 Bed transfer PT/OT: Bed Active Juan F Mobility/Tr deficit: Mobility/T 2-03 peewee Mcconnell sit/stand ransfer 15:15: PT 00 [id number] Bed transfer PT/OT: Bed Active Juan F Mobility/Tr deficit: Mobility/T 2- peewee Mcconnell standing ransfer 15:15: PT pivot [id number] Bed transfer PT/OT: Bed Active Juan F Mobility/Tr deficit: Mobility/T 2- peewee Mcconnell toilet/comm ransfer 15:15: PT ode [id number] Bed bed PT/OT: Bed Active Juan F Mobility/Tr mobility Mobility/T 2 peewee Mcconnell deficit ransfer 15:15: PT [id number] Allergies, Adverse Reactions, Alerts Allergy Name Allergy [...] Medication? Clinician (SIG) Name Name simethicone simethicone 2020- Yes Karis Unknown Unknown 80 [...] Monico DALY capsule mg capsule ALPRAZolam ALPRAZolam 2020- Yes Karis Unknown Unknown 0.5 mg 0.5 mg 09-30 Monico DALY tablet tablet metoprolol metoprolol 2020- Yes Karis Unknown Unknown tartrate 50 tartrate 50 09-30 Monico DALY tablet mg tablet disopyramid disopyramid 0 2020- [...] tablet, extended extended release release Acetaminoph Acetaminoph 2020- Yes Karis Unknown Unknown en Extra en Extra 09-30 Monico DALY Strength Strength 500 mg 500 mg tablet tablet cyanocobala cyanocobala 0 2020- Yes Karis Unknown Unknown min (vit min (vit 09-30 ,Monico B-12) 1,000 B-12) 1,000 mcg tablet mcg tablet Aspirin Low Aspirin Low 2020- Yes Karis Unknown Unknown Dose 81 mg Dose 81 mg 09-30 Monico DALY tablet,gurvinder tablet,gurvinder yed release yed release Probiotic Probiotic 2019-0 2020- Yes Karis Unknown Unknown 10 billion 10 billion 09-30 Monico DALY cell cell capsule capsule folic acid folic acid 2019-0 2020- Yes Karis Unknown Unknown 1 mg [...] 09-30 Monico DALY capsule capsule spironolact spironolact 2020- Yes Karis Unknown Unknown one 25 mg one 25 mg 09-30 ,Monico tablet tablet magnesium magnesium 2020- Yes Karis Unknown Unknown 400 mg (as 400 mg (as 09-30 Monico DALY magnesium magnesium oxide) oxide) capsule capsule fexofenadin fexofenadin 2020- Yes Karis Unknown Unknown e 60 mg e 60 mg 09-30 Monico DALY tablet tablet albuterol albuterol 2020- Yes Karis Unknown Unknown sulfate HFA sulfate HFA 09-30 Monico DALY 90 90 mcg/actuati mcg/actuati on aerosol on aerosol inhaler inhaler bumetanide bumetanide 2020- Yes Karis Unknown Unknown 2 mg tablet 2 mg tablet 09-30 Monico DALY doxycycline doxycycline 2020- Yes Karis Unknown Unknown monohydrate monohydrate 09-30 Monico DALY 100 mg 100 mg capsule capsule fluticasone fluticasone 2020- Yes Karis Unknown Unknown propionate- propionate- 09-30 Monico DALY salmeterol salmeterol 230 mcg-21 230 mcg-21 mcg/actuati mcg/actuati on HFA on HFA inhaler inhaler acetaZOLAMI acetaZOLAMI 2020- Yes Karis Unknown Unknown DE 250 mg DE 250 mg 09-30 Monico DALY tablet tablet Klor-Con Klor-Con 2020- Yes Karis Unknown Unknown M20 mEq M20 mEq 09-30 Monico DALY tablet,exte tablet,exte nded nded release release warfarin 3 warfarin 3 2020- Yes Karis Unknown Unknown mg tablet mg tablet 09-30 Monico DALY warfarin 1 warfarin 1 2019- Yes Karis Unknown Unknown mg tablet mg tablet 09-30 Monico DALY Vital Signs Vital Name Observation Time Observation Value Comments SYSTOLIC mm[Hg] 2019-09-30 18:09:55 116 mm[Hg] mm[Hg] Method: Stand SYSTOLIC mm[Hg] 2019-10-31 18:10:26 106 mm[Hg] mm[Hg] Method: Lie DIASTOLIC mm[Hg] 2019-09-30 18:09:55 66 mm[Hg] mm[Hg] Method: Stand DIASTOLIC mm[Hg] 2019-10-31 18:10:26 62 mm[Hg] mm[Hg] Method: Lie PULSE 2019-10-31 18:10:26 68 /min /min RESP RATE 2019-11-01 18:10:27 18 /min /min TEMP 2019-10-31 18:10:26 97.9 [degF] Procedures This patient has no known procedures. Results This patient has no known results.
--- OUTSIDE RECORDS SUMMARY | 2019-11-17 12:56 | XMS REPORT | Continuity of Care Document ---
:1945 External Reference #:[id number] Author Name Ness Dennis MD Address [address] [place] [address] Problems Active Problems Provider Date Chronic kidney [...] Medications SIG Qnty Indications Ordering Date Provider Ventolin HFA 2 puff inhalation 18gm Ness Wineholt, 09/27/2019 every 6 hours as 108(90Base) mcg/Act needed Aerosol Fexofenadine HCL 1 tab by mouth 180tabs Ness Wineholt, 09/27/2019 60mg every day as MD Tablets needed Magnesium 1 tab by mouth 90tabs Ness Wineholt, 09/27/2019 400mg Tablets every day as MD directed Vitamin D3 Complete 2000 unit by 120tabs Ness Santanaholt, 09/27/2019 mouth every day MD Tablets as directed Probiotic 1 cap by mouth 120caps Ness Santanaholt, 09/27/2019 Capsules every day as MD directed Vitamin B 12 2 tab by mouth 120tabs [facility], 09/27/2019 500mcg every day as MD Tablets directed Acetaminophen Extra 2 tab by mouth 90tabs [facility], 09/27/2019 Strength three times a day 500mg Tablets as needed Mucinex 2 tab by mouth 120tabs [facility], 09/27/2019 600mg Tablets twice a day as MD ER 12HR directed Preservision Areds 2 2 cap by mouth 120caps [facility], 09/27/2019 + Multi Vitamin every day as MD Areds 2 directed Capsules Colace 2 tabs by mouth 180caps [facility], 09/27/2019 100mg Capsules every day as MD needed Gas-X 1 tab by mouth 360units [facility], 09/27/2019 80mg Chewtabs every 6 hours as MD needed Miralax 17 gm by mouth Unknown 09/27/2019 3350NF Powder every day as needed Tums 1 tab by mouth 360units [facility], 09/27/2019 500mg Chewtabs twice a day as MD needed Advair Diskus 1 puff inhalation 180units Unknown 09/15/2019 twice a day as 100-50mcg/Dose directed Aerosol Doxycycline 1 tab 2 x daily 14caps Unknown 09/15/2019 Monohydrate 100mg Capsules Acetazolamide 1 tab by mouth Unknown 09/15/2019 250mg twice a day as Tablets directed to 250mg by mouth every other day. Take same day as bumex 1mg day Disopyramide 2 caps by mouth 90caps Unknown [...] directed Warfarin Sodium oral; take one 90tabs [facility], 07/14/2018 5mg tablet by mouth Tablets once daily Warfarin Sodium Oral; Take [...] 06/26/2014 8.6mg Tablets every day as directed Metoprolol Tartrate 1 tab by mouth 90tabs Ness Jeannie, 09/27/1999 twice a day as 75mg Tablets directed Eylea 2 mg injection 2mg [facility], 09/27/1999 2mg/0.05ML every 4 - 6m as Solution directed History Medications Simethicone 1 tab by mouth 90units Unknown 09/27/2019 - 80mg every 6 hours as 09/29/2019 Chewtabs needed Albuterol Sulfate HFA 2 puffs inhalation 8.500gm [facility] - as needed 09/29/2019 108(90Base) mcg/Act Aerosol Immunizations CPT Code Status Date Vaccine Lot # [id number] Given 06/23/2019 Flu High Dose [id number] 46992 Given 07/23/2018 Influenza Virus Vaccine, Quadrivalent, Split, Im Use 0.25ML 99774 Given 07/23/2018 Influenza Virus Vaccine, Quadrivalent, Split, Im Use 0.25ML 36041 Given 07/23/2018 Influenza Virus Vaccine, Quadrivalent, Split, Im Use 0.25ML 98726 Given 07/23/2018 Flu < 65 years 88187 Given 07/23/2018 Influenza Virus Vaccine, Quadrivalent, Split, Preservative Free 75113 Given 07/23/2018 Flumist 19030 Given 07/23/2018 Flu High Dose 34130 Given 07/23/2018 Influenza Virus Vaccine, Split, Preserv Free, Intradermal Use 44096 Given 07/24/2017 Influenza Virus Vaccine, Split, Preserv Free, Intradermal Use 71957 Given 07/24/2017 Flu High Dose 72401 Given 07/24/2017 Flumist 92783 Given 07/24/2017 Influenza Virus Vaccine, Quadrivalent, Split, Preservative Free 01736 Given 07/24/2017 Flu < 65 years 13933 Given 07/24/2017 Influenza Virus Vaccine, Quadrivalent, Split, Im Use 0.25ML 41452 Given 07/24/2017 Influenza Virus Vaccine, Quadrivalent, Split, Im Use 0.25ML 94166 Given 07/24/2017 Influenza Virus Vaccine, Quadrivalent, Split, Im Use 0.25ML 21467 Given 10/24/2014 Prevnar 13 98116 Given 06/29/2014 Influenza Virus Vaccine, Quadrivalent, Split, Im Use 0.25ML 60157 Given 06/29/2014 Influenza Virus Vaccine, Quadrivalent, Split, Im Use 0.25ML 94847 Given 06/29/2014 Influenza Virus Vaccine, Quadrivalent, Split, Im Use 0.25ML 62384 Given 06/29/2014 Flu < 65 years 01105 Given 06/29/2014 Influenza Virus Vaccine, Quadrivalent, Split, Preservative Free 45290 Given 06/29/2014 Flumist 90822 Given 06/29/2014 Flu High Dose 90064 Given 07/04/2013 Flu High Dose 45763 Given 07/04/2013 Flumist 22406 Given 07/04/2013 Influenza Virus Vaccine, Quadrivalent, Split, Preservative Free 64817 Given 07/04/2013 Flu < 65 years 88973 Given 07/04/2013 Influenza Virus Vaccine, Quadrivalent, Split, Im Use 0.25ML 19489 Given 07/04/2013 Influenza Virus Vaccine, Quadrivalent, Split, Im Use 0.25ML 10753 Given 07/04/2013 Influenza Virus Vaccine, Quadrivalent, Split, Im Use 0.25ML 18654 Given 05/05/2012 Influenza Virus Vaccine, Quadrivalent, Split, Im Use 0.25ML 81346 Given 05/05/2012 Influenza Virus Vaccine, Quadrivalent, Split, Im Use 0.25ML 95734 Given 05/05/2012 Influenza Virus Vaccine, Quadrivalent, Split, Im Use 0.25ML 46398 Given 05/05/2012 Flu < 65 years 15013 Given 05/05/2012 Influenza Virus Vaccine, Quadrivalent, Split, Preservative Free 54040 Given 05/05/2012 Flumist 74315 Given 05/05/2012 Flu High Dose 47641 Given 10/24/2011 Tdap - Boostrix/Adacel 93425 Given 06/28/2011 Influenza Virus Vaccine, Quadrivalent, Split, Im Use 0.25ML 28119 Given 06/28/2011 Influenza Virus Vaccine, Quadrivalent, Split, Im Use 0.25ML 40792 Given 06/28/2011 Influenza Virus Vaccine, Quadrivalent, Split, Im Use 0.25ML 60395 Given 06/28/2011 Flu < 65 years 67250 Given 06/28/2011 Influenza Virus Vaccine, Quadrivalent, Split, Preservative Free 33957 Given 06/28/2011 Flumist 85375 Given 06/28/2011 Flu High Dose 52584 Given 05/15/2010 Pneumovax - for >=2years - PPSV23 43536 Given 08/22/2009 Influenza Virus Vaccine, Quadrivalent, Split, Im Use 0.25ML 90052 Given 06/14/2008 Influenza Virus Vaccine, Quadrivalent, Split, Im Use 0.25ML 80791 Given 07/22/2006 Influenza Virus Vaccine, Quadrivalent, Split, [...] BldC Oximetry 95 % Results Test Acquired Date Facility Test Result H/L Range Note Arterial Blood 10/09/2019 [facility] PH Arterial 7.23 Low 7.35 -7.[address] [place] [address] [phone] Pco2 Arterial 88 mmHg Critical high 35-45 1 Po2 Arterial 94 mmHg Normal 80-100 O2 Saturation Arterial 97.2 % Normal 94.0-98.0 Base Excess Arterial 6.1 mmol/L High -2.0-2.0 2 Hco3 Arterial 29.6 mmol/L Normal 19-31 Laboratory test 09/29/2019 [facility] CFM INR 1.8 finding ( )- - Basic Metabolic 09/29/2019 [facility] Sodium 139 mmol/L Normal 135-[address] [place] [address] [phone] Potassium 4.9 mmol/L Normal 3.5-5.0 Chloride 100 mmol/L Low 101-111 Co2 Carbon Dioxide 32 mmol/L Normal 22-32 Anion Gap 7 mmol/L Normal 2-11 Glucose 131 mg/dL High 70-100 Blood Urea Nitrogen 16 mg/dL Normal 6-24 Creatinine 0.96 mg/dL High 0.51-0.95 BUN/Creatinine Ratio 16.7 Normal 8-20 Calcium 9.5 mg/dL Normal 8.6-10.3 Egfr Non- 56.8 >60 Egfr 68.7 >60 4 Laboratory test 09/22/2019 [facility] B-Type > 1300 High <= [address] Natriuretic pg/[place] [address] Peptide BNP [phone] Legionella Urine Antigen SEE RESULT BELOW 5 CBC Auto 09/22/2019 [facility] White Blood 15.6 10^3/uL High 3.5-10.[address] [place] [address] [phone] Red Blood Count 3.34 10^6/uL Low 3.70-4.87 [...] Blood Cells % 0.4 Laboratory test 09/22/2019 [facility] Magnesium 2.0 mg/dL Normal 1.9-2.[address] [place] [address] [phone] Troponin-I (TnI) 0.10 ng/mL Critical high <0.03 6 Acetaminophen < 15 g/mL 7 Alcohol < 10 mg/dL Normal <10 Salicylate < 2.50 mg/dL <30 TSH (Thyroid Stim Horm) 1.76 mcIU/mL Normal 0.34-5.60 Comp Metabolic Panel 09/22/2019 [facility] Sodium 130 mmol/L Low 135-145 [address] [place] [address] [phone] Potassium 4.5 mmol/L Normal 3.5-5.0 Chloride 87 [...] Egfr Non- 75.5 >60 Egfr 91.4 >60 8 Urine Drug 09/22/2019 [facility] Urine None Detected None Detect SCR ED & [address] [facility] Amp[place] [address] Screen [phone] Urine Barbiturates Screen None Detected None Detect Urine Benzodiazepine Screen None Detected None Detect Urine Cannabinoids Screen None Detected None Detect Urine Cocaine Screen None Detected None Detect Urine Opiates Screen None Detected None Detect Urine Phencyclidine Screen None Detected None Detect 9 Laboratory test 09/22/2019 [facility] Ammonia TNP mcmol/L 16- 53 10 finding [address] [place] [address] [phone] Lactic Acid 0.5 mmol/L Normal 0.5-2.0 11 Urinalysis Profile 09/22/2019 [facility] Urine Color Yuliya [address] [place] [address] [phone] Urine Appearance Clear Urine Specific [place] 1.020 Normal 1.010-1.030 Urine pH 6.0 Normal 5-9 Urine Urobilinogen Negative Negative Urine Ketones Negative Negative Urine Protein Negative Negative Urine Leukocytes Negative Negative Urine Blood Negative Negative * * Abnormal Negative 12 Urine Nitrite Negative Negative Urine Bilirubin Negative Negative Urine Glucose Negative Negative Laboratory test 09/22/2019 [facility] Point of 151 mg/dL High 70-[address] [facility] Care Glucose [place], [place] [id number] [phone] Venous Blood 09/22/2019 [facility] Venous Blood 7.23 Low 7.32- 7.43 Gas [address] [facility] pH [place], [place] [address] [phone] Venous Pco2 94 mmHg High 41-51 Venous Po2 54.0 mmHg High 35-45 Venous O2 Saturation 85.6 % High 70-80 Venous Blood Base Excess 8.1 mmol/L High 0.0-4.0 14 Venous Bicarbonate Hco3 30.9 mmol/L High 24-28 Laboratory test 09/22/2019 [facility] Ammonia 65 mcmol/L High 16-53 finding [address] [place], [place] [address] [phone] Arterial Blood Gas 09/22/2019 [facility] Fio2 100 [address] [place] [address] [phone] Resp Rate 20 Ipap 18 Epap 7 PH Arterial 7.20 Low 7.35-7.45 Pco2 Arterial 103 mmHg Critical high 35-45 15 Po2 Arterial 345 mmHg High 80-100 O2 Saturation Arterial 98.2 % High 94.0-98.0 Base Excess Arterial 8.2 mmol/L High -2.0-2.0 16 Hco3 Arterial 31.3 mmol/L High 19-31 INR/Protime 09/22/2019 [facility] INR 4.08 High 0.82-1.09 17 [address] [place] [address] [phone] INR/Protime 09/16/2019 [facility] INR 3.09 High 0.82-1.[address] [place] [address] [phone] Comp Metabolic 09/16/2019 [facility] Sodium 141 mmol/L Normal 135-145 Panel [address] [place] [address] [phone] Potassium 4.4 mmol/L Normal 3.5-5.0 Chloride 91 [...] Egfr Non- 101.6 >60 Egfr 123.0 >60 19 Co2 Carbon Dioxide 49 mmol/L Critical high 22-32 20 Laboratory 09/16/2019 [facility] TSH (Thyroid 0.85 Normal 0.34 -5.[address] Stim Horm) mcIU/[place] [address] [phone] CBC No Diff 09/16/2019 [facility] White Blood 12.9 High 3.5- 10.[address] Count 10^3/[place] [address] [phone] Red Blood Count 2.94 10^6/uL Low 3.70-4.87 Hemoglobin 9.3 g/dL Low 12.0-16.0 Hematocrit 29 % Low 35-47 Mean Corpuscular Volume 99 fL High 80-97 Mean Corpuscular Hemoglobin 32 pg High 27-31 Mean Corpuscular HGB Conc 32 g/dL Normal 31-36 Red Cell Distribution Width 14 % Normal 10-15 Platelet Count 187 10^3/uL Normal 150-450 Mean Platelet Volume 10.0 fL Normal 7.4-10.4 Laboratory 09/16/2019 [facility] Troponin-I 0.08 Critical < 0.03 21 test finding [address] (TnI) ng/[place] [address] [phone] Basic 09/16/2019 [facility] Sodium 139 Normal 135-[address] mmol/[place] [address] [phone] Potassium 4.5 mmol/L Normal 3.5-5.0 Chloride 88 mmol/L Low 101-111 Glucose 145 mg/dL High 70-100 Blood Urea Nitrogen 21 mg/dL Normal 6-24 Creatinine 0.60 mg/dL Normal 0.51-0.95 BUN/Creatinine Ratio 35.0 High 8-20 Calcium 9.6 mg/dL Normal 8.6-10.3 Egfr Non- 97.7 >60 Egfr 118.2 >60 22 Co2 Carbon Dioxide 48 mmol/L Critical high 22-32 23 Laboratory test 09/16/2019 [facility] Lactic Acid 1.0 mmol/L Normal 0.5-2.0 [address] [place] [address] [phone] B-Type Natriuretic Peptide BNP 1235 pg/mL High <=100 CBC Auto 09/16/2019 [facility] White Blood 11.4 10^3/uL High 3.5-10.[address] [place] [address] [phone] Red Blood Count 3.18 10^6/uL Low 3.70-4.87 [...] Cells % 0.0 Arterial Blood Gas 09/16/2019 [facility] O2 Device N/C [address] [place] [address] [phone] PH Arterial 7.42 Normal 7.35-7.45 Pco2 Arterial 85 mmHg Critical high 35-45 25 Po2 Arterial 77 mmHg Low 80-100 O2 Saturation Arterial 96.0 % Normal 94.0-98.0 Base Excess Arterial 25.0 mmol/L High -2.0-2.0 26 Hco3 Arterial 44.4 mmol/L Critical high 19-31 27 Laboratory test 09/16/2019 [facility] Partial 47.8 High 26.0- 38.[address] [place] [address] PTT [phone] Troponin-I (TnI) 0.09 ng/mL Critical high <0.03 28 INR/Protime 09/16/2019 [facility] INR 3.12 High 0.82-1.[address] [place] [address] [phone] Xray 07/20/2019 [facility] Chest 2 Views <pendin [address] g> [place] [address] [phone] Laboratory test 07/18/2019 [facility] CFM INR 2.3 finding ( )- - Laboratory test 06/23/2019 [facility] CFM INR 3.8 finding ( )- - Laboratory test 06/23/2019 [facility] Hemoglobin A1c 5.9 % High 4.0-5.[address] (Glyco HGB) [place] [address] [phone] Comp Metabolic 06/23/2019 [facility] Sodium 138 Normal 135- [address] mmol/[place] [address] [phone] Potassium 4.7 mmol/L Normal 3.5-5.0 Chloride 95 [...] Egfr Non- 64.5 >60 Egfr 78.0 >60 31 Laboratory test 06/15/2019 [facility] CFM INR 2.85 finding ( )- - Comp Metabolic Panel 06/14/2019 [facility] Sodium 140 mmol/L Normal 135-[address] [place] [address] [phone] Chloride 94 mmol/L Low 101-111 Co2 Carbon [...] Egfr Non- 55.5 >60 Egfr 67.1 >60 32 Potassium 5.5 mmol/L High 3.5-5.0 Anion Gap 9 mmol/L Normal 2-11 Laboratory test 06/14/2019 [facility] Vitamin B12 394 pg/mL Normal 180-914 [address] [place] [address] [phone] Vitamin D Total 25(Oh) 38.6 ng/mL Normal 20-50 34 Protime W/ INR 06/14/2019 N2N/CCD Import International Normalized Ratio 2.85 1 Verbal to [id number] by [id number] at 1317 on 10/09/19. Results read back accurately. 2 Reference ranges based on room air. 3 [id number] 4 Because ethnic data is not always [...] 5 Kidney failure <15 (or dialysis) 5 SEE RESULT BELOW Name: BRITNI DU : [address]: Marco Antonio Brambila MD Acct: [id number] Unit: [id number] AGE: 74 Location: ICU [id number] Re09/22/19 SEX: F Status: ADM IN SPEC: [id number] TATA: 09/22/[address]: Jona AZAR REQ: [id number] RECD: 09/22/19 STATUS: COMP EKNDY LICONA: [facility] Monico Dyson MD _ SOURCE: URINE SPDESC: ORDERED: Legion Ur Ag, S.pneumo Ur Ag Procedure Result Reported Site [...] . END OF REPORT DEPARTMENT OF PATHOLOGY, [address] [place] [address] Zeke Richmond M.D. Director [facility] # [id number] 6 Result TnIDx:0.10 Called to [id number] at: 06:48:08 by:[id number] Read back by: [email or web address] Troponin-I testing on Plasma Separator Tubes (PST) has a known false positive rate of 0.20-0.40%. All positive troponins reflex immediately to secondary confirmatory testing. Using the [employer] ([employer]) DxI 800 Access Immunoassay systems, the 99th percentile upper reference limit was demonstrated to be < 0.03 ng/mL. 7 Therapeutic concentration: <50 ug/mL Toxic concentration: >120 ug/mL 8 Because ethnic data is not always [...] 5 Kidney failure <15 (or dialysis) 9 The urine specimen was tested at the listed cutoffs: Drug class test level (ng/mL) Amphetamines 500 Barbiturates 200 Benzodiazepine metabolites 200 Cocaine metabolites 150 Cannabinoids 50 Opiates 300 Pcp 25 Specimen was received without chain of custody. Results should be used for medical purposes only. 10 Unable to report test result due to hemolysis. 11 Specimen hemolyzed. Result may not be valid. [facility] Severe Sepsis and Septic Shock Management Bundle Measure requires all lactic acids initially measuring >2.0 mmol/L be repeated. 12 *Ascorbic acid is present which may interfere with detection of blood. 13 [employer]: [id number] 14 Reference ranges based on room air. 15 Verbal to [id number] by [id number] at 0815 on 09/22/19. Results read back accurately. 16 Reference ranges based on room air. 17 Standard intensity warfarin therapeutic range: 2.0-3.0 High intensity warfarin therapeutic range: 2.5-3.5 18 Standard intensity warfarin therapeutic range: 2.0-3.0 High intensity warfarin therapeutic range: 2.5-3.5 19 Because ethnic data is not always readily [...] 15-29 5 Kidney failure <15 (or dialysis) 20 Critical Result CO2:49 Called to TYLER MARTI at: 13:33:08 by:[id number] Read back by:TYLER SANCHEZ CFM 21 Result TnIDx:0.08 Called to [id number] at: 18:49:49 by:[id number] Read back by: [id number] Troponin-I testing on Plasma Separator Tubes (PST) has a known false positive rate of 0.20-0.40%. All positive troponins reflex immediately to secondary confirmatory testing. Using the [employer] ([employer]) DxI 800 Access Immunoassay systems, the 99th percentile upper reference limit was demonstrated to be < 0.03 ng/mL. 22 Because ethnic data is not always readily [...] 15-29 5 Kidney failure <15 (or dialysis) 23 Critical Result CO2:48 Called to [id number] at: 19:13:28 by:[id number] Read back by:[id number] 24 [facility] Severe Sepsis and Septic Shock Management Bundle Measure requires all lactic acids initially measuring >2.0 mmol/L be repeated. 25 Verbal to [id number] by [id number] at 2048 on 09/16/19. Results read back accurately. 26 Reference ranges based on room air. 27 Verbal to [id number] by [id number] at 2048 on 09/16/19. Results read back accurately. 28 Result TnIDx:0.09 Called to [id number] at: 23:20:01 by:[id number] Read back by: [id number] Troponin-I testing on Plasma Separator Tubes (PST) has a known false positive rate of 0.20-0.40%. All positive troponins reflex immediately to secondary confirmatory testing. Using the [employer] ([employer]) DxI 800 Access Immunoassay systems, the 99th percentile upper reference limit was demonstrated to be < 0.03 ng/mL. 29 Standard intensity warfarin therapeutic range: 2.0-3.0 High intensity warfarin therapeutic range: 2.5-3.5 30 Therapeutic target for the treatment of diabetes mellitus patients is <7% HBA1C, and in selective patients <6.0%. Please refer to [place] [employer] diabetic care guidelines for further information. 31 Because ethnic data is not always readily [...] 15-29 5 Kidney failure <15 (or dialysis) 32 Because ethnic data is not always readily [...] 15-29 5 Kidney failure <15 (or dialysis) 33 Normal Range 180 to 914 Indeterminate Range 145 to 180 Deficient Range <145 34 Total 25-Hydroxyvitamin D2 and D3 (25-OH-VitD) <10 ng/mL (severe deficiency) 10-19 ng/mL (mild to moderate deficiency) 20-50 ng/mL (optimum levels) 51-80 ng/mL (increased risk of hypercalciuria) >80 ng/mL (toxicity possible) Procedures Date Code Description Status 07/12/2019 01928 Anticoagulant MGMT For Patient Taking Warfarin, Inc Review Completed & Intr 06/15/2019 16581 Anticoagulant MGMT For Patient Taking Warfarin, Inc Review Completed & Intr Medical Devices Description No Information Available Encounters Type Date Location Provider Dx Diagnosis Office Visit 09/29/2019 [facility] Benjamín Dennis MD E87.79 Other fluid overload 11:15a I48.91 Unspecified atrial fibrillation M25.512 Pain in left shoulder J96.92 Respiratory failure, unspecified with hypercapnia Office Visit 07/18/2019 3:45p [facility] Benjamín Dennis, T82.897D Oth complication of cardiac prosth dev/paul, subs I48.91 Unspecified atrial fibrillation Office Visit 06/23/2019 2:15p [facility] BRIAN Denton R73.9 Hyperglycemia, unspecified E87.5 Hyperkalemia I48.91 Unspecified atrial fibrillation Z23 Encounter for immunization Assessments Date Code Description Provider 09/29/2019 E87.79 Other fluid overload Ness Dennis MD 09/29/2019 I48.91 Unspecified atrial fibrillation Ness Dennis MD 09/29/2019 M25.512 Pain in left shoulder Ness Dennis MD 09/29/2019 J96.92 Respiratory failure, unspecified [...] Ness Dennis MD 06/23/2019 R73.9 Hyperglycemia, unspecified Samantha Bhagat [facility] 06/23/2019 E87.5 Hyperkalemia Samantha Bhagat [facility] 06/23/2019 I48.91 Unspecified atrial fibrillation Samantha Bhagat [facility] 06/23/2019 Z23 Encounter for immunization BRIAN Gabriel Plan of Treatment Future Appointment(s):10/20/2019 10:30 am - Ness Dennis MD at [facility]2019 - Ness Dennis MDE87.79 Other fluid yddsikbpS83.91 Unspecified atrial yrksxyopgydiL45.512 Pain in left shoulderReferral:[facility],J96.92 Respiratory failure, unspecified with hypercapniaReferral:Roberta Winkler, Pulmonary DiseasesAllNew Medication: - Functional Status Description No Information Available Mental Status Description No Information Available Referrals Refer to Reason for Referral Status Appt Date Roberta Winkler Patient with hospitalization for respiratory Sent failure with hypercapnea, recommendation of sleep evaluation as an outpatient [address] [place] [address] [phone] [facility] Left shoulder pain and limited range of motion Sent
--- OUTSIDE RECORDS SUMMARY | 2019-11-17 12:56 | XMS REPORT ---
:1945 Author Organization [facility] Care Team Providers Name Role Phone Unavailable Unavailable Unavailable Problems Condition Condition Condition Status Onset Resolution Last Treating Comments Name Details Category Date Date Treatment Clinician Date Acute on Acute on Diagnosis Active Ewelina chronic chronic 10-15 Diaz diastolic diastolic [id number] (congestive (congestive ) heart ) heart failure failure Acute and Acute and Diagnosis Active Ewelina chronic chronic 2 Diaz respiratory respiratory [id number] failure failure with with hypoxia hypoxia Chronic Chronic Diagnosis Active 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 [id number] disease, disease, unspecified unspecified Unspecified Unspecified Diagnosis Active Ewelina atrial atrial 09-30 Diaz fibrillatio fibrillatio [id number] n n Essential Essential Diagnosis Active Ewelina (primary) (primary) 09-30 Diaz hypertensio hypertensio [id number] n n Anemia, Anemia, Diagnosis Active Ewelina unspecified unspecified 09-30 Diaz [id number] 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, disorder, [id number] recurrent, recurrent, unspecified unspecified 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 [id number] n n 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 supplementa [id number] l oxygen l oxygen Presence of Presence of Diagnosis Active Ewelina cardiac cardiac Diaz pacemaker pacemaker [id number] Pain frequent Pain Mgmt Resolve 2019-10-24 Gina pain d 09-30 14:24:00 [place] 08:45: [id number] 00 Cardio pacemaker/I Cardiovasc Resolve 2019-10-24 Gina CD ular d 09-30 14:24:00 [place] 08:45: [id number] 00 Respiratory lung sounds Respirator Resolve 2019-10-24 Gina deficit y d 09-30 14:24:00 [place] 08:45: [id number] 00 Respiratory dyspnea Respirator Active 2020-0 Gina present y 09-30 [place] 08:45: [id number] 00 Respiratory oxygen Respirator Active 2020-0 Gina treatments y 09-30 [place] in home 08:45: [id number] 00 Endo/Leonid anti-coagul Endo/Leonid Active 2020-0 Gina ation 09-30 [place] therapy 08:45: [id number] 00 Sensory impaired Sensory Active 2020-0 Gina hearing 09-30 [place] 08:45: [id number] 00 Integument skin Integument Active 2019-0 Gina integrity 09-30 [place] risk 08:45: [id number] 00 Nutrition nutritional Nutrition Resolve 2019-10-24 Gina restriction d 09-30 14:24:00 [place] s 08:45: [id number] 00 Elimination urinary Eliminatio Resolve 2019-10-24 Gina incontinenc n d 09-30 14:24:00 [place] e 08:45: [id number] 00 Neuro confusion Neuro/Emot Active 2020-0 Gina present ion 09-30 [place] 08:45: [id number] 00 Neuro impaired Neuro/Emot Active 2020-0 Gina decision-ma ion 09-30 [place] gloria 08:45: [id number] 00 Activity ADL Activity Active 2020-0 Gina assistance 09-30 [place] required 08:45: [id number] 00 Activity self-care Activity Active 2020-0 Gina deficit 09-30 [place] 08:45: [id number] 00 Safety cannot be Safety Active 2020-0 Gina left alone 09-30 [place] 08:45: [id number] 00 Safety fall risk Safety Active 2020-0 Gina factor 09-30 [facility] 08:45: [id number] Safety risk for Safety Active 2020-0 Gina hospitaliza 09-30 [place] tion 08:45: [id number] 00 Medication oral med Meds Resolve 2019-0 2019-10-05 Gina assistance d 09-30 13:34:00 [place] required 08:45: [id number] 00 Medication knowledge/s Meds Resolve 2019-10-05 Gina kill d 09-30 13:34:00 [place] deficit: pt 08:45: [id number] 00 Musculoskel transfer Musculoske Active 2019- Gina etal assistance letal 09-30 [place] required 08:45: [id number] 00 Musculoskel requires Musculoske Active 2019- Gina etal human letal 09-30 [place] assist to 08:45: [id number] leave home 00 Safety structural Safety Active 2019- Laura barriers 1-17 [place] present 13:50: [id number] 00 Bed mobility/tr PT/OT: Bed Active 2019-0 Laura Mobility/Tr ansfer Mobility/T 1-17 [place] ansfer device ransfer 13:50: [id number] present 00 Bed knowledge/s PT/OT: Bed Active 2019-0 [place] Mobility/Tr kill Mobility/T 1-17 [place] ansfer deficit: pt ransfer 13:50: [id number] 00 Balance/End balance/cook fast food PT/OT: Active 2019- Laura urance rdination Balance/En 1-17 [place] deficit durance 13:50: [id number] 00 Balance/End knowledge/s PT/OT: Active 2019-0 Laura urance kill Balance/En 1-17 [place] deficit: pt durance 13:50: [id number] 00 Gait/Locomo gait PT/OT: Active 2019-0 Laura tion assistive Gait/Locom 1-17 [place] problems device otion 13:50: [id number] present 00 Gait/Locomo gait PT/OT: Active 2019-0 Laura tion deficit Gait/Locom 1-17 [place] problems otion 13:50: [id number] 00 Gait/Locomo knowledge/s PT/OT: Active 2019-0 Laura tion kill Gait/Locom 1-17 [place] problems deficit: pt otion 13:50: [id number] 00 Respiratory ventilator Respirator Resolve 2019-10-24 Ewelina treatments y d 10-17 14:24:00 [place] in home 14:30: [id number] 00 Medication oral med Meds Resolve 2019-10-24 Ewelina assistance d 2 14:24:00 [place] required 14:30: [id number] 00 Bed transfer PT/OT: Bed Active Juan F Mobility/Tr deficit: Mobility/T 2- peewee Mcconnell sit/stand ransfer 15:15: PT [id number] Bed transfer PT/OT: Bed Active Juan F Mobility/Tr deficit: Mobility/T 2- peewee Mcconnell standing ransfer 15:15: PT pivot [id number] Bed transfer PT/OT: Bed Active Juan F Mobility/Tr deficit: Mobility/T 2 peewee Mcconnell toilet/comm ransfer 15:15: PT ode [id number] Bed bed PT/OT: Bed Active Juan F Mobility/Tr mobility Mobility/T 10-17 peewee Mcconnell deficit ransfer 15:15: PT [id number] Allergies, Adverse Reactions, Alerts Allergy Name Allergy [...] Medication? Clinician (SIG) Name Name simethicone simethicone 0 Yes Karis Unknown Unknown 80 mg 80 mg 09-30 Monico DALY chewable chewable tablet tablet calcium calcium 0 Yes Karis Unknown Unknown carbonate carbonate 09-30 Monico DALY 200 mg 200 mg calcium calcium (500 mg) (500 mg) chewable chewable tablet tablet polyethylen polyethylen 0 Yes Karis Unknown Unknown e glycol e glycol 09-30 Monico DALY 3350 17 3350 17 gram/dose gram/dose oral powder oral powder docusate docusate 2019-0 Yes Karis Unknown Unknown sodium 100 sodium 100 09-30 Monico DALY capsule mg capsule ALPRAZolam ALPRAZolam 0 Yes Karis Unknown Unknown 0.5 mg 0.5 mg 09-30 Monico DALY tablet tablet metoprolol metoprolol 0 Yes Karis Unknown Unknown tartrate 50 tartrate [...] min (vit 09-30 Monico DALY B-12) 1,000 B) 1,000 mcg tablet mcg tablet Aspirin Low Aspirin Low 2020-0 Yes Karis Unknown Unknown Dose 81 mg Dose 81 mg 09-30 Monico DALY tablet,gurvinder tablet,gurvinder yed release yed release Probiotic Probiotic 2020-0 Yes Karis Unknown Unknown 10 billion 10 billion 09-30 Monico DALY cell cell capsule capsule folic acid folic acid 2020-0 Yes Karis Unknown Unknown 1 mg tablet 1 mg tablet 09-30 Monico DALY sennosides sennosides 2020-0 Yes Karis Unknown Unknown 8.6 mg 8.6 mg 09-30 Monico DALY capsule capsule rosuvastati rosuvastati 2020-0 Yes Karis Unknown Unknown n 40 mg n 40 mg 09-30 Monico DALY tablet tablet cholecalcif cholecalcif 2020-0 Yes Karis Unknown Unknown gladis gladis 09-30 Monico DALY (vitamin (vitamin D3) 2,000 D3) 2,000 unit tablet unit tablet FLUoxetine FLUoxetine 2020-0 Yes Karis Unknown Unknown 20 mg 20 mg 09-30 Monico DALY capsule capsule spironolact spironolact 2020-0 Yes Karis Unknown Unknown one 25 mg [...] 2019-10-31 18:10:26 68 /min /min RESP RATE 2019-10-24 18:10:19 18 /min /min TEMP 2019-10-31 18:10:26 97.9 [degF] Procedures This patient has no known procedures. Results This patient has no known results.
--- OUTSIDE RECORDS SUMMARY | 2019-11-17 12:56 | XMS REPORT ---
:1945 Author Organization [facility] include [facility] beds at the [facility] Care Team Providers Name Role Phone Unavailable Unavailable Unavailable Problems Condition Condition Condition Status Onset Resolution Last Treating Comments Name Details Category Date Date Treatment Clinician Date Acute on Acute on Diagnosis Active Ewelina chronic chronic 10-15 Diaz diastolic diastolic [id number] (congestive (congestive ) heart ) heart failure failure Acute and Acute and Diagnosis Active Ewelina chronic chronic 2 Diaz respiratory respiratory [id number] failure failure with with hypoxia hypoxia Chronic Chronic Diagnosis Active by obstructive obstructive 09-30 Diaz pulmonary pulmonary [id number] disease, disease, unspecified unspecified Unspecified Unspecified Diagnosis Active Ewelina atrial atrial 09-30 Diaz fibrillatio fibrillatio [id number] n n Essential Essential Diagnosis Active Ewelina (primary) (primary) 09-30 Diaz hypertensio hypertensio [id number] n n Anemia, Anemia, Diagnosis Active Ewelina unspecified unspecified 09-30 Diaz [id number] 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, disorder, [id number] recurrent, recurrent, unspecified unspecified 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 [id number] n n 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 supplementa [id number] l oxygen l oxygen Presence of Presence of Diagnosis Active cardiac cardiac Diaz pacemaker pacemaker [id number] Pain frequent Pain Mgmt Active 2019-0 Gina pain 09-30 [place] 08:45: [id number] 00 Cardio pacemaker/I Cardiovasc Active 2020-0 Gina CD ular 09-30 [place] 08:45: [id number] 00 Respiratory lung sounds Respirator Active 2020-0 Gina deficit y 09-30 [place] 08:45: [id number] 00 Respiratory dyspnea Respirator Active 2020-0 Gina present y 09-30 [place] 08:45: [id number] 00 Respiratory oxygen Respirator Active 2020-0 Gina treatments y 09-30 [place] in home 08:45: [id number] 00 Endo/Leonid anti-coagul Endo/Leonid Active 2020-0 Gina ation 09-30 [place] therapy 08:45: [id number] 00 Sensory impaired Sensory Active 2020-0 Gina hearing 09-30 [place] 08:45: [id number] 00 Integument skin Integument Active 2020-0 Gina integrity 09-30 [place] risk 08:45: [id number] 00 Nutrition nutritional Nutrition Active 2020-0 Gina restriction 09-30 [place] s 08:45: [id number] 00 Elimination urinary Eliminatio Active 2020-0 Gina incontinenc n 09-30 [place] e 08:45: [id number] 00 Neuro confusion Neuro/Emot Active 2020-0 Gina present ion 09-30 [place] 08:45: [id number] 00 Neuro impaired Neuro/Emot Active 2020-0 Gina decision-ma ion 09-30 [place] gloria 08:45: [id number] 00 Activity ADL Activity Active 2020-0 Gina assistance 09-30 [place] required 08:45: [id number] 00 Activity self-care Activity Active 2020-0 Gina deficit 09-30 [place] 08:45: [id number] 00 Safety cannot be Safety Active 2020-0 Gina left alone 09-30 [place] 08:45: [id number] 00 Safety fall risk Safety Active 2020-0 Gina factor 09-30 [place] present 08:45: [id number] 00 Safety risk for Safety Active 2020-0 Gina hospitaliza 09-30 [place] tion 08:45: [id number] 00 Medication oral med Meds Resolve 2019-0 2019-10-05 Gina assistance d 09-30 13:34:00 [place] required 08:45: [id number] 00 Medication knowledge/s Meds Resolve 2020-0 2019-10-05 Gina kill d 09-30 13:34:00 [place] deficit: pt 08:45: [id number] 00 Musculoskel transfer Musculoske Active 2020-0 Gina etal assistance letal 09-30 [place] required 08:45: [id number] 00 Musculoskel requires Musculoske Active 2020-0 Gina etal human letal 1-17 [place] assist to 08:45: [id number] leave home 00 Safety structural Safety Active 2019- Laura barriers 1-17 [place] present 13:50: [id number] 00 Bed mobility/tr PT/OT: Bed Active 2020- Laura Mobility/Tr ansfer Mobility/T 1-17 [place] ansfer device ransfer 13:50: [id number] present 00 Bed knowledge/s PT/OT: Bed Active 2020- Laura Mobility/Tr kill Mobility/T 1-17 [place] ansfer deficit: pt ransfer 13:50: [id number] 00 Balance/End balance/falafel cart cook PT/OT: Active 2019- Laura urance rdination Balance/En 1-17 [place] deficit durance 13:50: [id number] 00 Balance/End knowledge/s PT/OT: Active 2019- Laura urance kill Balance/En 1-17 [place] deficit: pt durance 13:50: [id number] 00 Gait/Locomo gait PT/OT: Active 2019- Laura tion assistive Gait/Locom 1-17 [place] problems device otion 13:50: [id number] present 00 Gait/Locomo gait PT/OT: Active 2019- Laura tion deficit Gait/Locom 1-17 [place] problems otion 13:50: [id number] 00 Gait/Locomo knowledge/s PT/OT: Active 2019- Laura tion kill Gait/Locom 1-17 [place] problems deficit: pt otion 13:50: [id number] 00 Respiratory ventilator Respirator Active 2019- Ewelina treatments y 2-03 [place] in home 14:30: [id number] 00 Medication oral med Meds Active 2019- Ewelina assistance 2-03 [place] required 14:30: [id number] 00 Bed transfer PT/OT: Bed Active 2019- Juan F Mobility/Tr deficit: Mobility/T 2-03 peewee Mcconnell sit/stand ransfer 15:15: PT 00 [id number] Bed transfer PT/OT: Bed Active 2020- Juan F Mobility/Tr deficit: Mobility/T 2-03 peewee Mcconnell standing ransfer 15:15: PT pivot 00 [id number] Bed transfer PT/OT: Bed Active 20200 Juan [...]
--- OUTSIDE RECORDS SUMMARY | 2019-11-17 12:56 | XMS REPORT ---
:1945 Author Organization [facility] Care Team Providers Name Role Phone Unavailable Unavailable Unavailable Problems Condition Condition Condition Status Onset Resolution Last Treating Comments Name Details Category Date Date Treatment Clinician Date Acute on Acute on Diagnosis Active Ewelina chronic chronic 10-15 Diaz diastolic diastolic [id number] (congestive (congestive ) heart ) heart failure failure Acute and Acute and Diagnosis Active Ewelina chronic chronic 2 Diaz respiratory respiratory [id number] failure failure with with hypoxia hypoxia Chronic Chronic Diagnosis Active by obstructive obstructive 09-30 Diaz pulmonary pulmonary [id number] disease, disease, unspecified unspecified Unspecified Unspecified Diagnosis Active Ewelina atrial atrial 09-30 Diaz fibrillatio fibrillatio [id number] n n Essential Essential Diagnosis Active Ewelina (primary) (primary) 09-30 Diaz hypertensio hypertensio [id number] n n Anemia, Anemia, Diagnosis Active Ewelina unspecified unspecified 09-30 Diaz [id number] 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, disorder, [id number] recurrent, recurrent, unspecified unspecified 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 [id number] n n 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 supplementa [id number] l oxygen l oxygen Presence of Presence of Diagnosis Active cardiac cardiac Diaz pacemaker pacemaker [id number] Pain frequent Pain Mgmt Active 2019-0 Gina pain 09-30 [place] 08:45: [id number] 00 Cardio pacemaker/I Cardiovasc Active 2020-0 Gina CD ular 09-30 [place] 08:45: [id number] 00 Respiratory lung sounds Respirator Active 2020-0 Gina deficit y 09-30 [place] 08:45: [id number] 00 Respiratory dyspnea Respirator Active 2020-0 Gina present y 09-30 [place] 08:45: [id number] 00 Respiratory oxygen Respirator Active 2020-0 Gina treatments y 09-30 [place] in home 08:45: [id number] 00 Endo/Leonid anti-coagul Endo/Leonid Active 2020-0 Gina ation 09-30 [place] therapy 08:45: [id number] 00 Sensory impaired Sensory Active 2020-0 Gina hearing 09-30 [place] 08:45: [id number] 00 Integument skin Integument Active 2020-0 Gina integrity 09-30 [place] risk 08:45: [id number] 00 Nutrition nutritional Nutrition Active 2020-0 Gina restriction 09-30 [place] s 08:45: [id number] 00 Elimination urinary Eliminatio Active 2020-0 Gina incontinenc n 09-30 [place] e 08:45: [id number] 00 Neuro confusion Neuro/Emot Active 2020-0 Gina present ion 09-30 [place] 08:45: [id number] 00 Neuro impaired Neuro/Emot Active 2020-0 Gina decision-ma ion 09-30 [place] gloria 08:45: [id number] 00 Activity ADL Activity Active 2020-0 Gina assistance 09-30 [place] required 08:45: [id number] 00 Activity self-care Activity Active 2020-0 Gina deficit 09-30 [place] 08:45: [id number] 00 Safety cannot be Safety Active 2020-0 Gina left alone 09-30 [place] 08:45: [id number] 00 Safety fall risk Safety Active 2020-0 Gina factor 09-30 [place] present 08:45: [id number] 00 Safety risk for Safety Active 2020-0 Gina hospitaliza 09-30 [place] tion 08:45: [id number] 00 Medication oral med Meds Resolve 2019-0 2019-10-05 Gina assistance d 09-30 13:34:00 [place] required 08:45: [id number] 00 Medication knowledge/s Meds Resolve 2020-0 2019-10-05 Gina kill d 09-30 13:34:00 [place] deficit: pt 08:45: [id number] 00 Musculoskel transfer Musculoske Active 2020-0 Gina etal assistance letal 09-30 [place] required 08:45: [id number] 00 Musculoskel requires Musculoske Active 2020-0 Gina etal human letal 1-17 [place] assist to 08:45: [id number] leave home 00 Safety structural Safety Active 2019- Laura barriers 1-17 [place] present 13:50: [id number] 00 Bed mobility/tr PT/OT: Bed Active 2020- Laura Mobility/Tr ansfer Mobility/T 1-17 [place] ansfer device ransfer 13:50: [id number] present 00 Bed knowledge/s PT/OT: Bed Active 2020- Laura Mobility/Tr kill Mobility/T 1-17 [place] ansfer deficit: pt ransfer 13:50: [id number] 00 Balance/End balance/property coordinator PT/OT: Active 2019- Laura urance rdination Balance/En 1-17 [place] deficit durance 13:50: [id number] 00 Balance/End knowledge/s PT/OT: Active 2019- Laura urance kill Balance/En 1-17 [place] deficit: pt durance 13:50: [id number] 00 Gait/Locomo gait PT/OT: Active 2019- Laura tion assistive Gait/Locom 1-17 [place] problems device otion 13:50: [id number] present 00 Gait/Locomo gait PT/OT: Active 2019- Laura tion deficit Gait/Locom 1-17 [place] problems otion 13:50: [id number] 00 Gait/Locomo knowledge/s PT/OT: Active 2019- Laura tion kill Gait/Locom 1-17 [place] problems deficit: pt otion 13:50: [id number] 00 Respiratory ventilator Respirator Active 2019- Ewelina treatments y 2-03 [place] in home 14:30: [id number] 00 Medication oral med Meds Active 2019- Ewelina assistance 2-03 [place] required 14:30: [id number] 00 Bed transfer PT/OT: Bed Active 2019- Juan F Mobility/Tr deficit: Mobility/T 2-03 peewee Mcconnell sit/stand ransfer 15:15: PT 00 [id number] Bed transfer PT/OT: Bed Active 2020- Juan F Mobility/Tr deficit: Mobility/T 2-03 peewee Mcconnell standing ransfer 15:15: PT pivot 00 [id number] Bed transfer PT/OT: Bed Active 20200 Juan [...] 1 mg tablet 1 mg tablet 09-30 Mnoico DALY sennosides sennosides 2020-0 Yes Karis Unknown [...]
--- OUTSIDE RECORDS SUMMARY | 2019-11-17 12:56 | XMS REPORT | Continuity of Care Document ---
:1945 External Reference #:[id number] Author Name Ness Dennis MD (transmitted by agent of provider Scott Dyson) Address [address] [place] [address] Problems Active Problems Provider Date Chronic kidney [...] Date Provider Metoprolol Succinate oral; take 1.5 Nessvalerie Santanaholt, 10/20/2019 ER tabs by mouth 50mg Tablets ER 24HR daily Tums 1 tab by mouth 360units Ness Santanaholhuey, 09/27/2019 500mg Chewtabs twice a day as MD needed Miralax 17 gm by mouth Unknown 09/27/2019 [id number] Powder every day as needed Gas-X 1 tab by mouth 360units Ness Wineholt, 09/27/2019 80mg Chewtabs every 6 hours as MD needed Colace 2 tabs by mouth 180caps Ness Sanchezt, 09/27/2019 100mg Capsules every day as MD needed Preservision Areds 2 2 cap by mouth [facility]caps [facility], 09/27/2019 + Multi Vitamin every day as MD Areds 2 directed Capsules Mucinex 2 tab by mouth 120tabs [facility], 09/27/2019 600mg Tablets twice a day as ER 12HR directed Acetaminophen Extra 2 tab by mouth 90tabs [facility], 09/27/2019 Strength three times a day MD 500mg Tablets as needed Vitamin B 12 2 tab by mouth 120tabs [facility], 09/27/2019 500mcg every day as MD Tablets directed Probiotic 1 cap by mouth 120caps [facility], 09/27/2019 Capsules every day as MD directed Vitamin D3 Complete 2000 unit by 120tabs [facility], 09/27/2019 mouth every day MD Tablets as directed Magnesium 1 tab by mouth 90tabs [facility], 09/27/2019 400mg Tablets every day as MD directed Fexofenadine HCL 1 tab by mouth 180tabs [facility], 09/27/2019 60mg every day as MD Tablets needed Ventolin HFA 2 puff inhalation 18gm [facility], 09/27/2019 every 6 hours as 108(90Base) [...] directed Warfarin Sodium oral; take one 90tabs [facility], 07/14/2018 5mg tablet by mouth Tablets once [...] CPT Code Status Date Vaccine Lot # [id number] Given 06/23/2019 Flu High Dose [id number] 26383 Given 07/23/2018 Influenza Virus Vaccine, Quadrivalent, Split, Im Use 0.25ML 42457 Given 07/23/2018 Influenza Virus Vaccine, Quadrivalent, Split, Im Use 0.25ML 72853 Given 07/23/2018 Influenza Virus Vaccine, Quadrivalent, Split, Im Use 0.25ML 42282 Given 07/23/2018 Flu < 65 years 77672 Given 07/23/2018 Influenza Virus Vaccine, Quadrivalent, Split, Preservative Free 37250 Given 07/23/2018 Flumist 10040 Given 07/23/2018 Flu High Dose 21264 Given 07/23/2018 Influenza Virus Vaccine, Split, Preserv Free, Intradermal Use 51935 Given 07/24/2017 Influenza Virus Vaccine, Split, Preserv Free, Intradermal Use 67210 Given 07/24/2017 Flu High Dose 21681 Given 07/24/2017 Flumist 65805 Given 07/24/2017 Influenza Virus Vaccine, Quadrivalent, Split, Preservative Free 99840 Given 07/24/2017 Flu < 65 years 02664 Given 07/24/2017 Influenza Virus Vaccine, Quadrivalent, Split, Im Use 0.25ML 66737 Given 07/24/2017 Influenza Virus Vaccine, Quadrivalent, Split, Im Use 0.25ML 40925 Given 07/24/2017 Influenza Virus Vaccine, Quadrivalent, Split, Im Use 0.25ML 75672 Given 10/24/2014 Prevnar 13 64624 Given 06/29/2014 Influenza Virus Vaccine, Quadrivalent, Split, Im Use 0.25ML 35042 Given 06/29/2014 Influenza Virus Vaccine, Quadrivalent, Split, Im Use 0.25ML 93800 Given 06/29/2014 Influenza Virus Vaccine, Quadrivalent, Split, Im Use 0.25ML 70338 Given 06/29/2014 Flu < 65 years 24776 Given 06/29/2014 Influenza Virus Vaccine, Quadrivalent, Split, Preservative Free 27849 Given 06/29/2014 Flumist 37313 Given 06/29/2014 Flu High Dose 60090 Given 07/04/2013 Flu High Dose 77526 Given 07/04/2013 Flumist 56562 Given 07/04/2013 Influenza Virus Vaccine, Quadrivalent, Split, Preservative Free 58180 Given 07/04/2013 Flu < 65 years 28066 Given 07/04/2013 Influenza Virus Vaccine, Quadrivalent, Split, Im Use 0.25ML 40432 Given 07/04/2013 Influenza Virus Vaccine, Quadrivalent, Split, Im Use 0.25ML 09647 Given 07/04/2013 Influenza Virus Vaccine, Quadrivalent, Split, Im Use 0.25ML 35045 Given 05/05/2012 Influenza Virus Vaccine, Quadrivalent, Split, Im Use 0.25ML 60028 Given 05/05/2012 Influenza Virus Vaccine, Quadrivalent, Split, Im Use 0.25ML 37407 Given 05/05/2012 Influenza Virus Vaccine, Quadrivalent, Split, Im Use 0.25ML 86723 Given 05/05/2012 Flu < 65 years 92598 Given 05/05/2012 Influenza Virus Vaccine, Quadrivalent, Split, Preservative Free 02077 Given 05/05/2012 Flumist 54213 Given 05/05/2012 Flu High Dose 33264 Given 10/24/2011 Tdap - Boostrix/Adacel 43713 Given 06/28/2011 Influenza Virus Vaccine, Quadrivalent, Split, Im Use 0.25ML 76849 Given 06/28/2011 Influenza Virus Vaccine, Quadrivalent, Split, Im Use 0.25ML 71009 Given 06/28/2011 Influenza Virus Vaccine, Quadrivalent, Split, Im Use 0.25ML 81148 Given 06/28/2011 Flu < 65 years 36861 Given 06/28/2011 Influenza Virus Vaccine, Quadrivalent, Split, Preservative Free 14537 Given 06/28/2011 Flumist 39640 Given 06/28/2011 Flu High Dose 43180 Given 05/15/2010 Pneumovax - for >=2years - PPSV23 01154 Given 08/22/2009 Influenza Virus Vaccine, Quadrivalent, Split, Im Use 0.25ML 82561 Given 06/14/2008 Influenza Virus Vaccine, Quadrivalent, Split, Im Use 0.25ML 28403 Given 07/22/2006 Influenza Virus Vaccine, Quadrivalent, Split, [...] Date Facility Test Result H/L Range Note INR/Protime 10/24/2019 [facility] INR 2.36 High 0.82-1.[address] [place] [address] [phone] Basic Metabolic 10/24/2019 [facility] Sodium 140 mmol/L Normal 135-[address] [place] [address] [phone] Chloride 101 mmol/L Normal 101-111 Co2 Carbon Dioxide 38 mmol/L High 22-32 Glucose 105 mg/dL High 70-100 Blood Urea Nitrogen 12 mg/dL Normal 6-24 Creatinine 0.59 mg/dL Normal 0.51-0.95 BUN/Creatinine Ratio 20.3 High 8-20 Calcium 8.8 mg/dL Normal 8.6-10.3 Egfr Non- 99.6 >60 Egfr 120.6 >60 2 Potassium 5.3 mmol/L High 3.5-5.0 Anion Gap 1 mmol/L Low 2-11 Laboratory test 10/21/2019 [facility] CF INR 2.5 finding ( )- - Arterial Blood Gas 10/09/2019 [facility] PH Arterial 7.23 Low 7.35-7.[address] [place] [address] [phone] Pco2 Arterial 88 mmHg Critical high 35-45 3 Po2 Arterial 94 mmHg Normal 80-100 O2 Saturation Arterial 97.2 % Normal 94.0-98.0 Base Excess Arterial 6.1 mmol/L High -2.0-2.0 4 Hco3 Arterial 29.6 mmol/L Normal 19-31 Laboratory test 09/29/2019 [facility] CF INR 1.8 finding ( )- - Basic Metabolic 09/29/2019 [facility] Sodium 139 mmol/L Normal 135-[address] [place] [address] [phone] Potassium 4.9 mmol/L Normal 3.5-5.0 Chloride 100 mmol/L Low 101-111 Co2 Carbon Dioxide 32 mmol/L Normal 22-32 Anion Gap 7 mmol/L Normal 2-11 Glucose 131 mg/dL High 70-100 Blood Urea Nitrogen 16 mg/dL Normal 6-24 Creatinine 0.96 mg/dL High 0.51-0.95 BUN/Creatinine Ratio 16.7 Normal 8-20 Calcium 9.5 mg/dL Normal 8.6-10.3 Egfr Non- 56.8 >60 Egfr 68.7 >60 6 Laboratory test 09/22/2019 [facility] B-Type > 1300 High <= [address] Natriuretic pg/[place] [address] Peptide BNP [phone] Legionella Urine Antigen SEE RESULT BELOW 7 CBC Auto 09/22/2019 [facility] White Blood 15.6 10^3/uL High 3.5-10.[address] [place] [address] [phone] Red Blood Count 3.34 10^6/uL Low 3.70-4.87 [...] Blood Cells % 0.4 Laboratory test 09/22/2019 [facility] Magnesium 2.0 mg/dL Normal 1.9-2.[address] [place] [address] [phone] Troponin-I (TnI) 0.10 ng/mL Critical high <0.03 8 Acetaminophen < 15 g/mL 9 Alcohol < 10 mg/dL Normal <10 Salicylate < 2.50 mg/dL <30 TSH (Thyroid Stim Horm) 1.76 mcIU/mL Normal 0.34-5.60 Comp Metabolic Panel 09/22/2019 [facility] Sodium 130 mmol/L Low 135-[address] [place] [address] [phone] Potassium 4.5 mmol/L Normal 3.5-5.0 Chloride 87 [...] Egfr Non- 75.5 >60 Egfr 91.4 >60 10 Urine Drug 09/22/2019 [facility] Urine None Detected None Detect SCR ED & [address] [facility] [place] [address] Screen [phone] Urine Barbiturates Screen None Detected None Detect Urine Benzodiazepine Screen None Detected None Detect Urine Cannabinoids Screen None Detected None Detect Urine Cocaine Screen None Detected None Detect Urine Opiates Screen None Detected None Detect Urine Phencyclidine Screen None Detected None Detect 11 Laboratory test 09/22/2019 [facility] Ammonia TNP mcmol/L 16- 53 12 finding [address] [place] [address] [phone] Lactic Acid 0.5 mmol/L Normal 0.5-2.0 13 Urinalysis Profile 09/22/2019 [facility] Urine Color Yuliya [address] [place] [address] [phone] Urine Appearance Clear Urine Specific [place] 1.020 Normal 1.010-1.030 Urine pH 6.0 Normal 5-9 Urine Urobilinogen Negative Negative Urine Ketones Negative Negative Urine Protein Negative Negative Urine Leukocytes Negative Negative Urine Blood Negative Negative * * Abnormal Negative 14 Urine Nitrite Negative Negative Urine Bilirubin Negative Negative Urine Glucose Negative Negative Laboratory test 09/22/2019 [facility] Point of 151 mg/dL High 70-100 15 finding [address] [facility] [place] [address] [phone] Venous Blood 09/22/2019 [facility] Venous Blood 7.23 Low 7.32- 7.43 Gas [address] [facility] pH [place], [place] [id number] [phone] Venous Pco2 94 mmHg High 41-51 Venous Po2 54.0 mmHg High 35-45 Venous O2 Saturation 85.6 % High 70-80 Venous Blood Base Excess 8.1 mmol/L High 0.0-4.0 16 Venous Bicarbonate Hco3 30.9 mmol/L High 24-28 Laboratory test 09/22/2019 [facility] Ammonia 65 mcmol/L High 16-53 finding [address] [place] [address] [phone] Arterial Blood Gas 09/22/2019 [facility] Fio2 100 [address] [place] [address] [phone] Resp Rate 20 Ipap 18 Epap 7 PH Arterial 7.20 Low 7.35-7.45 Pco2 Arterial 103 mmHg Critical high 35-45 17 Po2 Arterial 345 mmHg High 80-100 O2 Saturation Arterial 98.2 % High 94.0-98.0 Base Excess Arterial 8.2 mmol/L High -2.0-2.0 18 Hco3 Arterial 31.3 mmol/L High 19-31 INR/Protime 09/22/2019 [facility] INR 4.08 High 0.82-1.09 19 [address] [place] [address] [phone] INR/Protime 09/16/2019 [facility] INR 3.09 High 0.82-1.09 20 [address] [place] [address] [phone] Comp Metabolic 09/16/2019 [facility] Sodium 141 mmol/L Normal 135-145 Panel [address] [place] [address] [phone] Potassium 4.4 mmol/L Normal 3.5-5.0 Chloride 91 [...] Egfr Non- 101.6 >60 Egfr 123.0 >60 21 Co2 Carbon Dioxide 49 mmol/L Critical high 22-32 22 Laboratory 09/16/2019 [facility] TSH (Thyroid 0.85 Normal 0.34 -5.60 test finding [address] Stim Horm) mcIU/[place] [address] [phone] CBC No Diff 09/16/2019 [facility] White Blood 12.9 High 3.5- 10.[address] Count 10^3/uL [place], [place] [address] [phone] Red Blood Count 2.94 10^6/uL Low 3.70-4.87 Hemoglobin 9.3 g/dL Low 12.0-16.0 Hematocrit 29 % Low 35-47 Mean Corpuscular Volume 99 fL High 80-97 Mean Corpuscular Hemoglobin 32 pg High 27-31 Mean Corpuscular HGB Conc 32 g/dL Normal 31-36 Red Cell Distribution Width 14 % Normal 10-15 Platelet Count 187 10^3/uL Normal 150-450 Mean Platelet Volume 10.0 fL Normal 7.4-10.4 Laboratory 09/16/2019 [facility] Troponin-I 0.08 Critical < 0.03 23 test finding [address] (TnI) ng/[place] [address] [phone] Basic 09/16/2019 [facility] Sodium 139 Normal 135-[address] mmol/[place] [address] [phone] Potassium 4.5 mmol/L Normal 3.5-5.0 Chloride 88 mmol/L Low 101-111 Glucose 145 mg/dL High 70-100 Blood Urea Nitrogen 21 mg/dL Normal 6-24 Creatinine 0.60 mg/dL Normal 0.51-0.95 BUN/Creatinine Ratio 35.0 High 8-20 Calcium 9.6 mg/dL Normal 8.6-10.3 Egfr Non- 97.7 >60 Egfr 118.2 >60 24 Co2 Carbon Dioxide 48 mmol/L Critical high 22-32 25 Laboratory test 09/16/2019 [facility] Lactic Acid 1.0 mmol/L Normal 0.5-2.[address] [place], [place] [address] [phone] B-Type Natriuretic Peptide BNP 1235 pg/mL High <=100 CBC Auto 09/16/2019 [facility] White Blood 11.4 10^3/uL High 3.5-10.[address] [place], [place] [address] [phone] Red Blood Count 3.18 10^6/uL Low 3.70-4.87 [...] Cells % 0.0 Arterial Blood Gas 09/16/2019 [facility] O2 Device N/C [address] [place] [address] [phone] PH Arterial 7.42 Normal 7.35-7.45 Pco2 Arterial 85 mmHg Critical high 35-45 27 Po2 Arterial 77 mmHg Low 80-100 O2 Saturation Arterial 96.0 % Normal 94.0-98.0 Base Excess Arterial 25.0 mmol/L High -2.0-2.0 28 Hco3 Arterial 44.4 mmol/L Critical high 19-31 29 Laboratory test 09/16/2019 [facility] Partial 47.8 High 26.0- 38.[address] [place] [address] PTT [phone] Troponin-I (TnI) 0.09 ng/mL Critical high <0.03 30 INR/Protime 09/16/2019 [facility] INR 3.12 High 0.82-1.[address] [place] [address] [phone] Xray 07/20/2019 [facility] Chest 2 Views <pendin [address] g> [place] [address] [phone] Laboratory test 07/18/2019 [facility] CF INR 2.3 finding ( )- - Laboratory test 06/23/2019 [facility] CFM INR 3.8 finding ( )- - Laboratory test 06/23/2019 [facility] Hemoglobin A1c 5.9 % High 4.0-5.[address] (Glyco HGB) [place], [place] [address] [phone] Comp Metabolic 06/23/2019 [facility] Sodium 138 Normal 135- [address] mmol/L [place], [place] [address] [phone] Potassium 4.7 mmol/L Normal 3.5-5.0 Chloride 95 [...] Egfr Non- 64.5 >60 Egfr 78.0 >60 33 Laboratory test 06/15/2019 [facility] CFM INR 2.85 finding ( )- - Comp Metabolic Panel 06/14/2019 [facility] Sodium 140 mmol/L Normal 135-145 [address] [place] [address] [phone] Chloride 94 mmol/L Low 101-111 Co2 Carbon [...] Egfr Non- 55.5 >60 Egfr 67.1 >60 34 Potassium 5.5 mmol/L High 3.5-5.0 Anion Gap 9 mmol/L Normal 2-11 Laboratory test 06/14/2019 [facility] Vitamin B12 394 pg/mL Normal 180-914 35 finding [address] [place] [address] [phone] Vitamin D Total 25(Oh) 38.6 ng/mL Normal 20-50 36 Protime W/ INR 06/14/2019 N2N/CCD [employer] [...] 5 Kidney failure <15 (or dialysis) 3 Verbal to [id number] by [id number] at 1317 on 10/09/19. Results read back accurately. 4 Reference ranges based on room air. 5 [id number] 6 Because ethnic data is not always readily [...] 15-29 5 Kidney failure <15 (or dialysis) 7 SEE RESULT BELOW Name: BRITNI DU : [address]: Marco Antonio Brambila MD Acct: [id number] Unit: [id number] AGE: 74 Location: ICU [id number] Re09/22/19 SEX: F Status: ADM IN SPEC: [id number] ATTA: 09/22/[address]: Jona AZAR REQ: [id number] RECD: 09/22/19 STATUS: COMP [facility] DR: [facility] Monico Dyson MD _ SOURCE: [...] . END OF REPORT DEPARTMENT OF PATHOLOGY, [address] [place] [address] Zeke Richmond M.D. Director [facility] # [id number] 8 Result TnIDx:0.10 Called to [id number] at: 06:48:08 by:[id number] Read back by: [id number] Troponin-I testing on Plasma Separator Tubes (PST) has a known false positive rate of 0.20-0.40%. All positive troponins reflex immediately to secondary confirmatory testing. Using the [employer] DxI 800 Access Immunoassay systems, the 99th percentile upper reference limit was demonstrated to be < 0.03 ng/mL. 9 Therapeutic concentration: <50 ug/mL Toxic concentration: >120 ug/mL 10 Because ethnic data is not always readily [...] 15-29 5 Kidney failure <15 (or dialysis) 11 The urine specimen was tested at the listed cutoffs: Drug class test level (ng/mL) Amphetamines 500 Barbiturates 200 Benzodiazepine metabolites 200 Cocaine metabolites 150 Cannabinoids 50 Opiates 300 Pcp 25 Specimen was received without chain of custody. Results should be used for medical purposes only. 12 Unable to report test result due to hemolysis. 13 Specimen hemolyzed. Result may not be valid. [facility] Severe Sepsis and Septic Shock Management Bundle Measure requires all lactic acids initially measuring >2.0 mmol/L be repeated. 14 *Ascorbic acid is present which may interfere with detection of blood. 15 [place]man: [id number] 16 Reference ranges based on room air. 17 Verbal to [id number] by [id number] at 0815 on 09/22/19. Results read back accurately. 18 Reference ranges based on room air. 19 Standard intensity warfarin therapeutic range: 2.0-3.0 High intensity warfarin therapeutic range: 2.5-3.5 20 Standard intensity warfarin therapeutic range: 2.0-3.0 High intensity warfarin therapeutic range: 2.5-3.5 21 Because ethnic data is not always readily [...] 15-29 5 Kidney failure <15 (or dialysis) 22 Critical Result CO2:49 Called to TYLER SANCHEZ CFM at: 13:33:08 by:[id number] Read back by:TYLER SANCHEZ CFM 23 Result TnIDx:0.08 Called to [id number] at: 18:49:49 by:[id number] Read back by: [id number] Troponin-I testing on Plasma Separator Tubes (PST) has a known false positive rate of 0.20-0.40%. All positive troponins reflex immediately to secondary confirmatory testing. Using the [employer] DxI 800 Access Immunoassay systems, the 99th percentile upper reference limit was demonstrated to be < 0.03 ng/mL. 24 Because ethnic data is not always readily [...] 15-29 5 Kidney failure <15 (or dialysis) 25 Critical Result CO2:48 Called to [id number] at: 19:13:28 by:[id number] Read back by:[id number] 26 [facility] Severe Sepsis and Septic Shock Management Bundle Measure requires all lactic acids initially measuring >2.0 mmol/L be repeated. 27 Verbal to [id number] by [id number] at 2048 on 09/16/19. Results read back accurately. 28 Reference ranges based on room air. 29 Verbal to [id number] by [id number] at 2048 on 09/16/19. Results read back accurately. 30 Result TnIDx:0.09 Called to [id number] at: 23:20:01 by:[id number] Read back by: [id number] Troponin-I testing on Plasma Separator Tubes (PST) has a known false positive rate of 0.20-0.40%. All positive troponins reflex immediately to secondary confirmatory testing. Using the [employer] DxI 800 Access Immunoassay systems, the 99th percentile upper reference limit was demonstrated to be < 0.03 ng/mL. 31 Standard intensity warfarin therapeutic range: 2.0-3.0 High intensity warfarin therapeutic range: 2.5-3.5 32 Therapeutic target for the treatment of diabetes mellitus patients is <7% HBA1C, and in selective patients <6.0%. Please refer to [place] [employer] diabetic care guidelines for further information. 33 Because ethnic data is not always readily [...] 15-29 5 Kidney failure <15 (or dialysis) 34 Because ethnic data is not always readily [...] 15-29 5 Kidney failure <15 (or dialysis) 35 Normal Range 180 to 914 Indeterminate Range 145 to 180 Deficient Range <145 36 Total 25-Hydroxyvitamin D2 and D3 (25-OH-VitD) <10 ng/mL (severe deficiency) 10-19 ng/mL (mild to moderate deficiency) 20-50 ng/mL (optimum levels) 51-80 ng/mL (increased risk of hypercalciuria) >80 ng/mL (toxicity possible) Procedures Date Code Description Status 10/21/2019 42161 Anticoagulant MGMT For Patient Taking Warfarin, Inc Review Completed & Intr 07/12/2019 16705 Anticoagulant MGMT For Patient Taking Warfarin, Inc Review Completed & Intr 06/15/2019 55530 Anticoagulant MGMT For Patient Taking Warfarin, Inc Review Completed & Intr Medical Devices Description No Information Available Encounters Type Date Location Provider Dx Diagnosis Office Visit 09/29/2019 [facility] Benjamín Dennis MD E87.79 Other fluid overload 11:15a I48.91 Unspecified atrial fibrillation M25.512 Pain in left shoulder J96.92 Respiratory failure, unspecified with hypercapnia Office Visit 07/18/2019 3:45p [facility] Benjamín Dennis, T82.897D Oth complication of cardiac prosth dev/paul, subs I48.91 Unspecified atrial fibrillation Office Visit 06/23/2019 2:15p [facility] BRIAN Denton R73.9 Hyperglycemia, unspecified E87.5 Hyperkalemia [...] BRIAN Gabriel 06/23/2019 I48.91 Unspecified atrial fibrillation Samantha Bhagat [facility] 06/23/2019 Z23 Encounter for immunization BRIAN Gabriel Plan of Treatment No Information Available Functional Status Description No Information Available Mental Status Description No Information Available Referrals Refer to Reason for Referral Status Appt Date PetersonRoberta Patient with hospitalization for respiratory Sent failure with hypercapnea, recommendation of sleep evaluation as an outpatient [address] [place] [place] [address] [phone] [facility] orthopedics Left shoulder pain and limited range of motion Sent
--- OUTSIDE RECORDS SUMMARY | 2019-11-17 12:56 | XMS REPORT | Continuity of Care Document ---
:1945 External Reference #:[id number] Author Problems Active Problems Provider Date Chronic kidney [...] Areds 2 2 cap by mouth 120caps Ness Wineholt, 09/27/2019 + Multi Vitamin every day as MD Zieglerds 2 directed Capsules Mucinex 2 tab by mouth 120tabs [facility], 09/27/2019 600mg Tablets twice a day as ER 12HR directed Acetaminophen Extra 2 tab by mouth 90tabs [facility], 09/27/2019 Strength three times a day 500mg Tablets as needed Vitamin B 12 2 tab by mouth 120tabs [facility], 09/27/2019 500mcg every day as MD Tablets directed Probiotic 1 cap by mouth 120caps [facility], 09/27/2019 Capsules every day as MD directed Vitamin D3 Complete 2000 unit by 120tabs [facility], 09/27/2019 mouth every day MD Tablets as directed Magnesium 1 tab by mouth 90tabs [facility], 09/27/2019 400mg Tablets every day as MD directed Fexofenadine HCL 1 tab by mouth 180tabs [facility], 09/27/2019 60mg every day as MD Tablets needed Ventolin HFA 2 puff inhalation 18gm [facility], 09/27/2019 every 6 hours as 108(90Base) mcg/Act [...] directed Warfarin Sodium oral; [facility] 5mg tablet by mouth Tablets once [...] CPT Code Status Date Vaccine Lot # [id number] Given 06/23/2019 Flu High Dose [id number] 77318 Given 07/23/2018 Influenza Virus Vaccine, Quadrivalent, Split, Im Use 0.25ML 30824 Given 07/23/2018 Influenza Virus Vaccine, Quadrivalent, Split, Im Use 0.25ML 47130 Given 07/23/2018 Influenza Virus Vaccine, Quadrivalent, Split, Im Use 0.25ML 60547 Given 07/23/2018 Flu < 65 years 84051 Given 07/23/2018 Influenza Virus Vaccine, Quadrivalent, Split, Preservative Free 38431 Given 07/23/2018 Flumist 75220 Given 07/23/2018 Flu High Dose 66519 Given 07/23/2018 Influenza Virus Vaccine, Split, Preserv Free, Intradermal Use 28325 Given 07/24/2017 Influenza Virus Vaccine, Split, Preserv Free, Intradermal Use 56413 Given 07/24/2017 Flu High Dose 31014 Given 07/24/2017 Flumist 81472 Given 07/24/2017 Influenza Virus Vaccine, Quadrivalent, Split, Preservative Free 99662 Given 07/24/2017 Flu < 65 years 12568 Given 07/24/2017 Influenza Virus Vaccine, Quadrivalent, Split, Im Use 0.25ML 69719 Given 07/24/2017 Influenza Virus Vaccine, Quadrivalent, Split, Im Use 0.25ML 91932 Given 07/24/2017 Influenza Virus Vaccine, Quadrivalent, Split, Im Use 0.25ML 99623 Given 10/24/2014 Prevnar 13 27055 Given 06/29/2014 Influenza Virus Vaccine, Quadrivalent, Split, Im Use 0.25ML 79324 Given 06/29/2014 Influenza Virus Vaccine, Quadrivalent, Split, Im Use 0.25ML 07929 Given 06/29/2014 Influenza Virus Vaccine, Quadrivalent, Split, Im Use 0.25ML 78905 Given 06/29/2014 Flu < 65 years 65686 Given 06/29/2014 Influenza Virus Vaccine, Quadrivalent, Split, Preservative Free 55667 Given 06/29/2014 Flumist 38844 Given 06/29/2014 Flu High Dose 98603 Given 07/04/2013 Flu High Dose 80369 Given 07/04/2013 Flumist 47686 Given 07/04/2013 Influenza Virus Vaccine, Quadrivalent, Split, Preservative Free 60176 Given 07/04/2013 Flu < 65 years 22881 Given 07/04/2013 Influenza Virus Vaccine, Quadrivalent, Split, Im Use 0.25ML 14149 Given 07/04/2013 Influenza Virus Vaccine, Quadrivalent, Split, Im Use 0.25ML 78014 Given 07/04/2013 Influenza Virus Vaccine, Quadrivalent, Split, Im Use 0.25ML 86085 Given 05/05/2012 Influenza Virus Vaccine, Quadrivalent, Split, Im Use 0.25ML 08938 Given 05/05/2012 Influenza Virus Vaccine, Quadrivalent, Split, Im Use 0.25ML 53121 Given 05/05/2012 Influenza Virus Vaccine, Quadrivalent, Split, Im Use 0.25ML 16491 Given 05/05/2012 Flu < 65 years 21257 Given 05/05/2012 Influenza Virus Vaccine, Quadrivalent, Split, Preservative Free 17914 Given 05/05/2012 Flumist 85985 Given 05/05/2012 Flu High Dose 87939 Given 10/24/2011 Tdap - Boostrix/Adacel 42012 Given 06/28/2011 Influenza Virus Vaccine, Quadrivalent, Split, Im Use 0.25ML 94703 Given 06/28/2011 Influenza Virus Vaccine, Quadrivalent, Split, Im Use 0.25ML 45372 Given 06/28/2011 Influenza Virus Vaccine, Quadrivalent, Split, Im Use 0.25ML 48793 Given 06/28/2011 Flu < 65 years 06891 Given 06/28/2011 Influenza Virus Vaccine, Quadrivalent, Split, Preservative Free 84284 Given 06/28/2011 Flumist 30902 Given 06/28/2011 Flu High Dose 07288 Given 05/15/2010 Pneumovax - for >=2years - PPSV23 90230 Given 08/22/2009 Influenza Virus Vaccine, Quadrivalent, Split, Im Use 0.25ML 08717 Given 06/14/2008 Influenza Virus Vaccine, Quadrivalent, Split, Im Use 0.25ML 12072 Given 07/22/2006 Influenza Virus Vaccine, Quadrivalent, Split, [...] Result H/L Range Note Date INR/Protime 11/02/2019 [facility] INR 4.20 High 0.82-1.[address] [place] [address] [phone] Laboratory test 11/02/2019 [facility] B-Type > 1300 High <= [address] Natriuretic pg/[place] [address] Peptide BNP [phone] CBC Auto Diff 11/02/2019 [facility] White Blood 7.7 Normal 3.5 -10.[address] Count 10^3/uL [place], [place] [id number] [phone] Red Blood Count 4.01 10^6/uL Normal 3.70-4.87 [...] Blood Cells % 0.1 Comp Metabolic 11/02/2019 [facility] Sodium 141 mmol/L Normal 135-[address] [place] [address] [phone] Potassium 4.6 mmol/L Normal 3.5-5.0 Chloride 100 [...] Egfr 100.6 >60 2 Laboratory test 11/02/2019 [facility] Magnesium 2.1 mg/dL Normal 1.9-2.7 finding [address] [place] [address] [phone] C Reactive Protein 4.66 mg/L Normal <8.01 INR/Protime 10/24/2019 [facility] INR 2.36 High 0.82-1.09 3 [address] [place] [address] [phone] Basic Metabolic 10/24/2019 [facility] Sodium 140 mmol/L Normal 135-145 Panel [address] [place] [address] [phone] Chloride 101 mmol/L Normal 101-111 Co2 Carbon Dioxide 38 mmol/L High 22-32 Glucose 105 mg/dL High 70-100 Blood Urea Nitrogen 12 mg/dL Normal 6-24 Creatinine 0.59 mg/dL Normal 0.51-0.95 BUN/Creatinine Ratio 20.3 High 8-20 Calcium 8.8 mg/dL Normal 8.6-10.3 Egfr Non- 99.6 >60 Egfr 120.6 >60 4 Potassium 5.3 mmol/L High 3.5-5.0 Anion Gap 1 mmol/L Low 2-11 Laboratory test 10/21/2019 [facility] INR 2.5 finding ( )- - Arterial Blood Gas 10/09/2019 [facility] PH Arterial 7.23 Low 7.35-7.45 [address] [place], [place] [address] [phone] Pco2 Arterial 88 mmHg Critical high 35-45 5 Po2 Arterial 94 mmHg Normal 80-100 O2 Saturation Arterial 97.2 % Normal 94.0-98.0 Base Excess Arterial 6.1 mmol/L High -2.0-2.0 6 Hco3 Arterial 29.6 mmol/L Normal 19-31 Laboratory test 09/29/2019 [facility] INR 1.8 finding ( )- - Basic Metabolic 09/29/2019 [facility] Sodium 139 mmol/L Normal 135-145 7 Panel [address] [place] [address] [phone] Potassium 4.9 mmol/L Normal 3.5-5.0 Chloride 100 mmol/L Low 101-111 Co2 Carbon Dioxide 32 mmol/L Normal 22-32 Anion Gap 7 mmol/L Normal 2-11 Glucose 131 mg/dL High 70-100 Blood Urea Nitrogen 16 mg/dL Normal 6-24 Creatinine 0.96 mg/dL High 0.51-0.95 BUN/Creatinine Ratio 16.7 Normal 8-20 Calcium 9.5 mg/dL Normal 8.6-10.3 Egfr Non- 56.8 >60 Egfr 68.7 >60 8 Laboratory test 09/22/2019 [facility] B-Type > 1300 High <= [address] Natriuretic pg/[place] [address] Peptide BNP [phone] Legionella Urine Antigen SEE RESULT BELOW 9 CBC Auto 09/22/2019 [facility] White Blood 15.6 10^3/uL High 3.5-10.[address] [place] [address] [phone] Red Blood Count 3.34 10^6/uL Low 3.70-4.87 [...] Blood Cells % 0.4 Laboratory test 09/22/2019 [facility] Magnesium 2.0 mg/dL Normal 1.9-2.[address] [place] [address] [phone] Troponin-I (TnI) 0.10 ng/mL Critical high <0.03 10 Acetaminophen < 15 g/mL 11 Alcohol < 10 mg/dL Normal <10 Salicylate < 2.50 mg/dL <30 TSH (Thyroid Stim Horm) 1.76 mcIU/mL Normal 0.34-5.60 Comp Metabolic Panel 09/22/2019 [facility] Sodium 130 mmol/L Low 135-145 [address] [place] [address] [phone] Potassium 4.5 mmol/L Normal 3.5-5.0 Chloride 87 [...] Egfr 91.4 >60 12 Urine Drug 09/22/2019 [facility] Urine None Detected None Detect SCR ED & [address] [facility] [place] [address] Screen [phone] Urine Barbiturates Screen None Detected None Detect Urine Benzodiazepine Screen None Detected None Detect Urine Cannabinoids Screen None Detected None Detect Urine Cocaine Screen None Detected None Detect Urine Opiates Screen None Detected None Detect Urine Phencyclidine Screen None Detected None Detect 13 Laboratory test 09/22/2019 [facility] Ammonia TNP mcmol/L 16- 53 14 finding [address] [place] [address] [phone] Lactic Acid 0.5 mmol/L Normal 0.5-2.0 15 Urinalysis Profile 09/22/2019 [facility] Urine Color Yuliya [address] [place] [address] [phone] Urine Appearance Clear Urine Specific [place] 1.020 Normal 1.010-1.030 Urine pH 6.0 Normal 5-9 Urine Urobilinogen Negative Negative Urine Ketones Negative Negative Urine Protein Negative Negative Urine Leukocytes Negative Negative Urine Blood Negative Negative * * Abnormal Negative 16 Urine Nitrite Negative Negative Urine Bilirubin Negative Negative Urine Glucose Negative Negative Laboratory test 09/22/2019 [facility] Point of 151 mg/dL High 70-100 17 finding 201 [facility] Care Glucose [place], [place] [id number] [phone] Venous Blood 09/22/2019 [facility] Venous Blood 7.23 Low 7.32- 7.43 Gas [address] [facility] [place] [address] [phone] Venous Pco2 94 mmHg High 41-51 Venous Po2 54.0 mmHg High 35-45 Venous O2 Saturation 85.6 % High 70-80 Venous Blood Base Excess 8.1 mmol/L High 0.0-4.0 18 Venous Bicarbonate Hco3 30.9 mmol/L High 24-28 Laboratory test 09/22/2019 [facility] Ammonia 65 mcmol/L High 16-53 finding [address] [place] [address] [phone] Arterial Blood Gas 09/22/2019 [facility] Fio2 100 [address] [place] [address] [phone] Resp Rate 20 Ipap 18 Epap 7 PH Arterial 7.20 Low 7.35-7.45 Pco2 Arterial 103 mmHg Critical high 35-45 19 Po2 Arterial 345 mmHg High 80-100 O2 Saturation Arterial 98.2 % High 94.0-98.0 Base Excess Arterial 8.2 mmol/L High -2.0-2.0 20 Hco3 Arterial 31.3 mmol/L High 19-31 INR/Protime 09/22/2019 [facility] INR 4.08 High 0.82-1.09 21 [address] [place] [address] [phone] INR/Protime 09/16/2019 [facility] INR 3.09 High 0.82-1.09 22 [address] [place] [address] [phone] Comp Metabolic 09/16/2019 [facility] Sodium 141 mmol/L Normal 135-[address] [place], [place] [address] [phone] Potassium 4.4 mmol/L Normal 3.5-5.0 Chloride 91 [...] mmol/L Critical high 22-32 24 Laboratory 09/16/2019 [facility] TSH (Thyroid 0.85 Normal 0.34 -5.[address] Horm) mcIU/[place] [address] [phone] CBC No Diff 09/16/2019 [facility] White Blood 12.9 High 3.5- 10.8 Count 10^3/uL [place], [place] [address] [phone] Red Blood Count 2.94 10^6/uL Low 3.70-4.87 Hemoglobin 9.3 g/dL Low 12.0-16.0 Hematocrit 29 % Low 35-47 Mean Corpuscular Volume 99 fL High 80-97 Mean Corpuscular Hemoglobin 32 pg High 27-31 Mean Corpuscular HGB Conc 32 g/dL Normal 31-36 Red Cell Distribution Width 14 % Normal 10-15 Platelet Count 187 10^3/uL Normal 150-450 Mean Platelet Volume 10.0 fL Normal 7.4-10.4 Laboratory 09/16/2019 [facility] Troponin-I 0.08 Critical < 0.03 25 test finding 201 (TnI) ng/[place] [address] [phone] Basic 09/16/2019 [facility] Sodium 139 Normal 135-[address] mmol/[place] [address] [phone] Potassium 4.5 mmol/L Normal 3.5-5.0 Chloride 88 mmol/L Low 101-111 Glucose 145 mg/dL High 70-100 Blood Urea Nitrogen 21 mg/dL Normal 6-24 Creatinine 0.60 mg/dL Normal 0.51-0.95 BUN/Creatinine Ratio 35.0 High 8-20 Calcium 9.6 mg/dL Normal 8.6-10.3 Egfr Non- 97.7 >60 Egfr 118.2 >60 26 Co2 Carbon Dioxide 48 mmol/L Critical high 22-32 27 Laboratory test 09/16/2019 [facility] Lactic Acid 1.0 mmol/L Normal 0.5-2.0 [address] [place] [address] [phone] B-Type Natriuretic Peptide BNP 1235 pg/mL High <=100 CBC Auto 09/16/2019 [facility] White Blood 11.4 10^3/uL High 3.5-10.[address] [place] [address] [phone] Red Blood Count 3.18 10^6/uL Low 3.70-4.87 [...] Cells % 0.0 Arterial Blood Gas 09/16/2019 [facility] O2 Device N/C [address] [place] [address] [phone] PH Arterial 7.42 Normal 7.35-7.45 Pco2 Arterial 85 mmHg Critical high 35-45 29 Po2 Arterial 77 mmHg Low 80-100 O2 Saturation Arterial 96.0 % Normal 94.0-98.0 Base Excess Arterial 25.0 mmol/L High -2.0-2.0 30 Hco3 Arterial 44.4 mmol/L Critical high 19-31 31 Laboratory test 09/16/2019 [facility] Partial 47.8 High 26.0- 38.[address] [place] [address] PTT [phone] Troponin-I (TnI) 0.09 ng/mL Critical high <0.03 32 INR/Protime 09/16/2019 [facility] INR 3.12 High 0.82-1.[address] [place] [address] [phone] Xray 07/20/2019 [facility] Chest 2 Views <pendin [address]> [place] [address] [phone] Laboratory test 07/18/2019 [facility] CFM INR 2.3 finding ( )- - Laboratory test 06/23/2019 [facility] CFM INR 3.8 finding ( )- - Laboratory test 06/23/2019 [facility] Hemoglobin A1c 5.9 % High 4.0-5.[address] (Glyco HGB) [place] [address] [phone] Comp Metabolic 06/23/2019 [facility] Sodium 138 Normal 135- [address] mmol/[place] [address] [phone] Potassium 4.7 mmol/L Normal 3.5-5.0 Chloride 95 [...] Egfr 78.0 >60 35 Laboratory test 06/15/2019 [facility] CFM INR 2.85 finding ( )- - Comp Metabolic Panel 06/14/2019 [facility] Sodium 140 mmol/L Normal 135-[address] [place] [address] [phone] Chloride 94 mmol/L Low 101-111 Co2 Carbon [...] 9 mmol/L Normal 2-11 Laboratory test 06/14/2019 [facility] Vitamin B12 394 pg/mL Normal 180-914 [address] [place] [address] [phone] Vitamin D Total 25(Oh) 38.6 ng/mL Normal [...] failure <15 (or dialysis) 5 Verbal to [id number] by [id number] at 1317 on 10/09/19. Results read back accurately. 6 Reference ranges based on room air. 7 [id number] 8 Because ethnic data is not always [...] (or dialysis) 9 SEE RESULT BELOW Name: BRITNI DU : [address]: Marco Antonio Brambila MD Acct: [id number] Unit: [id number] AGE: 74 Location: ICU [id number] Re09/22/19 SEX: F Status: ADM IN SPEC: [id number] TATA: 09/22/19 [facility] DR: Jona AZAR REQ: [id number] RECD: 09/22/19 STATUS: LALITHA LARRY DR: [facility] Monico Dyson MD _ SOURCE: [...] . END OF REPORT DEPARTMENT OF PATHOLOGY, [address] [place] [address] Zeke Richmond M.D. Director [facility] # [id number] 10 Result TnIDx:0.10 Called to [id number] at: 06:48:08 by:[id number] Read back by: [id number] Troponin-I testing on Plasma Separator Tubes (PST) has a known false positive rate of 0.20-0.40%. All positive troponins reflex immediately to secondary confirmatory testing. Using the [employer] DxI 800 Access Immunoassay systems, the 99th [...] Specimen hemolyzed. Result may not be valid. [facility] Severe Sepsis and Septic Shock Management Bundle Measure requires all lactic acids initially measuring >2.0 mmol/L be repeated. 16 *Ascorbic acid is present which may interfere with detection of blood. 17 Survey And Mapping Technician: [id number] 18 Reference ranges based on room air. 19 Verbal to [id number] by [email or web address] at 0815 on 09/22/19. Results read back [...] Called to TYLER SANCHEZ CFM at: 13:33:08 by:[id number] Read back by:TYLER SANCHEZ CFM 25 Result TnIDx:0.08 Called to [id number] at: 18:49:49 by:[id number] Read back by: [id number] Troponin-I testing on Plasma Separator Tubes (PST) has a known false positive rate of 0.20-0.40%. All positive troponins reflex immediately to secondary confirmatory testing. Using the [employer] DxI 800 Access Immunoassay systems, the 99th [...] dialysis) 27 Critical Result CO2:48 Called to [id number] at: 19:13:28 by:[id number] Read back by:[id number] 28 [facility] Severe Sepsis and Septic Shock Management Bundle Measure requires all lactic acids initially measuring >2.0 mmol/L be repeated. 29 Verbal to [id number] by [id number] at 2048 on 09/16/19. Results read back accurately. 30 Reference ranges based on room air. 31 Verbal to [id number] by [id number] at 2048 on 09/16/19. Results read back accurately. 32 Result TnIDx:0.09 Called to [id number] at: 23:20:01 by:[id number] Read back by: [id number] Troponin-I testing on Plasma Separator Tubes (PST) has a known false positive rate of 0.20-0.40%. All positive troponins reflex immediately to secondary confirmatory testing. Using the [employer] 800 Access Immunoassay systems, the 99th percentile upper reference limit was demonstrated to be < 0.03 ng/mL. 33 Standard intensity warfarin therapeutic range: 2.0-3.0 High intensity warfarin therapeutic range: 2.5-3.5 34 Therapeutic target for the treatment of diabetes mellitus patients is <7% HBA1C, and in selective patients <6.0%. Please refer to [place] [employer] diabetic care guidelines for further [...] possible) Procedures Date Code Description Status 11/03/2019 53426 Anticoagulant MGMT For Patient Taking Warfarin, Inc Review Completed & Intr 10/25/2019 75604 Anticoagulant MGMT For Patient Taking Warfarin, Inc Review Completed & Intr 10/21/2019 06997 Anticoagulant MGMT For Patient Taking Warfarin, Inc Review Completed & Intr 07/12/2019 14363 Anticoagulant MGMT For Patient Taking Warfarin, Inc Review Completed & Intr 06/15/2019 11720 Anticoagulant MGMT For Patient Taking Warfarin, Inc Review Completed & Intr Medical Devices Description No Information Available Encounters Type Date Location Provider Dx Diagnosis Office Visit 09/29/2019 [facility] Benjamín Dennis MD E87.79 Other fluid overload 11:15a I48.91 Unspecified atrial fibrillation M25.512 Pain in left shoulder J96.92 Respiratory failure, unspecified with hypercapnia Office Visit 07/18/2019 3:45p [facility] Ness Dennis, T82.897D Oth complication of MD cardiac prosth dev/paul, subs I48.91 Unspecified atrial fibrillation Office Visit 06/23/2019 2:15p [facility] BRIAN Gabriel R73.9 Hyperglycemia, unspecified E87.5 Hyperkalemia I48.91 Unspecified [...] MD 06/23/2019 R73.9 Hyperglycemia, unspecified Samantha Bhagat [facility] 06/23/2019 E87.5 Hyperkalemia Samantha Bhagat [employer] 06/23/2019 I48.91 Unspecified atrial fibrillation Samantha Bhagat [employer] 06/23/2019 Z23 Encounter for immunization BRIAN Gabriel Plan of Treatment No Information Available Functional Status Description No Information Available Mental Status Description No Information Available Referrals Refer to Reason for Referral Status Appt Date Roberta Winkler Patient with hospitalization for respiratory Sent failure with hypercapnea, recommendation of sleep evaluation as an outpatient [address] [place] [place] [address] [phone] [facility] orthopedics Left shoulder pain and limited range of motion Sent
--- OUTSIDE RECORDS SUMMARY | 2019-11-17 12:56 | XMS REPORT ---
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-30 Diaz pulmonary pulmonary [id number] disease, disease, unspecified unspecified Unspecified Unspecified Diagnosis Active Ewelina atrial atrial 09-30 Diaz fibrillatio fibrillatio [id number] n n Essential Essential Diagnosis Active Ewelina (primary) (primary) 09-30 Diaz hypertensio hypertensio [id number] n n Anemia, Anemia, Diagnosis Active Ewelina unspecified unspecified 09-30 Diaz [id number] 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, disorder, 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, recurrent, unspecified unspecified 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 [id number] n n 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 supplementa [id number] l oxygen l oxygen Presence of Presence of Diagnosis Active cardiac cardiac Diaz pacemaker pacemaker [id number] Pain frequent Pain Mgmt Active 2019-0 Gina pain 09-30 [place] 08:45: [id number] Cardio pacemaker/I Cardiovasc Active 2020-0 Gina CD ular 09-30 [place] 08:45: [id number] 00 Respiratory lung sounds Respirator Active 2020-0 Gina deficit y 09-30 [place] 08:45: [id number] 00 Respiratory dyspnea Respirator Active 2020-0 Gina present y 09-30 [place] 08:45: [id number] 00 Respiratory oxygen Respirator Active 2020-0 Gina treatments y 09-30 [place] in home 08:45: [id number] 00 Endo/Leonid anti-coagul Endo/Leonid Active 2020-0 Gina ation 09-30 [place] therapy 08:45: [id number] 00 Sensory impaired Sensory Active 2020-0 Gina hearing 09-30 [place] 08:45: [id number] 00 Integument skin Integument Active 2020-0 Gina integrity 09-30 [place] risk 08:45: [id number] 00 Nutrition nutritional Nutrition Active 2020-0 Gina restriction 09-30 [place] s 08:45: [id number] 00 Elimination urinary Eliminatio Active 2020-0 Gina incontinenc n 09-30 [place] e 08:45: [id number] 00 Neuro confusion Neuro/Emot Active 2020-0 Gina present ion 09-30 [place] 08:45: [id number] 00 Neuro impaired Neuro/Emot Active 2020-0 Gina decision-ma ion 09-30 [place] gloria 08:45: [id number] 00 Activity ADL Activity Active 2020-0 Gina assistance 09-30 [place] required 08:45: [id number] 00 Activity self-care Activity Active 2020-0 Gina deficit 09-30 [place] 08:45: [id number] 00 Safety cannot be Safety Active 2020-0 Gina left alone 09-30 [place] 08:45: [id number] 00 Safety fall risk Safety Active 2020-0 Gina factor 09-30 [place] present 08:45: [id number] Safety risk for Safety Active 2020-0 Gina hospitaliza 09-30 [place] tion 08:45: [id number] 00 Medication oral med Meds Resolve 2019-0 2019-10-05 Gina assistance d 09-30 13:34:00 [place] required 08:45: [id number] 00 Medication knowledge/s Meds Resolve 2020-0 2019-10-05 Gina kill d 09-30 13:34:00 [place] deficit: pt 08:45: [id number] 00 Musculoskel transfer Musculoske Active 2020-0 Gina etal assistance letal 09-30 [place] required 08:45: [id number] 00 Musculoskel requires Musculoske Active 2020-0 Gina etal human letal 1-17 [place] assist to 08:45: [id number] leave home 00 Safety structural Safety Active 2019- Laura barriers 1-17 [place] present 13:50: [id number] 00 Bed mobility/tr PT/OT: Bed Active 2020- Laura Mobility/Tr ansfer Mobility/T 1-17 [place] ansfer device ransfer 13:50: [id number] present 00 Bed knowledge/s PT/OT: Bed Active 2020- Laura Mobility/Tr kill Mobility/T 1-17 [place] ansfer deficit: pt ransfer 13:50: [id number] 00 Balance/End balance/helper coordinator PT/OT: Active 2019- Laura urance rdination Balance/En 1-17 [place] deficit durance 13:50: [id number] 00 Balance/End knowledge/s PT/OT: Active 2019- Laura urance kill Balance/En 1-17 [place] deficit: pt durance 13:50: [id number] 00 Gait/Locomo gait PT/OT: Active 2019- Laura tion assistive Gait/Locom 1-17 [place] problems device otion 13:50: [id number] present 00 Gait/Locomo gait PT/OT: Active 2019- Laura tion deficit Gait/Locom 1-17 [place] problems otion 13:50: [id number] Gait/Locomo knowledge/s PT/OT: Active 2019- Laura tion kill Gait/Locom 1-17 [place] problems deficit: pt otion 13:50: [id number] 00 Respiratory ventilator Respirator Active 2019- Ewelina treatments y 2-03 [place] in home 14:30: [id number] 00 Medication oral med Meds Active 2019- Ewelina assistance 2-03 [place] required 14:30: [id number] 00 Bed transfer PT/OT: Bed Active 2019- Juan F Mobility/Tr deficit: Mobility/T 2-03 peewee Mcconnell sit/stand ransfer 15:15: PT 00 [id number] Bed transfer PT/OT: Bed Active 2020- Juan F Mobility/Tr deficit: Mobility/T 2-03 peewee Mcconnell standing ransfer 15:15: PT pivot 00 [id number] Bed transfer PT/OT: Bed Active 20200 Juan [...]
--- OUTSIDE RECORDS SUMMARY | 2019-11-17 12:56 | XMS REPORT | Continuity of Care Document ---
:1945 External Reference #:[id number] Author Name Anaya Nicole M.D. (transmitted by agent of provider Tanna Kennedy) Address [address] [place] [address] Care Team Providers Name Role Phone Ness Dennis M.D. - Family Care Team Information Mental Health Orderly Medicine Problems Active Problems Provider Date Impending [...] Former Cigarette Smoker Unknown Smoking Status Reviewed: 07/11/19 Former Cigarette Smoker ETOH Use Denies alcohol [...] S. 08/13/2012 0.5mg Tablets portia Parker M.D. Proctocream as directed Unknown Metoprolol Tartrate 1 and 1/2 tablet Unknown 50mg bid Tablets Eylea one injection Unknown 2mg/0.05ML Solution both eyes every 4-6 months Fluoxetine HCL 2 tablet po daily Malorie Chavez 10mg MD Vivian Tablets Mucinex 1 tablet po twice Unknown 1200mg daily [facility] Vitamin 2 cap po daily Unknown Gas-X as needed Unknown Warfarin Sodium 1 by mouth daily Unknown 5mg or as directed Tablets Warfarin Sodium 1/2 tablet daily Unknown 1mg by mouth Tablets Leonor Allergy 1 by mouth every Unknown 60mg day as needed Tablets Vitamin D3 1 by mouth every Unknown 2000Unit day Capsules Tylenol Extra Strength 2 by mouth three 100tabs Unknown times daily 500mg Tablets Vitamin B12 daily Unknown [...] Available Vital Signs Date Vital Result Comment 07/11/2019 1:42pm Height 61.5 inches 5'1.50" Weight 220.00 lb With Shoes/Approx Deferred D/T Mobility BP Systolic Sitting 110 mmHg Rue Large Cuff BP Diastolic Sitting 60 mmHg Rue Large Cuff Respiratory Rate 16 /min BMI (Body Mass Index) 40.9 kg/m2 Ejection Fraction >65% ECHO.06/29/15 02/18/2019 1:28pm Height 61.5 inches 5'1.50" Weight 230.00 lb with shoes Heart Rate 62 /min BP Systolic Sitting 120 mmHg Lue lg cuff BP Diastolic Sitting 88 mmHg Lue lg cuff BP Systolic Standing 114 mmHg Lue lg cuff BP Diastolic Standing 80 mmHg Lue lg cuff Respiratory Rate 15 /min BMI (Body Mass Index) 42.7 kg/m2 Ejection Fraction >65% date 06/29/15 ECHO Results Test Acquired Date Facility Test Result H/L Range Note Inr/Protime 09/22/2019 [facility] Inr 4.08 High 0.82-1.09 1 101 DATES [place] [id number] [phone] 1 Standard intensity warfarin therapeutic range: 2.0-3.0 High intensity warfarin therapeutic range: 2.5-3.5 Procedures Date Code Description Status 09/22/2019 52884 ECHO Transthorasic Realtime 2D W Doppler & Color Flow Completed Hosp 08/30/2019 26889 Interrogation Device Eval Remote Up To 30 Days Completed Analysis,Rev,RP 08/30/2019 11142 Interrogation Device Eval Remote Up To 30 Days Completed Analysis,Rev,RP 08/30/2019 67876 Icd Eval Sing,Dual,Multi Lead Remote Recpt Transm Tech Completed Rev Tech S 08/30/2019 21958 Icd Eval Sing,Dual,Multi Lead Remote Recpt Transm Tech Completed Rev Tech S 08/30/2019 21080 Icd Check Remote Up To 90 Days Single,Dual,Multiple Completed Lead 08/30/2019 89878 Icd Check Remote Up To 90 Days Single,Dual,Multiple Completed Lead 07/11/2019 76362 Icd Eval With Inerative Adjustmt Dual Lead System Completed 07/11/2019 51450 Icd Eval With Inerative Adjustmt Dual Lead System Completed 07/11/2019 58011 Interrogation Implant Cardiovasc Monitor System Incl Completed Analysis Int 07/11/2019 39257 Interrogation Implant Cardiovasc Monitor System Incl Completed Analysis Int 05/23/2019 86224 Interrogation Device Eval Remote Up To 30 Days Completed Analysis,Rev,RP 05/23/2019 37231 Interrogation Device Eval Remote Up To [address] Completed Analysis,Rev,RP 05/23/2019 67306 Icd Eval Sing,Dual,Multi Lead Remote Recpt Transm Tech Completed Rev Tech S 05/23/2019 20757 Icd Eval Sing,Dual,Multi Lead Remote Recpt Transm Tech Completed Rev Tech S 05/23/2019 74498 Icd Check Remote Up To 90 Days Single,Dual,Multiple Completed Lead 05/23/2019 50785 Icd Check Remote Up To 90 Days Single,Dual,Multiple Completed Lead 01/04/2015 [id number] Mammogram Completed 10/24/2010 489080108 Bone Mineral Density Test Completed Medical Devices Description No Information Available Encounters Type Date Location Provider Dx Diagnosis Office Visit 10/14/2019 [facility] J96.20 Acute and chr resp 12:49p Assoc,pc Shortle, DRYER FEEDER failure, unsp w Hospitalists hypoxia or hypercapnia I11.0 Hypertensive heart disease with heart failure I50.9 Heart failure, unspecified Office Visit 10/13/2019 [facility] J96.20 Acute and chr 12:48p Assoc,pc Shortle, DRYER FEEDER resp failure, Hospitalists unsp w hypoxia or [...] Kayla Nevarez J96.21 Acute and chronic Doto, DRYER FEEDER respiratory failure with hypoxia J96.22 Acute and chronic respiratory failure with hypercapnia I50.33 Acute on chronic diastolic (congestive) heart failure R79.89 Other specified abnormal findings of blood chemistry R79.1 Abnormal coagulation profile Office Visit 09/27/2019 [facility] Dorian J96.22 Acute and 11:51a Assoc,levy Mancia M.D. chronic Hospitalists respiratory failure with hypercapnia R41.82 Altered mental status, unspecified Office Visit 09/26/2019 [facility] Maria A I50.31 Acute diastolic 11:50a Assoc,NISSA Parker (congestive) Hospitalists heart failure J96.22 Acute and chronic respiratory failure with hypercapnia I48.91 Unspecified atrial fibrillation J44.9 Chronic obstructive pulmonary disease, unspecified Office Visit 09/25/2019 11:50a [facility] Tatiana J96.22 Acute and chronic Assoc,levy Owens M.D. respiratory Hospitalists failure with hypercapnia I50.31 Acute diastolic (congestive) heart failure J44.9 Chronic obstructive pulmonary disease, unspecified I48.91 Unspecified atrial fibrillation Office Visit 09/24/2019 11:50a [facility] Tatiana J96.22 Acute and chronic Assoc,levy Owens M.D. respiratory Hospitalists failure with hypercapnia I50.31 Acute diastolic (congestive) heart failure J44.9 Chronic obstructive pulmonary disease, unspecified I48.91 Unspecified atrial fibrillation Office Visit 09/22/2019 11:49a [facility] Marco Antonio Brambila J96.22 Acute and chronic M.D. respiratory failure with hypercapnia I50.9 Heart failure, unspecified R79.1 Abnormal coagulation profile R41.82 Altered mental status, unspecified Office Visit 09/18/2019 10:46a [facility] Kory Gaona J96.21 Acute and chronic Assoc,levy DALY respiratory Hospitalists failure with hypoxia J96.22 Acute and chronic respiratory failure with hypercapnia J44.9 Chronic obstructive pulmonary disease, unspecified E66.01 Morbid (severe) obesity due to excess calories Office Visit 09/17/2019 3:16p [facility] Basim Tex R74.9 Abnormal serum Of Mona Yo M.D., enzyme level, FACC, FASNC unspecified J44.1 Chronic obstructive pulmonary disease w (acute) exacerbation 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 Z95.810 Presence of automatic (implantable) cardiac defibrillator I48.0 Paroxysmal atrial fibrillation I42.1 Obstructive hypertrophic cardiomyopathy I50.32 Chronic diastolic (congestive) heart failure M25.512 Pain in left shoulder Assessments Date Code Description Provider 10/14/2019 J96.20 Acute and chronic respiratory Angelia Shortle, DRYER FEEDER failure, unspecified whether with hypoxia or hypercapnia 10/14/2019 I11.0 Hypertensive heart disease with heart Angelia Shortle, DRYER FEEDER failure 10/14/2019 I50.9 Heart failure, unspecified Angelia Shortle, DRYER FEEDER 10/13/2019 J96.20 Acute and chronic respiratory Angelia Shortle, DRYER FEEDER failure, unspecified whether with hypoxia or hypercapnia 10/13/2019 I11.0 Hypertensive heart disease with heart Angelia Shortle, [employer]YER FEEDER failure 10/13/2019 I50.9 Heart failure, unspecified Angelia Shortle, DRYER FEEDER 10/12/2019 J96.22 Acute and chronic respiratory failure [...] J96.21 Acute and chronic respiratory failure Kayla Flynn NP with hypoxia 10/09/2019 J96.22 Acute and chronic respiratory failure Kayla Flynn NP with hypercapnia 10/09/2019 I50.33 Acute on chronic diastolic Kayla Flynn NP (congestive) heart failure 10/09/2019 R79.89 Other specified abnormal findings of Kaylalópez Flynn NP blood chemistry 10/09/2019 R79.1 Abnormal coagulation profile Kayla Flynn NP 09/27/2019 J96.22 Acute and chronic respiratory failure [...] I48.91 Unspecified atrial fibrillation Tatiana Owens M.D. 09/22/2019 I50.9 Heart failure, unspecified Bruce Vera, [facility] 09/22/2019 J96.22 Acute and chronic respiratory failure [...] hypercapnia 09/18/2019 J44.9 Chronic obstructive pulmonary Kory Goana MD disease, unspecified 09/18/2019 E66.01 Morbid (severe) obesity due to excess Kory Gaona MD calories 09/17/2019 R74.9 Abnormal serum enzyme level, Basim Yo M.D., [facility], unspecified FASNC 09/17/2019 J96.20 Acute and chronic respiratory Kory Gaona MD failure, unspecified whether with hypoxia or hypercapnia 09/17/2019 J44.1 Chronic obstructive pulmonary disease Basim Yo M.D., [facility], with (acute) exacerbation FASNC 09/17/2019 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 cardiac defibrillator 07/11/2019 I50.32 Chronic diastolic [...] Checks cardiac defibrillator Plan of Treatment Future Appointment(s):10/28/2019 1:00 pm - Ica Pacer Schedule at [facility]07/11/2019 - Anaya Nicole M.D.I44.2 Atrioventricular block, completeFollow up:Correct name of primary on this note.Z95.810 Presence of automatic (implantable) cardiac defibrillatorComments:Your device is working normally, no rhythm problems.Follow up:4-6 month pacer/ICD check.I48.0 Paroxysmal atrial nnlqovhbkwcsA00.1 Obstructive hypertrophic hkevgwodxgbbezF82.32 Chronic diastolic (congestive) heart failureComments: Continue meds for now, no fluid in the lungs.M25.512 Pain in left shoulderNew Therapy:Physical TherapyFollow up:See if pt can get PT at home, I will sign paperwork PRN OV with DRYER FEEDER or MD 3-4 months to re evaluate pocket and shoulder pain. Functional Status Description No Information Available Mental Status Description No Information Available Referrals Description No Information Available
--- OUTSIDE RECORDS SUMMARY | 2019-11-17 12:56 | XMS REPORT ---
:1945 Author Organization [facility] Care Team Providers Name Role Phone Unavailable Unavailable Unavailable Problems Condition Condition Condition Status Onset Resolution Last Treating Comments Name Details Category Date Date Treatment Clinician Date Acute on Acute on Diagnosis Active Ewelina chronic chronic 10-15 Diaz diastolic diastolic [id number] (congestive (congestive ) heart ) heart failure failure Acute and Acute and Diagnosis Active Ewelina chronic chronic 2 Diaz respiratory respiratory [id number] failure failure with with hypoxia hypoxia Chronic Chronic Diagnosis Active 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 [id number] disease, disease, unspecified unspecified Unspecified Unspecified Diagnosis Active Ewelina atrial atrial 09-30 Diaz fibrillatio fibrillatio [id number] n n Essential Essential Diagnosis Active Ewelina (primary) (primary) 09-30 Diaz hypertensio hypertensio [id number] n n Anemia, Anemia, Diagnosis Active Ewelina unspecified unspecified 09-30 Diaz [id number] 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, disorder, 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, recurrent, unspecified unspecified 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 [id number] n n 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 supplementa [id number] l oxygen l oxygen Presence of Presence of Diagnosis Active Ewelina cardiac cardiac Diaz pacemaker pacemaker [id number] Pain frequent Pain Mgmt Resolve 2019-10-24 Gina pain d 09-30 14:24:00 [place] 08:45: [id number] 00 Cardio pacemaker/I Cardiovasc Resolve 2019-10-24 Gina CD ular d 09-30 14:24:00 [place] 08:45: [id number] 00 Respiratory lung sounds Respirator Resolve 2019-10-24 Gina deficit y d 09-30 14:24:00 [place] 08:45: [id number] 00 Respiratory dyspnea Respirator Resolve 2019-10-31 Gina present y d 09-30 14:48:00 [place] 08:45: [id number] 00 Respiratory oxygen Respirator Resolve 2019-10-31 Gina treatments y d 09-30 14:48:00 [place] in home 08:45: [id number] 00 Endo/Leonid anti-coagul Endo/Leonid Resolve 2019-10-31 Gina ation d 09-30 14:48:00 [place] therapy 08:45: [id number] 00 Sensory impaired Sensory Resolve 2019-10-31 Gina hearing d 09-30 14:48:00 [place] 08:45: [id number] 00 Integument skin Integument Resolve 2019-10-31 Gina integrity d 09-30 14:48:00 [place] risk 08:45: [id number] 00 Nutrition nutritional Nutrition Resolve 2019-10-24 Gina restriction d 09-30 14:24:00 [place] s 08:45: [id number] 00 Elimination urinary Eliminatio Resolve 2019-10-24 Gina incontinenc n d 09-30 14:24:00 [place] e 08:45: [id number] 00 Neuro confusion Neuro/Emot Resolve 2019-10-31 Gina present ion d 09-30 14:48:00 [place] 08:45: [id number] 00 Neuro impaired Neuro/Emot Resolve 2019-10-31 Gina decision-ma ion d 09-30 14:48:00 [place] gloria 08:45: [id number] 00 Activity ADL Activity Resolve 2019-10-31 Gina assistance d 09-30 14:48:00 [place] required 08:45: [id number] 00 Activity self-care Activity Resolve 2019-10-31 Gina deficit d 09-30 14:48:00 [place] 08:45: [id number] 00 Safety cannot be Safety Resolve 2019-10-31 Gina left alone d 09-30 14:48:00 [place] 08:45: [id number] 00 Safety fall risk Safety Resolve 2019-10-31 Gina factor d 09-30 14:48:00 [place] present 08:45: [id number] 00 Safety risk for Safety Resolve 2019-10-31 Gina hospitaliza d 09-30 14:48:00 [place] tion 08:45: [id number] 00 Medication oral med Meds Resolve 2019-10-05 Gina assistance d 09-30 13:34:00 [place] required 08:45: [id number] 00 Medication knowledge/s Meds Resolve 2019-10-05 Gina kill d 09-30 13:34:00 [place] deficit: pt 08:45: [id number] 00 Musculoskel transfer Musculoske Resolve 2019-10-31 Gina etal assistance letal d 09-30 14:48:00 [place] required 08:45: [id number] 00 Musculoskel requires Musculoske Resolve 2019-10-31 Gina etal human letal d 09-30 14:48:00 [place] assist to 08:45: [id number] leave home 00 Safety structural Safety Resolve 2019-10-31 Laura barriers d 09-30 14:48:00 [place] present 13:50: [id number] 00 Bed mobility/tr PT/OT: Bed Resolve 2019-10-31 Laura Mobility/Tr ansfer Mobility/T d 09-30 14:48:00 [place] ansfer device ransfer 13:50: [id number] present 00 Bed knowledge/s PT/OT: Bed Resolve 2019-10-31 Laura Mobility/Tr kill Mobility/T d 09-30 14:48:00 [place] ansfer deficit: pt ransfer 13:50: [id number] 00 Balance/End balance/edi coordinator PT/OT: Resolve 2019-10-31 Laura urance rdination Balance/En d 09-30 14:48:00 [place] deficit durance 13:50: [id number] 00 Balance/End knowledge/s PT/OT: Resolve 2019-10-31 Laura urance kill Balance/En d 09-30 14:48:00 [place] deficit: pt durance 13:50: [id number] 00 Gait/Locomo gait PT/OT: Resolve 2019-10-31 Laura tion assistive Gait/Locom d 1-17 14:48:00 [place] problems device otion 13:50: [id number] present 00 Gait/Locomo gait PT/OT: Resolve 2019-10-31 Laura tion deficit Gait/Locom d -17 14:48:00 [place] problems otion 13:50: [id number] 00 Gait/Locomo knowledge/s PT/OT: Resolve 2019-10-31 Laura tion kill Gait/Locom d 09-30 14:48:00 [place] problems deficit: pt otion 13:50: [id number] 00 Respiratory ventilator Respirator Resolve 2019-10-24 Ewelina treatments y d 2-03 14:24:00 [place] in home 14:30: [id number] 00 Medication oral med Meds Resolve 2019-10-24 Ewelina assistance d 2-03 14:24:00 [place] required 14:30: [id number] 00 Bed transfer PT/OT: Bed Resolve 2019-10-31 Juan F Mobility/Tr deficit: Mobility/T d 2-03 14:48:00 peewee Mcconnell sit/stand ransfer 15:15: PT 00 [id number] Bed transfer PT/OT: Bed Resolve 2019-10-31 Juan F Mobility/Tr deficit: Mobility/T d 2-03 14:48:00 peewee Mcconnell standing ransfer 15:15: PT pivot 00 [id number] Bed transfer PT/OT: Bed Resolve 2019-10-31 Juan F Mobility/Tr deficit: Mobility/T d 2-03 14:48:00 peewee Mcconnell toilet/comm ransfer 15:15: PT ode 00 [id number] Bed bed PT/OT: Bed Resolve 2019-10-31 Juan F Mobility/Tr mobility Mobility/T d 2-03 14:48:00 peewee Mcconnell deficit ransfer 15:15: PT 00 [id number] Allergies, Adverse Reactions, Alerts Allergy Name Allergy [...] tablet tablet cholecalcif cholecalcif 0 2020- Yes Krais Unknown Unknown gladis gladis 09-30 Monico DALY [...]
--- OUTSIDE RECORDS SUMMARY | 2019-11-17 12:57 | XMS REPORT | Continuity of Care Document ---
:1945 External Reference #:[id number] Author Name Ness Dennis MD Address [address] [place] [address] Problems Active Problems Provider Date Chronic kidney [...] B 12 2 [facility] 500mcg every day as MD Tablets directed Acetaminophen Extra 2 tab by mouth 90tabs [facility], 09/27/2019 Strength three times a day 500mg Tablets as needed Mucinex 2 tab by mouth 120tabs [facility], 09/27/2019 600mg Tablets twice a day as MD ER 12HR directed Preservision Areds 2 2 cap by mouth 120caps [facility], 09/27/2019 + Multi Vitamin every day as MD Areds 2 directed Capsules Colace 2 tabs by mouth 180caps [facility], 09/27/2019 100mg Capsules every day as MD needed Gas-X 1 tab by mouth 360units [facility], 09/27/2019 80mg Chewtabs every 6 hours as MD needed Miralax 17 gm by mouth Unknown 09/27/2019 3350NF Powder every day as needed Tums 1 tab by mouth 360units [facility], 09/27/2019 500mg Chewtabs twice a day as [...] directed Warfarin Sodium oral; take one 90tabs [facility], 07/14/2018 5mg tablet by mouth [...] Tablets directed [facility] 2mg/0.05ML every 4 - 6m as Solution directed History Medications Simethicone 1 tab by mouth 90units Unknown 09/27/2019 - 80mg every 6 hours as 09/29/2019 Chewtabs needed Albuterol Sulfate HFA 2 puffs inhalation [facility] - as needed 09/29/2019 108(90Base) mcg/Act Aerosol Immunizations CPT Code Status Date Vaccine Lot # [id number] Given 06/23/2019 Flu High Dose [id number] 56503 Given 07/23/2018 Influenza Virus Vaccine, Quadrivalent, Split, Im Use 0.25ML 81845 Given 07/23/2018 Influenza Virus Vaccine, Quadrivalent, Split, Im Use 0.25ML 98515 Given 07/23/2018 Influenza Virus Vaccine, Quadrivalent, Split, Im Use 0.25ML 90560 Given 07/23/2018 Flu < 65 years 69903 Given 07/23/2018 Influenza Virus Vaccine, Quadrivalent, Split, Preservative Free 84865 Given 07/23/2018 Flumist 34168 Given 07/23/2018 Flu High Dose 23423 Given 07/23/2018 Influenza Virus Vaccine, Split, Preserv Free, Intradermal Use 71419 Given 07/24/2017 Influenza Virus Vaccine, Split, Preserv Free, Intradermal Use 70987 Given 07/24/2017 Flu High Dose 07194 Given 07/24/2017 Flumist 95455 Given 07/24/2017 Influenza Virus Vaccine, Quadrivalent, Split, Preservative Free 39336 Given 07/24/2017 Flu < 65 years 85668 Given 07/24/2017 Influenza Virus Vaccine, Quadrivalent, Split, Im Use 0.25ML 71843 Given 07/24/2017 Influenza Virus Vaccine, Quadrivalent, Split, Im Use 0.25ML 75252 Given 07/24/2017 Influenza Virus Vaccine, Quadrivalent, Split, Im Use 0.25ML 19765 Given 10/24/2014 Prevnar 13 43286 Given 06/29/2014 Influenza Virus Vaccine, Quadrivalent, Split, Im Use 0.25ML 03926 Given 06/29/2014 Influenza Virus Vaccine, Quadrivalent, Split, Im Use 0.25ML 33289 Given 06/29/2014 Influenza Virus Vaccine, Quadrivalent, Split, Im Use 0.25ML 61025 Given 06/29/2014 Flu < 65 years 98970 Given 06/29/2014 Influenza Virus Vaccine, Quadrivalent, Split, Preservative Free 15732 Given 06/29/2014 Flumist 57060 Given 06/29/2014 Flu High Dose 74514 Given 07/04/2013 Flu High Dose 13957 Given 07/04/2013 Flumist 22400 Given 07/04/2013 Influenza Virus Vaccine, Quadrivalent, Split, Preservative Free 21209 Given 07/04/2013 Flu < 65 years 43043 Given 07/04/2013 Influenza Virus Vaccine, Quadrivalent, Split, Im Use 0.25ML 53065 Given 07/04/2013 Influenza Virus Vaccine, Quadrivalent, Split, Im Use 0.25ML 41993 Given 07/04/2013 Influenza Virus Vaccine, Quadrivalent, Split, Im Use 0.25ML 54539 Given 05/05/2012 Influenza Virus Vaccine, Quadrivalent, Split, Im Use 0.25ML 42383 Given 05/05/2012 Influenza Virus Vaccine, Quadrivalent, Split, Im Use 0.25ML 06446 Given 05/05/2012 Influenza Virus Vaccine, Quadrivalent, Split, Im Use 0.25ML 96799 Given 05/05/2012 Flu < 65 years 43807 Given 05/05/2012 Influenza Virus Vaccine, Quadrivalent, Split, Preservative Free 33801 Given 05/05/2012 Flumist 16168 Given 05/05/2012 Flu High Dose 32730 Given 10/24/2011 Tdap - Boostrix/Adacel 84686 Given 06/28/2011 Influenza Virus Vaccine, Quadrivalent, Split, Im Use 0.25ML 91628 Given 06/28/2011 Influenza Virus Vaccine, Quadrivalent, Split, Im Use 0.25ML 92041 Given 06/28/2011 Influenza Virus Vaccine, Quadrivalent, Split, Im Use 0.25ML 91279 Given 06/28/2011 Flu < 65 years 25333 Given 06/28/2011 Influenza Virus Vaccine, Quadrivalent, Split, Preservative Free 42957 Given 06/28/2011 Flumist 68489 Given 06/28/2011 Flu High Dose 58555 Given 05/15/2010 Pneumovax - for >=2years - PPSV23 24175 Given 08/22/2009 Influenza Virus Vaccine, Quadrivalent, Split, Im Use 0.25ML 56478 Given 06/14/2008 Influenza Virus Vaccine, Quadrivalent, Split, Im Use 0.25ML 80084 Given 07/22/2006 Influenza Virus Vaccine, Quadrivalent, Split, [...] Result H/L Range Note Arterial Blood 10/09/2019 [facility] PH Arterial 7.23 Low 7.35 -7.[address] [place] [address] [phone] Pco2 Arterial 88 mmHg Critical high 35-45 1 Po2 Arterial 94 mmHg Normal 80-100 O2 Saturation Arterial 97.2 % Normal 94.0-98.0 Base Excess Arterial 6.1 mmol/L High -2.0-2.0 2 Hco3 Arterial 29.6 mmol/L Normal 19-31 Laboratory test 09/29/2019 [facility] CFM INR 1.8 finding ( )- - Basic Metabolic 09/29/2019 [facility] Sodium 139 mmol/L Normal 135-[address] [place] [address] [phone] Potassium 4.9 mmol/L Normal 3.5-5.0 Chloride 100 mmol/L Low 101-111 Co2 Carbon Dioxide 32 mmol/L Normal 22-32 Anion Gap 7 mmol/L Normal 2-11 Glucose 131 mg/dL High 70-100 Blood Urea Nitrogen 16 mg/dL Normal 6-24 Creatinine 0.96 mg/dL High 0.51-0.95 BUN/Creatinine Ratio 16.7 Normal 8-20 Calcium 9.5 mg/dL Normal 8.6-10.3 Egfr Non- 56.8 >60 Egfr 68.7 >60 4 Laboratory test 09/22/2019 [facility] B-Type > 1300 High <= [address] Natriuretic pg/[place] [address] Peptide BNP [phone] Legionella Urine Antigen SEE RESULT BELOW 5 CBC Auto 09/22/2019 [facility] White Blood 15.6 10^3/uL High 3.5-10.[address] [place] [address] [phone] Red Blood Count 3.34 10^6/uL Low 3.70-4.87 [...] Blood Cells % 0.4 Laboratory test 09/22/2019 [facility] Magnesium 2.0 mg/dL Normal 1.9-2.[address] [place] [address] [phone] Troponin-I (TnI) 0.10 ng/mL Critical high <0.03 6 Acetaminophen < 15 g/mL 7 Alcohol < 10 mg/dL Normal <10 Salicylate < 2.50 mg/dL <30 TSH (Thyroid Stim Horm) 1.76 mcIU/mL Normal 0.34-5.60 Comp Metabolic Panel 09/22/2019 [facility] Sodium 130 mmol/L Low 135-145 [address] [place] [address] [phone] Potassium 4.5 mmol/L Normal 3.5-5.0 Chloride 87 [...] Egfr 91.4 >60 8 Urine Drug 09/22/2019 [facility] Urine None Detected None Detect SCR ED & [address] [facility] [place] [address] Screen [phone] Urine Barbiturates Screen None Detected None Detect Urine Benzodiazepine Screen None Detected None Detect Urine Cannabinoids Screen None Detected None Detect Urine Cocaine Screen None Detected None Detect Urine Opiates Screen None Detected None Detect Urine Phencyclidine Screen None Detected None Detect 9 Laboratory test 09/22/2019 [facility] Ammonia TNP mcmol/L 16- 53 10 finding [address] [place] [address] [phone] Lactic Acid 0.5 mmol/L Normal 0.5-2.0 11 Urinalysis Profile 09/22/2019 [facility] Urine Color Yuliya [address] [place] [address] [phone] Urine Appearance Clear Urine Specific Daniel 1.020 Normal 1.010-1.030 Urine pH 6.0 Normal 5-9 Urine Urobilinogen Negative Negative Urine Ketones Negative Negative Urine Protein Negative Negative Urine Leukocytes Negative Negative Urine Blood Negative Negative * * Abnormal Negative 12 Urine Nitrite Negative Negative Urine Bilirubin Negative Negative Urine Glucose Negative Negative Laboratory test 09/22/2019 [facility] Point of 151 mg/dL High 70-100 13 finding [address] [facility] Glucose [place], [place] [address] [phone] Venous Blood 09/22/2019 [facility] Venous Blood 7.23 Low 7.32- 7.43 Gas [address] [facility] pH [place], [place] [id number] [phone] Venous Pco2 94 mmHg High 41-51 Venous Po2 54.0 mmHg High 35-45 Venous O2 Saturation 85.6 % High 70-80 Venous Blood Base Excess 8.1 mmol/L High 0.0-4.0 14 Venous Bicarbonate Hco3 30.9 mmol/L High 24-28 Laboratory test 09/22/2019 [facility] Ammonia 65 mcmol/L High 16-53 finding [address] [place], [place] [id number] [phone] Arterial Blood Gas 09/22/2019 [facility] Fio2 100 [address] [place] [address] [phone] Resp Rate 20 Ipap 18 Epap 7 PH Arterial 7.20 Low 7.35-7.45 Pco2 Arterial 103 mmHg Critical high 35-45 15 Po2 Arterial 345 mmHg High 80-100 O2 Saturation Arterial 98.2 % High 94.0-98.0 Base Excess Arterial 8.2 mmol/L High -2.0-2.0 16 Hco3 Arterial 31.3 mmol/L High 19-31 INR/Protime 09/22/2019 [facility] INR 4.08 High 0.82-1.09 17 [address] [place] [address] [phone] INR/Protime 09/16/2019 [facility] INR 3.09 High 0.82-1.[address] [place] [address] [phone] Comp Metabolic 09/16/2019 [facility] Sodium 141 mmol/L Normal 135-145 Panel [address] [place] [address] [phone] Potassium 4.4 mmol/L Normal 3.5-5.0 Chloride 91 [...] mmol/L Critical high 22-32 20 Laboratory 09/16/2019 [facility] TSH (Thyroid 0.85 Normal 0.34 -5.[address] Horm) mcIU/[place] [address] [phone] CBC No Diff 09/16/2019 [facility] White Blood 12.9 High 3.5- 10.[address] Count 10^3/[place] [address] [phone] Red Blood Count 2.94 10^6/uL Low 3.70-4.87 Hemoglobin 9.3 g/dL Low 12.0-16.0 Hematocrit 29 % Low 35-47 Mean Corpuscular Volume 99 fL High 80-97 Mean Corpuscular Hemoglobin 32 pg High 27-31 Mean Corpuscular HGB Conc 32 g/dL Normal 31-36 Red Cell Distribution Width 14 % Normal 10-15 Platelet Count 187 10^3/uL Normal 150-450 Mean Platelet Volume 10.0 fL Normal 7.4-10.4 Laboratory 09/16/2019 [facility] Troponin-I 0.08 Critical < 0.03 21 test finding [address] (TnI) ng/[place] [address] [phone] Basic 09/16/2019 [facility] Sodium 139 Normal 135-[address] mmol/[place] [address] [phone] Potassium 4.5 mmol/L Normal 3.5-5.0 Chloride 88 mmol/L Low 101-111 Glucose 145 mg/dL High 70-100 Blood Urea Nitrogen 21 mg/dL Normal 6-24 Creatinine 0.60 mg/dL Normal 0.51-0.95 BUN/Creatinine Ratio 35.0 High 8-20 Calcium 9.6 mg/dL Normal 8.6-10.3 Egfr Non- 97.7 >60 Egfr 118.2 >60 22 Co2 Carbon Dioxide 48 mmol/L Critical high 22-32 23 Laboratory test 09/16/2019 [facility] Lactic Acid 1.0 mmol/L Normal 0.5-2.0 [address] [place] [address] [phone] B-Type Natriuretic Peptide BNP 1235 pg/mL High <=100 CBC Auto 09/16/2019 [facility] White Blood 11.4 10^3/uL High 3.5-10.[address] [place] [address] [phone] Red Blood Count 3.18 10^6/uL Low 3.70-4.87 [...] Cells % 0.0 Arterial Blood Gas 09/16/2019 [facility] O2 Device N/C [address] [place] [address] [phone] PH Arterial 7.42 Normal 7.35-7.45 Pco2 Arterial 85 mmHg Critical high 35-45 25 Po2 Arterial 77 mmHg Low 80-100 O2 Saturation Arterial 96.0 % Normal 94.0-98.0 Base Excess Arterial 25.0 mmol/L High -2.0-2.0 26 Hco3 Arterial 44.4 mmol/L Critical high 19-31 27 Laboratory test 09/16/2019 [facility] Partial 47.8 High 26.0- 38.[address] [place] [address] PTT [phone] Troponin-I (TnI) 0.09 ng/mL Critical high <0.03 28 INR/Protime 09/16/2019 [facility] INR 3.12 High 0.82-1.[address] [place] [address] [phone] Xray 07/20/2019 [facility] Chest 2 Views <pendin [address]> [place] [address] [phone] Laboratory test 07/18/2019 [facility] CFM INR 2.3 finding ( )- - Laboratory test 06/23/2019 [facility] CFM INR 3.8 finding ( )- - Laboratory test 06/23/2019 [facility] Hemoglobin A1c 5.9 % High 4.0-5.[address] (Glyco HGB) [place] [address] [phone] Comp Metabolic 06/23/2019 [facility] Sodium 138 Normal 135- [address] mmol/[place] [address] [phone] Potassium 4.7 mmol/L Normal 3.5-5.0 Chloride 95 [...] Egfr 78.0 >60 31 Laboratory test 06/15/2019 [facility] CFM INR 2.85 finding ( )- - Comp Metabolic Panel 06/14/2019 [facility] Sodium 140 mmol/L Normal 135-[address] [place] [address] [phone] Chloride 94 mmol/L Low 101-111 Co2 Carbon [...] 9 mmol/L Normal 2-11 Laboratory test 06/14/2019 [facility] Vitamin B12 394 pg/mL Normal 180-914 [address] [place] [address] [phone] Vitamin D Total 25(Oh) 38.6 ng/mL Normal 20-50 34 Protime W/ INR 06/14/2019 N2N/CCD [employer] International Normalized Ratio 2.85 1 Verbal to [id number] by [id number] at 1317 on 10/09/19. Results read back accurately. 2 Reference ranges based on room air. 3 [id number] 4 Because ethnic data is not always [...] Attend Dr: Marco Antonio Brambila MD Acct: [id number] Unit: [id number] AGE: 74 Location: ICU [id number] Re09/22/19 SEX: F Status: ADM IN SPEC: [id number] TATA: 09/22/[address]: Jona AZAR REQ: [id number] RECD: 09/22/19 STATUS: COMP KENDY LICONA: [facility] Monico Dyson MD _ SOURCE: [...] . END OF REPORT DEPARTMENT OF PATHOLOGY, [address] [place] [address] Zeke Richmond M.D. Director [facility] # [id number] Result TnIDx:0.10 Called to [id number] at: 06:48:08 by:[id number] Read back by: MATTY Troponin-I testing on Plasma Separator Tubes (PST) has a known false positive rate of 0.20-0.40%. All positive troponins reflex immediately to secondary confirmatory testing. Using the VIS[employer] DxI 800 Access Immunoassay systems, the 99th [...] Specimen hemolyzed. Result may not be valid. [facility] Severe Sepsis and Septic Shock Management Bundle Measure requires all lactic acids initially measuring >2.0 mmol/L be repeated. 12 *Ascorbic acid is present which may interfere with detection of blood. 13 Product Expert: [id number] 14 Reference ranges based on room air. 15 Verbal to [id number] by [id number] at 0815 on 09/22/19. Results read back [...] CO2:49 Called to TYLER MARTI at: 13:33:08 by:[id number] Read back by:TYLER SANCHEZ CFM 21 Result TnIDx:0.08 Called to [id number] at: 18:49:49 by:[id number] Read back by: [id number] Troponin-I testing on Plasma Separator Tubes (PST) has a known false positive rate of 0.20-0.40%. All positive troponins reflex immediately to secondary confirmatory testing. Using the VIS[employer] DxI 800 Access Immunoassay systems, the 99th [...] dialysis) 23 Critical Result CO2:48 Called to [id number] at: 19:13:28 by:[id number] Read back by:[id number] 24 [facility] Severe Sepsis and Septic Shock Management Bundle Measure requires all lactic acids initially measuring >2.0 mmol/L be repeated. 25 Verbal to [id number] by [id number] at 2048 on 09/16/19. Results read back accurately. 26 Reference ranges based on room air. 27 Verbal to [id number] by [email or web address] at 2048 on 09/16/19. Results read back accurately. 28 Result TnIDx:0.09 Called to [id number] at: 23:20:01 by:[id number] Read back by: [id number] Troponin-I testing on Plasma Separator Tubes (PST) has a known false positive rate of 0.20-0.40%. All positive troponins reflex immediately to secondary confirmatory testing. Using the VISup DxI 800 Access Immunoassay systems, the 99th percentile upper reference limit was demonstrated to be < 0.03 ng/mL. 29 Standard intensity warfarin therapeutic range: 2.0-3.0 High intensity warfarin therapeutic range: 2.5-3.5 30 Therapeutic target for the treatment of diabetes mellitus patients is <7% HBA1C, and in selective patients <6.0%. Please refer to [place] [employer] diabetic care guidelines for further [...] possible) Procedures Date Code Description Status 07/12/2019 84286 Anticoagulant MGMT For Patient Taking Warfarin, Inc Review Completed & Intr 06/15/2019 14830 Anticoagulant MGMT For Patient Taking Warfarin, Inc Review Completed & Intr Medical Devices Description No Information Available Encounters Type Date Location Provider Dx Diagnosis Office Visit 09/29/2019 [facility] Benjamín Dennis MD E87.79 Other fluid overload 11:15a I48.91 Unspecified atrial fibrillation M25.512 Pain in left shoulder J96.92 Respiratory failure, unspecified with hypercapnia Office Visit 07/18/2019 3:45p [facility] Benjamín Dennis, T82.897D Oth complication of cardiac prosth dev/paul, subs I48.91 Unspecified atrial fibrillation Office Visit 06/23/2019 2:15p [facility] BRIAN [place] R73.9 Hyperglycemia, unspecified E87.5 Hyperkalemia [...] Dennis MD 06/23/2019 R73.9 Hyperglycemia, unspecified Samantha Bhagta [facility] 06/23/2019 E87.5 Hyperkalemia Samantha Bhagat [facility] 06/23/2019 I48.91 Unspecified atrial fibrillation Samantha Bhagat [facility] 06/23/2019 Z23 Encounter for immunization BRIAN Gabriel Plan of Treatment Future Appointment(s):10/20/2019 10:30 am - Ness Dennis MD at [facility]2019 - Ness Dennis MDE87.79 Other fluid jypqyuyaN55.91 Unspecified atrial ojgcilevpogbZ80.512 Pain in left shoulderReferral:[facility],J96.92 Respiratory failure, unspecified with hypercapniaReferral:Roberta Winkler, Pulmonary DiseasesAllNew Medication: - Functional Status Description No Information Available Mental Status Description No Information Available Referrals Refer to Reason for Referral Status Appt Date Roberta Winkler Patient with hospitalization for respiratory Sent failure with hypercapnea, recommendation of sleep evaluation as an outpatient [address] [place] [address] [phone] [facility] orthopedics Left shoulder pain and limited range of motion Sent
--- OUTSIDE RECORDS SUMMARY | 2019-11-17 12:57 | XMS REPORT | Continuity of Care Document ---
:1945 External Reference #:[id number] Author Name Ness Dennis MD Address [address] [place] [address] Problems Active Problems Provider Date Chronic kidney [...] 12 2 tab by mouth 120[facility], 09/27/2019 500mcg every day as MD Tablets directed Acetaminophen Extra 2 tab by mouth 90tabs [facility], 09/27/2019 Strength three times a day 500mg Tablets as needed Mucinex 2 tab by mouth 120tabs [facility], 09/27/2019 600mg Tablets twice a day as MD ER 12HR directed Preservision Areds 2 2 cap by mouth 120caps [facility], 09/27/2019 + Multi Vitamin every day as MD Areds 2 directed Capsules Colace 2 tabs by mouth 180caps [facility], 09/27/2019 100mg Capsules every day as MD needed Gas-X 1 tab by mouth 360units [facility], 09/27/2019 80mg Chewtabs every 6 hours as MD needed Miralax 17 gm by mouth Unknown 09/27/2019 3350NF Powder every day as needed Tums 1 tab by mouth 360units [facility], 09/27/2019 500mg Chewtabs twice a day [...] Warfarin Sodium oral; take one 90tabs [facility], 07/14/2018 5mg tablet by mouth Tablets [...] directed Eylea 2 mg injection 2mg [facility], 09/27/1999 2mg/0.05ML every 4 - 6m as Solution directed History Medications Simethicone 1 tab by mouth 90units Unknown 09/27/2019 - 80mg every 6 hours as 09/29/2019 Chewtabs needed Albuterol Sulfate HFA 2 puffs inhalation 8.500gm [facility] - as needed 09/29/2019 108(90Base) mcg/Act Aerosol Immunizations CPT Code Status Date Vaccine Lot # [id number] Given 06/23/2019 Flu High Dose [id number] 37760 Given 07/23/2018 Influenza Virus Vaccine, Quadrivalent, Split, Im Use 0.25ML 36133 Given 07/23/2018 Influenza Virus Vaccine, Quadrivalent, Split, Im Use 0.25ML 24526 Given 07/23/2018 Influenza Virus Vaccine, Quadrivalent, Split, Im Use 0.25ML 63298 Given 07/23/2018 Flu < 65 years 46703 Given 07/23/2018 Influenza Virus Vaccine, Quadrivalent, Split, Preservative Free 25213 Given 07/23/2018 Flumist 05983 Given 07/23/2018 Flu High Dose 62879 Given 07/23/2018 Influenza Virus Vaccine, Split, Preserv Free, Intradermal Use 50187 Given 07/24/2017 Influenza Virus Vaccine, Split, Preserv Free, Intradermal Use 64945 Given 07/24/2017 Flu High Dose 24708 Given 07/24/2017 Flumist 22024 Given 07/24/2017 Influenza Virus Vaccine, Quadrivalent, Split, Preservative Free 95234 Given 07/24/2017 Flu < 65 years 23440 Given 07/24/2017 Influenza Virus Vaccine, Quadrivalent, Split, Im Use 0.25ML 26177 Given 07/24/2017 Influenza Virus Vaccine, Quadrivalent, Split, Im Use 0.25ML 58919 Given 07/24/2017 Influenza Virus Vaccine, Quadrivalent, Split, Im Use 0.25ML 77019 Given 10/24/2014 Prevnar 13 37322 Given 06/29/2014 Influenza Virus Vaccine, Quadrivalent, Split, Im Use 0.25ML 67011 Given 06/29/2014 Influenza Virus Vaccine, Quadrivalent, Split, Im Use 0.25ML 68589 Given 06/29/2014 Influenza Virus Vaccine, Quadrivalent, Split, Im Use 0.25ML 71224 Given 06/29/2014 Flu < 65 years 84850 Given 06/29/2014 Influenza Virus Vaccine, Quadrivalent, Split, Preservative Free 69586 Given 06/29/2014 Flumist 19156 Given 06/29/2014 Flu High Dose 99355 Given 07/04/2013 Flu High Dose 77760 Given 07/04/2013 Flumist 02489 Given 07/04/2013 Influenza Virus Vaccine, Quadrivalent, Split, Preservative Free 84915 Given 07/04/2013 Flu < 65 years 46835 Given 07/04/2013 Influenza Virus Vaccine, Quadrivalent, Split, Im Use 0.25ML 11576 Given 07/04/2013 Influenza Virus Vaccine, Quadrivalent, Split, Im Use 0.25ML 32524 Given 07/04/2013 Influenza Virus Vaccine, Quadrivalent, Split, Im Use 0.25ML 88164 Given 05/05/2012 Influenza Virus Vaccine, Quadrivalent, Split, Im Use 0.25ML 06541 Given 05/05/2012 Influenza Virus Vaccine, Quadrivalent, Split, Im Use 0.25ML 93313 Given 05/05/2012 Influenza Virus Vaccine, Quadrivalent, Split, Im Use 0.25ML 65481 Given 05/05/2012 Flu < 65 years 27813 Given 05/05/2012 Influenza Virus Vaccine, Quadrivalent, Split, Preservative Free 68525 Given 05/05/2012 Flumist 42782 Given 05/05/2012 Flu High Dose 49979 Given 10/24/2011 Tdap - Boostrix/Adacel 98315 Given 06/28/2011 Influenza Virus Vaccine, Quadrivalent, Split, Im Use 0.25ML 46909 Given 06/28/2011 Influenza Virus Vaccine, Quadrivalent, Split, Im Use 0.25ML 17821 Given 06/28/2011 Influenza Virus Vaccine, Quadrivalent, Split, Im Use 0.25ML 18644 Given 06/28/2011 Flu < 65 years 06632 Given 06/28/2011 Influenza Virus Vaccine, Quadrivalent, Split, Preservative Free 39236 Given 06/28/2011 Flumist 26322 Given 06/28/2011 Flu High Dose 50783 Given 05/15/2010 Pneumovax - for >=2years - PPSV23 39786 Given 08/22/2009 Influenza Virus Vaccine, Quadrivalent, Split, Im Use 0.25ML 84968 Given 06/14/2008 Influenza Virus Vaccine, Quadrivalent, Split, Im Use 0.25ML 79565 Given 07/22/2006 Influenza Virus Vaccine, Quadrivalent, Split, [...] Result H/L Range Note Arterial Blood 10/09/2019 [facility] PH Arterial 7.23 Low 7.35 -7.[address] [place] [address] [phone] Pco2 Arterial 88 mmHg Critical high 35-45 1 Po2 Arterial 94 mmHg Normal 80-100 O2 Saturation Arterial 97.2 % Normal 94.0-98.0 Base Excess Arterial 6.1 mmol/L High -2.0-2.0 2 Hco3 Arterial 29.6 mmol/L Normal 19-31 Laboratory test 09/29/2019 [facility] CFM INR 1.8 finding ( )- - Basic Metabolic 09/29/2019 [facility] Sodium 139 mmol/L Normal 135-[address] [place] [address] [phone] Potassium 4.9 mmol/L Normal 3.5-5.0 Chloride 100 mmol/L Low 101-111 Co2 Carbon Dioxide 32 mmol/L Normal 22-32 Anion Gap 7 mmol/L Normal 2-11 Glucose 131 mg/dL High 70-100 Blood Urea Nitrogen 16 mg/dL Normal 6-24 Creatinine 0.96 mg/dL High 0.51-0.95 BUN/Creatinine Ratio 16.7 Normal 8-20 Calcium 9.5 mg/dL Normal 8.6-10.3 Egfr Non- 56.8 >60 Egfr 68.7 >60 4 Laboratory test 09/22/2019 [facility] B-Type > 1300 High <= [address] Natriuretic pg/[place] [address] Peptide BNP [phone] Legionella Urine Antigen SEE RESULT BELOW 5 CBC Auto 09/22/2019 [facility] White Blood 15.6 10^3/uL High 3.5-10.[address] [place] [address] [phone] Red Blood Count 3.34 10^6/uL Low 3.70-4.87 [...] Blood Cells % 0.4 Laboratory test 09/22/2019 [facility] Magnesium 2.0 mg/dL Normal 1.9-2.[address] [place] [address] [phone] Troponin-I (TnI) 0.10 ng/mL Critical high <0.03 6 Acetaminophen < 15 g/mL 7 Alcohol < 10 mg/dL Normal <10 Salicylate < 2.50 mg/dL <30 TSH (Thyroid Stim Horm) 1.76 mcIU/mL Normal 0.34-5.60 Comp Metabolic Panel 09/22/2019 [facility] Sodium 130 mmol/L Low 135-145 [address] [place] [address] [phone] Potassium 4.5 mmol/L Normal 3.5-5.0 Chloride 87 [...] Egfr 91.4 >60 8 Urine Drug 09/22/2019 [facility] Urine None Detected None Detect SCR ED & [address] [place] [facility] [address] Screen [phone] Urine Barbiturates Screen None Detected None Detect Urine Benzodiazepine Screen None Detected None Detect Urine Cannabinoids Screen None Detected None Detect Urine Cocaine Screen None Detected None Detect Urine Opiates Screen None Detected None Detect Urine Phencyclidine Screen None Detected None Detect 9 Laboratory test 09/22/2019 [facility] Ammonia TNP mcmol/L 16- 53 10 finding [address] [place] [address] [phone] Lactic Acid 0.5 mmol/L Normal 0.5-2.0 11 Urinalysis Profile 09/22/2019 [facility] Urine Color Yuliya [address] [place] [address] [phone] Urine Appearance Clear Urine Specific [place] 1.020 Normal 1.010-1.030 Urine pH 6.0 Normal 5-9 Urine Urobilinogen Negative Negative Urine Ketones Negative Negative Urine Protein Negative Negative Urine Leukocytes Negative Negative Urine Blood Negative Negative * * Abnormal Negative 12 Urine Nitrite Negative Negative Urine Bilirubin Negative Negative Urine Glucose Negative Negative Laboratory test 09/22/2019 [facility] Point of 151 mg/dL High 70-100 13 finding [address] [facility] Care Glucose [place], [place] [id number] [phone] Venous Blood 09/22/2019 [facility] Venous Blood 7.23 Low 7.32- 7.43 Gas [address] [place], [place] [address] [phone] Venous Pco2 94 mmHg High 41-51 Venous Po2 54.0 mmHg High 35-45 Venous O2 Saturation 85.6 % High 70-80 Venous Blood Base Excess 8.1 mmol/L High 0.0-4.0 14 Venous Bicarbonate Hco3 30.9 mmol/L High 24-28 Laboratory test 09/22/2019 [facility] Ammonia 65 mcmol/L High 16-53 finding [address] [place], [place] [id number] [phone] Arterial Blood Gas 09/22/2019 [facility] Fio2 100 [address] [place] [address] [phone] Resp Rate 20 Ipap 18 Epap 7 PH Arterial 7.20 Low 7.35-7.45 Pco2 Arterial 103 mmHg Critical high 35-45 15 Po2 Arterial 345 mmHg High 80-100 O2 Saturation Arterial 98.2 % High 94.0-98.0 Base Excess Arterial 8.2 mmol/L High -2.0-2.0 16 Hco3 Arterial 31.3 mmol/L High 19-31 INR/Protime 09/22/2019 [facility] INR 4.08 High 0.82-1.09 17 [address] [place] [address] [phone] INR/Protime 09/16/2019 [facility] INR 3.09 High 0.82-1.[address] [place] [address] [phone] Comp Metabolic 09/16/2019 [facility] Sodium 141 mmol/L Normal 135-145 Panel [address] [place] [address] [phone] Potassium 4.4 mmol/L Normal 3.5-5.0 Chloride 91 [...] mmol/L Critical high 22-32 20 Laboratory 09/16/2019 [facility] TSH (Thyroid 0.85 Normal 0.34 -5.[address] Horm) mcIU/[place] [address] [phone] CBC No Diff 09/16/2019 [facility] White Blood 12.9 High 3.5- 10.[address] Count 10^3/[place] [address] [phone] Red Blood Count 2.94 10^6/uL Low 3.70-4.87 Hemoglobin 9.3 g/dL Low 12.0-16.0 Hematocrit 29 % Low 35-47 Mean Corpuscular Volume 99 fL High 80-97 Mean Corpuscular Hemoglobin 32 pg High 27-31 Mean Corpuscular HGB Conc 32 g/dL Normal 31-36 Red Cell Distribution Width 14 % Normal 10-15 Platelet Count 187 10^3/uL Normal 150-450 Mean Platelet Volume 10.0 fL Normal 7.4-10.4 Laboratory 09/16/2019 [facility] Troponin-I 0.08 Critical < 0.03 21 test finding [address] (TnI) ng/[place] [address] [phone] Basic 09/16/2019 [facility] Sodium 139 Normal 135-[address] mmol/[place] [address] [phone] Potassium 4.5 mmol/L Normal 3.5-5.0 Chloride 88 mmol/L Low 101-111 Glucose 145 mg/dL High 70-100 Blood Urea Nitrogen 21 mg/dL Normal 6-24 Creatinine 0.60 mg/dL Normal 0.51-0.95 BUN/Creatinine Ratio 35.0 High 8-20 Calcium 9.6 mg/dL Normal 8.6-10.3 Egfr Non- 97.7 >60 Egfr 118.2 >60 22 Co2 Carbon Dioxide 48 mmol/L Critical high 22-32 23 Laboratory test 09/16/2019 [facility] Lactic Acid 1.0 mmol/L Normal 0.5-2.0 [address] [place] [address] [phone] B-Type Natriuretic Peptide BNP 1235 pg/mL High <=100 CBC Auto 09/16/2019 [facility] White Blood 11.4 10^3/uL High 3.5-10.[address] [place] [address] [phone] Red Blood Count 3.18 10^6/uL Low 3.70-4.87 [...] Cells % 0.0 Arterial Blood Gas 09/16/2019 [facility] O2 Device N/C [address] [place] [address] [phone] PH Arterial 7.42 Normal 7.35-7.45 Pco2 Arterial 85 mmHg Critical high 35-45 25 Po2 Arterial 77 mmHg Low 80-100 O2 Saturation Arterial 96.0 % Normal 94.0-98.0 Base Excess Arterial 25.0 mmol/L High -2.0-2.0 26 Hco3 Arterial 44.4 mmol/L Critical high 19-31 27 Laboratory test 09/16/2019 [facility] Partial 47.8 High 26.0- 38.[address] [place] [address] PTT [phone] Troponin-I (TnI) 0.09 ng/mL Critical high <0.03 28 INR/Protime 09/16/2019 [facility] INR 3.12 High 0.82-1.[address] [place] [address] [phone] Xray 07/20/2019 [facility] Chest 2 Views <pendin [address]> [place] [address] [phone] Laboratory test 07/18/2019 [facility] CFM INR 2.3 finding ( )- - Laboratory test 06/23/2019 [facility] CFM INR 3.8 finding ( )- - Laboratory test 06/23/2019 [facility] Hemoglobin A1c 5.9 % High 4.0-5.[address] (Glyco HGB) [place] [address] [phone] Comp Metabolic 06/23/2019 [facility] Sodium 138 Normal 135- [address] mmol/[place] [address] [phone] Potassium 4.7 mmol/L Normal 3.5-5.0 Chloride 95 [...] ( )- - Comp Metabolic Panel 06/14/2019 [facility] Sodium 140 mmol/L Normal 135-[address] [place] [address] [phone] Chloride 94 mmol/L Low 101-111 Co2 Carbon [...] 9 mmol/L Normal 2-11 Laboratory test 06/14/2019 [facility] Vitamin B12 394 pg/mL Normal 180-914 [address] [place] [address] [phone] Vitamin D Total 25(Oh) 38.6 ng/mL Normal 20-50 34 Protime W/ INR 06/14/2019 N2N/CCD [employer] International Normalized Ratio 2.85 1 Verbal to [id number] by [id number] at 1317 on 10/09/19. Results read back accurately. 2 Reference ranges based on room air. 3 [id number] 4 Because ethnic data is not always [...] Attend Dr: Marco Antonio Brambila MD Acct: [id number] Unit: [id number] AGE: 74 Location: ICU [id number] Re09/22/19 SEX: F Status: ADM IN SPEC: [id number] TATA: 09/22/[address]: Jona AZAR REQ: [id number] RECD: 09/22/19 STATUS: COMP KENDY LICONA: [facility] Monico Dyson MD _ SOURCE: [...] . END OF REPORT DEPARTMENT OF PATHOLOGY, [address] [place] [address] Zeke Richmond M.D. Director [facility] # [id number] Result TnIDx:0.10 Called to [id number] at: 06:48:08 by:[id number] Read back by: [email or web address] Troponin-I testing on Plasma Separator Tubes (PST) has a known false positive rate of 0.20-0.40%. All positive troponins reflex immediately to secondary confirmatory testing. Using the [employer] DxI 800 Access Immunoassay systems, the 99th [...] Specimen hemolyzed. Result may not be valid. [facility] Severe Sepsis and Septic Shock Management Bundle Measure requires all lactic acids initially measuring >2.0 mmol/L be repeated. 12 *Ascorbic acid is present which may interfere with detection of blood. 13 [employer]: [id number] 14 Reference ranges based on room air. 15 Verbal to [id number] by [id number] at 0815 on 09/22/19. Results read back [...] CO2:49 Called to TYLER MARTI at: 13:33:08 by:[id number] Read back by:TYLER SANCHEZ CFM 21 Result TnIDx:0.08 Called to [id number] at: 18:49:49 by:[id number] Read back by: [id number] Troponin-I testing on Plasma Separator Tubes (PST) has a known false positive rate of 0.20-0.40%. All positive troponins reflex immediately to secondary confirmatory testing. Using the [employer] DxI 800 Access Immunoassay systems, the 99th [...] dialysis) 23 Critical Result CO2:48 Called to [id number] at: 19:13:28 by:[id number] Read back by:[id number] 24 [facility] Severe Sepsis and Septic Shock Management Bundle Measure requires all lactic acids initially measuring >2.0 mmol/L be repeated. 25 Verbal to [id number] by [id number] at 2048 on 09/16/19. Results read back accurately. 26 Reference ranges based on room air. 27 Verbal to [id number] by [id number] at 2048 on 09/16/19. Results read back accurately. 28 Result TnIDx:0.09 Called to [id number] at: 23:20:01 by:[id number] Read back by: [id number] Troponin-I testing on Plasma Separator Tubes (PST) has a known false positive rate of 0.20-0.40%. All positive troponins reflex immediately to secondary confirmatory testing. Using the [employer] DxI 800 Access Immunoassay systems, the 99th percentile upper reference limit was demonstrated to be < 0.03 ng/mL. 29 Standard intensity warfarin therapeutic range: 2.0-3.0 High intensity warfarin therapeutic range: 2.5-3.5 30 Therapeutic target for the treatment of diabetes mellitus patients is <7% HBA1C, and in selective patients <6.0%. Please refer to [place] [employer] diabetic care guidelines for further [...] possible) Procedures Date Code Description Status 07/12/2019 11587 Anticoagulant MGMT For Patient Taking Warfarin, Inc Review Completed & Intr 06/15/2019 72153 Anticoagulant MGMT For Patient Taking Warfarin, Inc Review Completed & Intr Medical Devices Description No Information Available Encounters Type Date Location Provider Dx Diagnosis Office Visit 09/29/2019 [facility] Benjamín Dennis MD E87.79 Other fluid overload 11:15a I48.91 Unspecified atrial fibrillation M25.512 Pain in left shoulder J96.92 Respiratory failure, unspecified with hypercapnia Office Visit 07/18/2019 3:45p [facility] Benjamín Dennis, T82.897D Oth complication of cardiac prosth dev/paul, subs I48.91 Unspecified atrial fibrillation Office Visit 06/23/2019 2:15p [facility] BRIAN [place] R73.9 Hyperglycemia, unspecified E87.5 [...] MD 06/23/2019 R73.9 Hyperglycemia, unspecified [facility] 06/23/2019 E87.5 Hyperkalemia [facility] 06/23/2019 I48.91 Unspecified atrial fibrillation [facility] 06/23/2019 Z23 Encounter for immunization BRIAN Gabriel Plan of Treatment Future Appointment(s):10/20/2019 10:30 am - Ness Dennis MD at [facility]2019 - Ness Dennis MDE87.79 Other fluid gaydphvxK17.91 Unspecified atrial awgwrmczogxkX36.512 Pain in left shoulderReferral:[facility] orth[facility],J96.92 Respiratory failure, unspecified with hypercapniaReferral:Roberta Winkler, Pulmonary DiseasesAllNew Medication: - Functional Status Description No Information Available Mental Status Description No Information Available Referrals Refer to Reason for Referral Status Appt Date Roberta Winkler Patient with hospitalization for respiratory Sent failure with hypercapnea, recommendation of sleep evaluation as an outpatient [address] [place] [address] [id number] [facility] orthopedics Left shoulder pain and limited range of motion Sent
--- OUTSIDE RECORDS SUMMARY | 2019-11-17 12:57 | XMS REPORT | Continuity of Care Document ---
:1945 External Reference #:[id number] Author Name Ness Dennis MD Address [address] [place] [address] Problems Active Problems Provider Date Chronic kidney [...] B 12 2 tab by mouth 120tabs [facility], 09/27/2019 500mcg every day as MD Tablets directed Acetaminophen Extra 2 tab by mouth 90tabs [facility], 09/27/2019 Strength three times a day 500mg Tablets as needed Mucinex 2 tab by mouth 120tabs [facility], 09/27/2019 600mg Tablets twice a day as MD ER 12HR directed Preservision Areds 2 2 cap by mouth 120caps [facility], 09/27/2019 + Multi Vitamin every day as MD Areds 2 directed Capsules Colace 2 tabs by mouth 180caps [facility], 09/27/2019 100mg Capsules every day as MD needed Gas-X 1 tab by mouth 360units [facility], 09/27/2019 80mg Chewtabs every 6 hours as MD needed Miralax 17 gm by mouth Unknown 09/27/2019 [id number] Powder every day as needed Tums 1 tab by mouth 360units [facility], 09/27/2019 500mg Chewtabs twice a day [...] directed Warfarin Sodium oral; take one 90tabs [facility], 07/14/2018 5mg tablet by mouth Tablets once [...] Tablets directed Eylea 2 mg injection 2mg [facility], 09/27/1999 2mg/0.05ML every 4 - 6m as Solution directed History Medications Simethicone 1 tab by mouth 90units Unknown 09/27/2019 - 80mg every 6 hours as 09/29/2019 Chewtabs needed Albuterol Sulfate HFA 2 puffs inhalation 8.500gm [facility] - as needed 09/29/2019 108(90Base) mcg/Act Aerosol Immunizations CPT Code Status Date Vaccine Lot # [id number] Given 06/23/2019 Flu High Dose [id number] 74192 Given 07/23/2018 Influenza Virus Vaccine, Quadrivalent, Split, Im Use 0.25ML 29390 Given 07/23/2018 Influenza Virus Vaccine, Quadrivalent, Split, Im Use 0.25ML 70686 Given 07/23/2018 Influenza Virus Vaccine, Quadrivalent, Split, Im Use 0.25ML 83799 Given 07/23/2018 Flu < 65 years 66716 Given 07/23/2018 Influenza Virus Vaccine, Quadrivalent, Split, Preservative Free 97225 Given 07/23/2018 Flumist 27362 Given 07/23/2018 Flu High Dose 40897 Given 07/23/2018 Influenza Virus Vaccine, Split, Preserv Free, Intradermal Use 17081 Given 07/24/2017 Influenza Virus Vaccine, Split, Preserv Free, Intradermal Use 08636 Given 07/24/2017 Flu High Dose 81276 Given 07/24/2017 Flumist 49602 Given 07/24/2017 Influenza Virus Vaccine, Quadrivalent, Split, Preservative Free 65522 Given 07/24/2017 Flu < 65 years 84882 Given 07/24/2017 Influenza Virus Vaccine, Quadrivalent, Split, Im Use 0.25ML 92417 Given 07/24/2017 Influenza Virus Vaccine, Quadrivalent, Split, Im Use 0.25ML 10790 Given 07/24/2017 Influenza Virus Vaccine, Quadrivalent, Split, Im Use 0.25ML 14890 Given 10/24/2014 Prevnar 13 30573 Given 06/29/2014 Influenza Virus Vaccine, Quadrivalent, Split, Im Use 0.25ML 45060 Given 06/29/2014 Influenza Virus Vaccine, Quadrivalent, Split, Im Use 0.25ML 14324 Given 06/29/2014 Influenza Virus Vaccine, Quadrivalent, Split, Im Use 0.25ML 07677 Given 06/29/2014 Flu < 65 years 14746 Given 06/29/2014 Influenza Virus Vaccine, Quadrivalent, Split, Preservative Free 86592 Given 06/29/2014 Flumist 68320 Given 06/29/2014 Flu High Dose 12502 Given 07/04/2013 Flu High Dose 09548 Given 07/04/2013 Flumist 68095 Given 07/04/2013 Influenza Virus Vaccine, Quadrivalent, Split, Preservative Free 46135 Given 07/04/2013 Flu < 65 years 50780 Given 07/04/2013 Influenza Virus Vaccine, Quadrivalent, Split, Im Use 0.25ML 96770 Given 07/04/2013 Influenza Virus Vaccine, Quadrivalent, Split, Im Use 0.25ML 72833 Given 07/04/2013 Influenza Virus Vaccine, Quadrivalent, Split, Im Use 0.25ML 11451 Given 05/05/2012 Influenza Virus Vaccine, Quadrivalent, Split, Im Use 0.25ML 51341 Given 05/05/2012 Influenza Virus Vaccine, Quadrivalent, Split, Im Use 0.25ML 25473 Given 05/05/2012 Influenza Virus Vaccine, Quadrivalent, Split, Im Use 0.25ML 04894 Given 05/05/2012 Flu < 65 years 75802 Given 05/05/2012 Influenza Virus Vaccine, Quadrivalent, Split, Preservative Free 09320 Given 05/05/2012 Flumist 59197 Given 05/05/2012 Flu High Dose 78228 Given 10/24/2011 Tdap - Boostrix/Adacel 51169 Given 06/28/2011 Influenza Virus Vaccine, Quadrivalent, Split, Im Use 0.25ML 72867 Given 06/28/2011 Influenza Virus Vaccine, Quadrivalent, Split, Im Use 0.25ML 10538 Given 06/28/2011 Influenza Virus Vaccine, Quadrivalent, Split, Im Use 0.25ML 10842 Given 06/28/2011 Flu < 65 years 86457 Given 06/28/2011 Influenza Virus Vaccine, Quadrivalent, Split, Preservative Free 52827 Given 06/28/2011 Flumist 59444 Given 06/28/2011 Flu High Dose 54177 Given 05/15/2010 Pneumovax - for >=2years - PPSV23 98405 Given 08/22/2009 Influenza Virus Vaccine, Quadrivalent, Split, Im Use 0.25ML 86416 Given 06/14/2008 Influenza Virus Vaccine, Quadrivalent, Split, Im Use 0.25ML 74097 Given 07/22/2006 Influenza Virus Vaccine, Quadrivalent, Split, [...] Result H/L Range Note Arterial Blood 10/09/2019 [facility] PH Arterial 7.23 Low 7.35 -7.[address] [place] [address] [phone] Pco2 Arterial 88 mmHg Critical high 35-45 1 Po2 Arterial 94 mmHg Normal 80-100 O2 Saturation Arterial 97.2 % Normal 94.0-98.0 Base Excess Arterial 6.1 mmol/L High -2.0-2.0 2 Hco3 Arterial 29.6 mmol/L Normal 19-31 Laboratory test 09/29/2019 [facility] CFM INR 1.8 finding ( )- - Basic Metabolic 09/29/2019 [facility] Sodium 139 mmol/L Normal 135-[address] [place] [address] [phone] Potassium 4.9 mmol/L Normal 3.5-5.0 Chloride 100 mmol/L Low 101-111 Co2 Carbon Dioxide 32 mmol/L Normal 22-32 Anion Gap 7 mmol/L Normal 2-11 Glucose 131 mg/dL High 70-100 Blood Urea Nitrogen 16 mg/dL Normal 6-24 Creatinine 0.96 mg/dL High 0.51-0.95 BUN/Creatinine Ratio 16.7 Normal 8-20 Calcium 9.5 mg/dL Normal 8.6-10.3 Egfr Non- 56.8 >60 Egfr 68.7 >60 4 Laboratory test 09/22/2019 [facility] B-Type > 1300 High <= [address] Natriuretic pg/[place] [address] Peptide BNP [phone] Legionella Urine Antigen SEE RESULT BELOW 5 CBC Auto 09/22/2019 [facility] White Blood 15.6 10^3/uL High 3.5-10.[address] [place] [address] [phone] Red Blood Count 3.34 10^6/uL Low 3.70-4.87 [...] 2.0 mg/dL Normal 1.9-2.[address] [place] [address] [phone] Troponin-I (TnI) 0.10 ng/mL Critical high <0.03 6 Acetaminophen < 15 g/mL 7 Alcohol < 10 mg/dL Normal <10 Salicylate < 2.50 mg/dL <30 TSH (Thyroid Stim Horm) 1.76 mcIU/mL Normal 0.34-5.60 Comp Metabolic Panel 09/22/2019 [facility] Sodium 130 mmol/L Low 135-145 [address] [place] [address] [phone] Potassium 4.5 mmol/L Normal 3.5-5.0 Chloride 87 [...] Egfr 91.4 >60 8 Urine Drug 09/22/2019 [facility] Urine None Detected None Detect SCR ED & [address] [facility] Amp[facility] [place] [address] Screen [phone] Urine Barbiturates Screen None Detected None Detect Urine Benzodiazepine Screen None Detected None Detect Urine Cannabinoids Screen None Detected None Detect Urine Cocaine Screen None Detected None Detect Urine Opiates Screen None Detected None Detect Urine Phencyclidine Screen None Detected None Detect 9 Laboratory test 09/22/2019 [facility] Ammonia TNP mcmol/L 16- 53 10 finding [address] [place] [address] [phone] Lactic Acid 0.5 mmol/L Normal 0.5-2.0 11 Urinalysis Profile 09/22/2019 [facility] Urine Color Yuliya [address] [place] [address] [phone] Urine Appearance Clear Urine Specific Kendall 1.020 Normal 1.010-1.030 Urine pH 6.0 Normal 5-9 Urine Urobilinogen Negative Negative Urine Ketones Negative Negative Urine Protein Negative Negative Urine Leukocytes Negative Negative Urine Blood Negative Negative * * Abnormal Negative 12 Urine Nitrite Negative Negative Urine Bilirubin Negative Negative Urine Glucose Negative Negative Laboratory test 09/22/2019 [facility] Point of 151 mg/dL High 70-100 13 finding 201 [facility] Care Glucose [place], [place] [address] [phone] Venous Blood 09/22/2019 [facility] Venous Blood 7.23 Low 7.32- 7.43 Gas [address] [facility] pH [place], [place] [address] [phone] Venous Pco2 94 mmHg High 41-51 Venous Po2 54.0 mmHg High 35-45 Venous O2 Saturation 85.6 % High 70-80 Venous Blood Base Excess 8.1 mmol/L High 0.0-4.0 14 Venous Bicarbonate Hco3 30.9 mmol/L High 24-28 Laboratory test 09/22/2019 [facility] Ammonia 65 mcmol/L High 16-53 finding [address] [place], [place] [address] [phone] Arterial Blood Gas 09/22/2019 [facility] Fio2 100 [address] [place] [address] [phone] Resp Rate 20 Ipap 18 Epap 7 PH Arterial 7.20 Low 7.35-7.45 Pco2 Arterial 103 mmHg Critical high 35-45 15 Po2 Arterial 345 mmHg High 80-100 O2 Saturation Arterial 98.2 % High 94.0-98.0 Base Excess Arterial 8.2 mmol/L High -2.0-2.0 16 Hco3 Arterial 31.3 mmol/L High 19-31 INR/Protime 09/22/2019 [facility] INR 4.08 High 0.82-1.09 17 [address] [place] [address] [phone] INR/Protime 09/16/2019 [facility] INR 3.09 High 0.82-1.[address] [place] [address] [phone] Comp Metabolic 09/16/2019 [facility] Sodium 141 mmol/L Normal 135-145 Panel [address] [place] [address] [phone] Potassium 4.4 mmol/L Normal 3.5-5.0 Chloride 91 [...] mmol/L Critical high 22-32 20 Laboratory 09/16/2019 [facility] TSH (Thyroid 0.85 Normal 0.34 -5.[address] Stim Horm) mcIU/[place] [address] [phone] CBC No Diff 09/16/2019 [facility] White Blood 12.9 High 3.5- 10.[address] Count 10^3/[place] [address] [phone] Red Blood Count 2.94 10^6/uL Low 3.70-4.87 [...] [facility] Troponin-I 0.08 Critical < 0.03 21 test finding [address] (TnI) ng/[place] [address] [phone] Basic 09/16/2019 [facility] Sodium 139 Normal 135-[address] mmol/[place] [address] [phone] Potassium 4.5 mmol/L Normal 3.5-5.0 Chloride 88 mmol/L Low 101-111 Glucose 145 mg/dL High 70-100 Blood Urea Nitrogen 21 mg/dL Normal 6-24 Creatinine 0.60 mg/dL Normal 0.51-0.95 BUN/Creatinine Ratio 35.0 High 8-20 Calcium 9.6 mg/dL Normal 8.6-10.3 Egfr Non- 97.7 >60 Egfr 118.2 >60 22 Co2 Carbon Dioxide 48 mmol/L Critical high 22-32 23 Laboratory test 09/16/2019 [facility] Lactic Acid 1.0 mmol/L Normal 0.5-2.0 [address] [place] [address] [phone] B-Type Natriuretic Peptide BNP 1235 pg/mL High <=100 CBC Auto 09/16/2019 [facility] White Blood 11.4 10^3/uL High 3.5-10.[address] [place] [address] [phone] Red Blood Count 3.18 10^6/uL Low 3.70-4.87 [...] Health O2 Device N/C [address] [place] [address] [phone] PH Arterial 7.42 Normal 7.35-7.45 Pco2 Arterial 85 mmHg Critical high 35-45 25 Po2 Arterial 77 mmHg Low 80-100 O2 Saturation Arterial 96.0 % Normal 94.0-98.0 Base Excess Arterial 25.0 mmol/L High -2.0-2.0 26 Hco3 Arterial 44.4 mmol/L Critical high 19-31 27 Laboratory test 09/16/2019 [facility] Partial 47.8 High 26.0- 38.[address] [place] [address] PTT [phone] Troponin-I (TnI) 0.09 ng/mL Critical high <0.03 28 INR/Protime 09/16/2019 [facility] INR 3.12 High 0.82-1.[address] [place] [address] [phone] Xray 07/20/2019 [facility] Chest 2 Views <pendin [address]> [place] [address] [phone] Laboratory test 07/18/2019 [facility] CFM INR 2.3 finding ( )- - Laboratory test 06/23/2019 [facility] CFM INR 3.8 finding ( )- - Laboratory test 06/23/2019 [facility] Hemoglobin A1c 5.9 % High 4.0-5.[address] (Glyco HGB) [place] [address] [phone] Comp Metabolic 06/23/2019 [facility] Sodium 138 Normal 135- [address] mmol/[place] [address] [phone] Potassium 4.7 mmol/L Normal 3.5-5.0 Chloride 95 [...] Egfr 78.0 >60 31 Laboratory test 06/15/2019 [facility] CFM INR 2.85 finding ( )- - Comp Metabolic Panel 06/14/2019 [facility] Sodium 140 mmol/L Normal 135-[address] [place] [address] [phone] Chloride 94 mmol/L Low 101-111 Co2 Carbon [...] Health Vitamin B12 394 pg/mL Normal 180-914 [address] [place] [address] [phone] Vitamin D Total 25(Oh) 38.6 ng/mL Normal 20-50 34 Protime W/ INR 06/14/2019 N2N/CCD [employer] International Normalized Ratio 2.85 1 Verbal to [id number] by [id number] at 1317 on 10/09/19. Results read back accurately. 2 Reference ranges based on room air. 3 [id number] 4 Because ethnic data is not always [...] Attend Dr: Marco Antonio Brambila MD Acct: [id number] Unit: [id number] AGE: 74 Location: ICU [id number] Re09/22/19 SEX: F Status: ADM IN SPEC: [id number] TATA: 09/22/[address]: Jona AZAR REQ: [id number] RECD: 09/22/19 STATUS: COMP KENDY LICONA: [facility] Monico Dyson MD _ SOURCE: [...] . END OF REPORT DEPARTMENT OF PATHOLOGY, [address] [place] [address] Zeke Richmond M.D. Director [facility] # [id number] 6 Result TnIDx:0.10 Called to [id number] at: 06:48:08 by:[id number] Read back by: MATTY Troponin-I testing on Plasma Separator Tubes (PST) has a known false positive rate of 0.20-0.40%. All positive troponins reflex immediately to secondary confirmatory testing. Using the [employer] DxI 800 Access Immunoassay systems, the 99th [...] Specimen hemolyzed. Result may not be valid. [facility] Severe Sepsis and Septic Shock Management Bundle Measure requires all lactic acids initially measuring >2.0 mmol/L be repeated. 12 *Ascorbic acid is present which may interfere with detection of blood. 13 Lab Director: [id number] 14 Reference ranges based on room air. 15 Verbal to [id number] by [id number] at 0815 on 09/22/19. Results read back [...] CO2:49 Called to TYLER MARTI at: 13:33:08 by:[id number] Read back by:TYLER SANCHEZ CFM 21 Result TnIDx:0.08 Called to [id number] at: 18:49:49 by:[id number] Read back by: [id number] Troponin-I testing on Plasma Separator Tubes (PST) has a known false positive rate of 0.20-0.40%. All positive troponins reflex immediately to secondary confirmatory testing. Using the [employer] DxI 800 Access Immunoassay systems, the 99th [...] dialysis) 23 Critical Result CO2:48 Called to [id number] at: 19:13:28 by:[id number] Read back by:[id number] 24 [facility] Severe Sepsis and Septic Shock Management Bundle Measure requires all lactic acids initially measuring >2.0 mmol/L be repeated. 25 Verbal to [id number] by [id number] at 2048 on 09/16/19. Results read back accurately. 26 Reference ranges based on room air. 27 Verbal to [id number] by [id number] at 2048 on 09/16/19. Results read back accurately. 28 Result TnIDx:0.09 Called to [id number] at: 23:20:01 by:[id number] Read back by: [id number] Troponin-I testing on Plasma Separator Tubes (PST) has a known false positive rate of 0.20-0.40%. All positive troponins reflex immediately to secondary confirmatory testing. Using the [employer] DxI 800 Access Immunoassay systems, the 99th percentile upper reference limit was demonstrated to be < 0.03 ng/mL. 29 Standard intensity warfarin therapeutic range: 2.0-3.0 High intensity warfarin therapeutic range: 2.5-3.5 30 Therapeutic target for the treatment of diabetes mellitus patients is <7% HBA1C, and in selective patients <6.0%. Please refer to [place] [employer] diabetic care guidelines for further [...] possible) Procedures Date Code Description Status 07/12/2019 77235 Anticoagulant MGMT For Patient Taking Warfarin, Inc Review Completed & Intr 06/15/2019 74887 Anticoagulant MGMT For Patient Taking Warfarin, Inc Review Completed & Intr Medical Devices Description No Information Available Encounters Type Date Location Provider Dx Diagnosis Office Visit 09/29/2019 [facility] Benjamín Dennis MD E87.79 Other fluid overload 11:15a I48.91 Unspecified atrial fibrillation M25.512 Pain in left shoulder J96.92 Respiratory failure, unspecified with hypercapnia Office Visit 07/18/2019 3:45p [facility] Benjamín Dennis, T82.897D Oth complication of cardiac prosth dev/paul, subs I48.91 Unspecified atrial fibrillation Office Visit 06/23/2019 2:15p [facility] BRIAN Denton R73.9 Hyperglycemia, unspecified E87.5 Hyperkalemia [...] MD 06/23/2019 R73.9 Hyperglycemia, unspecified Samantha Bhagat [facility] 06/23/2019 E87.5 Hyperkalemia Samantha Bhagat [facility] 06/23/2019 I48.91 Unspecified atrial fibrillation Samantha Bhagat [facility] 06/23/2019 Z23 Encounter for immunization BRIAN Gabriel Plan of Treatment Future Appointment(s):10/20/2019 10:30 am - Ness Dennis MD at [facility]2019 - Ness Dennis MDE87.79 Other fluid ktueqjxtY39.91 Unspecified atrial kftjgjhnuuhdO04.512 Pain in left shoulderReferral:[facility],J96.92 Respiratory failure, unspecified with hypercapniaReferral:Roberta Winkler, Pulmonary DiseasesAllNew Medication: - Functional Status Description No Information Available Mental Status Description No Information Available Referrals Refer to Reason for Referral Status Appt Date Roberta Winkler Patient with hospitalization for respiratory Sent failure with hypercapnea, recommendation of sleep evaluation as an outpatient [address] [place] [address] [phone] [facility] orthopedics Left shoulder pain and limited range of motion Sent
--- OUTSIDE RECORDS SUMMARY | 2019-11-17 12:57 | XMS REPORT | Continuity of Care Document ---
:1945 External Reference #:[id number] Author Name Ness Dennis MD Address [address] [place] [address] Problems Active Problems Provider Date Chronic kidney [...] B 12 2 tab [facility] mouth [facility] 500mcg every day as MD Tablets directed Acetaminophen Extra 2 tab by mouth 90tabs [facility], 09/27/2019 Strength three times a day 500mg Tablets as needed Mucinex 2 tab by mouth 120tabs [facility], 09/27/2019 600mg Tablets twice a day as MD ER 12HR directed Preservision Areds 2 2 cap by mouth 120caps [facility], 09/27/2019 + Multi Vitamin every day as MD Areds 2 directed Capsules Colace 2 tabs by mouth 180caps [facility], 09/27/2019 100mg Capsules every day [...] directed Warfarin Sodium oral; take one 90tabs [facility], 07/14/2018 5mg tablet by mouth [...] Tablets directed [facility] 2mg/0.05ML every 4 - 6m as Solution directed History Medications Simethicone 1 tab by mouth 90units Unknown 09/27/2019 - 80mg every 6 hours as 09/29/2019 Chewtabs needed Albuterol Sulfate HFA 2 puffs [facility] - as needed 09/29/2019 108(90Base) mcg/Act Aerosol Immunizations CPT Code Status Date Vaccine Lot # [id number] Given 06/23/2019 Flu High Dose [id number] 80333 Given 07/23/2018 Influenza Virus Vaccine, Quadrivalent, Split, Im Use 0.25ML 68343 Given 07/23/2018 Influenza Virus Vaccine, Quadrivalent, Split, Im Use 0.25ML 76332 Given 07/23/2018 Influenza Virus Vaccine, Quadrivalent, Split, Im Use 0.25ML 15698 Given 07/23/2018 Flu < 65 years 35098 Given 07/23/2018 Influenza Virus Vaccine, Quadrivalent, Split, Preservative Free 42014 Given 07/23/2018 Flumist 74877 Given 07/23/2018 Flu High Dose 65774 Given 07/23/2018 Influenza Virus Vaccine, Split, Preserv Free, Intradermal Use 98084 Given 07/24/2017 Influenza Virus Vaccine, Split, Preserv Free, Intradermal Use 20672 Given 07/24/2017 Flu High Dose 99875 Given 07/24/2017 Flumist 29534 Given 07/24/2017 Influenza Virus Vaccine, Quadrivalent, Split, Preservative Free 45697 Given 07/24/2017 Flu < 65 years 08547 Given 07/24/2017 Influenza Virus Vaccine, Quadrivalent, Split, Im Use 0.25ML 81486 Given 07/24/2017 Influenza Virus Vaccine, Quadrivalent, Split, Im Use 0.25ML 43088 Given 07/24/2017 Influenza Virus Vaccine, Quadrivalent, Split, Im Use 0.25ML 69183 Given 10/24/2014 Prevnar 13 25284 Given 06/29/2014 Influenza Virus Vaccine, Quadrivalent, Split, Im Use 0.25ML 96454 Given 06/29/2014 Influenza Virus Vaccine, Quadrivalent, Split, Im Use 0.25ML 03621 Given 06/29/2014 Influenza Virus Vaccine, Quadrivalent, Split, Im Use 0.25ML 55995 Given 06/29/2014 Flu < 65 years 25538 Given 06/29/2014 Influenza Virus Vaccine, Quadrivalent, Split, Preservative Free 21267 Given 06/29/2014 Flumist 11012 Given 06/29/2014 Flu High Dose 87173 Given 07/04/2013 Flu High Dose 08398 Given 07/04/2013 Flumist 85342 Given 07/04/2013 Influenza Virus Vaccine, Quadrivalent, Split, Preservative Free 70940 Given 07/04/2013 Flu < 65 years 59545 Given 07/04/2013 Influenza Virus Vaccine, Quadrivalent, Split, Im Use 0.25ML 55416 Given 07/04/2013 Influenza Virus Vaccine, Quadrivalent, Split, Im Use 0.25ML 77654 Given 07/04/2013 Influenza Virus Vaccine, Quadrivalent, Split, Im Use 0.25ML 61360 Given 05/05/2012 Influenza Virus Vaccine, Quadrivalent, Split, Im Use 0.25ML 41977 Given 05/05/2012 Influenza Virus Vaccine, Quadrivalent, Split, Im Use 0.25ML 04975 Given 05/05/2012 Influenza Virus Vaccine, Quadrivalent, Split, Im Use 0.25ML 22037 Given 05/05/2012 Flu < 65 years 99877 Given 05/05/2012 Influenza Virus Vaccine, Quadrivalent, Split, Preservative Free 96179 Given 05/05/2012 Flumist 02000 Given 05/05/2012 Flu High Dose 99727 Given 10/24/2011 Tdap - Boostrix/Adacel 23180 Given 06/28/2011 Influenza Virus Vaccine, Quadrivalent, Split, Im Use 0.25ML 69805 Given 06/28/2011 Influenza Virus Vaccine, Quadrivalent, Split, Im Use 0.25ML 14788 Given 06/28/2011 Influenza Virus Vaccine, Quadrivalent, Split, Im Use 0.25ML 14599 Given 06/28/2011 Flu < 65 years 18527 Given 06/28/2011 Influenza Virus Vaccine, Quadrivalent, Split, Preservative Free 62805 Given 06/28/2011 Flumist 10813 Given 06/28/2011 Flu High Dose 47146 Given 05/15/2010 Pneumovax - for >=2years - PPSV23 44663 Given 08/22/2009 Influenza Virus Vaccine, Quadrivalent, Split, Im Use 0.25ML 77248 Given 06/14/2008 Influenza Virus Vaccine, Quadrivalent, Split, Im Use 0.25ML 73822 Given 07/22/2006 Influenza Virus Vaccine, Quadrivalent, Split, [...] Result H/L Range Note Arterial Blood 10/09/2019 [facility] PH Arterial 7.23 Low 7.35 -7.[address] [place] [address] [phone] Pco2 Arterial 88 mmHg Critical high 35-45 1 Po2 Arterial 94 mmHg Normal 80-100 O2 Saturation Arterial 97.2 % Normal 94.0-98.0 Base Excess Arterial 6.1 mmol/L High -2.0-2.0 2 Hco3 Arterial 29.6 mmol/L Normal 19-31 Laboratory test 09/29/2019 [facility] CFM INR 1.8 finding ( )- - Basic Metabolic 09/29/2019 [facility] Sodium 139 mmol/L Normal 135-[address] [place] [address] [phone] Potassium 4.9 mmol/L Normal 3.5-5.0 Chloride 100 mmol/L Low 101-111 Co2 Carbon Dioxide 32 mmol/L Normal 22-32 Anion Gap 7 mmol/L Normal 2-11 Glucose 131 mg/dL High 70-100 Blood Urea Nitrogen 16 mg/dL Normal 6-24 Creatinine 0.96 mg/dL High 0.51-0.95 BUN/Creatinine Ratio 16.7 Normal 8-20 Calcium 9.5 mg/dL Normal 8.6-10.3 Egfr Non- 56.8 >60 Egfr 68.7 >60 4 Laboratory test 09/22/2019 [facility] B-Type > 1300 High <= [address] Natriuretic pg/[place] [address] Peptide BNP [phone] Legionella Urine Antigen SEE RESULT BELOW 5 CBC Auto 09/22/2019 [facility] White Blood 15.6 10^3/uL High 3.5-10.[address] [place] [address] [phone] Red Blood Count 3.34 10^6/uL Low 3.70-4.87 [...] Blood Cells % 0.4 Laboratory test 09/22/2019 [facility] Magnesium 2.0 mg/dL Normal 1.9-2.[address] [place] [address] [phone] Troponin-I (TnI) 0.10 ng/mL Critical high <0.03 6 Acetaminophen < 15 g/mL 7 Alcohol < 10 mg/dL Normal <10 Salicylate < 2.50 mg/dL <30 TSH (Thyroid Stim Horm) 1.76 mcIU/mL Normal 0.34-5.60 Comp Metabolic Panel 09/22/2019 [facility] Sodium 130 mmol/L Low 135-145 [address] [place] [address] [phone] Potassium 4.5 mmol/L Normal 3.5-5.0 Chloride 87 [...] Egfr 91.4 >60 8 Urine Drug 09/22/2019 [facility] Urine None Detected None Detect SCR ED & [address] [facility] [place] [address] Screen [phone] Urine Barbiturates Screen None Detected None Detect Urine Benzodiazepine Screen None Detected None Detect Urine Cannabinoids Screen None Detected None Detect Urine Cocaine Screen None Detected None Detect Urine Opiates Screen None Detected None Detect Urine Phencyclidine Screen None Detected None Detect 9 Laboratory test 09/22/2019 [facility] Ammonia TNP mcmol/L 16- 53 10 finding [address] [place] [address] [phone] Lactic Acid 0.5 mmol/L Normal 0.5-2.0 11 Urinalysis Profile 09/22/2019 [facility] Urine Color Yuliya [address] [place] [address] [phone] Urine Appearance Clear Urine Specific [place] 1.020 Normal 1.010-1.030 Urine pH 6.0 Normal 5-9 Urine Urobilinogen Negative Negative Urine Ketones Negative Negative Urine Protein Negative Negative Urine Leukocytes Negative Negative Urine Blood Negative Negative * * Abnormal Negative 12 Urine Nitrite Negative Negative Urine Bilirubin Negative Negative Urine Glucose Negative Negative Laboratory test 09/22/2019 [facility] Point of 151 mg/dL High 70-100 13 finding 201 [facility] Care Glucose [place], [place] [id number] [phone] Venous Blood 09/22/2019 [facility] Venous Blood 7.23 Low 7.32- 7.43 Gas [address] [facility] [place] pH [place], [place] [address] [phone] Venous Pco2 94 mmHg High 41-51 Venous Po2 54.0 mmHg High 35-45 Venous O2 Saturation 85.6 % High 70-80 Venous Blood Base Excess 8.1 mmol/L High 0.0-4.0 14 Venous Bicarbonate Hco3 30.9 mmol/L High 24-28 Laboratory test 09/22/2019 [facility] Ammonia 65 mcmol/L High 16-53 finding [address] [place], [place] [id number] [phone] Arterial Blood Gas 09/22/2019 [facility] Fio2 100 [address] [place] [address] [phone] Resp Rate 20 Ipap 18 Epap 7 PH Arterial 7.20 Low 7.35-7.45 Pco2 Arterial 103 mmHg Critical high 35-45 15 Po2 Arterial 345 mmHg High 80-100 O2 Saturation Arterial 98.2 % High 94.0-98.0 Base Excess Arterial 8.2 mmol/L High -2.0-2.0 16 Hco3 Arterial 31.3 mmol/L High 19-31 INR/Protime 09/22/2019 [facility] INR 4.08 High 0.82-1.09 17 [address] [place] [address] [phone] INR/Protime 09/16/2019 [facility] INR 3.09 High 0.82-1.[address] [place] [address] [phone] Comp Metabolic 09/16/2019 [facility] Sodium 141 mmol/L Normal 135-145 Panel [address] [place] [address] [phone] Potassium 4.4 mmol/L Normal 3.5-5.0 Chloride 91 [...] mmol/L Critical high 22-32 20 Laboratory 09/16/2019 [facility] TSH (Thyroid 0.85 Normal 0.34 -5.[address] Horm) mcIU/[place] [address] [phone] CBC No Diff 09/16/2019 [facility] White Blood 12.9 High 3.5- 10.[address] Count 10^3/[place] [address] [phone] Red Blood Count 2.94 10^6/uL Low 3.70-4.87 Hemoglobin 9.3 g/dL Low 12.0-16.0 Hematocrit 29 % Low 35-47 Mean Corpuscular Volume 99 fL High 80-97 Mean Corpuscular Hemoglobin 32 pg High 27-31 Mean Corpuscular HGB Conc 32 g/dL Normal 31-36 Red Cell Distribution Width 14 % Normal 10-15 Platelet Count 187 10^3/uL Normal 150-450 Mean Platelet Volume 10.0 fL Normal 7.4-10.4 Laboratory 09/16/2019 [facility] Troponin-I 0.08 Critical < 0.03 21 test finding [address] (TnI) ng/[place] [address] [phone] Basic 09/16/2019 [facility] Sodium 139 Normal 135-[address] mmol/[place] [address] [phone] Potassium 4.5 mmol/L Normal 3.5-5.0 Chloride 88 mmol/L Low 101-111 Glucose 145 mg/dL High 70-100 Blood Urea Nitrogen 21 mg/dL Normal 6-24 Creatinine 0.60 mg/dL Normal 0.51-0.95 BUN/Creatinine Ratio 35.0 High 8-20 Calcium 9.6 mg/dL Normal 8.6-10.3 Egfr Non- 97.7 >60 Egfr 118.2 >60 22 Co2 Carbon Dioxide 48 mmol/L Critical high 22-32 23 Laboratory test 09/16/2019 [facility] Lactic Acid 1.0 mmol/L Normal 0.5-2.0 [address] [place] [address] [phone] B-Type Natriuretic Peptide BNP 1235 pg/mL High <=100 CBC Auto 09/16/2019 [facility] White Blood 11.4 10^3/uL High 3.5-10.[address] [place] [address] [phone] Red Blood Count 3.18 10^6/uL Low 3.70-4.87 [...] Cells % 0.0 Arterial Blood Gas 09/16/2019 [facility] O2 Device N/C [address] [place] [address] [phone] PH Arterial 7.42 Normal 7.35-7.45 Pco2 Arterial 85 mmHg Critical high 35-45 25 Po2 Arterial 77 mmHg Low 80-100 O2 Saturation Arterial 96.0 % Normal 94.0-98.0 Base Excess Arterial 25.0 mmol/L High -2.0-2.0 26 Hco3 Arterial 44.4 mmol/L Critical high 19-31 27 Laboratory test 09/16/2019 [facility] Partial 47.8 High 26.0- 38.[address] [place] [address] PTT [phone] Troponin-I (TnI) 0.09 ng/mL Critical high <0.03 28 INR/Protime 09/16/2019 [facility] INR 3.12 High 0.82-1.[address] [place] [address] [phone] Xray 07/20/2019 [facility] Chest 2 Views <pendin [address]> [place] [address] [phone] Laboratory test 07/18/2019 [facility] CFM INR 2.3 finding ( )- - Laboratory test 06/23/2019 [facility] CFM INR 3.8 finding ( )- - Laboratory test 06/23/2019 [facility] Hemoglobin A1c 5.9 % High 4.0-5.[address] (Glyco HGB) [place] [address] [phone] Comp Metabolic 06/23/2019 [facility] Sodium 138 Normal 135- [address] mmol/[place] [address] [phone] Potassium 4.7 mmol/L Normal 3.5-5.0 Chloride 95 [...] Egfr 78.0 >60 31 Laboratory test 06/15/2019 [facility] CFM INR 2.85 finding ( )- - Comp Metabolic Panel 06/14/2019 [facility] Sodium 140 mmol/L Normal 135-[address] [place] [address] [phone] Chloride 94 mmol/L Low 101-111 Co2 Carbon [...] 9 mmol/L Normal 2-11 Laboratory test 06/14/2019 [facility] Vitamin B12 394 pg/mL Normal 180-914 [address] [place] [address] [phone] Vitamin D Total 25(Oh) 38.6 ng/mL Normal 20-50 34 Protime W/ INR 06/14/2019 N2N/CCD Import International Normalized Ratio 2.85 1 Verbal to [id number] by [id number] at 1317 on 10/09/19. Results read back accurately. 2 Reference ranges based on room air. 3 [id number] 4 Because ethnic data is not always [...] Attend Dr: Marco Antonio Brambila MD Acct: [id number] Unit: [id number] AGE: 74 Location: ICU [id number] Re09/22/19 SEX: F Status: ADM IN SPEC: [id number] TATA: 09/22/[address]: Jona AZAR REQ: [id number] RECD: 09/22/19 STATUS: COMP KENDY LICONA: [facility] Monico Dyson MD _ SOURCE: [...] . END OF REPORT DEPARTMENT OF PATHOLOGY, [address] [place] [address] Zeke Richmond M.D. Director [facility] # [id number] Result TnIDx:0.10 Called to [id number] at: 06:48:08 by:[email or web address] Read back by: [email or web address] Troponin-I testing on Plasma Separator Tubes (PST) has a known false positive rate of 0.20-0.40%. All positive troponins reflex immediately to secondary confirmatory testing. Using the Nano Think DxI 800 Access Immunoassay systems, the 99th [...] Specimen hemolyzed. Result may not be valid. [facility] Severe Sepsis and Septic Shock Management Bundle Measure requires all lactic acids initially measuring >2.0 mmol/L be repeated. 12 *Ascorbic acid is present which may interfere with detection of blood. 13 Sales Marketing Coordinator: [id number] 14 Reference ranges based on room air. 15 Verbal to [id number] by [id number] at 0815 on 09/22/19. Results read back [...] CO2:49 Called to TYLER MARTI at: 13:33:08 by:[id number] Read back by:TYLER SANCHEZ CFM 21 Result TnIDx:0.08 Called to [id number] at: 18:49:49 by:[id number] Read back by: [id number] Troponin-I testing on Plasma Separator Tubes (PST) has a known false positive rate of 0.20-0.40%. All positive troponins reflex immediately to secondary confirmatory testing. Using the Nano Think DxI 800 Access Immunoassay systems, the 99th [...] dialysis) 23 Critical Result CO2:48 Called to [id number] at: 19:13:28 by:[id number] Read back by:[id number] 24 [facility] Severe Sepsis and Septic Shock Management Bundle Measure requires all lactic acids initially measuring >2.0 mmol/L be repeated. 25 Verbal to [id number] by [id number] at 2048 on 09/16/19. Results read back accurately. 26 Reference ranges based on room air. 27 Verbal to [id number] by [id number] at 2048 on 09/16/19. Results read back accurately. 28 Result TnIDx:0.09 Called to [id number] at: 23:20:01 by:[id number] Read back by: [id number] Troponin-I testing on Plasma Separator Tubes (PST) has a known false positive rate of 0.20-0.40%. All positive troponins reflex immediately to secondary confirmatory testing. Using the Nano Think DxI 800 Access Immunoassay systems, the 99th percentile upper reference limit was demonstrated to be < 0.03 ng/mL. 29 Standard intensity warfarin therapeutic range: 2.0-3.0 High intensity warfarin therapeutic range: 2.5-3.5 30 Therapeutic target for the treatment of diabetes mellitus patients is <7% HBA1C, and in selective patients <6.0%. Please refer to [place] [employer] diabetic care guidelines for further [...] possible) Procedures Date Code Description Status 07/12/2019 63695 Anticoagulant MGMT For Patient Taking Warfarin, Inc Review Completed & Intr 06/15/2019 17294 Anticoagulant MGMT For Patient Taking Warfarin, Inc Review Completed & Intr Medical Devices Description No Information Available Encounters Type Date Location Provider Dx Diagnosis Office Visit 09/29/2019 [facility] Benjamín Dennis MD E87.79 Other fluid overload 11:15a I48.91 Unspecified atrial fibrillation M25.512 Pain in left shoulder J96.92 Respiratory failure, unspecified with hypercapnia Office Visit 07/18/2019 3:45p [facility] Benjamín Dennis, T82.897D Oth complication of cardiac prosth dev/paul, subs I48.91 Unspecified atrial fibrillation Office Visit 06/23/2019 2:15p [facility] BRIAN [place] R73.9 Hyperglycemia, [...] 10:30 am - Ness Dennis MD at [facility]2019 - Ness Dennis MDE87.79 Other fluid genltgptO11.91 Unspecified atrial ierhrtzndtucG07.512 Pain in left shoulderReferral:[facility] orthoped[facility],J96.92 Respiratory failure, unspecified with hypercapniaReferral:Roberta Winkler, Pulmonary DiseasesAllNew Medication: - Functional Status Description No Information Available Mental Status Description No Information Available Referrals Refer to Reason for Referral Status Appt Date Roberta Winkler Patient with hospitalization for respiratory Sent failure with hypercapnea, recommendation of sleep evaluation as an outpatient [address] [place] [address] [phone] [facility] orthopedics Left shoulder pain and limited range of motion Sent
--- OUTSIDE RECORDS SUMMARY | 2019-11-17 12:57 | XMS REPORT | Continuity of Care Document ---
:1945 External Reference #:[id number] Author Name Ness Dennis MD Address [address] [place] [address] Problems Active Problems Provider Date Chronic kidney [...] 12 2 [facility]2019 500mcg every day as MD Tablets directed Acetaminophen Extra 2 tab by mouth [facility], 09/27/2019 Strength three times a day 500mg Tablets as needed Mucinex 2 tab by mouth 120tabs [facility], 09/27/2019 600mg Tablets twice a day as MD ER 12HR directed Preservision Areds 2 2 cap by mouth 120caps [facility], 09/27/2019 + Multi Vitamin every day as MD Areds 2 directed Capsules Colace 2 tabs by mouth 180caps [facility], 09/27/2019 100mg Capsules every day as MD needed Gas-X 1 tab by mouth 360units [facility], 09/27/2019 80mg Chewtabs every 6 hours as MD needed Miralax 17 gm by mouth Unknown 09/27/2019 [id number] Powder every day as needed Tums 1 tab by mouth 360units [facility], 09/27/2019 500mg Chewtabs twice a day as [...] Warfarin Sodium oral; take one 90tabs [facility], 07/14/2018 5mg tablet by mouth Tablets [...] directed [facility]1999 2mg/0.05ML every 4 - 6m as Solution directed History Medications Simethicone 1 tab by mouth 90units Unknown 09/27/2019 - 80mg every 6 hours as 09/29/2019 Chewtabs needed Albuterol Sulfate HFA 2 puffs inhalation 8.500[facility] - as needed 09/29/2019 108(90Base) mcg/Act Aerosol Immunizations CPT Code Status Date Vaccine Lot # [id number] Given 06/23/2019 Flu High Dose [id number] 74180 Given 07/23/2018 Influenza Virus Vaccine, Quadrivalent, Split, Im Use 0.25ML 98806 Given 07/23/2018 Influenza Virus Vaccine, Quadrivalent, Split, Im Use 0.25ML 87547 Given 07/23/2018 Influenza Virus Vaccine, Quadrivalent, Split, Im Use 0.25ML 19185 Given 07/23/2018 Flu < 65 years 09691 Given 07/23/2018 Influenza Virus Vaccine, Quadrivalent, Split, Preservative Free 67693 Given 07/23/2018 Flumist 04051 Given 07/23/2018 Flu High Dose 65653 Given 07/23/2018 Influenza Virus Vaccine, Split, Preserv Free, Intradermal Use 02138 Given 07/24/2017 Influenza Virus Vaccine, Split, Preserv Free, Intradermal Use 95789 Given 07/24/2017 Flu High Dose 01599 Given 07/24/2017 Flumist 24877 Given 07/24/2017 Influenza Virus Vaccine, Quadrivalent, Split, Preservative Free 69159 Given 07/24/2017 Flu < 65 years 42281 Given 07/24/2017 Influenza Virus Vaccine, Quadrivalent, Split, Im Use 0.25ML 90901 Given 07/24/2017 Influenza Virus Vaccine, Quadrivalent, Split, Im Use 0.25ML 93102 Given 07/24/2017 Influenza Virus Vaccine, Quadrivalent, Split, Im Use 0.25ML 61044 Given 10/24/2014 Prevnar 13 50060 Given 06/29/2014 Influenza Virus Vaccine, Quadrivalent, Split, Im Use 0.25ML 10234 Given 06/29/2014 Influenza Virus Vaccine, Quadrivalent, Split, Im Use 0.25ML 85102 Given 06/29/2014 Influenza Virus Vaccine, Quadrivalent, Split, Im Use 0.25ML 58440 Given 06/29/2014 Flu < 65 years 47365 Given 06/29/2014 Influenza Virus Vaccine, Quadrivalent, Split, Preservative Free 75761 Given 06/29/2014 Flumist 12933 Given 06/29/2014 Flu High Dose 54582 Given 07/04/2013 Flu High Dose 79725 Given 07/04/2013 Flumist 45682 Given 07/04/2013 Influenza Virus Vaccine, Quadrivalent, Split, Preservative Free 62907 Given 07/04/2013 Flu < 65 years 26739 Given 07/04/2013 Influenza Virus Vaccine, Quadrivalent, Split, Im Use 0.25ML 91367 Given 07/04/2013 Influenza Virus Vaccine, Quadrivalent, Split, Im Use 0.25ML 31376 Given 07/04/2013 Influenza Virus Vaccine, Quadrivalent, Split, Im Use 0.25ML 14128 Given 05/05/2012 Influenza Virus Vaccine, Quadrivalent, Split, Im Use 0.25ML 99114 Given 05/05/2012 Influenza Virus Vaccine, Quadrivalent, Split, Im Use 0.25ML 93148 Given 05/05/2012 Influenza Virus Vaccine, Quadrivalent, Split, Im Use 0.25ML 93200 Given 05/05/2012 Flu < 65 years 31107 Given 05/05/2012 Influenza Virus Vaccine, Quadrivalent, Split, Preservative Free 85014 Given 05/05/2012 Flumist 28448 Given 05/05/2012 Flu High Dose 64100 Given 10/24/2011 Tdap - Boostrix/Adacel 61837 Given 06/28/2011 Influenza Virus Vaccine, Quadrivalent, Split, Im Use 0.25ML 67000 Given 06/28/2011 Influenza Virus Vaccine, Quadrivalent, Split, Im Use 0.25ML 15927 Given 06/28/2011 Influenza Virus Vaccine, Quadrivalent, Split, Im Use 0.25ML 59383 Given 06/28/2011 Flu < 65 years 17914 Given 06/28/2011 Influenza Virus Vaccine, Quadrivalent, Split, Preservative Free 10617 Given 06/28/2011 Flumist 17846 Given 06/28/2011 Flu High Dose 36799 Given 05/15/2010 Pneumovax - for >=2years - PPSV23 22885 Given 08/22/2009 Influenza Virus Vaccine, Quadrivalent, Split, Im Use 0.25ML 64544 Given 06/14/2008 Influenza Virus Vaccine, Quadrivalent, Split, Im Use 0.25ML 53533 Given 07/22/2006 Influenza Virus Vaccine, Quadrivalent, Split, [...] Result H/L Range Note Arterial Blood 10/09/2019 [facility] PH Arterial 7.23 Low 7.35 -7.[address] [place] [address] [phone] Pco2 Arterial 88 mmHg Critical high 35-45 1 Po2 Arterial 94 mmHg Normal 80-100 O2 Saturation Arterial 97.2 % Normal 94.0-98.0 Base Excess Arterial 6.1 mmol/L High -2.0-2.0 2 Hco3 Arterial 29.6 mmol/L Normal 19-31 Laboratory test 09/29/2019 [facility] CFM INR 1.8 finding ( )- - Basic Metabolic 09/29/2019 [facility] Sodium 139 mmol/L Normal 135-[address] [place] [address] [phone] Potassium 4.9 mmol/L Normal 3.5-5.0 Chloride 100 mmol/L Low 101-111 Co2 Carbon Dioxide 32 mmol/L Normal 22-32 Anion Gap 7 mmol/L Normal 2-11 Glucose 131 mg/dL High 70-100 Blood Urea Nitrogen 16 mg/dL Normal 6-24 Creatinine 0.96 mg/dL High 0.51-0.95 BUN/Creatinine Ratio 16.7 Normal 8-20 Calcium 9.5 mg/dL Normal 8.6-10.3 Egfr Non- 56.8 >60 Egfr 68.7 >60 4 Laboratory test 09/22/2019 [facility] B-Type > 1300 High <= [address] Natriuretic pg/[place] [address] Peptide BNP [phone] Legionella Urine Antigen SEE RESULT BELOW 5 CBC Auto 09/22/2019 [facility] White Blood 15.6 10^3/uL High 3.5-10.[address] [place] [address] [phone] Red Blood Count 3.34 10^6/uL Low 3.70-4.87 [...] Blood Cells % 0.4 Laboratory test 09/22/2019 [facility] Magnesium 2.0 mg/dL Normal 1.9-2.[address] [place] [address] [phone] Troponin-I (TnI) 0.10 ng/mL Critical high <0.03 6 Acetaminophen < 15 g/mL 7 Alcohol < 10 mg/dL Normal <10 Salicylate < 2.50 mg/dL <30 TSH (Thyroid Stim Horm) 1.76 mcIU/mL Normal 0.34-5.60 Comp Metabolic Panel 09/22/2019 [facility] Sodium 130 mmol/L Low 135-145 [address] [place] [address] [phone] Potassium 4.5 mmol/L Normal 3.5-5.0 Chloride 87 [...] Egfr 91.4 >60 8 Urine Drug 09/22/2019 [facility] Urine None Detected None Detect SCR ED & [address] [facility] [place] [address] Screen [phone] Urine Barbiturates Screen None Detected None Detect Urine Benzodiazepine Screen None Detected None Detect Urine Cannabinoids Screen None Detected None Detect Urine Cocaine Screen None Detected None Detect Urine Opiates Screen None Detected None Detect Urine Phencyclidine Screen None Detected None Detect 9 Laboratory test 09/22/2019 [facility] Ammonia TNP mcmol/L 16- 53 10 finding [address] [place] [address] [phone] Lactic Acid 0.5 mmol/L Normal 0.5-2.0 11 Urinalysis Profile 09/22/2019 [facility] Urine Color Yuliya [address] [place] [address] [phone] Urine Appearance Clear Urine Specific [place] 1.020 Normal 1.010-1.030 Urine pH 6.0 Normal 5-9 Urine Urobilinogen Negative Negative Urine Ketones Negative Negative Urine Protein Negative Negative Urine Leukocytes Negative Negative Urine Blood Negative Negative * * Abnormal Negative 12 Urine Nitrite Negative Negative Urine Bilirubin Negative Negative Urine Glucose Negative Negative Laboratory test 09/22/2019 [facility] Point of 151 mg/dL High 70-100 13 finding [address] [facility] Care Glucose [place], [place] [id number] [phone] Venous Blood 09/22/2019 [facility] Venous Blood 7.23 Low 7.32- 7.43 Gas [address] [facility] pH [place], [place] [address] [phone] Venous Pco2 94 mmHg High 41-51 Venous Po2 54.0 mmHg High 35-45 Venous O2 Saturation 85.6 % High 70-80 Venous Blood Base Excess 8.1 mmol/L High 0.0-4.0 14 Venous Bicarbonate Hco3 30.9 mmol/L High 24-28 Laboratory test 09/22/2019 [facility] Ammonia 65 mcmol/L High 16-53 finding [address] [place], [place] [address] [phone] Arterial Blood Gas 09/22/2019 [facility] Fio2 100 [address] [place] [address] [phone] Resp Rate 20 Ipap 18 Epap 7 PH Arterial 7.20 Low 7.35-7.45 Pco2 Arterial 103 mmHg Critical high 35-45 15 Po2 Arterial 345 mmHg High 80-100 O2 Saturation Arterial 98.2 % High 94.0-98.0 Base Excess Arterial 8.2 mmol/L High -2.0-2.0 16 Hco3 Arterial 31.3 mmol/L High 19-31 INR/Protime 09/22/2019 [facility] INR 4.08 High 0.82-1.09 17 [address] [place] [address] [phone] INR/Protime 09/16/2019 [facility] INR 3.09 High 0.82-1.[address] [place] [address] [phone] Comp Metabolic 09/16/2019 [facility] Sodium 141 mmol/L Normal 135-145 Panel [address] [place] [address] [phone] Potassium 4.4 mmol/L Normal 3.5-5.0 Chloride 91 [...] mmol/L Critical high 22-32 20 Laboratory 09/16/2019 [facility] TSH (Thyroid 0.85 Normal 0.34 -5.[address] Stim Horm) mcIU/[place] [address] [phone] CBC No Diff 09/16/2019 [facility] White Blood 12.9 High 3.5- 10.[address] Count 10^3/[place] [address] [phone] Red Blood Count 2.94 10^6/uL Low 3.70-4.87 Hemoglobin 9.3 g/dL Low 12.0-16.0 Hematocrit 29 % Low 35-47 Mean Corpuscular Volume 99 fL High 80-97 Mean Corpuscular Hemoglobin 32 pg High 27-31 Mean Corpuscular HGB Conc 32 g/dL Normal 31-36 Red Cell Distribution Width 14 % Normal 10-15 Platelet Count 187 10^3/uL Normal 150-450 Mean Platelet Volume 10.0 fL Normal 7.4-10.4 Laboratory 09/16/2019 [facility] Troponin-I 0.08 Critical < 0.03 21 test finding [address] (TnI) ng/[place] [address] [phone] Basic 09/16/2019 [facility] Sodium 139 Normal 135-[address] mmol/[place] [address] [phone] Potassium 4.5 mmol/L Normal 3.5-5.0 Chloride 88 mmol/L Low 101-111 Glucose 145 mg/dL High 70-100 Blood Urea Nitrogen 21 mg/dL Normal 6-24 Creatinine 0.60 mg/dL Normal 0.51-0.95 BUN/Creatinine Ratio 35.0 High 8-20 Calcium 9.6 mg/dL Normal 8.6-10.3 Egfr Non- 97.7 >60 Egfr 118.2 >60 22 Co2 Carbon Dioxide 48 mmol/L Critical high 22-32 23 Laboratory test 09/16/2019 [facility] Lactic Acid 1.0 mmol/L Normal 0.5-2.0 [address] [place] [address] [phone] B-Type Natriuretic Peptide BNP 1235 pg/mL High <=100 CBC Auto 09/16/2019 [facility] White Blood 11.4 10^3/uL High 3.5-10.[address] [place] [address] [phone] Red Blood Count 3.18 10^6/uL Low 3.70-4.87 [...] Cells % 0.0 Arterial Blood Gas 09/16/2019 [facility] O2 Device N/C [address] [place] [address] [phone] PH Arterial 7.42 Normal 7.35-7.45 Pco2 Arterial 85 mmHg Critical high 35-45 25 Po2 Arterial 77 mmHg Low 80-100 O2 Saturation Arterial 96.0 % Normal 94.0-98.0 Base Excess Arterial 25.0 mmol/L High -2.0-2.0 26 Hco3 Arterial 44.4 mmol/L Critical high 19-31 27 Laboratory test 09/16/2019 [facility] Partial 47.8 High 26.0- 38.[address] [place] [address] PTT [phone] Troponin-I (TnI) 0.09 ng/mL Critical high <0.03 28 INR/Protime 09/16/2019 [facility] INR 3.12 High 0.82-1.[address] [place] [address] [phone] Xray 07/20/2019 [facility] Chest 2 Views <pendin [address] g> [place] [address] [phone] Laboratory test 07/18/2019 [facility] CFM INR 2.3 finding ( )- - Laboratory test 06/23/2019 [facility] CFM INR 3.8 finding ( )- - Laboratory test 06/23/2019 [facility] Hemoglobin A1c 5.9 % High 4.0-5.[address] (Glyco HGB) [place] [address] [phone] Comp Metabolic 06/23/2019 [facility] Sodium 138 Normal 135- [address] mmol/[place] [address] [phone] Potassium 4.7 mmol/L Normal 3.5-5.0 Chloride 95 [...] Egfr 78.0 >60 31 Laboratory test 06/15/2019 [facility] CFM INR 2.85 finding ( )- - Comp Metabolic Panel 06/14/2019 [facility] Sodium 140 mmol/L Normal 135-[address] [place] [address] [phone] Chloride 94 mmol/L Low 101-111 Co2 Carbon [...] 9 mmol/L Normal 2-11 Laboratory test 06/14/2019 [facility] Vitamin B12 394 pg/mL Normal 180-914 [address] [place] [address] [phone] Vitamin D Total 25(Oh) 38.6 ng/mL Normal 20-50 34 Protime W/ INR 06/14/2019 N2N/[facility]D [employer] International Normalized Ratio 2.85 1 Verbal to [id number] by [id number] at 1317 on 10/09/19. Results read back accurately. 2 Reference ranges based on room air. 3 [id number] 4 Because ethnic data is not always [...] Attend Dr: Marco Antonio Brambila MD Acct: [id number] Unit: [id number] AGE: 74 Location: ICU [id number] Re09/22/19 SEX: F Status: ADM IN SPEC: [id number] TATA: 09/22/[address]: Jona AZAR REQ: [id number] RECD: 09/22/19 STATUS: COMP KENDY LICONA: [facility] Monico Dyson MD _ SOURCE: [...] . END OF REPORT DEPARTMENT OF PATHOLOGY, [address] [place] [address] Zeke Richmond M.D. Director [facility] # [id number] 6 Result TnIDx:0.10 Called to [id number] at: 06:48:08 by:[id number] Read back by: [email or web address] Troponin-I testing on Plasma Separator Tubes (PST) has a known false positive rate of 0.20-0.40%. All positive troponins reflex immediately to secondary confirmatory testing. Using the [employer] DxI 800 Access Immunoassay systems, the 99th [...] Specimen hemolyzed. Result may not be valid. [facility] Severe Sepsis and Septic Shock Management Bundle Measure requires all lactic acids initially measuring >2.0 mmol/L be repeated. 12 *Ascorbic acid is present which may interfere with detection of blood. 13 Maintenance Supervisor 2Nd Shift: [id number] 14 Reference ranges based on room air. 15 Verbal to [id number] by [id number] at 0815 on 09/22/19. Results read back [...] CO2:49 Called to TYLER MARTI at: 13:33:08 by:[id number] Read back by:TYLER SANCHEZ CFM 21 Result TnIDx:0.08 Called to [id number] at: 18:49:49 by:[id number] Read back by: [id number] Troponin-I testing on Plasma Separator Tubes (PST) has a known false positive rate of 0.20-0.40%. All positive troponins reflex immediately to secondary confirmatory testing. Using the [employer] DxI 800 Access Immunoassay systems, the 99th [...] dialysis) 23 Critical Result CO2:48 Called to [id number] at: 19:13:28 by:[email or web address] Read back by:[email or web address] 24 [facility] Severe Sepsis and Septic Shock Management Bundle Measure requires all lactic acids initially measuring >2.0 mmol/L be repeated. 25 Verbal to [id number] by [id number] at 2048 on 09/16/19. Results read back accurately. 26 Reference ranges based on room air. 27 Verbal to [id number] by [id number] at 2048 on 09/16/19. Results read back accurately. 28 Result TnIDx:0.09 Called to [id number] at: 23:20:01 by:[id number] Read back by: [id number] Troponin-I testing on Plasma Separator Tubes (PST) has a known false positive rate of 0.20-0.40%. All positive troponins reflex immediately to secondary confirmatory testing. Using the [employer] DxI 800 Access Immunoassay systems, the 99th percentile upper reference limit was demonstrated to be < 0.03 ng/mL. 29 Standard intensity warfarin therapeutic range: 2.0-3.0 High intensity warfarin therapeutic range: 2.5-3.5 30 Therapeutic target for the treatment of diabetes mellitus patients is <7% HBA1C, and in selective patients <6.0%. Please refer to [employer] diabetic care guidelines for further [...] possible) Procedures Date Code Description Status 07/12/2019 83313 Anticoagulant MGMT For Patient Taking Warfarin, Inc Review Completed & Intr 06/15/2019 75711 Anticoagulant MGMT For Patient Taking Warfarin, Inc Review Completed & Intr Medical Devices Description No Information Available Encounters Type Date Location Provider Dx Diagnosis Office Visit 09/29/2019 [facility] Benjamín Dennis MD E87.79 Other fluid overload 11:15a I48.91 Unspecified atrial fibrillation M25.512 Pain in left shoulder J96.92 Respiratory failure, unspecified with hypercapnia Office Visit 07/18/2019 3:45p [facility] Benjamín Dennis, T82.897D Oth complication of cardiac prosth dev/paul, subs I48.91 Unspecified atrial fibrillation Office Visit 06/23/2019 2:15p [facility] BRIAN [place] R73.9 Hyperglycemia, unspecified E87.5 Hyperkalemia [...] MD 06/23/2019 R73.9 Hyperglycemia, unspecified Samantha Bhagat [facility] 06/23/2019 E87.5 Hyperkalemia Samantha Bhagat [facility] 06/23/2019 I48.91 Unspecified atrial fibrillation Samantha Bhagat [facility] 06/23/2019 Z23 Encounter for immunization BRIAN Gabriel Plan of Treatment Future Appointment(s):10/20/2019 10:30 am - Ness Dennis MD at [facility]2019 - Ness Dennis MDE87.79 Other fluid rqcomzxhZ09.91 Unspecified atrial ttqyenvobdmeB50.512 Pain in left shoulderReferral:[facility] orthopedics,J96.92 Respiratory failure, unspecified with hypercapniaReferral:Roberta Winkler, Pulmonary DiseasesAllNew Medication: - Functional Status Description No Information Available Mental Status Description No Information Available Referrals Refer to Reason for Referral Status Appt Date Roberta Winkler Patient with hospitalization for respiratory Sent failure with hypercapnea, recommendation of sleep evaluation as an outpatient [address] [place] [address] [phone] [facility] orthopedics Left shoulder pain and limited range of motion Sent
--- OUTSIDE RECORDS SUMMARY | 2019-11-17 12:57 | XMS REPORT | Continuity of Care Document ---
:1945 External Reference #:[id number] Author Name Nses Dennis MD Address [address] [place] [address] Problems Active Problems Provider Date Chronic kidney [...] B 12 2 tab [facility] mouth [facility]2019 500mcg every day as MD Tablets directed Acetaminophen Extra 2 tab by mouth 90tabs [facility], 09/27/2019 Strength three times a day 500mg Tablets as needed Mucinex 2 tab by mouth 120tabs [facility], 09/27/2019 600mg Tablets twice a day as MD ER 12HR directed Preservision Areds 2 2 cap by mouth 120caps [facility], 09/27/2019 + Multi Vitamin every day as MD Areds 2 directed Capsules Colace 2 tabs by mouth 180caps [facility], 09/27/2019 100mg Capsules every day as MD needed Gas-X 1 tab by mouth 360units [facility], 09/27/2019 80mg Chewtabs every 6 hours as MD needed Miralax 17 gm by mouth Unknown 09/27/2019 3350NF Powder every day as needed Tums 1 tab by mouth 360units [facility], 09/27/2019 500mg Chewtabs twice a day as [...] directed Warfarin Sodium oral; take one 90tabs [facility], 07/14/2018 5mg tablet by [...] Tablets directed Eylea 2 [facility], 09/[facility]1999 2mg/0.05ML every 4 - 6m as Solution directed History Medications Simethicone 1 tab by mouth 90units Unknown 09/27/2019 - 80mg every 6 hours as 09/29/2019 Chewtabs needed Albuterol Sulfate HFA 2 puffs inhalation 8.500gm [facility] 2019 - as needed 09/29/2019 108(90Base) mcg/Act Aerosol Immunizations CPT Code Status Date Vaccine Lot # [id number] Given 06/23/2019 Flu High Dose [id number] 90373 Given 07/23/2018 Influenza Virus Vaccine, Quadrivalent, Split, Im Use 0.25ML 37521 Given 07/23/2018 Influenza Virus Vaccine, Quadrivalent, Split, Im Use 0.25ML 24098 Given 07/23/2018 Influenza Virus Vaccine, Quadrivalent, Split, Im Use 0.25ML 18307 Given 07/23/2018 Flu < 65 years 87268 Given 07/23/2018 Influenza Virus Vaccine, Quadrivalent, Split, Preservative Free 90998 Given 07/23/2018 Flumist 78646 Given 07/23/2018 Flu High Dose 13555 Given 07/23/2018 Influenza Virus Vaccine, Split, Preserv Free, Intradermal Use 63008 Given 07/24/2017 Influenza Virus Vaccine, Split, Preserv Free, Intradermal Use 57720 Given 07/24/2017 Flu High Dose 76068 Given 07/24/2017 Flumist 93611 Given 07/24/2017 Influenza Virus Vaccine, Quadrivalent, Split, Preservative Free 10921 Given 07/24/2017 Flu < 65 years 86539 Given 07/24/2017 Influenza Virus Vaccine, Quadrivalent, Split, Im Use 0.25ML 30515 Given 07/24/2017 Influenza Virus Vaccine, Quadrivalent, Split, Im Use 0.25ML 48759 Given 07/24/2017 Influenza Virus Vaccine, Quadrivalent, Split, Im Use 0.25ML 62962 Given 10/24/2014 Prevnar 13 67628 Given 06/29/2014 Influenza Virus Vaccine, Quadrivalent, Split, Im Use 0.25ML 41696 Given 06/29/2014 Influenza Virus Vaccine, Quadrivalent, Split, Im Use 0.25ML 99374 Given 06/29/2014 Influenza Virus Vaccine, Quadrivalent, Split, Im Use 0.25ML 72137 Given 06/29/2014 Flu < 65 years 38905 Given 06/29/2014 Influenza Virus Vaccine, Quadrivalent, Split, Preservative Free 57103 Given 06/29/2014 Flumist 40576 Given 06/29/2014 Flu High Dose 40215 Given 07/04/2013 Flu High Dose 80246 Given 07/04/2013 Flumist 13268 Given 07/04/2013 Influenza Virus Vaccine, Quadrivalent, Split, Preservative Free 27737 Given 07/04/2013 Flu < 65 years 94965 Given 07/04/2013 Influenza Virus Vaccine, Quadrivalent, Split, Im Use 0.25ML 38775 Given 07/04/2013 Influenza Virus Vaccine, Quadrivalent, Split, Im Use 0.25ML 21287 Given 07/04/2013 Influenza Virus Vaccine, Quadrivalent, Split, Im Use 0.25ML 73938 Given 05/05/2012 Influenza Virus Vaccine, Quadrivalent, Split, Im Use 0.25ML 12500 Given 05/05/2012 Influenza Virus Vaccine, Quadrivalent, Split, Im Use 0.25ML 29052 Given 05/05/2012 Influenza Virus Vaccine, Quadrivalent, Split, Im Use 0.25ML 46698 Given 05/05/2012 Flu < 65 years 03145 Given 05/05/2012 Influenza Virus Vaccine, Quadrivalent, Split, Preservative Free 84045 Given 05/05/2012 Flumist 10379 Given 05/05/2012 Flu High Dose 76185 Given 10/24/2011 Tdap - Boostrix/Adacel 27700 Given 06/28/2011 Influenza Virus Vaccine, Quadrivalent, Split, Im Use 0.25ML 70572 Given 06/28/2011 Influenza Virus Vaccine, Quadrivalent, Split, Im Use 0.25ML 04436 Given 06/28/2011 Influenza Virus Vaccine, Quadrivalent, Split, Im Use 0.25ML 47864 Given 06/28/2011 Flu < 65 years 25361 Given 06/28/2011 Influenza Virus Vaccine, Quadrivalent, Split, Preservative Free 08021 Given 06/28/2011 Flumist 30522 Given 06/28/2011 Flu High Dose 03359 Given 05/15/2010 Pneumovax - for >=2years - PPSV23 76319 Given 08/22/2009 Influenza Virus Vaccine, Quadrivalent, Split, Im Use 0.25ML 93846 Given 06/14/2008 Influenza Virus Vaccine, Quadrivalent, Split, Im Use 0.25ML 06061 Given 07/22/2006 Influenza Virus Vaccine, Quadrivalent, Split, [...] Result H/L Range Note Arterial Blood 10/09/2019 [facility] PH Arterial 7.23 Low 7.35 -7.[address] [place] [address] [phone] Pco2 Arterial 88 mmHg Critical high 35-45 1 Po2 Arterial 94 mmHg Normal 80-100 O2 Saturation Arterial 97.2 % Normal 94.0-98.0 Base Excess Arterial 6.1 mmol/L High -2.0-2.0 2 Hco3 Arterial 29.6 mmol/L Normal 19-31 Laboratory test 09/29/2019 [facility] CFM INR 1.8 finding ( )- - Basic Metabolic 09/29/2019 [facility] Sodium 139 mmol/L Normal 135-[address] [place] [address] [phone] Potassium 4.9 mmol/L Normal 3.5-5.0 Chloride 100 mmol/L Low 101-111 Co2 Carbon Dioxide 32 mmol/L Normal 22-32 Anion Gap 7 mmol/L Normal 2-11 Glucose 131 mg/dL High 70-100 Blood Urea Nitrogen 16 mg/dL Normal 6-24 Creatinine 0.96 mg/dL High 0.51-0.95 BUN/Creatinine Ratio 16.7 Normal 8-20 Calcium 9.5 mg/dL Normal 8.6-10.3 Egfr Non- 56.8 >60 Egfr 68.7 >60 4 Laboratory test 09/22/2019 [facility] B-Type > 1300 High <= [address] Natriuretic pg/[place] [address] Peptide BNP [phone] Legionella Urine Antigen SEE RESULT BELOW 5 CBC Auto 09/22/2019 [facility] White Blood 15.6 10^3/uL High 3.5-10.[address] [place] [address] [phone] Red Blood Count 3.34 10^6/uL Low 3.70-4.87 [...] Blood Cells % 0.4 Laboratory test 09/22/2019 [facility] Magnesium 2.0 mg/dL Normal 1.9-2.[address] [place] [address] [phone] Troponin-I (TnI) 0.10 ng/mL Critical high <0.03 6 Acetaminophen < 15 g/mL 7 Alcohol < 10 mg/dL Normal <10 Salicylate < 2.50 mg/dL <30 TSH (Thyroid Stim Horm) 1.76 mcIU/mL Normal 0.34-5.60 Comp Metabolic Panel 09/22/2019 [facility] Sodium 130 mmol/L Low 135-145 [address] [place] [address] [phone] Potassium 4.5 mmol/L Normal 3.5-5.0 Chloride 87 [...] Egfr 91.4 >60 8 Urine Drug 09/22/2019 [facility] Urine None Detected None Detect SCR ED & [address] [facility] [place] [address] Screen [phone] Urine Barbiturates Screen None Detected None Detect Urine Benzodiazepine Screen None Detected None Detect Urine Cannabinoids Screen None Detected None Detect Urine Cocaine Screen None Detected None Detect Urine Opiates Screen None Detected None Detect Urine Phencyclidine Screen None Detected None Detect 9 Laboratory test 09/22/2019 [facility] Ammonia TNP mcmol/L 16- 53 10 finding [address] [place] [address] [phone] Lactic Acid 0.5 mmol/L Normal 0.5-2.0 11 Urinalysis Profile 09/22/2019 [facility] Urine Color Yuliya [address] [place] [address] [phone] Urine Appearance Clear Urine Specific [place] 1.020 Normal 1.010-1.030 Urine pH 6.0 Normal 5-9 Urine Urobilinogen Negative Negative Urine Ketones Negative Negative Urine Protein Negative Negative Urine Leukocytes Negative Negative Urine Blood Negative Negative * * Abnormal Negative 12 Urine Nitrite Negative Negative Urine Bilirubin Negative Negative Urine Glucose Negative Negative Laboratory test 09/22/2019 [facility] Point of 151 mg/dL High 70-100 13 finding [address] [facility] Care Glucose [place], [place] [address] [phone] Venous Blood 09/22/2019 [facility] Venous Blood 7.23 Low 7.32- 7.43 Gas [address] [facility] pH [place], [place] [id number] [phone] Venous Pco2 94 mmHg High 41-51 Venous Po2 54.0 mmHg High 35-45 Venous O2 Saturation 85.6 % High 70-80 Venous Blood Base Excess 8.1 mmol/L High 0.0-4.0 14 Venous Bicarbonate Hco3 30.9 mmol/L High 24-28 Laboratory test 09/22/2019 [facility] Ammonia 65 mcmol/L High 16-53 finding [address] [place], [place] [id number] [phone] Arterial Blood Gas 09/22/2019 [facility] Fio2 100 [address] [place] [address] [phone] Resp Rate 20 Ipap 18 Epap 7 PH Arterial 7.20 Low 7.35-7.45 Pco2 Arterial 103 mmHg Critical high 35-45 15 Po2 Arterial 345 mmHg High 80-100 O2 Saturation Arterial 98.2 % High 94.0-98.0 Base Excess Arterial 8.2 mmol/L High -2.0-2.0 16 Hco3 Arterial 31.3 mmol/L High 19-31 INR/Protime 09/22/2019 [facility] INR 4.08 High 0.82-1.09 17 [address] [place] [address] [phone] INR/Protime 09/16/2019 [facility] INR 3.09 High 0.82-1.[address] [place] [address] [phone] Comp Metabolic 09/16/2019 [facility] Sodium 141 mmol/L Normal 135-145 Panel [address] [place] [address] [phone] Potassium 4.4 mmol/L Normal 3.5-5.0 Chloride 91 [...] mmol/L Critical high 22-32 20 Laboratory 09/16/2019 [facility] TSH (Thyroid 0.85 Normal 0.34 -5.[address] Stim Horm) mcIU/[place] [address] [phone] CBC No Diff 09/16/2019 [facility] White Blood 12.9 High 3.5- 10.[address] Count 10^3/[place] [address] [phone] Red Blood Count 2.94 10^6/uL Low 3.70-4.87 Hemoglobin 9.3 g/dL Low 12.0-16.0 Hematocrit 29 % Low 35-47 Mean Corpuscular Volume 99 fL High 80-97 Mean Corpuscular Hemoglobin 32 pg High 27-31 Mean Corpuscular HGB Conc 32 g/dL Normal 31-36 Red Cell Distribution Width 14 % Normal 10-15 Platelet Count 187 10^3/uL Normal 150-450 Mean Platelet Volume 10.0 fL Normal 7.4-10.4 Laboratory 09/16/2019 [facility] Troponin-I 0.08 Critical < 0.03 21 test finding [address] (TnI) ng/[place] [address] [phone] Basic 09/16/2019 [facility] Sodium 139 Normal 135-[address] mmol/[place] [address] [phone] Potassium 4.5 mmol/L Normal 3.5-5.0 Chloride 88 mmol/L Low 101-111 Glucose 145 mg/dL High 70-100 Blood Urea Nitrogen 21 mg/dL Normal 6-24 Creatinine 0.60 mg/dL Normal 0.51-0.95 BUN/Creatinine Ratio 35.0 High 8-20 Calcium 9.6 mg/dL Normal 8.6-10.3 Egfr Non- 97.7 >60 Egfr 118.2 >60 22 Co2 Carbon Dioxide 48 mmol/L Critical high 22-32 23 Laboratory test 09/16/2019 [facility] Lactic Acid 1.0 mmol/L Normal 0.5-2.0 [address] [place] [address] [phone] B-Type Natriuretic Peptide BNP 1235 pg/mL High <=100 CBC Auto 09/16/2019 [facility] White Blood 11.4 10^3/uL High 3.5-10.[address] [place] [address] [phone] Red Blood Count 3.18 10^6/uL Low 3.70-4.87 [...] Cells % 0.0 Arterial Blood Gas 09/16/2019 [facility] O2 Device N/C [address] [place] [address] [phone] PH Arterial 7.42 Normal 7.35-7.45 Pco2 Arterial 85 mmHg Critical high 35-45 25 Po2 Arterial 77 mmHg Low 80-100 O2 Saturation Arterial 96.0 % Normal 94.0-98.0 Base Excess Arterial 25.0 mmol/L High -2.0-2.0 26 Hco3 Arterial 44.4 mmol/L Critical high 19-31 27 Laboratory test 09/16/2019 [facility] Partial 47.8 High 26.0- 38.[address] [place] [address] PTT [phone] Troponin-I (TnI) 0.09 ng/mL Critical high <0.03 28 INR/Protime 09/16/2019 [facility] INR 3.12 High 0.82-1.[address] [place] [address] [phone] Xray 07/20/2019 [facility] Chest 2 Views <pendin [address] g> [place] [address] [phone] Laboratory test 07/18/2019 [facility] CFM INR 2.3 finding ( )- - Laboratory test 06/23/2019 [facility] CFM INR 3.8 finding ( )- - Laboratory test 06/23/2019 [facility] Hemoglobin A1c 5.9 % High 4.0-5.[address] (Glyco HGB) [place] [address] [phone] Comp Metabolic 06/23/2019 [facility] Sodium 138 Normal 135- [address] mmol/[place] [address] [phone] Potassium 4.7 mmol/L Normal 3.5-5.0 Chloride 95 [...] Egfr 78.0 >60 31 Laboratory test 06/15/2019 [facility] CFM INR 2.85 finding ( )- - Comp Metabolic Panel 06/14/2019 [facility] Sodium 140 mmol/L Normal 135-[address] [place] [address] [phone] Chloride 94 mmol/L Low 101-111 Co2 Carbon [...] 9 mmol/L Normal 2-11 Laboratory test 06/14/2019 [facility] Vitamin B12 394 pg/mL Normal 180-914 [address] [place] [address] [phone] Vitamin D Total 25(Oh) 38.6 ng/mL Normal 20-50 34 Protime W/ INR 06/14/2019 N2N/CCD Import International Normalized Ratio 2.85 1 Verbal to [id number] by [id number] at 1317 on 10/09/19. Results read back accurately. 2 Reference ranges based on room air. 3 [id number] 4 Because ethnic data is not always [...] Attend Dr: Marco Antonio Brambila MD Acct: [id number] Unit: [id number] AGE: 74 Location: ICU [id number] Re09/22/19 SEX: F Status: ADM IN SPEC: [id number] TATA: 09/22/[address]: Jona AZAR REQ: [id number] RECD: 09/22/19 STATUS: COMP KENDY LCIONA: [facility] Monico Dyson MD _ SOURCE: [...] . END OF REPORT DEPARTMENT OF PATHOLOGY, [address] [place] [address] Zeke Richmond M.D. Director [facility] # [id number] 6 Result TnIDx:0.10 Called to [id number] at: 06:48:08 by:[id number] Read back by: MATTY Troponin-I testing on Plasma Separator Tubes (PST) has a known false positive rate of 0.20-0.40%. All positive troponins reflex immediately to secondary confirmatory testing. Using the [employer] DxI 800 Access Immunoassay systems, the 99th [...] Specimen hemolyzed. Result may not be valid. [facility] Severe Sepsis and Septic Shock Management Bundle Measure requires all lactic acids initially measuring >2.0 mmol/L be repeated. 12 *Ascorbic acid is present which may interfere with detection of blood. 13 Medical Billing Assistant: [id number] 14 Reference ranges based on room air. 15 Verbal to [id number] by [id number] at 0815 on 09/22/19. Results read back [...] CO2:49 Called to TYLER MARTI at: 13:33:08 by:[id number] Read back by:TYLER SANCHEZ CFM 21 Result TnIDx:0.08 Called to [id number] at: 18:49:49 by:[id number] Read back by: [id number] Troponin-I testing on Plasma Separator Tubes (PST) has a known false positive rate of 0.20-0.40%. All positive troponins reflex immediately to secondary confirmatory testing. Using the [employer] DxI 800 Access Immunoassay systems, the 99th [...] dialysis) 23 Critical Result CO2:48 Called to [id number] at: 19:13:28 by:[id number] Read back by:[email or web address] 24 [facility] Severe Sepsis and Septic Shock Management Bundle Measure requires all lactic acids initially measuring >2.0 mmol/L be repeated. 25 Verbal to [id number] by [id number] at 2048 on 09/16/19. Results read back accurately. 26 Reference ranges based on room air. 27 Verbal to [id number] by [id number] at 2048 on 09/16/19. Results read back accurately. 28 Result TnIDx:0.09 Called to [id number] at: 23:20:01 by:[id number] Read back by: [id number] Troponin-I testing on Plasma Separator Tubes (PST) has a known false positive rate of 0.20-0.40%. All positive troponins reflex immediately to secondary confirmatory testing. Using the [employer] DxI 800 Access Immunoassay systems, the 99th percentile upper reference limit was demonstrated to be < 0.03 ng/mL. 29 Standard intensity warfarin therapeutic range: 2.0-3.0 High intensity warfarin therapeutic range: 2.5-3.5 30 Therapeutic target for the treatment of diabetes mellitus patients is <7% HBA1C, and in selective patients <6.0%. Please refer to [place] [employer] diabetic care guidelines for further [...] possible) Procedures Date Code Description Status 07/12/2019 07375 Anticoagulant MGMT For Patient Taking Warfarin, Inc Review Completed & Intr 06/15/2019 49112 Anticoagulant MGMT For Patient Taking Warfarin, Inc Review Completed & Intr Medical Devices Description No Information Available Encounters Type Date Location Provider Dx Diagnosis Office Visit 09/29/2019 [facility] Benjamín Dennis MD E87.79 Other fluid overload 11:15a I48.91 Unspecified atrial fibrillation M25.512 Pain in left shoulder J96.92 Respiratory failure, unspecified with hypercapnia Office Visit 07/18/2019 3:45p [facility] Benjamín Dennis, T82.897D Oth complication of cardiac prosth dev/paul, subs I48.91 Unspecified atrial fibrillation Office Visit 06/23/2019 2:15p [facility] BRIAN [place] R73.9 Hyperglycemia, unspecified E87.5 [...] MD 06/23/2019 R73.9 Hyperglycemia, unspecified Samantha Bhagat [facility] [place] 06/23/2019 E87.[address] [facility] [place] 06/23/2019 I48.91 Unspecified atrial fibrillation Samantha Bhagat [facility] [place] 06/23/2019 Z23 Encounter for immunization BRIAN Gabriel Plan of Treatment Future Appointment(s):10/20/2019 10:30 am - Ness Dennis MD at [facility]2019 - Ness Dennis MDE87.79 Other fluid dkrivwjnZ14.91 Unspecified atrial ppogshpvzlpiI39.512 Pain in left shoulderReferral:[facility],J96.92 Respiratory failure, unspecified with hypercapniaReferral:Roberta Winkler, Pulmonary DiseasesAllNew Medication: - Functional Status Description No Information Available Mental Status Description No Information Available Referrals Refer to Reason for Referral Status Appt Date Roberta Winkler Patient with hospitalization for respiratory Sent failure with hypercapnea, recommendation of sleep evaluation as an outpatient [address] [place] [address] [id number] [facility] orthopedics Left shoulder pain and limited range of motion Sent
--- OUTSIDE RECORDS SUMMARY | 2019-11-17 12:57 | XMS REPORT | Continuity of Care Document ---
:1945 External Reference #:[id number] Author Name Ness Dennis MD Address [address] [place] [address] Problems Active Problems Provider Date Chronic kidney [...] B 12 2 tab by mouth [facility]2019 500mcg every day as MD Tablets directed Acetaminophen Extra 2 tab by mouth 90tabs [facility], 09/27/2019 Strength three times a day 500mg Tablets as needed Mucinex 2 tab by mouth 120tabs [facility], 09/27/2019 600mg Tablets twice a day as MD ER 12HR directed Preservision Areds 2 2 cap by mouth 120caps [facility], 09/27/2019 + Multi Vitamin every day as MD Areds 2 directed Capsules Colace 2 tabs by mouth 180caps [facility], 09/27/2019 100mg Capsules every day as MD needed Gas-X 1 tab by mouth 360units [facility], 09/27/2019 80mg Chewtabs every 6 hours as MD needed Miralax 17 gm by mouth Unknown 09/27/2019 3350NF Powder every day as needed Tums 1 tab by mouth 360units [facility], 09/27/2019 500mg Chewtabs twice a day [...] directed Warfarin Sodium oral; take one 90tabs [facility], 07/14/2018 5mg tablet by mouth [...] Tablets directed [facility]1999 2mg/0.05ML every 4 - 6m as Solution directed History Medications Simethicone 1 tab by mouth 90units Unknown 09/27/2019 - 80mg every 6 hours as 09/29/2019 Chewtabs needed Albuterol Sulfate HFA 2 puffs inhalation 8.500gm [facility] - as needed 09/29/2019 108(90Base) mcg/Act Aerosol Immunizations CPT Code Status Date Vaccine Lot # [id number] Given 06/23/2019 Flu High Dose [id number] 57095 Given 07/23/2018 Influenza Virus Vaccine, Quadrivalent, Split, Im Use 0.25ML 36988 Given 07/23/2018 Influenza Virus Vaccine, Quadrivalent, Split, Im Use 0.25ML 62320 Given 07/23/2018 Influenza Virus Vaccine, Quadrivalent, Split, Im Use 0.25ML 57773 Given 07/23/2018 Flu < 65 years 48058 Given 07/23/2018 Influenza Virus Vaccine, Quadrivalent, Split, Preservative Free 54651 Given 07/23/2018 Flumist 28634 Given 07/23/2018 Flu High Dose 43159 Given 07/23/2018 Influenza Virus Vaccine, Split, Preserv Free, Intradermal Use 68656 Given 07/24/2017 Influenza Virus Vaccine, Split, Preserv Free, Intradermal Use 44297 Given 07/24/2017 Flu High Dose 38708 Given 07/24/2017 Flumist 07686 Given 07/24/2017 Influenza Virus Vaccine, Quadrivalent, Split, Preservative Free 73559 Given 07/24/2017 Flu < 65 years 73787 Given 07/24/2017 Influenza Virus Vaccine, Quadrivalent, Split, Im Use 0.25ML 97980 Given 07/24/2017 Influenza Virus Vaccine, Quadrivalent, Split, Im Use 0.25ML 29607 Given 07/24/2017 Influenza Virus Vaccine, Quadrivalent, Split, Im Use 0.25ML 99587 Given 10/24/2014 Prevnar 13 50214 Given 06/29/2014 Influenza Virus Vaccine, Quadrivalent, Split, Im Use 0.25ML 41256 Given 06/29/2014 Influenza Virus Vaccine, Quadrivalent, Split, Im Use 0.25ML 09076 Given 06/29/2014 Influenza Virus Vaccine, Quadrivalent, Split, Im Use 0.25ML 25152 Given 06/29/2014 Flu < 65 years 81628 Given 06/29/2014 Influenza Virus Vaccine, Quadrivalent, Split, Preservative Free 24813 Given 06/29/2014 Flumist 66466 Given 06/29/2014 Flu High Dose 47879 Given 07/04/2013 Flu High Dose 19265 Given 07/04/2013 Flumist 44229 Given 07/04/2013 Influenza Virus Vaccine, Quadrivalent, Split, Preservative Free 86407 Given 07/04/2013 Flu < 65 years 47350 Given 07/04/2013 Influenza Virus Vaccine, Quadrivalent, Split, Im Use 0.25ML 21176 Given 07/04/2013 Influenza Virus Vaccine, Quadrivalent, Split, Im Use 0.25ML 74581 Given 07/04/2013 Influenza Virus Vaccine, Quadrivalent, Split, Im Use 0.25ML 16659 Given 05/05/2012 Influenza Virus Vaccine, Quadrivalent, Split, Im Use 0.25ML 90675 Given 05/05/2012 Influenza Virus Vaccine, Quadrivalent, Split, Im Use 0.25ML 11579 Given 05/05/2012 Influenza Virus Vaccine, Quadrivalent, Split, Im Use 0.25ML 27896 Given 05/05/2012 Flu < 65 years 14807 Given 05/05/2012 Influenza Virus Vaccine, Quadrivalent, Split, Preservative Free 04956 Given 05/05/2012 Flumist 93342 Given 05/05/2012 Flu High Dose 99980 Given 10/24/2011 Tdap - Boostrix/Adacel 93443 Given 06/28/2011 Influenza Virus Vaccine, Quadrivalent, Split, Im Use 0.25ML 46539 Given 06/28/2011 Influenza Virus Vaccine, Quadrivalent, Split, Im Use 0.25ML 30806 Given 06/28/2011 Influenza Virus Vaccine, Quadrivalent, Split, Im Use 0.25ML 32352 Given 06/28/2011 Flu < 65 years 02553 Given 06/28/2011 Influenza Virus Vaccine, Quadrivalent, Split, Preservative Free 66112 Given 06/28/2011 Flumist 42279 Given 06/28/2011 Flu High Dose 71090 Given 05/15/2010 Pneumovax - for >=2years - PPSV23 72284 Given 08/22/2009 Influenza Virus Vaccine, Quadrivalent, Split, Im Use 0.25ML 11702 Given 06/14/2008 Influenza Virus Vaccine, Quadrivalent, Split, Im Use 0.25ML 47572 Given 07/22/2006 Influenza Virus Vaccine, Quadrivalent, Split, [...] Result H/L Range Note Arterial Blood 10/09/2019 [facility] PH Arterial 7.23 Low 7.35 -7.[address] [place] [address] [phone] Pco2 Arterial 88 mmHg Critical high 35-45 1 Po2 Arterial 94 mmHg Normal 80-100 O2 Saturation Arterial 97.2 % Normal 94.0-98.0 Base Excess Arterial 6.1 mmol/L High -2.0-2.0 2 Hco3 Arterial 29.6 mmol/L Normal 19-31 Laboratory test 09/29/2019 [facility] CFM INR 1.8 finding ( )- - Basic Metabolic 09/29/2019 [facility] Sodium 139 mmol/L Normal 135-[address] [place] [address] [phone] Potassium 4.9 mmol/L Normal 3.5-5.0 Chloride 100 mmol/L Low 101-111 Co2 Carbon Dioxide 32 mmol/L Normal 22-32 Anion Gap 7 mmol/L Normal 2-11 Glucose 131 mg/dL High 70-100 Blood Urea Nitrogen 16 mg/dL Normal 6-24 Creatinine 0.96 mg/dL High 0.51-0.95 BUN/Creatinine Ratio 16.7 Normal 8-20 Calcium 9.5 mg/dL Normal 8.6-10.3 Egfr Non- 56.8 >60 Egfr 68.7 >60 4 Laboratory test 09/22/2019 [facility] B-Type > 1300 High <= [address] Natriuretic pg/[place] [address] Peptide BNP [phone] Legionella Urine Antigen SEE RESULT BELOW 5 CBC Auto 09/22/2019 [facility] White Blood 15.6 10^3/uL High 3.5-10.[address] [place] [address] [phone] Red Blood Count 3.34 10^6/uL Low 3.70-4.87 [...] Blood Cells % 0.4 Laboratory test 09/22/2019 [facility] Magnesium 2.0 mg/dL Normal 1.9-2.[address] [place] [address] [phone] Troponin-I (TnI) 0.10 ng/mL Critical high <0.03 6 Acetaminophen < 15 g/mL 7 Alcohol < 10 mg/dL Normal <10 Salicylate < 2.50 mg/dL <30 TSH (Thyroid Stim Horm) 1.76 mcIU/mL Normal 0.34-5.60 Comp Metabolic Panel 09/22/2019 [facility] Sodium 130 mmol/L Low 135-145 [address] [place] [address] [phone] Potassium 4.5 mmol/L Normal 3.5-5.0 Chloride 87 [...] Egfr 91.4 >60 8 Urine Drug 09/22/2019 [facility] Urine None Detected None Detect SCR ED & [address] [facility] [place] [address] Screen [phone] Urine Barbiturates Screen None Detected None Detect Urine Benzodiazepine Screen None Detected None Detect Urine Cannabinoids Screen None Detected None Detect Urine Cocaine Screen None Detected None Detect Urine Opiates Screen None Detected None Detect Urine Phencyclidine Screen None Detected None Detect 9 Laboratory test 09/22/2019 [facility] Ammonia TNP mcmol/L 16- 53 10 finding [address] [place] [address] [phone] Lactic Acid 0.5 mmol/L Normal 0.5-2.0 11 Urinalysis Profile 09/22/2019 [facility] Urine Color Yuliya [address] [place] [address] [phone] Urine Appearance Clear Urine Specific [place] 1.020 Normal 1.010-1.030 Urine pH 6.0 Normal 5-9 Urine Urobilinogen Negative Negative Urine Ketones Negative Negative Urine Protein Negative Negative Urine Leukocytes Negative Negative Urine Blood Negative Negative * * Abnormal Negative 12 Urine Nitrite Negative Negative Urine Bilirubin Negative Negative Urine Glucose Negative Negative Laboratory test 09/22/2019 [facility] Point of 151 mg/dL High 70-100 13 finding [address] [facility] Glucose [place], [place] [address] [phone] Venous Blood 09/22/2019 [facility] Venous Blood 7.23 Low 7.32- 7.43 Gas [address] [facility] pH [place], [place] [id number] [phone] Venous Pco2 94 mmHg High 41-51 Venous Po2 54.0 mmHg High 35-45 Venous O2 Saturation 85.6 % High 70-80 Venous Blood Base Excess 8.1 mmol/L High 0.0-4.0 14 Venous Bicarbonate Hco3 30.9 mmol/L High 24-28 Laboratory test 09/22/2019 [facility] Ammonia 65 mcmol/L High 16-53 finding [address] [place], [place] [id number] [phone] Arterial Blood Gas 09/22/2019 [facility] Fio2 100 [address] [place] [address] [phone] Resp Rate 20 Ipap 18 Epap 7 PH Arterial 7.20 Low 7.35-7.45 Pco2 Arterial 103 mmHg Critical high 35-45 15 Po2 Arterial 345 mmHg High 80-100 O2 Saturation Arterial 98.2 % High 94.0-98.0 Base Excess Arterial 8.2 mmol/L High -2.0-2.0 16 Hco3 Arterial 31.3 mmol/L High 19-31 INR/Protime 09/22/2019 [facility] INR 4.08 High 0.82-1.09 17 [address] [place] [address] [phone] INR/Protime 09/16/2019 [facility] INR 3.09 High 0.82-1.[address] [place] [address] [phone] Comp Metabolic 09/16/2019 [facility] Sodium 141 mmol/L Normal 135-145 Panel [address] [place] [address] [phone] Potassium 4.4 mmol/L Normal 3.5-5.0 Chloride 91 [...] mmol/L Critical high 22-32 20 Laboratory 09/16/2019 [facility] TSH (Thyroid 0.85 Normal 0.34 -5.[address] Horm) mcIU/[place] [address] [phone] CBC No Diff 09/16/2019 [facility] White Blood 12.9 High 3.5- 10.[address] Count 10^3/[place] [address] [phone] Red Blood Count 2.94 10^6/uL Low 3.70-4.87 Hemoglobin 9.3 g/dL Low 12.0-16.0 Hematocrit 29 % Low 35-47 Mean Corpuscular Volume 99 fL High 80-97 Mean Corpuscular Hemoglobin 32 pg High 27-31 Mean Corpuscular HGB Conc 32 g/dL Normal 31-36 Red Cell Distribution Width 14 % Normal 10-15 Platelet Count 187 10^3/uL Normal 150-450 Mean Platelet Volume 10.0 fL Normal 7.4-10.4 Laboratory 09/16/2019 [facility] Troponin-I 0.08 Critical < 0.03 21 test finding [address] (TnI) ng/[place] [address] [phone] Basic 09/16/2019 [facility] Sodium 139 Normal 135-[address] mmol/[place] [address] [phone] Potassium 4.5 mmol/L Normal 3.5-5.0 Chloride 88 mmol/L Low 101-111 Glucose 145 mg/dL High 70-100 Blood Urea Nitrogen 21 mg/dL Normal 6-24 Creatinine 0.60 mg/dL Normal 0.51-0.95 BUN/Creatinine Ratio 35.0 High 8-20 Calcium 9.6 mg/dL Normal 8.6-10.3 Egfr Non- 97.7 >60 Egfr 118.2 >60 22 Co2 Carbon Dioxide 48 mmol/L Critical high 22-32 23 Laboratory test 09/16/2019 [facility] Lactic Acid 1.0 mmol/L Normal 0.5-2.0 [address] [place] [address] [phone] B-Type Natriuretic Peptide BNP 1235 pg/mL High <=100 CBC Auto 09/16/2019 [facility] White Blood 11.4 10^3/uL High 3.5-10.[address] [place] [address] [phone] Red Blood Count 3.18 10^6/uL Low 3.70-4.87 [...] Cells % 0.0 Arterial Blood Gas 09/16/2019 [facility] O2 Device N/C [address] [place] [address] [phone] PH Arterial 7.42 Normal 7.35-7.45 Pco2 Arterial 85 mmHg Critical high 35-45 25 Po2 Arterial 77 mmHg Low 80-100 O2 Saturation Arterial 96.0 % Normal 94.0-98.0 Base Excess Arterial 25.0 mmol/L High -2.0-2.0 26 Hco3 Arterial 44.4 mmol/L Critical high 19-31 27 Laboratory test 09/16/2019 [facility] Partial 47.8 High 26.0- 38.[address] [place] [address] PTT [phone] Troponin-I (TnI) 0.09 ng/mL Critical high <0.03 28 INR/Protime 09/16/2019 [facility] INR 3.12 High 0.82-1.[address] [place] [address] [phone] Xray 07/20/2019 [facility] Chest 2 Views <pendin [address]> [place] [address] [phone] Laboratory test 07/18/2019 [facility] CFM INR 2.3 finding ( )- - Laboratory test 06/23/2019 [facility] CFM INR 3.8 finding ( )- - Laboratory test 06/23/2019 [facility] Hemoglobin A1c 5.9 % High 4.0-5.[address] (Glyco HGB) [place] [address] [phone] Comp Metabolic 06/23/2019 [facility] Sodium 138 Normal 135- [address] mmol/[place] [address] [phone] Potassium 4.7 mmol/L Normal 3.5-5.0 Chloride 95 [...] Egfr 78.0 >60 31 Laboratory test 06/15/2019 [facility] CFM INR 2.85 finding ( )- - Comp Metabolic Panel 06/14/2019 [facility] Sodium 140 mmol/L Normal 135-[address] [place] [address] [phone] Chloride 94 mmol/L Low 101-111 Co2 Carbon [...] 9 mmol/L Normal 2-11 Laboratory test 06/14/2019 [facility] Vitamin B12 394 pg/mL Normal 180-914 [address] [place] [address] [phone] Vitamin D Total 25(Oh) 38.6 ng/mL Normal 20-50 34 Protime W/ INR 06/14/2019 N2N/CCD Import International Normalized Ratio 2.85 1 Verbal to [id number] by [id number] at 1317 on 10/09/19. Results read back accurately. 2 Reference ranges based on room air. 3 [id number] 4 Because ethnic data is not always [...] Attend Dr: Marco Antonio Brambila MD Acct: [id number] Unit: [id number] AGE: 74 Location: ICU [id number] Re09/22/19 SEX: F Status: ADM IN SPEC: [id number] TATA: 09/22/[address]: Jona AZAR REQ: [id number] RECD: 09/22/19 STATUS: COMP KENDY LICONA: [facility] Monico Dyson MD _ SOURCE: [...] . END OF REPORT DEPARTMENT OF PATHOLOGY, [address] [place] [address] Zeke Richmond M.D. Director [facility] # [id number] 6 Result TnIDx:0.10 Called to [id number] at: 06:48:08 by:[id number] Read back by: [email or web address] Troponin-I testing on Plasma Separator Tubes (PST) has a known false positive rate of 0.20-0.40%. All positive troponins reflex immediately to secondary confirmatory testing. Using the [employer] DxI 800 Access Immunoassay systems, the 99th [...] Specimen hemolyzed. Result may not be valid. [facility] Severe Sepsis and Septic Shock Management Bundle Measure requires all lactic acids initially measuring >2.0 mmol/L be repeated. 12 *Ascorbic acid is present which may interfere with detection of blood. 13 Installation Manager: [id number] 14 Reference ranges based on room air. 15 Verbal to [id number] by [id number] at 0815 on 09/22/19. Results read back [...] CO2:49 Called to TYLER MARTI at: 13:33:08 by:[id number] Read back by:TYLER SANCHEZ CFM 21 Result TnIDx:0.08 Called to [id number] at: 18:49:49 by:[id number] Read back by: [id number] Troponin-I testing on Plasma Separator Tubes (PST) has a known false positive rate of 0.20-0.40%. All positive troponins reflex immediately to secondary confirmatory testing. Using the [employer] DxI 800 Access Immunoassay systems, the 99th [...] dialysis) 23 Critical Result CO2:48 Called to [email or web address] at: 19:13:28 by:[id number] Read back by:[id number] [facility] Severe Sepsis and Septic Shock Management Bundle Measure requires all lactic acids initially measuring >2.0 mmol/L be repeated. 25 Verbal to [id number] by [email or web address] at 2048 on 09/16/19. Results read back accurately. 26 Reference ranges based on room air. 27 Verbal to [id number] by [id number] at 2048 on 09/16/19. Results read back accurately. 28 Result TnIDx:0.09 Called to [id number] at: 23:20:01 by:[id number] Read back by: [id number] Troponin-I testing on Plasma Separator Tubes (PST) has a known false positive rate of 0.20-0.40%. All positive troponins reflex immediately to secondary confirmatory testing. Using the [employer] DxI 800 Access Immunoassay systems, the 99th percentile upper reference limit was demonstrated to be < 0.03 ng/mL. 29 Standard intensity warfarin therapeutic range: 2.0-3.0 High intensity warfarin therapeutic range: 2.5-3.5 30 Therapeutic target for the treatment of diabetes mellitus patients is <7% HBA1C, and in selective patients <6.0%. Please refer to [place] [employer] diabetic care guidelines for further [...] possible) Procedures Date Code Description Status 07/12/2019 16253 Anticoagulant MGMT For Patient Taking Warfarin, Inc Review Completed & Intr 06/15/2019 34621 Anticoagulant MGMT For Patient Taking Warfarin, Inc Review Completed & Intr Medical Devices Description No Information Available Encounters Type Date Location Provider Dx Diagnosis Office Visit 09/29/2019 [facility] Benjamín Dennis MD E87.79 Other fluid overload 11:15a I48.91 Unspecified atrial fibrillation M25.512 Pain in left shoulder J96.92 Respiratory failure, unspecified with hypercapnia Office Visit 07/18/2019 3:45p [facility] Benjamín Dennis, T82.897D Oth complication of cardiac prosth dev/paul, subs I48.91 Unspecified atrial fibrillation Office Visit 06/23/2019 2:15p [facility] BRIAN [place] R73.9 Hyperglycemia, unspecified E87.5 [...] MD 06/23/2019 R73.9 Hyperglycemia, unspecified Samantha Bhagat [facility] 06/23/2019 E87.5 Hyperkalemia Samantha Bhagat [facility] 06/23/2019 I48.91 Unspecified atrial fibrillation Samantha Bhagat [facility] 06/23/2019 Z23 Encounter for immunization BRIAN Gabriel Plan of Treatment Future Appointment(s):10/20/2019 10:30 am - Ness Dennis MD at [facility]2019 - Ness Dennis MDE87.79 Other fluid omsthkdsO41.91 Unspecified atrial tkpapopvmifhZ22.512 Pain in left shoulderReferral:[facility] orthopedics,J96.92 Respiratory failure, unspecified with hypercapniaReferral:Roberta Winkler, Pulmonary DiseasesAllNew Medication: - Functional Status Description No Information Available Mental Status Description No Information Available Referrals Refer to Reason for Referral Status Appt Date Roberta Winkler Patient with hospitalization for respiratory Sent failure with hypercapnea, recommendation of sleep evaluation as an outpatient [address] [place] [address] [phone] [facility] orthopedics Left shoulder pain and limited range of motion Sent
[2019-11-17] MEDS ORDERED: cefTRIAXone(*) 1 GM in NS 0.9% 50 ML* 50 ML IVPB ONE (13:09)
[2019-11-17] MEDS ORDERED: Famotidine IV* 10 MG/ML 2 ML (20 mg) IV SLOW PU ONE (13:09)
[2019-11-17] MEDS ORDERED: Dexamethasone IV* 4 MG/ML 5 ML VIAL (20 MG) IVPB ONE (13:09)
[2019-11-17] MEDS ORDERED: Magnesium Sulfate 2 GM IV* 2 GM/50 ML BAG IVPB ONE (13:09)
[2019-11-17] MEDS ORDERED: Azithromycin 500 mg/250 ml NS 500 MG/250 ML BAG IVPB ONE (13:10)
[2019-11-17] MEDS ORDERED: Propofol* 100 ML IV ONE (13:12)
[2019-11-17] MEDS ORDERED: Succinylcholine* 20 MG/ML 10 ML VIAL IV ONE (13:13)
[2019-11-17] MEDS ORDERED: Etomidate* 2 MG/ML 10 ML VIAL IV ONE (13:13)
[2019-11-17 13:58] LABS: ABS Basophils 0.1 10^3/ul (0-0.2); ABS Lymphocytes 1.1 10^3/ul (1.0-4.8); ABS Monocytes 0.9 10^3/ul (0-0.8); ABS Neutrophils 9.5 10^3/ul (1.5-7.7); Eosinophil % 0.4 %; Hematocrit 38 % (35-47); Hemoglobin 11.4 g/dL (12.0-16.0); Lymphocyte % 9.2 %; Mean Corpuscular HGB Conc 30 g/dL (31-36); Mean Corpuscular Hemoglobin 29 pg (27-31); Mean Corpuscular Volume 96 fL (80-97); Mean Platelet Volume 9.7 fL (7.4-10.4); Nucleated Red Blood Cells % 0.1; Platelet Count 210 10^3/uL (150-450); Red Blood Count 3.94 10^6 /uL (3.70-4.87); Red Cell Distribution Width 17 % (10-15); White Blood Count 11.5 10^3/uL (3.5-10.8)
[2019-11-17 13:59] LABS: BUN/Creatinine Ratio 19.4 (8-20); Blood Urea Nitrogen 14 mg/dL (6-24); Calcium 9.6 mg/dL (8.6-10.3); Chloride 93 mmol/L (101-111); EGFR African American 95.8 (>60); EGFR Non-African American 79.2 (>60); Glucose 226 mg/dL (70-100); Magnesium 2.2 mg/dL (1.9-2.7); Sodium 138 mmol/L (135-145)
[2019-11-17 14:03] LABS: Anion Gap 4 mmol/L (2-11); CO2 Carbon Dioxide 41 mmol/L (22-32); Potassium 5.6 mmol/L (3.5-5.0)
[2019-11-17 14:04] LABS: Troponin I 0.08 ng/mL (<0.03)
[2019-11-17 14:10] LABS: Activated Partial Thrombo Time 25.5 seconds (26.0-38.0); INR 1.83 (0.82-1.09)
[2019-11-17 14:26] LABS: Influenza A Molecular Negative (Negative); Influenza B Molecular Negative (Negative)
[2019-11-17 14:52] LABS: Urine Appearance Cloudy; Urine Bilirubin Negative (Negative); Urine Blood Negative (Negative); Urine Color Amber; Urine Glucose Negative (Negative); Urine Ketones Negative (Negative); Urine Nitrite Positive (Negative); Urine Protein 1+(30 mg/dL) (Negative); Urine Specific Gravity 1.021 (1.010-1.030); Urine Urobilinogen Negative (Negative)
[2019-11-17] MEDS: Heparin VIAL(*) 5000 UNITS/ML VIAL (FIVE THOUSAND) SUBCUT SCH ×2 (14:54→22:40)
[2019-11-17 15:00] LABS: Urine Bacteria 1+ (Absent); Urine Red Blood Cell 1+(3-5/hpf) (Absent); Urine Squamous Epithelial Cell Present (Absent); Urine White Blood Cell Trace(0-5/hpf) (Absent)
[2019-11-17] MEDS ORDERED: NS 0.9% 1000 ML** 1,000 ML IV ONE ×2 (15:15→16:21)
[2019-11-17] MEDS ORDERED: Perflutren Lipid Microsphere* 3 ML VIAL ONE (15:35)
--- NOTE | 2019-11-17 15:35 | HP ---
CRITICAL CARE ADMISSION NOTE: DATE OF ADMISSION: 11/17/19 HISTORY OF PRESENT ILLNESS: The patient is a 74-year-old female known well to me from a recent admission this past September for respiratory failure, who now presents again with acute hypoxic on chronic hypoxic and hypercapnic respiratory failure. She initially complained of some chest discomfort at home, apparently has been noncompliant with her BiPAP, was brought to the emergency department, was given a couple of nebulizers, but her mental status fell off and she was intubated in the ED, end-tidals in the 80s after passage of the tube. Chest x-ray revealing bilateral infiltrates most consistent with left lower lobe atelectasis and right- sided aspiration, less likely cardiogenic pulmonary edema given that it is confined to the right side. ICU consultation is requested for ongoing workup and management. On my arrival at the bedside, she is sedate on conventional ventilation, blood pressure at 113/65, saturating well on 100% FiO2. I changed her vent over to APRV with a PI of 33. She is moving progressively larger release volumes and minute ventilation is coming up , end-tidals falling into the low 60s and high 50s. Pressure has now gotten a little soft with the high intrathoracic pressure and we will be bolusing her some fluid. PAST MEDICAL HISTORY: Significant for hypertrophic obstructive cardiomyopathy; heart failure with preserved ejection fraction; COPD, on home O2; paroxysmal AFib, on Coumadin; AICD and pacemaker; anemia; depression; glaucoma; wet macular degeneration; chronic constipation; obesity hypoventilation syndrome, nocturnal BiPAP dependence with which she is noncompliant. PAST SURGICAL HISTORY: Remarkable for AICD placement. She has had septal ablation x3 in [place]. MEDICATIONS: Her medication list on this presentation reveals extensive list with dosages itemized in the chart and includes: 1. Xanax. 2. Calcium carbonate. 3. Colace. 4. Polyethylene glycol. 5. Norpace. 6. Lopressor. 7. Acetaminophen. 8. Aflibercept. 9. Enteric-coated aspirin. 10. Cholecalciferol. 11. Vitamin B12. 12. Leonor. 13. Folic acid. 14. Senna. 15. Simethicone. 16. Spironolactone. 17. Vitamin C-vitamin Z-naaj-[id number]-lutein and Zeaxan. 18. Guaifenesin. 19. Acetazolamide. 20. Albuterol. 21. Bumex. 22. Fluoxetine. 23. Potassium chloride. 24. Rosuvastatin. 25. Coumadin 2.5 mg at bedtime. DRUG ALLERGIES: Include WELLBUTRIN causing hives, lactose intolerance causing diarrhea, SOTALOL with unknown reaction, AMBIEN causing hallucinations. FAMILY HISTORY: Working from the old records, I do not see any strong history at all apart from a denial of seizure disorder and some notes of possible heart disease and diabetes in first and second-degree relatives. SOCIAL HISTORY: She lives with her , who is her primary business technology analyst. 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 She is bedbound over the last 18 months or so, only gets up to go to the bathroom with her 's assistance. She uses a hospital bed at home. She quit smoking in 2011 having smoked for 35 years. She is full code. Her is her proxy. REVIEW OF SYSTEMS: Unobtainable due to her intubated status. PHYSICAL EXAMINATION GENERAL: She is a well-developed, obese white female, apparently was in acute distress, is now intubated, sedated, mechanically ventilated. VITAL SIGNS: Temperature of 36.8 degrees; heart rate in the 80s; respiratory rate is currently 16, breathing with the vent, she was paralyzed for her intubation; O2 sat is 99% on 100% FiO2; blood pressure currently 85/66; end- tidal CO2 as low as 50. I suspect this acute correction in her hypercapnia has more to do with her hypotension than anything else and I think as she settles out and gets a little more fluid she will improve hemodynamically. HEENT: She is normocephalic, atraumatic. Pupils are equal, constricted, but reactive to light. NECK: Supple, nontender, without JVD. LUNGS: Reveal decreased entry at the left with rhonchi and rales bilaterally. HEART: She has S1, S2. Regular. ABDOMEN: Soft, obese. Large chevron scar, well healed. She has positive bowel sounds. EXTREMITIES: Lower extremities with some chronic venous stasis changes. No significant edema. She is still under the influence of her paralytic, not moving anything at this time. LABORATORY DATA: Laboratory evaluations apparently are still pending. ASSESSMENT AND PLAN: A 74-year-old female with past medical history of chronic hypoxic and hypercapnic respiratory failure with O2 dependence as well as nocturnal BiPAP dependence with which she is noncompliant and heart failure, who presents with bilateral infiltrates consistent with pulmonary edema and atelectasis of the left base. We will repeat her echo when she settles out. We will see what her troponin looks like. Her EKG seems to be paced. I see no immediate indication for antibiotics at this time, but perhaps as we get more information from her labs that will change. For now, she is certainly ventilating better with her end-tidals falling from the 80s into the 50s, she is saturating well. I expect the hemodynamic compromise to improve with fluid and time. We certainly will treat her for chronic obstructive pulmonary disease exacerbation with steroids and bronchodilators. We will get her on most of her home medications. We will see where her INR is with respect to her Coumadin and hopefully she will have a short trip on the ventilator, but ultimately a broader discussion needs to occur as it is nonsensical to repeatedly refuse the one modality that will prevent her from suffering acute respiratory failure and landing on a ventilator to then be saved by that ventilator to then again refuse the modality that will prevent it from happening again. When she is ready for conversation, we should consult Dr. Martins and have a broader discussion of these issues. I have initiated that conversation with her who is open and does seem to understand. He says he has made similar statements to his in an effort to get her to be compliant, but to no avail. For now, we will continue to support Britni and I anticipate to be able to once again get her off the ventilator. TIME SPENT: The aggregate time providing critical care as well as interpreting chest x-ray, discussing the film with Dr. Benton as well as her current care in the emergency department, personally titrating her ventilator at the beside room 18, and discussing the situation with her has thus far exceeded 40 minutes. [id number]/[facility] #: [id number] TATUM
[2019-11-17] MEDS ORDERED: Dexamethasone IV* 10 MG in NS 0.9% 50 ML* 50 ML IVPB ONE (16:05)
[2019-11-17] MEDS: Chlorhexidine MOUTHWASH 0.12%* 15 ML UDC SWISH SPIT SCH ×2 (16:07→20:06)
[2019-11-17] MEDS ORDERED: Norepinephrine 16MCG/ML IVPRE* 4,000 MCG/250 ML BAG IV ONE (16:20)
--- NOTE | 2019-11-17 16:34 | ECHO ---
*[facility]* [place] [address] Fax #: [phone] Transthoracic Echocardiogram Patient: Britni Barger : 1945 Study Date: 11/17/2019 Age: 74 Gender: F HR: 79 bpm Height: 58 in /147.3 cm BSA: 1.72 m^2 Weight: 175.6 lb /79.8 kg BMI: 36.8 kg/m^2 *Comber Setter: * Missy Zuniga [facility] [place] *Referring Physician: * Kayla Flynn *Reading Physician: * Bruce Vera MD Indications: Resp Insufficiency. History: Atrial fibrillation. Mitral stenosis. Aortic stenosis. Chronic obstructive pulmonary disease. PMH: Cardiomyopathy. Risk factors: Obese. Labs, prior tests, procedures, and surgery: Permanent pacemaker system implantation. Conclusions Summary: - Left ventricle: The cavity size is below normal. Wall thickness is moderately increased. Systolic function is normal. The estimated ejection fraction is 60-65%. Aneurysmal deformity of the apical myocardium. - Right ventricle: The cavity size is mildly dilated. Pacer wire noted in the right ventricle. Systolic function is mildly reduced. Systolic pressure is moderately increased. - Ventricular septum: There is abnormal interventricular septal wall motion consistent with an RV pacemaker. - Left atrium: The atrium is moderately dilated. - Mitral valve: The findings are consistent with mild stenosis. The pressure half-time is 110 ms. The mean diastolic gradient is 4.0 mm Hg. The valve area by pressure half-time is 1.9 cm^2. - Aortic valve: The findings are consistent with mild stenosis. The peak systolic velocity is 2.2 m/sec. The mean systolic gradient is 10.0 mm Hg. The valve area by the velocity-time integral method is 1.33 cm^2. - Tricuspid valve: There is mild regurgitation. - Pulmonary arteries: Systolic pressure is moderately increased. Recommendations: Compared to 09/2019, akinesis/aneurysm of true apex not noted. Main differentials include a remote infarct of the very distal left anterior descending, akinesis related to pacing, or structual changes related to known hypertrophic cardiomyopathy. Study data: Transthoracic echocardiogram. Procedure: Transthoracic echocardiography was performed. Image quality was suboptimal. The study was technically limited due to restricted patient mobility, body habitus, and Patient on ventilator. Intravenous Definity , 4 mlswas administered. Complete 2D, spectral Doppler, and color flow Doppler. Location: ICU Patient status: Inpatient. Patient room number: ICU-02. Rhythm: Paced rhythm. Findings Left ventricle: The cavity size is below normal. Wall thickness is moderately increased. Systolic function is normal. The estimated ejection fraction is 60-65%. Regional wall motion abnormalities: Aneurysmal deformity of the apical myocardium. Left ventricular diastolic function parameters are indeterminate. Right ventricle: The cavity size is mildly dilated. Pacer wire noted in the right ventricle. Systolic function is mildly reduced. Systolic pressure is moderately increased. Ventricular septum: There is abnormal interventricular septal wall motion consistent with an RV pacemaker. Left atrium: The atrium is moderately dilated. Right atrium: The atrium is at the upper limits of normal in size. Pacer wire noted in right atrium. Mitral valve: The Mitral valve annulus appears moderate to severely calcified. The leaflets are mildly thickened. The findings are consistent with mild stenosis. There is mild regurgitation. Aortic valve: The valve is trileaflet. The leaflets are mildly calcified. The findings are consistent with mild stenosis. There is trace regurgitation. Tricuspid valve: The leaflets are normal thickness. There is no evidence of stenosis. There is mild regurgitation. Pulmonic valve: The leaflets are normal thickness. There is no evidence of stenosis. There is trace regurgitation. Aorta: Aortic root: The aortic root is appears normal. Ascending aorta: The ascending aorta is appears normal. Aortic arch: The aortic arch is appears normal. Pericardium: A prominent pericardial fat pad is present. There is no significant pericardial effusion. Pulmonary arteries: The main pulmonary artery is normal-sized. Systolic pressure is moderately increased. Systemic veins: Inferior vena cava: The vessel is dilated. There is (< 50%) respiratory change in the IVC dimension. Measurements Left ventricle Value Ref Aortic valve Value Ref SACHA, LAX (L) 3.2 cm 3.8 - 5.2 Evelin diam, ED 1.8 cm ----- ESD, LAX 2.4 cm 2.2 - 3.5 Peak v, S 2.2 m/sec ----- FS, LAX (L) 26 % 27 - 45 VTI, S 33.0 cm ----- PW, ED, LAX (H) 1.6 cm 0.6 - 0.9 Mean grad, S 10.0 mm Hg ----- FS (L) 26 % - 45 Peak grad, S 19.0 mm Hg ----- Mid-wall FS 7 % LVOT/AV, VTI ratio 0.42 ----- PW, ED (H) 1.6 cm 0.6 - 0.9 PEPE, VTI 1.33 cm^2 ----- E', lat evelin, TDI (L) 3.4 cm/sec >=10.0 PEPE, Vmax 1.15 cm^2 --- -- E/e', lat evelin, 36 TDI Mitral valve Value Ref E', med evelin, TDI (L) 3.4 cm/sec >=7.0 Peak E 1.21 m/sec --- -- E/e', med evelin, 36 Peak A 1.17 m/sec ----- TDI Decel time 271 ms ----- E', avg, TDI 3.4 cm/sec PHT 110 ms ----- E/e', avg, TDI (H) 36 <=14 Mean grad, D 4.0 mm Hg --- -- Peak grad, D 8.0 mm Hg ----- LVOT Value Ref Peak E/A ratio 1 ----- Diam, S 2.00 cm MVA, PHT 1.9 cm^2 ----- Area 3.1 cm^2 Peak ny, S 0.81 m/sec Pulmonic valve Value Ref VTI, S 14.0 cm Peak v, S 0.81 m/sec ----- Peak grad, S 3 mm Hg Peak grad, S 3.0 mm Hg ----- Mean grad, S 1 mm Hg SV 43 ml Tricuspid valve Value Ref SV/bsa 25 ml/m^2 TR peak v (H) 3.3 m/sec <=2.8 Peak RV-RA grad, S 44 mm Hg ----- Ventricular septum Value Ref IVS, ED (H) 1.5 cm 0.6 - 0.9 Aortic root Value Ref Root diam 2.8 cm <3.9 Right ventricle Value Ref AW thickness, ED (H) 0.8 cm 0.1 - 0.5 Ascending aorta Value Ref SACHA, LAX 3.6 cm AAo AP diam, S 3.3 cm ----- SACHA minor ax, A4C (H) 3.6 cm 1.9 - 3.5 mid Aortic arch Value Ref Pressure, S 59 mm Hg Arch diam 3.2 cm ----- Left atrium Value Ref Decending aorta Value Ref AP dim, ES (H) 4.50 cm 2.70 - Mendy peak ny 0.8 m/sec ----- 3.80 ML dim, A4C 4.7 cm Pulmonary artery Value Ref SI dim, A4C 5.9 cm Pressure, S 56.0 mm Hg ----- Vol/bsa, ES, 1-p 38 ml/m^2 11 - 40 A4C Inferior vena cava Value Ref Vol/bsa, ES, A/L (H) 42 ml/m^2 16 - 34 Diam 2.2 cm ----- Right atrium Value Ref SI dim, ES 5.0 cm 3.4 - 5.3 ML dim, ES, A4C 4.1 cm 2.6 - 4.4 SI dim, ES, A4C 5.0 cm 3.4 - 5.3 SI dim/bsa, ES, 2.9 cm/m^2 1.9 - 3.1 A4C Estimated RAP 15 mm Hg Legend: (L) and (H) glo values outside specified reference range. Prepared and electronically signed by Bruce Vera MD 11/17/2019 16:33
[2019-11-17] MEDS ORDERED: Norepinephrine 16MCG/ML IVPRE* 4,000 MCG/250 ML BAG IV SCH (17:00)
--- NOTE | 2019-11-17 17:30 | PN ---
Sepsis Event Evaluation Date of Evaluation: 11/17/19 Current Stage of Sepsis: Severe Sepsis Vital Signs - Last 12 Hours: Vital Signs - 12 hr Temp Pulse Resp BP Pulse Ox 11/17/19 17:00 98.4 F 68 11/17/19 16:46 98.4 F 69 104/62 98 11/17/19 16:30 98.6 F 68 86/41 99 11/17/19 16:19 98.6 F 67 68/41 98 11/17/19 16:17 98.6 F 67 66/36 97 11/17/19 16:15 98.6 F 67 78/38 98 11/17/19 16:00 98.8 F 70 16 11/17/19 15:46 99.0 F 71 85/58 97 11/17/19 15:32 99.1 F 73 82/46 96 11/17/19 15:15 99.3 F 77 102/49 98 11/17/19 15:01 98.6 F 80 74/45 98 11/17/19 15:00 98.6 F 78 16 96 11/17/19 14:46 99.0 F 88 76/38 98 11/17/19 14:31 95.2 F 90 98/70 98 11/17/19 14:29 97.4 F 96 16 139/74 97 11/17/19 14:25 95.2 F 92 16 98/70 98 11/17/19 14:23 95 130/58 97 11/17/19 14:00 101 96 11/17/19 13:58 97 139/74 96 11/17/19 13:56 96 96 11/17/19 13:52 100 119/77 97 11/17/19 13:45 90 85/66 99 11/17/19 13:41 83 58/35 98 11/17/19 13:40 98.3 F 84 4 132/80 90 11/17/19 13:38 85 70/54 98 11/17/19 13:35 89 59/47 97 11/17/19 13:30 80/57 11/17/19 13:28 94 103/70 98 11/17/19 13:25 91 119/65 98 11/17/19 13:00 110 97 11/17/19 12:54 100 99 11/17/19 12:46 99 132/80 99 Lactic Acid: 11/17/19 13:09 Lactic Acid 2.2 H* - Cardiopulmonary Exam Capillary Refill: Immediate Respiratory: - - course, diminished Cardiovascular: - - paced - Peripheral Pulse Exam Radial Pulses: Bilateral Normal Pedal Pulses: Bilateral Diminished - Skin Exam Skin Exam: Pale - [place] Coma Scale Best Verbal Response: 1 - Intubated Assess/Plan/Problems-Billing Assessment:
--- NOTE | 2019-11-17 17:44 | PN ---
Progress Note - Progress Note Date of Service: 11/17/19 Note: After patient arrived from ER, she was noted to be continually hypotensive. She had been given bolus NS, initially thought to be effects of sedation or possibly APRV setting on vent, however, systolics have been persistently running in the 60's. Patient was bolused again with another liter of NS without much appreciable change. Should also be noted that lab values are now available showing a lactic acid of 2.1, WBC count of 11.5, trop 0.08 and urine is positive for nitrates. Decision to start on levophed for pressure support. Currently meeting sepsis criteria with potential source of urine or chest. Will continue ceftriaxone Q24h, repeat lactic acid and trend trops. Echo report pending. See separate sepsis follow up note.
[2019-11-17 18:15] LABS: Troponin I 0.12 ng/mL (<0.03)
[2019-11-17 23:48] LABS: Troponin I 0.11 ng/mL (<0.03)
[2019-11-18] MEDS: Chlorhexidine MOUTHWASH 0.12%* 15 ML UDC SWISH SPIT SCH ×6 (00:05→19:23)
[2019-11-18] MEDS ORDERED: Ketorolac INJ* 15 MG/ML 1 ML VIAL IV PUSH STA (01:00)
[2019-11-18] MEDS: Heparin VIAL(*) 5000 UNITS/ML VIAL (FIVE THOUSAND) SUBCUT SCH ×3 (04:52→21:04)
[2019-11-18] MEDS: Propofol* 100 ML IV SCH ×4 (04:53→23:56)
[2019-11-18 05:21] LABS: ABS Lymphocytes 0.8 10^3/ul (1.0-4.8); ABS Monocytes 0.5 10^3/ul (0-0.8); ABS Neutrophils 7.4 10^3/ul (1.5-7.7); Hematocrit 31 % (35-47); Hemoglobin 9.6 g/dL (12.0-16.0); Lymphocyte % 8.6 %; Mean Corpuscular HGB Conc 31 g/dL (31-36); Mean Corpuscular Hemoglobin 29 pg (27-31); Mean Corpuscular Volume 93 fL (80-97); Mean Platelet Volume 9.7 fL (7.4-10.4); Nucleated Red Blood Cells % 0.1; Platelet Count 175 10^3/uL (150-450); Red Blood Count 3.27 10^6 /uL (3.70-4.87); Red Cell Distribution Width 17 % (10-15); White Blood Count 8.7 10^3/uL (3.5-10.8)
[2019-11-18 05:33] LABS: Albumin 2.6 g/dL (3.2-5.2); BUN/Creatinine Ratio 24.4 (8-20); Calcium 8.6 mg/dL (8.6-10.3); EGFR African American 87.4 (>60); EGFR Non-African American 72.2 (>60); Globulin 2.7 g/dL (2-4); Potassium 4.3 mmol/L (3.5-5.0); Total Bilirubin 0.3 mg/dL (0.2-1.0); Total Protein 5.3 g/dL (6.4-8.9)
--- NOTE | 2019-11-18 12:36 | PN ---
Date of Service: 11/18/19 Critical Care Services: Patient seen and examined. Remains sedated. No acute overnight events. at bedside and updated on plan of care. Elroy remains intubated and in no distress. Vital Signs: Temp Pulse Resp BP SpO2 FiO2 99.7 F 80 16 103/40 98 60 11/18/19 08:30 11/18/19 08:30 11/18/19 08:00 11/18/19 08:30 11/18/19 08:30 11/17 04:00 Physical Exam: General: Sedated HEENT: Normocephalic, atraumatic, non-icteric sclera, dry oral mucosa Neck: soft, supple, no JVD CV: paced rhythm, no murmurs or rubs Pulm/Chest: Diminished with expiratory wheezes Abdomen/GI: soft, nontender, nondistended, +BS noted MSK/Skin: pale, warm, dry, intact, +2 pulses+, no edema or cyanosis Neuro: Intubated and sedated, RASS -2 Fluid Balance (Past 24 Hours): Intake & Output 11/16/19 11/17/19 11/18/19 11/19/19 06:59 06:59 06:59 06:59 Intake Total 2820 Output Total 350 Balance 2470 Weight 203 lb 11.314 oz Intake: IV Fluids 2487 ABX - AZITHROMYCIN 300 NS (0.9%) 2187 Medicated IV 333 CC - Norepinephrine/ 186 Levophed CC - Propofol/Diprivan 147 Output: [place] 290 Residual 60 [place] 16 Fr Temperature 60 Probe Labs: Laboratory Results - last 24 hr 11/17/19 11/17/19 11/17/19 13:08 13:08 13:09 WBC 11.5 H RBC 3.94 Hgb 11.4 L Hct 38 MCV 96 MCH 29 MCHC 30 L RDW 17 H Plt Count 210 MPV 9.7 Neut % (Auto) 82.4 Lymph % (Auto) 9.2 [place] % (Auto) 7.5 Eos % (Auto) 0.4 Baso % (Auto) 0.5 Absolute Neuts (auto) 9.5 H Absolute Lymphs (auto) 1.1 Absolute Monos (auto) 0.9 H Absolute Eos (auto) 0.0 Absolute Basos (auto) 0.1 Absolute Nucleated RBC 0.0 Nucleated RBC % 0.1 INR (Anticoag Therapy) APTT VBG pH VBG pCO2 VBG pO2 VBG HCO3 VBG O2 Saturation VBG Base Excess Sodium 138 Potassium 5.6 H Chloride 93 L Carbon Dioxide 41 H* Anion Gap 4 BUN 14 Creatinine 0.72 Est GFR ( Amer) 95.8 Est GFR (Non-Af Amer) 79.2 BUN/Creatinine Ratio 19.4 Glucose 226 H Lactic Acid Calcium 9.6 Magnesium 2.2 Total Bilirubin AST ALT Alkaline Phosphatase Troponin I 0.08 H* B-Natriuretic Peptide > 1300 H Total Protein Albumin Globulin Albumin/Globulin Ratio Urine Color Urine Appearance Urine pH Ur Specific [place] Urine Protein Urine Ketones Urine Blood Urine Nitrate Urine Bilirubin Urine Urobilinogen Ur Leukocyte Esterase Urine WBC (Auto) Urine RBC (Auto) Ur Squamous Epith Cells Urine Bacteria Urine Glucose Urine Ascorbic Acid Influenza A (Rapid) Influenza B (Rapid) 11/17/19 11/17/19 11/17/19 13:09 13:09 13:09 WBC RBC Hgb Hct MCV MCH MCHC RDW Plt Count MPV Neut % (Auto) Lymph % (Auto) [place] % (Auto) Eos % (Auto) Baso % (Auto) Absolute Neuts (auto) Absolute Lymphs (auto) Absolute Monos (auto) Absolute Eos (auto) Absolute Basos (auto) Absolute Nucleated RBC Nucleated RBC % INR (Anticoag Therapy) 1.83 H APTT 25.5 L VBG pH 7.21 L VBG pCO2 107 H VBG pO2 60.0 H VBG HCO3 32.7 H VBG O2 Saturation 88.5 H VBG Base Excess 10.4 H Sodium Potassium Chloride Carbon Dioxide Anion Gap BUN Creatinine Est GFR ( Amer) Est GFR (Non-Af Amer) BUN/Creatinine Ratio Glucose Lactic Acid 2.2 H* Calcium Magnesium Total Bilirubin AST ALT Alkaline Phosphatase Troponin I B-Natriuretic Peptide Total Protein Albumin Globulin Albumin/Globulin Ratio Urine Color Urine Appearance Urine pH Ur Specific [place] Urine Protein Urine Ketones Urine Blood Urine Nitrate Urine Bilirubin Urine Urobilinogen Ur Leukocyte Esterase Urine WBC (Auto) Urine RBC (Auto) Ur Squamous Epith Cells Urine Bacteria Urine Glucose Urine Ascorbic Acid Influenza A (Rapid) Influenza B (Rapid) 11/17/19 11/17/19 11/17/19 13:09 14:33 17:40 WBC RBC Hgb Hct MCV MCH MCHC RDW Plt Count MPV Neut % (Auto) Lymph % (Auto) [place] % (Auto) Eos % (Auto) Baso % (Auto) Absolute Neuts (auto) Absolute Lymphs (auto) Absolute Monos (auto) Absolute Eos (auto) Absolute Basos (auto) Absolute Nucleated RBC Nucleated RBC % INR (Anticoag Therapy) APTT VBG pH VBG pCO2 VBG pO2 VBG HCO3 VBG O2 Saturation VBG Base Excess Sodium Potassium Chloride Carbon Dioxide Anion Gap BUN Creatinine Est GFR ( Amer) Est GFR (Non-Af Amer) BUN/Creatinine Ratio Glucose Lactic Acid Calcium Magnesium Total Bilirubin AST ALT Alkaline Phosphatase Troponin I 0.12 H* B-Natriuretic Peptide Total Protein Albumin Globulin Albumin/Globulin Ratio Urine Color [place] Urine Appearance Cloudy Urine pH 6.0 Ur Specific [place] 1.021 Urine Protein 1+(30 mg/dl) A Urine Ketones Negative Urine Blood Negative Urine Nitrate Positive A Urine Bilirubin Negative Urine Urobilinogen Negative Ur Leukocyte Esterase Trace A Urine WBC (Auto) Trace(0-5/hpf) Urine RBC (Auto) 1+(3-5/hpf) A Ur Squamous Epith Cells Present A Urine Bacteria 1+ A Urine Glucose Negative Urine Ascorbic Acid * A Influenza A (Rapid) Negative Influenza B (Rapid) Negative 11/17/19 11/17/19 11/18/19 17:40 23:00 04:58 WBC 8.7 RBC 3.27 L Hgb 9.6 L Hct 31 L MCV 93 MCH 29 MCHC 31 RDW 17 H Plt Count 175 MPV 9.7 Neut % (Auto) 85.4 Lymph % (Auto) 8.6 [place] % (Auto) 5.5 Eos % (Auto) 0.0 Baso % (Auto) 0.5 Absolute Neuts (auto) 7.4 Absolute Lymphs (auto) 0.8 L Absolute Monos (auto) 0.5 Absolute Eos (auto) 0.0 Absolute Basos (auto) 0.0 Absolute Nucleated RBC 0.0 Nucleated RBC % 0.1 INR (Anticoag Therapy) APTT VBG pH VBG pCO2 VBG pO2 VBG HCO3 VBG O2 Saturation VBG Base Excess Sodium Potassium Chloride Carbon Dioxide Anion Gap BUN Creatinine Est GFR ( Amer) Est GFR (Non-Af Amer) BUN/Creatinine Ratio Glucose Lactic Acid 1.3 Calcium Magnesium Total Bilirubin AST ALT Alkaline Phosphatase Troponin I 0.11 H* B-Natriuretic Peptide Total Protein Albumin Globulin Albumin/Globulin Ratio Urine Color Urine Appearance Urine pH Ur Specific [place] Urine Protein Urine Ketones Urine Blood Urine Nitrate Urine Bilirubin Urine Urobilinogen Ur Leukocyte Esterase Urine WBC (Auto) Urine RBC (Auto) Ur Squamous Epith Cells Urine Bacteria Urine Glucose Urine Ascorbic Acid Influenza A (Rapid) Influenza B (Rapid) 11/18/19 04:58 WBC RBC Hgb Hct MCV MCH MCHC RDW Plt Count MPV Neut % (Auto) Lymph % (Auto) [place] % (Auto) Eos % (Auto) Baso % (Auto) Absolute Neuts (auto) Absolute Lymphs (auto) Absolute Monos (auto) Absolute Eos (auto) Absolute Basos (auto) Absolute Nucleated RBC Nucleated RBC % INR (Anticoag Therapy) APTT VBG pH VBG pCO2 VBG pO2 VBG HCO3 VBG O2 Saturation VBG Base Excess Sodium 137 Potassium 4.3 Chloride 99 L Carbon Dioxide 32 Anion Gap 6 BUN 19 Creatinine 0.78 Est GFR ( Amer) 87.4 Est GFR (Non-Af Amer) 72.2 BUN/Creatinine Ratio 24.4 H Glucose 154 H Lactic Acid Calcium 8.6 Magnesium Total Bilirubin 0.30 AST 21 ALT 14 Alkaline Phosphatase 86 Troponin I B-Natriuretic Peptide Total Protein 5.3 L Albumin 2.6 L Globulin 2.7 Albumin/Globulin Ratio 1.0 Urine Color Urine Appearance Urine pH Ur Specific [place] Urine Protein Urine Ketones Urine Blood Urine Nitrate Urine Bilirubin Urine Urobilinogen Ur Leukocyte Esterase Urine WBC (Auto) Urine RBC (Auto) Ur Squamous Epith Cells Urine Bacteria Urine Glucose Urine Ascorbic Acid Influenza A (Rapid) Influenza B (Rapid) Studies: Patient Name: ELROY DU Medical Record#: [id number] Ordering Physician: Marco Antonio Benton MD Acct.#: [id number] : 1945 Age: 74 Sex: F Location: EMERGENCY DEPARTMENT Exam Date: 11/17/19 1311 ADM Status: REG ER Order Information: CHEST AP/PORT Accession Number: [id number] CPT: 77368 HISTORY: resp failure, s/p ERWIN and OGT COMPARISONS: October 11, 2019 VIEWS: 1: frontal AP view of the chest at 12:55 PM FINDINGS: LINES AND TUBES: An endotracheal tube is noted with the tip overlying the trachea just above the marcela. A left-sided AICD pacemaker is noted. No gastric tube is appreciated on the current examination. CARDIOMEDIASTINAL SILHOUETTE: The cardiomediastinal silhouette is normal for portable technique. PLEURA: There is a moderate left pleural effusion. LUNG PARENCHYMA: There is a diffuse pattern of reticular and alveolar opacification. ABDOMEN: The upper abdomen is clear. There is no subphrenic gas. BONES AND SOFT TISSUES: No bone or soft tissue abnormalities are noted. IMPRESSION: LINES AND TUBES ABOVE. PLEASE NOTE THAT NO GASTRIC TUBE IS VISIBLE ON THE CURRENT EXAMINATION. PULMONARY INTERSTITIAL AND ALVEOLAR EDEMA WITH A LEFT PLEURAL EFFUSION Patient Name: ELROY DU Medical Record#: [id number] Ordering Physician: Kayla Flynn NP Acct.#: [id number] : 1945 Age: 74 Sex: F Location: INTENSIVE CARE UNIT Exam Date: 11/17/19 170 ADM Status: ADM IN Order Information: CHEST AP/PORT Accession Number: [id number] CPT: 10489 INDICATION: Confirm orogastric tube placement. COMPARISON: November 17, 2019 1254 hours TECHNIQUE: Upright AP 1735 hours REPORT AND IMPRESSION: #. Obese body habitus limits image quality. #. Nasogastric (or orogastric) tube passes to the stomach with the tip at the gastric cardia; consider advancing the tube. #. Tip of nasogastric tube is at the level of the marcela and should be pulled back approximately 1.5 cm. #. Alveolar consolidation at the RIGHT lung without change. Assessment of the LEFT lung is limited due to cardiomegaly, leftward rotation, and elevation of the LEFT hemidiaphragm. Probable small to moderate dependent LEFT pleural effusion without change. #. RIGHT atrial and RIGHT ventricular level pacemaker leads. Ill-defined central pulmonary vasculature concerning for pulmonary vascular congestion. Nutrition: NPO Impression: This is a 74 year old female with history of COPD and recent admissions for respiratory failure that presented to the ED last night with complaints of SOB. She had changes in mentation in the ED and was intubated. Diagnoses: 1. Acute on chronic hypoxic and hypercapnic respiratory failure 2. eColi UTI 3. Severe Sepsis 4. COPD 5. PAF, on coumadin 6. OHS, non-compliant with nightly bipap 7. Hypertrophic cardiomyopathy Plan: Neuro - Sedated on propofol to RASS -2, consider sedation holiday in AM CV - Titrate pressors to Maintain MAP ~63-67, currently on levophed - Paced on tele, no ectopy - ECHO with hypertrophied LV and EF of 65%, no acute changes from previous - Trops 0.08/0.12/0.11, likely representing demand ischemia, apparently patient did complain of chest pain prior to events, but she is unable to describe this now. No acute changes on tele. - Restart home meds tomorrow if hemodynamics are stable Pulm - Tolerating APRV with 30%Fio2, getting volumes in the ~380 range with sats in high 90s, appears to be getting optimal alveolar recruitment - Goal Fio2 to keep sat>92% - Aspiration precautions, Pulmonary Toilet - VAP bundle ID - Aerococcus viridans in aerobic bottle, anaerobic pending, unclear if this is true pathogen or not - eColi in urine, treating with ceftriaxone, pending susceptibilities - Met severe sepsis criteria at admission , unclear if this was secondary to urine, lung or bacteremia. Had 2 liter NS bolused, currently on levophed, continuing NS at maintenance, UOP somewhat low - afebrile GI - NPO - Consider tube feed this weekend if no plans to extubate Renal - strict I/O, replete to keep K>4, Mg>2 - longoria for hemodynamic monitoring Heme - Stable AOCD, continue to monitor daily labs Endo - Maintain BG<200, insulin protocol as needed Musculsk/SKIN - pressure ulcer prophylaxis - Bedrest, T&P Q2h Wounds - none DVT prophylaxis: on coumadin, INR subtherapeutic, check daily. Continue SCDs GI prophylaxis: H2 ag BID while intubated Lines - None, IO removed Disposition: Patient requires Critical Care/ICU for acute ventilator management Patient clinical status: Critical Code Status: Full code. Goals of care should be discussed with patient's , as patient is non-compliant with nightly bipap which is contributing to acute failure which is not a sustainable plan. Total Critical Care time is 45 minutes
[2019-11-18] MEDS ORDERED: NS 0.9% 500 ML* 500 ML IV ONE (12:37)
[2019-11-18] MEDS ORDERED: NS 0.9% 50 ML* 50 ML ONE (14:40)
[2019-11-18] MEDS: NS 0.9% 1000 ML** 1,000 ML IV SCH ×2 (14:44→16:25)
[2019-11-18] MEDS: cefTRIAXone(*) 1 GM in NS 0.9% 50 ML* 50 ML IVPB SCH (16:24)
[2019-11-18] MEDS ORDERED: Warfarin TAB(*) 2.5 MG PO SCH (17:00)
--- NOTE | 2019-11-18 18:17 | OP ---
Operative Report - Blank - Operative Report Date of Operation: 11/18/19 Note: Central Line Procedure Note Indication: Central Venous Access, Right IJ Diagnosis: Acute on Chronic Hypoxic/Hypercapnic Respiratory Failure, Sepsis, UTI Performed by: Kayla Flynn APN, [employer], Supervised by Roberta Winkler MD, ICU Attending Consent: Emergent, Placed in chart. /HCP not available by phone and not at bedside Patient lost IV access and is on levophed peripherally since admission on 2019. Patient had intraosseous access which was discontinued at the 24hour glo per protocol today. Patient requires IV propofol for sedation while acutely intubated and still requires pressors for support. RN tried to get in contact with via telephone for consent and was unable to. [place] Protocol: Time-out was performed at 16:50 and the correct patient and site were verified. Patricia Isaac RN at bedside to assist. - Prior labs/history was reviewed prior to procedure - Full sterile precautions with chlorhexidine/gowns/gloves utilized. Site was draped is the usual sterile fashion. - Right internal jugular vein was visualized with ultrasound - Vessel was accessed under ultrasound guidance with return of nonpulsatile blood. A guidewire was passed into the vessel and confirmed in vessel with ultrasound. 2 attempts were made to access vessel 2/2 patient body habitus and depth of neck tissue. Vessel was dilated and catheter was passed over wire into vessel. All ports demonstrated good blood return and flushed. Catheter was sutured to site and dressing applied. Adequate hemostasis was achieved. EBL 3 cc No immediate complications were noted, patient tolerated procedure well. Post Procedure CXR: Official report pending, wet read shows line in the right atrium.
[2019-11-18] MEDS: Famotidine IV* 10 MG/ML 2 ML (20 mg) IV SLOW PU SCH (21:03)
[2019-11-19] MEDS: Chlorhexidine MOUTHWASH 0.12%* 15 ML UDC SWISH SPIT SCH ×3 (00:02→08:30)
[2019-11-19] MEDS: Propofol* 100 ML IV SCH (04:00)
[2019-11-19] MEDS: Heparin VIAL(*) 5000 UNITS/ML VIAL (FIVE THOUSAND) SUBCUT SCH ×3 (05:04→21:29)
[2019-11-19 05:37] LABS: ABS Basophils 0.1 10^3/ul (0-0.2); ABS Eosinophils 0.1 10^3/ul (0-0.6); ABS Lymphocytes 1.2 10^3/ul (1.0-4.8); ABS Monocytes 1.4 10^3/ul (0-0.8); ABS Neutrophils 10.8 10^3/ul (1.5-7.7); Eosinophil % 0.7 %; Hematocrit 29 % (35-47); Lymphocyte % 8.9 %; Mean Corpuscular HGB Conc 31 g/dL (31-36); Mean Corpuscular Hemoglobin 29 pg (27-31); Mean Corpuscular Volume 92 fL (80-97); Mean Platelet Volume 9.4 fL (7.4-10.4); Platelet Count 186 10^3/uL (150-450); Red Blood Count 3.15 10^6 /uL (3.70-4.87); Red Cell Distribution Width 18 % (10-15); White Blood Count 13.7 10^3/uL (3.5-10.8)
[2019-11-19 05:41] LABS: INR 1.33 (0.82-1.09)
[2019-11-19 05:54] LABS: Albumin 2.6 g/dL (3.2-5.2); BUN/Creatinine Ratio 26.9 (8-20); Calcium 8.3 mg/dL (8.6-10.3); EGFR African American 104.1 (>60); Globulin 2.6 g/dL (2-4); Potassium 3.4 mmol/L (3.5-5.0); Total Bilirubin 0.3 mg/dL (0.2-1.0); Total Protein 5.2 g/dL (6.4-8.9)
[2019-11-19] MEDS ORDERED: Norepinephrine 16MCG/ML IVPRE* 4,000 MCG/250 ML BAG IV SCH (09:17)
[2019-11-19] MEDS: Famotidine IV* 10 MG/ML 2 ML (20 mg) IV SLOW PU SCH ×2 (09:20→21:27)
--- NOTE | 2019-11-19 12:00 | PN ---
Date of Service: 11/19/19 - [facility] note Critical Care Services: Pt seen and examined at bedside. No acute events o/n. Pt has been off Levophed. Has toelrated SBT. Was extubated at 11:45 am Plan of care discussed with bedside RN Vital Signs: Temp Pulse Resp BP SpO2 FiO2 99.0 F 99 16 115/63 96 35 11/19/19 11:00 11/19/19 11:00 11/19/19 10:00 11/19/19 10:46 11/19/19 11:00 11/18 04:00 Physical Exam: Gen: Pt in NAD HEENT: PERRLA, MP-4 Lungs: Scaterred end expiratory wheeze+ Cardiac: S1, S2+, paced rhythm Abdomen: Obese, BS+ Extremities: Normal ROM Neuro: Alert, awake, no focal deficits Skin: No rash IV access: Rt IJ Fluid Balance (Past 24 Hours): I= 2186 O= 475 Net 1711 Intake & Output 11/17/19 11/18/19 11/19/19 11/20/19 06:59 06:59 06:59 07:59 Intake Total 2820 2186 Output Total 350 475 85 Balance 2470 1711 -85 Weight 203 lb 11.314 oz 206 lb 7.396 oz Intake: IV Fluids 2487 1730 ABX - AZITHROMYCIN 300 NS 1730 NS (0.9%) 2187 Medicated IV 333 456 CC - Norepinephrine/ 186 176 Levophed CC - Propofol/Diprivan 147 280 Output: [place] 290 475 85 Residual 60 [place] 16 Fr Temperature 60 Probe Labs: Laboratory Results - last 24 hr 11/17/19 11/19/19 11/19/19 13:08 05:07 05:07 WBC 13.7 H RBC 3.15 L Hgb 9.0 L Hct 29 L MCV 92 MCH 29 MCHC 31 RDW 18 H Plt Count 186 MPV 9.4 Neut % (Auto) 79.3 Lymph % (Auto) 8.9 [place] % (Auto) 10.2 Eos % (Auto) 0.7 Baso % (Auto) 0.9 Absolute Neuts (auto) 10.8 H Absolute Lymphs (auto) 1.2 Absolute Monos (auto) 1.4 H Absolute Eos (auto) 0.1 Absolute Basos (auto) 0.1 Absolute Nucleated RBC 0.0 Nucleated RBC % 0.0 INR (Anticoag Therapy) Sodium 138 138 Potassium 5.6 H 3.4 L Chloride 93 L 101 Carbon Dioxide 41 H* 29 Anion Gap 4 8 BUN 14 18 Creatinine 0.72 0.67 Est GFR ( Amer) 95.8 104.1 Est GFR (Non-Af Amer) 79.2 86.0 BUN/Creatinine Ratio 19.4 26.9 H Glucose 226 H 105 H Calcium 9.6 8.3 L Magnesium 2.2 Total Bilirubin 0.30 AST 20 ALT 12 Alkaline Phosphatase 83 Troponin I 0.08 H* Total Protein 5.2 L Albumin 2.6 L Globulin 2.6 Albumin/Globulin Ratio 1.0 11/19/19 05:08 WBC RBC Hgb Hct MCV MCH MCHC RDW Plt Count MPV Neut % (Auto) Lymph % (Auto) [place] % (Auto) Eos % (Auto) Baso % (Auto) Absolute Neuts (auto) Absolute Lymphs (auto) Absolute Monos (auto) Absolute Eos (auto) Absolute Basos (auto) Absolute Nucleated RBC Nucleated RBC % INR (Anticoag Therapy) 1.33 H Sodium Potassium Chloride Carbon Dioxide Anion Gap BUN Creatinine Est GFR ( Amer) Est GFR (Non-Af Amer) BUN/Creatinine Ratio Glucose Calcium Magnesium Total Bilirubin AST ALT Alkaline Phosphatase Troponin I Total Protein Albumin Globulin Albumin/Globulin Ratio Studies: CXR: Mild pulmonary vascular congestion and hyperinflation Nutrition: NPO for extubation, will start clear liquid diet and advance after bed side swallow evaluation Impression: 74 year old female with history of COPD with recurrent admissions recently for respiratory failure, presented for SOB, failed NIPPV, was intubated for airway protection given AMS. Pt was also found to have UTI from eColi. Hypotension requiring Levophed 2/2 sedation versus sepsis. 1. Acute on chronic hypoxic and hypercapnic respiratory failure s/p extubation 2. eColi UTI on abx 3. Severe Sepsis, improving 4. COPD with acute exacerbation 5. PAF, on coumadin 6. OHS, non-compliant with nightly bipap 7. Hypertrophic cardiomyopathy Plan: Pt was intubated on admission. Has tolerated SBT this am, was extubated on at 11:45 am. Good cough reflex. Minimal secretions. Will c/w nebs prn, pulm toilet. Paced on tele, no ectopy. Will rpt EKG. ECHO with hypertrophied LV and EF of 65% , no acute changes from previous. Trops 0.08/0.12/0.11, likely representing demand ischemia, apparently patient did complain of chest pain prior to events. No acute changes on tele. Will restart home meds today. Aerococcus viridans in aerobic bottle, anaerobic pending, likely not true pathogen. E.Coli in urine, on ceftriaxone, jane sensitive. Has not been requiring vasopressor support. Lactic acid normalized Will start diet after bedside swallow evaluation. Monitor I/O, replete to keep K>4, Mg>2. Will d/c longoria AOCD, stable, continue to monitor daily labs Maintain BG<200, insulin protocol as needed Pressure ulcer prophylaxis. OOB to chair. Wounds - none DVT prophylaxis: on coumadin, INR subtherapeutic, will have heparin sq until INR thereupeutic. check daily. Continue SCDs Lines - Rt IJ, IO removed 3/6 [place] removed OOB to chair as tolerated Disposition: Patient requires Critical Care/ICU for 24 hrs post extubation Patient clinical status: stable Code Status: Full code. Goals of care should be discussed with patient's , as patient is non-compliant with nightly bipap which is contributing to acute failure which is not a sustainable plan. Critical Care Time: 25 min
[2019-11-19] MEDS ORDERED: Albuterol/Ipratropium NEB.SOL* Albuterol 2.5 MG/Ipratropium 0.5 MG 3 ML INH STA (13:28)
[2019-11-19] MEDS ORDERED: Albuterol/Ipratropium NEB.SOL* Albuterol 2.5 MG/Ipratropium 0.5 MG 3 ML ONE (13:30)
[2019-11-19] MEDS ORDERED: Furosemide IV* 10 MG/ML 2 ML VIAL (20 MG) IV SLOW PU ONE (13:32)
[2019-11-19] MEDS ORDERED: Furosemide IV* 10 MG/ML 2 ML VIAL (20 MG) ONE (13:33)
[2019-11-19 14:11] LABS: Troponin I 0.15 ng/mL (<0.03)
[2019-11-19] MEDS: KCL 20 MEQ/100 ML IVPREMIX* 20 MEQ/100 ML BAG IV SCH ×2 (14:14→17:20)
[2019-11-19] MEDS: cefTRIAXone(*) 1 GM in NS 0.9% 50 ML* 50 ML IVPB SCH (16:25)
[2019-11-19] MEDS: Warfarin TAB(*) 3 MG PO SCH (18:14)
[2019-11-20 05:47] LABS: ABS Eosinophils 0.2 10^3/ul (0-0.6); ABS Lymphocytes 1.3 10^3/ul (1.0-4.8); ABS Monocytes 1.1 10^3/ul (0-0.8); ABS Neutrophils 7.2 10^3/ul (1.5-7.7); Eosinophil % 1.9 %; Hematocrit 28 % (35-47); Hemoglobin 8.7 g/dL (12.0-16.0); Lymphocyte % 13.1 %; Mean Corpuscular HGB Conc 31 g/dL (31-36); Mean Corpuscular Hemoglobin 29 pg (27-31); Mean Corpuscular Volume 94 fL (80-97); Mean Platelet Volume 9.8 fL (7.4-10.4); Nucleated Red Blood Cells % 0.1; Platelet Count 190 10^3/uL (150-450); Red Blood Count 3.02 10^6 /uL (3.70-4.87); Red Cell Distribution Width 18 % (10-15); White Blood Count 9.8 10^3/uL (3.5-10.8)
[2019-11-20 05:53] LABS: INR 1.24 (0.82-1.09)
[2019-11-20 06:03] LABS: Albumin 2.6 g/dL (3.2-5.2); Calcium 8.1 mg/dL (8.6-10.3); EGFR Non-African American 95.9 (>60); Globulin 2.6 g/dL (2-4); Potassium 3.9 mmol/L (3.5-5.0); Total Bilirubin 0.3 mg/dL (0.2-1.0); Total Protein 5.2 g/dL (6.4-8.9)
[2019-11-20] MEDS ORDERED: Furosemide IV* 10 MG/ML 2 ML VIAL (20 MG) IV SLOW PU ONE (07:29)
[2019-11-20] MEDS: Famotidine IV* 10 MG/ML 2 ML (20 mg) IV SLOW PU SCH ×2 (08:40→20:48)
--- NOTE | 2019-11-20 09:19 | PN ---
Date of Service: 11/20/19 - [facility] daily progress note Critical Care Services: Pt seen and examined at bedside. No acute events o/n Pt tolerated BiPAP well last night, has been off since 5 am No issues with mental status Vital Signs: Temp Pulse Resp BP SpO2 FiO2 98.2 F 60 30 114/51 95 70 11/20/19 06:00 11/20/19 06:00 11/20/19 06:00 11/20/19 06:00 11/20/19 06:00 11/19 03:35 Physical Exam: Gen: Pt in NAD HEENT: PERRLA, no JVD Lungs: Diminished air entry b/l, wheeze improved Cardiac: S1, S2+ Abdomen: Obese, BS+ Extremities: Normal ROM, trace edema+ Neuro: Alert, awake, no focal deficits Skin: Dry, no rash IV access Rt IJ Fluid Balance (Past 24 Hours): I= 1149 O= 1070 Net 79 Labs: Laboratory Results - last 24 hr 11/17/19 11/19/19 11/19/19 13:08 13:30 13:50 WBC RBC Hgb Hct MCV MCH MCHC RDW Plt Count MPV Neut % (Auto) Lymph % (Auto) [place] % (Auto) Eos % (Auto) Baso % (Auto) Absolute Neuts (auto) Absolute Lymphs (auto) Absolute Monos (auto) Absolute Eos (auto) Absolute Basos (auto) Absolute Nucleated RBC Nucleated RBC % INR (Anticoag Therapy) Patient Temperature Not Reportable ABG pH 7.15 L* ABG pH (Temp Correct) Not Reportable ABG pCO2 77 H* ABG pCO2 (Temp Corrct Not Reportable ABG pO2 118 H ABG pO2 (Temp Correct Not Reportable ABG HCO3 21.9 ABG O2 Saturation 98.4 H ABG Base Excess -3.9 L Respiration Rate 18 Ventilator Type Not Reportable Vent Mode st FiO2 100 Inspiratory Time Not Reportable PEEP Not Reportable Pressure Support Not Reportable Pressure Control Not Reportable EPAP 10 IPAP 20 BiPAP Not Reportable Sodium 138 Potassium 5.6 H Chloride 93 L Carbon Dioxide 41 H* Anion Gap 4 BUN 14 Creatinine 0.72 Est GFR ( Amer) 95.8 Est GFR (Non-Af Amer) 79.2 BUN/Creatinine Ratio 19.4 Glucose 226 H Calcium 9.6 Magnesium 2.2 Total Bilirubin AST ALT Alkaline Phosphatase Troponin I 0.08 H* 0.15 H* Total Protein Albumin Globulin Albumin/Globulin Ratio 11/20/19 11/20/19 11/20/19 05:34 05:34 05:34 WBC 9.8 RBC 3.02 L Hgb 8.7 L Hct 28 L MCV 94 MCH 29 MCHC 31 RDW 18 H Plt Count 190 MPV 9.8 Neut % (Auto) 73.8 Lymph % (Auto) 13.1 [place] % (Auto) 11.1 Eos % (Auto) 1.9 Baso % (Auto) 0.1 Absolute Neuts (auto) 7.2 Absolute Lymphs (auto) 1.3 Absolute Monos (auto) 1.1 H Absolute Eos (auto) 0.2 Absolute Basos (auto) 0.0 Absolute Nucleated RBC 0.0 Nucleated RBC % 0.1 INR (Anticoag Therapy) 1.24 H Patient Temperature ABG pH ABG pH (Temp Correct) ABG pCO2 ABG pCO2 (Temp Corrct ABG pO2 ABG pO2 (Temp Correct ABG HCO3 ABG O2 Saturation ABG Base Excess Respiration Rate Ventilator Type Vent Mode FiO2 Inspiratory Time PEEP Pressure Support Pressure Control EPAP IPAP BiPAP Sodium 139 Potassium 3.9 Chloride 103 Carbon Dioxide 32 Anion Gap 4 BUN 14 Creatinine 0.61 Est GFR ( Amer) 116.0 Est GFR (Non-Af Amer) 95.9 BUN/Creatinine Ratio 23.0 H Glucose 100 Calcium 8.1 L Magnesium Total Bilirubin 0.30 AST 19 ALT 11 Alkaline Phosphatase 79 Troponin I Total Protein 5.2 L Albumin 2.6 L Globulin 2.6 Albumin/Globulin Ratio 1.0 Studies: CXR 11/19/19- Vascular congestion and effusions b/l, ETT in place, Rt IJ in place Nutrition: Cardiac diet Impression: 74 year old female with history of COPD with recurrent admissions recently for respiratory failure, presented for SOB, failed NIPPV, was intubated for airway protection given AMS. Pt was also found to have UTI from eColi. Hypotension requiring Levophed 2/2 sedation versus sepsis. Acute on chronic hypoxic and hypercapnic respiratory failure s/p extubation 11/18 eColi UTI on abx COPD with acute exacerbation, improving PAF, on coumadin, INR subthereupeutic, Lovenox ordered for bridging ADAIR/OHS, non-compliant with nightly bipap Hypertrophic cardiomyopathy Plan: Pt was extubated on 11/19/19 at 11:45 am. Pt c/o chest tightness, developed AMS, tachypneia, 2hrs after extubation, was placed on BiPAP, Pt recovered immediately , no EKG changes, troponins slightly increased from admission. Pt continued on BiPAP last night, ate break fast this am and requested to go back on BiPAP. c/w nebs prn. Paced on tele, no ectopy. ECHO with hypertrophied LV and EF of 65%, no acute changes from previous. Trops, likely representing demand ischemia. Aerococcus viridans in aerobic bottle, likely not true pathogen. E.Coli in urine , on ceftriaxone, jane sensitive. c/w cardiac diet. Monitor I/O, replete to keep K>4, Mg>2. Will d/c longoria AOCD, stable, continue to monitor daily labs Maintain BG<200, insulin protocol as needed Pressure ulcer prophylaxis. OOB to chair. Wounds - none DVT prophylaxis: on coumadin, INR subtherapeutic, Lovenox until INR thereupeutic. check daily. Continue SCDs Lines - Rt IJ, placed 3/ [place] removed OOB to chair as tolerated Disposition: Patient requires Critical Care/ICU given need for NIPPV and tenuous resp status for close monitoring Patient clinical status: stable Code Status: Full code. Goals of care discussed with patient's , would like to c/w full code for now Critical Care Time: 25 min
[2019-11-20] MEDS ORDERED: Magnesium Hydroxide LIQ* 30 ML UDC PO PRN (09:21)
[2019-11-20] MEDS: Docusate CAP* 100 MG PO SCH ×2 (10:42→20:42)
[2019-11-20] MEDS: Senna TAB 8.6 mg* TAB PO SCH ×2 (10:42→20:42)
[2019-11-20] MEDS: Enoxaparin(*) 100 MG/ML SYR SUBCUT SCH ×2 (10:42→21:24)
[2019-11-20] MEDS: cefTRIAXone(*) 1 GM in NS 0.9% 50 ML* 50 ML IVPB SCH (16:01)
[2019-11-20] MEDS: Warfarin TAB(*) 3 MG PO SCH (17:31)
[2019-11-20] MEDS: Simethicone TAB* 80 MG TAB.CHEW PO PRN (18:53)
[2019-11-20] MEDS: Chlorhexidine MOUTHWASH 0.12%* 15 ML UDC SWISH SPIT SCH (20:34)
[2019-11-20] MEDS: Heparin VIAL(*) 5000 UNITS/ML VIAL (FIVE THOUSAND) SUBCUT SCH (20:34)
[2019-11-21 05:39] LABS: ABS Eosinophils 0.3 10^3/ul (0-0.6); ABS Lymphocytes 1.1 10^3/ul (1.0-4.8); ABS Neutrophils 7.2 10^3/ul (1.5-7.7); Eosinophil % 2.6 %; Hematocrit 29 % (35-47); Lymphocyte % 11.4 %; Mean Corpuscular HGB Conc 31 g/dL (31-36); Mean Corpuscular Hemoglobin 29 pg (27-31); Mean Corpuscular Volume 93 fL (80-97); Mean Platelet Volume 9.5 fL (7.4-10.4); Platelet Count 213 10^3/uL (150-450); Red Blood Count 3.09 10^6 /uL (3.70-4.87); Red Cell Distribution Width 17 % (10-15); White Blood Count 9.6 10^3/uL (3.5-10.8)
[2019-11-21 05:44] LABS: INR 1.36 (0.82-1.09)
[2019-11-21 06:02] LABS: Albumin 2.4 g/dL (3.2-5.2); Calcium 8.7 mg/dL (8.6-10.3); Potassium 3.6 mmol/L (3.5-5.0); Total Bilirubin 0.3 mg/dL (0.2-1.0)
[2019-11-21 06:08] LABS: BUN/Creatinine Ratio 24.5 (8-20); EGFR African American 136.4 (>60); EGFR Non-African American 112.8 (>60); Globulin 2.3 g/dL (2-4); Total Protein 4.7 g/dL (6.4-8.9)
[2019-11-21] MEDS ORDERED: NS 0.9% 500 ML* 500 ML IV ONE (06:08)
[2019-11-21] MEDS ORDERED: Furosemide IV* 10 MG/ML 2 ML VIAL (20 MG) IV SLOW PU ONE (08:45)
--- NOTE | 2019-11-21 09:17 | PN ---
<Darby Donnelly - Last Filed: 11/21/19 11:04> Date of Service: 11/21/19 Critical Care Services: Patient was on Bipap last night, and on nasal canula now, tolerating well. Still having productive cough but difficult to expectorate. Complained of LLQ abdominal pain just noticed this morning, able to tolerate without pain med, no nausea/vomiting, last BM yesterday night, able to tolerate food. Boyd removed yesterday, last PU last night after straigh cath, unable to void this morning. Vital Signs: Temp Pulse Resp BP SpO2 FiO2 98.0 F 59 29 137/50 97 35 11/21/19 08:00 11/21/19 08:00 11/21/19 08:00 11/21/19 08:00 11/21/19 08:00 11/19 12:10 Physical Exam: Gen: obese habitus, in NAD HEENT: PERRLA, no JVD Lungs: Diminished air entry b/l, left lung diffuse crackles heard. Cardiac: S1, S2+ Abdomen: mild tenderness on LLQ on palpitation, BS+. Extremities: Normal ROM, edema up to knee mainly on right LL. Neuro: Alert, awake, no focal deficits Skin: Dry, no rash IV access Rt IJ Fluid Balance (Past 24 Hours): I= O= Net Intake & Output 11/19/19 11/20/19 11/21/19 11/22/19 05:59 06:59 06:59 06:59 Intake Total 1735 0 Output Total 1280 Balance 455 0 Weight 102.2 kg Intake: IV Fluids 81 NS 81 IVPB 154 ABX - CEFTRIAXONE 50 NS 104 NS (0.9%) Medicated IV CC - Norepinephrine/ Levophed CC - Propofol/Diprivan Oral 1500 0 Output: Urine Boyd 1155 Straight Cath 125 Other: Estimated Void Large Date of Last Bowel 11/21/19 Movement # Bowel Movements 1 Estimated Stool Amount Large Medium Labs: Laboratory Results - last 24 hr 11/20/19 11/21/19 11/21/19 05:34 05:30 05:30 WBC 9.6 RBC 3.09 L Hgb 9.0 L Hct 29 L MCV 93 MCH 29 MCHC 31 RDW 17 H Plt Count 213 MPV 9.5 Neut % (Auto) 75.5 Lymph % (Auto) 11.4 Ulster % (Auto) 10.4 Eos % (Auto) 2.6 Baso % (Auto) 0.1 Absolute Neuts (auto) 7.2 Absolute Lymphs (auto) 1.1 Absolute Monos (auto) 1.0 H Absolute Eos (auto) 0.3 Absolute Basos (auto) 0.0 Absolute Nucleated RBC 0.0 Nucleated RBC % 0.0 INR (Anticoag Therapy) Sodium 139 143 Potassium 3.9 3.6 Chloride 103 104 Carbon Dioxide 32 35 H Anion Gap 4 4 BUN 14 13 Creatinine 0.61 0.53 Est GFR ( Amer) 116.0 136.4 Est GFR (Non-Af Amer) 95.9 112.8 BUN/Creatinine Ratio 23.0 H 24.5 H Glucose 100 123 H Calcium 8.1 L 8.7 Magnesium 2.0 Total Bilirubin 0.30 0.30 AST 19 29 ALT 11 21 Alkaline Phosphatase 79 85 Total Protein 5.2 L 4.7 L Albumin 2.6 L 2.4 L Globulin 2.6 2.3 Albumin/Globulin Ratio 1.0 1.0 11/21/19 05:30 WBC RBC Hgb Hct MCV MCH MCHC RDW Plt Count MPV Neut % (Auto) Lymph % (Auto) Ulster % (Auto) Eos % (Auto) Baso % (Auto) Absolute Neuts (auto) Absolute Lymphs (auto) Absolute Monos (auto) Absolute Eos (auto) Absolute Basos (auto) Absolute Nucleated RBC Nucleated RBC % INR (Anticoag Therapy) 1.36 H Sodium Potassium Chloride Carbon Dioxide Anion Gap BUN Creatinine Est GFR ( Amer) Est GFR (Non-Af Amer) BUN/Creatinine Ratio Glucose Calcium Magnesium Total Bilirubin AST ALT Alkaline Phosphatase Total Protein Albumin Globulin Albumin/Globulin Ratio Studies: None Nutrition: Take orally. Good appetite. Cardiac diet. Impression: 74 year old female with history of COPD with recurrent admissions recently for respiratory failure, presented for SOB, failed NIPPV, was intubated for airway protection given AMS. Pt was also found to have UTI from eColi. Hypotension requiring Levophed 2/2 sedation versus sepsis resolved. Acute on chronic hypoxic and hypercapnic respiratory failure s/p extubation 11/18 eColi UTI on abx COPD with acute exacerbation, improving PAF, on coumadin, INR subthereupeutic, Lovenox ordered for bridging ADAIR/OHS, non-compliant with nightly bipap Hypertrophic cardiomyopathy Plan: Neuro-alert, oriented. CVS-1) history of HOCM, initially elevated trop, echo repeated this time hypertrophied LV and EF 65%, no acute changes from last scan. On tele, no ectopy noted. start back disopyramide home dose for HOCM, watch QTC prolongation 2) Afib- rate controlled, inr subtherapeutic, on lovenox bridging Resp- Continue daytime nasal canula and night time Bipap, keep spO2>92% Neb prn, no steroid was required during this hospitalization probably more OHS/ADAIR or resp suppression due to home benzo use, instead of COPD exacerbation Fluid status- still volume overloaded with peripheral edema and lung crackles, one dose of iv lasix this morning, will restart home diuretics including bumex, spironolactone today (Inconsistent med recon list, waiting her latest list from pharmacy) ID- E.Coli UTI, and continue iv ceftriaxone, to complete 7 days GI- LLQ pain with constipation, BM yesterday, likely constipation. Make sure daily BM. Renal- watch urine output, repeat bladder scan this afternoon if still unable to void Heme-INR 1.36 today, continue Lovenox bridging Endo-Glucose 123 Muskeletal- encouraged patient to sit out of bed, and sit on recliner. Start PT Wounds- none Nutrition- Albumin 2.4, start Ensure. DVT prophylaxis: sc 100mg Q12h Dispo: Transfer back to medical floor Critical Care Time: 30min <Luis Manuel White - Last Filed: 11/21/19 12:03> Vital Signs: Temp Pulse Resp BP SpO2 FiO2 98.0 F 62 33 170/48 93 35 11/21/19 08:00 11/21/19 10:30 11/21/19 10:30 11/21/19 10:00 11/21/19 10:30 11/19 12:10 Physical Exam: Gen: HEENT: Lungs: Cardiac: Abdomen: Extremities: Neuro: Fluid Balance (Past 24 Hours): I= O= Net Intake & Output 11/19/19 11/20/19 11/21/19 11/22/19 05:59 06:59 06:59 06:59 Intake Total 1735 0 Output Total 1280 275 Balance 455 -275 Weight 102.2 kg Intake: IV Fluids 81 NS 81 IVPB 154 ABX - CEFTRIAXONE 50 NS 104 NS (0.9%) Medicated IV CC - Norepinephrine/ Levophed CC - Propofol/Diprivan Oral 1500 0 Output: Urine 275 Boyd 1155 Straight Cath 125 Other: Estimated Void Large Large Date of Last Bowel 11/21/19 Movement # Bowel Movements 1 Estimated Stool Amount Large Small Labs: Laboratory Results - last 24 hr 11/20/19 11/21/19 11/21/19 05:34 05:30 05:30 WBC 9.6 RBC 3.09 L Hgb 9.0 L Hct 29 L MCV 93 MCH 29 MCHC 31 RDW 17 H Plt Count 213 MPV 9.5 Neut % (Auto) 75.5 Lymph % (Auto) 11.4 Ulster % (Auto) 10.4 Eos % (Auto) 2.6 Baso % (Auto) 0.1 Absolute Neuts (auto) 7.2 Absolute Lymphs (auto) 1.1 Absolute Monos (auto) 1.0 H Absolute Eos (auto) 0.3 Absolute Basos (auto) 0.0 Absolute Nucleated RBC 0.0 Nucleated RBC % 0.0 INR (Anticoag Therapy) Sodium 143 Potassium 3.6 Chloride 104 Carbon Dioxide 35 H Anion Gap 4 BUN 13 Creatinine 0.53 Est GFR ( Amer) 136.4 Est GFR (Non-Af Amer) 112.8 BUN/Creatinine Ratio 24.5 H Glucose 123 H Calcium 8.7 Magnesium 2.0 Total Bilirubin 0.30 AST 29 ALT 21 Alkaline Phosphatase 85 Total Protein 4.7 L Albumin 2.4 L Globulin 2.3 Albumin/Globulin Ratio 1.0 11/21/19 05:30 WBC RBC Hgb Hct MCV MCH MCHC RDW Plt Count MPV Neut % (Auto) Lymph % (Auto) Ulster % (Auto) Eos % (Auto) Baso % (Auto) Absolute Neuts (auto) Absolute Lymphs (auto) Absolute Monos (auto) Absolute Eos (auto) Absolute Basos (auto) Absolute Nucleated RBC Nucleated RBC % INR (Anticoag Therapy) 1.36 H Sodium Potassium Chloride Carbon Dioxide Anion Gap BUN Creatinine Est GFR ( Amer) Est GFR (Non-Af Amer) BUN/Creatinine Ratio Glucose Calcium Magnesium Total Bilirubin AST ALT Alkaline Phosphatase Total Protein Albumin Globulin Albumin/Globulin Ratio Plan: 74y F w/pmhx of COPD on Home o2, pAFib on Warfarin, ADAIR, Hypertrophic CMP; admitted with acute on chronic hypoxic and hypercap respiratory failure, intubated for suspected COPD exaccerbation. She was also found to have E.coli UTI. She was extubated 11/18. Since extubation she has been requiring intermittent NIV and nocturnally but has been improving. She is now on NC, alternating with NIV at night. Currently in bed, no distress, feels better. moved to chair and appears comfortable. NO wheezing, bilateral breath sounds are even and clear. She is not on steroids and does not require any. Cont nebulizers I suspect this was not all a COPD exaccerbation but a component of her hypoventilating in setting of noncompliance with home nocturnal NIV/CPAP. Plan to start lasix today, continue daily. Resume disopyramide , cont metoprolol cont lovenox for AC and with warfarin bridge, INR 1.3 today hg stable 9-10s, no active bleeding. Oob to chair continued. Can start PT/OT tomorrow. I agree patient can be transferred to medical floor today to hospitalist service /teaching service I personally supervised Dr Donnelly in management of the patient
[2019-11-21] MEDS: Docusate CAP* 100 MG PO SCH ×2 (09:31→19:48)
[2019-11-21] MEDS: Senna TAB 8.6 mg* TAB PO SCH (09:31)
[2019-11-21] MEDS: Famotidine IV* 10 MG/ML 2 ML (20 mg) IV SLOW PU SCH ×2 (09:31→19:48)
[2019-11-21] MEDS: Enoxaparin(*) 100 MG/ML SYR SUBCUT SCH ×2 (09:31→19:48)
[2019-11-21] MEDS ORDERED: Bumetanide TAB* 2 MG PO SCH (11:00)
[2019-11-21] MEDS: ALPRAZolam TAB* 0.5 MG PO PRN (12:54)
[2019-11-21] MEDS: DISOPYRAMIDE 100 MG PO SCH ×2 (15:26→19:48)
[2019-11-21] MEDS: cefTRIAXone(*) 1 GM in NS 0.9% 50 ML* 50 ML IVPB SCH (15:27)
[2019-11-21] MEDS: Warfarin TAB(*) 3 MG PO SCH (17:03)
[2019-11-21] MEDS: FLUoxetine CAP* 20 MG PO SCH (17:03)
[2019-11-21] MEDS: Metoprolol Tartrate TAB* 50 mg PO SCH (19:49)
[2019-11-22 06:18] LABS: ABS Basophils 0.1 10^3/ul (0-0.2); ABS Eosinophils 0.4 10^3/ul (0-0.6); ABS Lymphocytes 1.3 10^3/ul (1.0-4.8); ABS Monocytes 1.3 10^3/ul (0-0.8); ABS Neutrophils 7.7 10^3/ul (1.5-7.7); Eosinophil % 3.3 %; Hematocrit 30 % (35-47); Hemoglobin 9.2 g/dL (12.0-16.0); Lymphocyte % 12.1 %; Mean Corpuscular HGB Conc 31 g/dL (31-36); Mean Corpuscular Hemoglobin 29 pg (27-31); Mean Corpuscular Volume 94 fL (80-97); Mean Platelet Volume 8.7 fL (7.4-10.4); Nucleated Red Blood Cells % 0.1; Platelet Count 254 10^3/uL (150-450); Red Blood Count 3.16 10^6 /uL (3.70-4.87); Red Cell Distribution Width 18 % (10-15); White Blood Count 10.8 10^3/uL (3.5-10.8)
[2019-11-22 06:26] LABS: INR 1.41 (0.82-1.09)
[2019-11-22 06:36] LABS: Albumin 2.6 g/dL (3.2-5.2); BUN/Creatinine Ratio 18.6 (8-20); Calcium 8.9 mg/dL (8.6-10.3); EGFR African American 120.6 (>60); EGFR Non-African American 99.6 (>60); Globulin 2.6 g/dL (2-4); Potassium 3.7 mmol/L (3.5-5.0); Total Bilirubin 0.2 mg/dL (0.2-1.0); Total Protein 5.2 g/dL (6.4-8.9)
[2019-11-22] MEDS ORDERED: ALPRAZolam TAB* 0.5 MG PO SCH (09:00)
[2019-11-22] MEDS: Metoprolol Tartrate TAB* 50 mg PO SCH ×2 (10:06→20:37)
[2019-11-22] MEDS: Docusate CAP* 100 MG PO SCH ×2 (10:06→20:37)
[2019-11-22] MEDS: Bumetanide TAB* 2 MG PO SCH (10:06)
[2019-11-22] MEDS: Simethicone TAB* 80 MG TAB.CHEW PO PRN (10:06)
[2019-11-22] MEDS: Aspirin EC TAB* 81 MG TAB.EC PO SCH (10:06)
[2019-11-22] MEDS: Enoxaparin(*) 100 MG/ML SYR SUBCUT SCH ×2 (10:07→20:37)
[2019-11-22] MEDS: Famotidine IV* 10 MG/ML 2 ML (20 mg) IV SLOW PU SCH ×2 (10:07→20:36)
[2019-11-22] MEDS: Spironolactone TAB* 25 MG PO SCH (10:07)
[2019-11-22] MEDS: DISOPYRAMIDE 100 MG PO SCH ×3 (10:17→20:36)
[2019-11-22] MEDS: ALPRAZolam TAB* 0.5 MG PO PRN (11:14)
--- NOTE | 2019-11-22 15:20 | PN ---
Subjective Date of Service: 11/22/19 Interval History: Pt feels well, stated her breathing is close to baseline. wishes to go home soon Objective Active Medications: Alprazolam (Xanax Tab*) 0.5 mg PO BID PRN PRN Reason: ANXIETY Last Admin: 11/22/19 11:14 Dose: 0.5 mg Aspirin (Aspirin Ec Tab*) 81 mg PO QAM [facility] Last Admin: 11/22/19 10:06 Dose: 81 mg Bumetanide (Bumex Tab*) 2 mg PO DAILY [facility] Last Admin: 11/22/19 10:06 Dose: 2 mg Disopyramide Phosphate (Norpace Cap*) 200 mg PO 1400 [facility] Last Admin: 11/22/19 14:32 Dose: 200 mg Disopyramide Phosphate (Norpace Cap*) 300 mg PO BID [facility] Last Admin: 11/22/19 10:17 Dose: 300 mg Docusate Sodium (Colace Cap*) 100 mg PO BID [facility] Last Admin: 11/22/19 10:06 Dose: 100 mg Enoxaparin Sodium (Lovenox(*)) 100 mg SUBCUT Q12H [facility] Last Admin: 11/22/19 10:07 Dose: 100 mg Famotidine (Pepcid Iv*) 20 mg IV SLOW PU BID [facility] Last Admin: 11/22/19 10:07 Dose: 20 mg Fluoxetine HCl (Prozac Cap*) 20 mg PO QPM [facility] Last Admin: 11/21/19 17:03 Dose: 20 mg Ceftriaxone Sodium 1 gm/ (Sodium Chloride) 50 mls @ 100 mls/hr IVPB Q24H [facility] Last Admin: 11/21/19 15:27 Dose: 100 mls/hr Magnesium Hydroxide (Milk Of Magnesia Liq*) 30 ml PO Q6H PRN PRN Reason: CONSTIPATION Last Admin: 11/20/19 20:46 Dose: 30 ml Metoprolol Tartrate (Lopressor Tab*) 75 mg PO BID [facility] Last Admin: 11/22/19 10:06 Dose: 75 mg Simethicone (Mylicon Tab*) 80 mg PO Q6H PRN PRN Reason: bloating Last Admin: 11/22/19 10:06 Dose: 80 mg Spironolactone (Aldactone Tab*) 25 mg PO QAM [facility] Last Admin: 11/22/19 10:07 Dose: 25 mg Warfarin Sodium (Coumadin Tab(*)) 3 mg PO DAILY@1700 [facility]; Protocol Last Admin: 11/21/19 17:03 Dose: 3 mg Vital Signs - 8 hr 11/22/19 11/22/19 11/22/19 08:00 11:14 11:25 Temperature 98.7 F 97.4 F Pulse Rate 60 59 Respiratory 19 18 22 Rate Blood Pressure 122/62 105/64 (mmHg) O2 Sat by Pulse 100 100 Oximetry 11/22/19 11/22/19 13:47 14:45 Temperature 97.4 F Pulse Rate 59 Respiratory 20 22 Rate Blood Pressure 122/65 (mmHg) O2 Sat by Pulse Oximetry Oxygen Devices in Use Now: Nasal Cannula Appearance: 74 yo f in nAD, aAOx3 Eyes: No Scleral Icterus, PERRLA Ears/Nose/Mouth/Throat: NL Teeth, Lips, Gums, Mucous Membranes Moist Neck: NL Appearance and Movements; NL JVP, Trachea Midline Respiratory: Symmetrical Chest Expansion and Respiratory Effort, - - scant bibasiliar wheezes, very decreased breath sounds b/l Cardiovascular: NL Sounds; No Murmurs; No JVD, RRR Abdominal: NL Sounds; No Tenderness; No Distention, No Hepatosplenomegaly Lymphatic: No Cervical Adenopathy Extremities: No Clubbing, Cyanosis, - - trace ankle edema b/l Skin: No Rash or Ulcers, No Nodules or Sclerosis Neurological: Alert and Oriented x 3, NL Muscle Strength and Tone Result Diagrams: 11/22/19 06:07 11/22/19 06:07 Microbiology and Other Data: Microbiology 11/17/19 13:08 Aerobic Blood Culture - Final Blood Venous Aerococcus Viridans Anaerobic Blood Culture - Final Aerococcus Viridans Blood MRSA/MSSA (PCR) - Final Mrsa Negative S.aureus Negative 11/17/19 13:08 Aerobic Blood Culture - Final Blood Venous Staphylococcus Capitis Anaerobic Blood Culture - Final Staphylococcus Epidermidis Blood MRSA/MSSA (PCR) - Final Mrsa Negative S.aureus Negative 11/17/19 14:33 Urine Culture - Final Urine Escherichia Coli 11/19/19 01:58 Legionella Urinary Antigen - Final Urine Negative Legionella Antigen Streptococcus pneumoniae Ag Screen - Final Negative S. pneumo Antigen 11/17/19 14:33 Nasal Screen MRSA (PCR) - Final Nasal Mrsa Not Detected Assess/Plan/Problems-Billing Assessment: 74y F w/pmhx of COPD on Home o2, pAFib on Warfarin, ADAIR, Hypertrophic CMP; admitted with acute on chronic hypoxic and hypercap respiratory failure, intubated for suspected COPD exacerbation. She was also found to have E.coli UTI. She was extubated 11/18. Since extubation she has been on BIPAP at night that she also uses at home - Patient Problems (1) Acute and chronic respiratory failure Comment: - pt has Noninvasive Vent at home, but uses it rarely - Continue BiPAP for naps and at night - 2L NC during day - Cont resp treatment -still appears tachypneic, will cont diuresis (2) Atrial fibrillation Comment: -bridging Lovenox to coumadin - Cont tele - Paced - Cont Metoprolol (3) CHF (congestive heart failure) Comment: cont home bumex, spironolactone will tx with Lasix 40 mg IV x1 Echo shows EF 55%, mild , apical aneurysmal dilatation (4) AICD (automatic cardioverter/defibrillator) present Comment: AICD placed July 2012 (5) UTI (urinary tract infection) Comment: E coli dx on 11/18/19, cont Ceftriaxone today, then d/c(total of 5 days tx) (6) Blood culture positive for microorganism Comment: blood cx at admission positive for 3 different bacteria species. D/w ICU attending, likely a contaminant. will re-draw blood for cx today. (7) Anemia Comment: - normocytic anemia - Stable, no evidence or symptoms of bleeding (8) DVT prophylaxis Comment: -continue warfarin, Lovenox bridge.
[2019-11-22] MEDS ORDERED: Furosemide IV* 10 MG/ML VIAL (40 MG) IV ONE (15:22)
[2019-11-22] MEDS: cefTRIAXone(*) 1 GM in NS 0.9% 50 ML* 50 ML IVPB SCH (16:32)
[2019-11-22] MEDS ORDERED: Albuterol HFA INHALER* 8 gm MDI INH PRN (17:12)
[2019-11-22] MEDS: FLUoxetine CAP* 20 MG PO SCH (17:13)
[2019-11-22] MEDS: Warfarin TAB(*) 3 MG PO SCH (17:13)
[2019-11-22] MEDS: Mometasone/Formoter 100/5 MDI INH SCH (20:28)
[2019-11-23 06:41] LABS: INR 1.37 (0.82-1.09)
[2019-11-23] MEDS: Mometasone/Formoter 100/5 MDI INH SCH ×2 (08:21→21:30)
[2019-11-23] MEDS ORDERED: acetaZOLAMIDE TAB* 250 MG PO SCH (09:00)
[2019-11-23] MEDS: Docusate CAP* 100 MG PO SCH ×2 (09:26→21:39)
[2019-11-23] MEDS: Aspirin EC TAB* 81 MG TAB.EC PO SCH (09:36)
[2019-11-23] MEDS: Bumetanide TAB* 2 MG PO SCH (09:36)
[2019-11-23] MEDS: DISOPYRAMIDE 100 MG PO SCH ×3 (09:37→21:36)
[2019-11-23] MEDS: Metoprolol Tartrate TAB* 50 mg PO SCH ×2 (09:38→21:37)
[2019-11-23] MEDS: Famotidine IV* 10 MG/ML 2 ML (20 mg) IV SLOW PU SCH ×2 (09:38→21:37)
[2019-11-23] MEDS: Spironolactone TAB* 25 MG PO SCH (09:39)
[2019-11-23] MEDS: Enoxaparin(*) 100 MG/ML SYR SUBCUT SCH ×2 (09:40→21:37)
[2019-11-23] MEDS: ALPRAZolam TAB* 0.5 MG PO PRN (09:42)
[2019-11-23] MEDS ORDERED: Hemorrhoidal OINT PR PRN (10:25)
[2019-11-23] MEDS: Lactobacillus Acidophilus* 1 TAB PO SCH ×2 (12:17→21:38)
[2019-11-23] MEDS ORDERED: Acetaminophen TAB* 325 MG PO PRN (12:26)
--- NOTE | 2019-11-23 12:41 | PN ---
Subjective Date of Service: 11/23/19 Interval History: Pt c/o abd cramping yesterday-resolved, and 15 loose BM's in the past 24H. No abd pain, now. Breathing at baseline Objective Active Medications: Acetaminophen (Tylenol Tab*) 650 mg PO Q4H PRN PRN Reason: PAIN-MILD/TEMP >/= 100.4 Albuterol (Ventolin Hfa Inhaler*) 2 puff INH Q6H PRN PRN Reason: SHORTNESS OF BREATH Last Admin: 11/22/19 20:28 Dose: 2 puff Alprazolam (Xanax Tab*) 0.5 mg PO BID PRN PRN Reason: ANXIETY Last Admin: 11/23/19 09:42 Dose: 0.5 mg Aspirin (Aspirin Ec Tab*) 81 mg PO QAM [facility] Last Admin: 11/23/19 09:36 Dose: 81 mg Bumetanide (Bumex Tab*) 2 mg PO DAILY [facility] Last Admin: 11/23/19 09:36 Dose: 2 mg Bumetanide (Bumex Tab*) 2 mg PO DAILY [facility] Disopyramide Phosphate (Norpace Cap*) 200 mg PO 1400 [facility] Last Admin: 11/22/19 14:32 Dose: 200 mg Disopyramide Phosphate (Norpace Cap*) 300 mg PO BID [facility] Last Admin: 11/23/19 09:37 Dose: 300 mg Docusate Sodium (Colace Cap*) 100 mg PO BID [facility] Last Admin: 11/23/19 09:26 Dose: Not Given Enoxaparin Sodium (Lovenox(*)) 100 mg SUBCUT Q12H [facility] Last Admin: 11/23/19 09:40 Dose: 100 mg Famotidine (Pepcid Iv*) 20 mg IV SLOW PU BID [facility] Last Admin: 11/23/19 09:38 Dose: 20 mg Fluoxetine HCl (Prozac Cap*) 20 mg PO QPM [facility] Last Admin: 11/22/19 17:13 Dose: 20 mg Lactobacillus Rhamnosus (Lactobacillus Acidophilus*) 1 tab PO BID [facility] Last Admin: 11/23/19 12:17 Dose: 1 tab Magnesium Hydroxide (Milk Of Magnesia Liq*) 30 ml PO Q6H PRN PRN Reason: CONSTIPATION Last Admin: 11/20/19 20:46 Dose: 30 ml Metoprolol Tartrate (Lopressor Tab*) 75 mg PO BID [facility] Last Admin: 11/23/19 09:38 Dose: 75 mg Mometasone Furoate/Formoterol Fumar (Dulera 100/5 Mdi*) 2 puff INH BID [facility] Last Admin: 11/23/19 08:21 Dose: 2 puff Phenyleph/Shark Oil/Min Oil/Petrol (Preparation H*) 1 applic UT QID PRN PRN Reason: hemorrhoids Simethicone (Mylicon Tab*) 80 mg PO Q6H PRN PRN Reason: bloating Last Admin: 11/22/19 10:06 Dose: 80 mg Spironolactone (Aldactone Tab*) 25 mg PO QAM [facility] Last Admin: 11/23/19 09:39 Dose: 25 mg Warfarin Sodium (Coumadin Tab(*)) 3 mg PO DAILY@1700 [facility]; Protocol Last Admin: 11/22/19 17:13 Dose: 3 mg Vital Signs - 8 hr 11/23/19 11/23/19 11/23/19 08:00 08:21 09:42 Temperature 98.2 F Pulse Rate 60 60 Respiratory 24 22 24 Rate Blood Pressure 105/48 (mmHg) O2 Sat by Pulse 98 95 Oximetry 11/23/19 12:01 Temperature Pulse Rate Respiratory 20 Rate Blood Pressure (mmHg) O2 Sat by Pulse Oximetry Oxygen Devices in Use Now: Nasal Cannula Appearance: 74 yo F in nAD, aAOx3 Eyes: No Scleral Icterus, PERRLA Ears/Nose/Mouth/Throat: NL Teeth, Lips, Gums, Mucous Membranes Moist Neck: NL Appearance and Movements; NL JVP Respiratory: Symmetrical Chest Expansion and Respiratory Effort, - - distant breath sounds b/l, clear Cardiovascular: NL Sounds; No Murmurs; No JVD, RRR Abdominal: NL Sounds; No Tenderness; No Distention, No Hepatosplenomegaly Lymphatic: No Cervical Adenopathy Extremities: No Clubbing, Cyanosis, - - trace ankle edema b/l Skin: No Nodules or Sclerosis Neurological: Alert and Oriented x 3, NL Muscle Strength and Tone Result Diagrams: 11/22/19 06:07 11/22/19 06:07 Microbiology and Other Data: Microbiology 11/17/19 13:08 Aerobic Blood Culture - Final Blood Venous Aerococcus Viridans Anaerobic Blood Culture - Final Aerococcus Viridans Blood MRSA/MSSA (PCR) - Final Mrsa Negative S.aureus Negative 11/17/19 13:08 Aerobic Blood Culture - Final Blood Venous Staphylococcus Capitis Anaerobic Blood Culture - Final Staphylococcus Epidermidis Blood MRSA/MSSA (PCR) - Final Mrsa Negative S.aureus Negative 11/17/19 14:33 Urine Culture - Final Urine Escherichia Coli 11/19/19 01:58 Legionella Urinary Antigen - Final Urine Negative Legionella Antigen Streptococcus pneumoniae Ag Screen - Final Negative S. pneumo Antigen 11/17/19 14:33 Nasal Screen MRSA (PCR) - Final Nasal Mrsa Not Detected Assess/Plan/Problems-Billing Assessment: 74y F w/pmhx of COPD on Home o2, pAFib on Warfarin, ADAIR, Hypertrophic CMP; admitted with acute on chronic hypoxic and hypercap respiratory failure, intubated for suspected COPD exacerbation. She was also found to have E.coli UTI. She was extubated 11/18. Since extubation she has been on BIPAP at night that she also uses at home - Patient Problems (1) Acute and chronic respiratory failure Comment: - pt has Noninvasive Vent at home, but uses it rarely, needs humidifier attached to it, spoke with Kayli (will be arranged after d/c) - Continue BiPAP for naps and at night - 2L NC during day - Cont resp treatment -breathing at baseline (2) Atrial fibrillation Comment: -bridging Lovenox to coumadin - Cont tele - Paced - Cont Metoprolol (3) CHF (congestive heart failure) Comment: cont home bumex, spironolactone Echo shows EF 55%, mild , apical aneurysmal dilatation (4) AICD (automatic cardioverter/defibrillator) present Comment: AICD placed July 2012 (5) UTI (urinary tract infection) Comment: E coli dx on 11/18/19, completed Ceftriaxone total of 5 days tx 11/22/19 (6) Blood culture positive for microorganism Comment: blood cx at admission positive for 3 different bacteria species. D/w ICU attending, likely a contaminant. Re-drawn blood for cx from 11/21 pending (7) Anemia Comment: - normocytic anemia - Stable, no evidence or symptoms of bleeding (8) Diarrhea Comment: 15 x last night, will check C.Diff Start probiotic. con to monitor while inpatient, when pt is still on Bumex, but no IV Lasix. (9) DVT prophylaxis Comment: -continue warfarin, Lovenox bridge. Status and Disposition: inpatient
[2019-11-23] MEDS: Warfarin TAB(*) 3 MG PO SCH (16:47)
[2019-11-23] MEDS: FLUoxetine CAP* 20 MG PO SCH (16:47)
[2019-11-24] MEDS: ALPRAZolam TAB* 0.5 MG PO PRN (02:53)
[2019-11-24] MEDS: Metoprolol Tartrate TAB* 50 mg PO SCH (08:37)
[2019-11-24] MEDS: Famotidine IV* 10 MG/ML 2 ML (20 mg) IV SLOW PU SCH (08:38)
[2019-11-24] MEDS: Docusate CAP* 100 MG PO SCH (08:38)
[2019-11-24] MEDS: Aspirin EC TAB* 81 MG TAB.EC PO SCH (08:38)
[2019-11-24] MEDS: Lactobacillus Acidophilus* 1 TAB PO SCH (08:38)
[2019-11-24] MEDS: Spironolactone TAB* 25 MG PO SCH (08:38)
[2019-11-24] MEDS: Enoxaparin(*) 100 MG/ML SYR SUBCUT SCH (08:38)
[2019-11-24] MEDS ORDERED: Bumetanide TAB* 2 MG PO SCH ×2 (09:00→12:00)
[2019-11-24] MEDS: Mometasone/Formoter 100/5 MDI INH SCH (10:19)
[2019-11-24] MEDS: DISOPYRAMIDE 100 MG PO SCH ×2 (10:21→13:07)
--- NOTE | 2019-11-24 12:42 | CONSULT ---
Palliative / Hospice Consult Ordering Provider: Tali Cortés - [facility] Referal Reason: Goals of care/colace/no narcotics - Subjective Code Status: Full Code Advance Directives Location: Unable to Locate - History or Present Illness History or Present Illness: 74yo female with COPD and hypertrophic obstructive cardiomyopathy presents with chest pain. PMH is significant for COPD on 2liters O2, hypertrophic obstructive cardiomyopathy, heart failure with preserved ejection fracture, paroxysmal afib on coumadin, AICD, pacemaker, anemia, depression, constipation, nocturnal BiPAP and obesity hypoventilation syndrome. PSHx-lives with Billy [phone], 35 yrs, she has 2 adult children who live in [place] from [place] who and Billy has 3 children from [place] , bed bound uses commode, ex tob user. EKG-vent paced, CXR-L pleural effusion, ECHO-60-65% aneurysmal deformity of apical myocardium, CXR #2 sm-mod L pleural effusion, CXR #4 mild pul congestion, CXR #5 mild interval worsening of pul edema, R & L pleural effusion, H/H 9.2/30, BUN/Cr 11/.59, egfr 99.6, alb 2.6, INR 1.37, UC E.Coli and BC with multiple organisms ? contaminant. Pt admitted to ICU with acute on chronic hypoxic and hypercapnic respiratory failure and COPD. Pt with 3 prior hospitalizations and intubations. All history is from pt, and medical record. Lab Values: Laboratory Last Values WBC 10.8 10^3/uL (3.5-10.8) 11/22/19 06:07 RBC 3.16 10^6 /uL (3.70-4.87) L 11/22/19 06:07 Hgb 9.2 g/dL (12.0-16.0) L 11/22/19 06:07 Hct 30 % (35-47) L 11/22/19 06:07 MCV 94 fL (80-97) 11/22/19 06:07 MCH 29 pg (27-31) 11/22/19 06:07 MCHC 31 g/dL (31-36) 11/22/19 06:07 RDW 18 % (10-15) H 11/22/19 06:07 Plt Count 254 10^3/uL (150-450) 11/22/19 06:07 MPV 8.7 fL (7.4-10.4) 11/22/19 06:07 Neut % (Auto) 71.3 % 11/22/19 06:07 Lymph % (Auto) 12.1 % 11/22/19 06:07 [place] % (Auto) 12.5 % 11/22/19 06:07 Eos % (Auto) 3.3 % 11/22/19 06:07 Baso % (Auto) 0.8 % 11/22/19 06:07 Absolute Neuts (auto) 7.7 10^3/ul (1.5-7.7) 11/22/19 06:07 Absolute Lymphs (auto) 1.3 10^3/ul (1.0-4.8) 11/22/19 06:07 Absolute Monos (auto) 1.3 10^3/ul (0-0.8) H 11/22/19 06:07 Absolute Eos (auto) 0.4 10^3/ul (0-0.6) 11/22/19 06:07 Absolute Basos (auto) 0.1 10^3/ul (0-0.2) 11/22/19 06:07 Absolute Nucleated RBC 0.0 10^3/ul 11/22/19 06:07 Nucleated RBC % 0.1 11/22/19 06:07 INR (Anticoag Therapy) 1.37 (0.82-1.09) H 11/23/19 05:56 APTT 25.5 seconds (26.0-38.0) L 11/17/19 13:09 Patient Temperature Not Reportable 11/19/19 13:50 ABG pH 7.15 (7.35-7.45) L* 11/19/19 13:50 ABG pH (Temp Correct) Not Reportable 11/19/19 13:50 ABG pCO2 77 mmHg (35-45) H* 11/19/19 13:50 ABG pCO2 (Temp Corrct Not Reportable 11/19/19 13:50 ABG pO2 118 mmHg (80-100) H 11/19/19 13:50 ABG pO2 (Temp Correct Not Reportable 11/19/19 13:50 ABG HCO3 21.9 mmol/L (19-31) 11/19/19 13:50 ABG O2 Saturation 98.4 % (94.0-98.0) H 11/19/19 13:50 ABG Base Excess -3.9 mmol/L (-2.0-2.0) L 11/19/19 13:50 VBG pH 7.21 (7.32-7.43) L 11/17/19 13:09 VBG pCO2 107 mmHg (41-51) H 11/17/19 13:09 VBG pO2 60.0 mmHg (35-45) H 11/17/19 13:09 VBG HCO3 32.7 mmol/L (24-28) H 11/17/19 13:09 VBG O2 Saturation 88.5 % (70-80) H 11/17/19 13:09 VBG Base Excess 10.4 mmol/L (0.0-4.0) H 11/17/19 13:09 Respiration Rate 18 11/19/19 13:50 Ventilator Type Not Reportable 11/19/19 13:[address] 11/19/19 13:50 FiO2 100 11/19/19 13:50 Inspiratory Time Not Reportable 11/19/19 13:50 PEEP Not Reportable 11/19/19 13:50 Pressure Support Not Reportable 11/19/19 13:50 Pressure Control Not Reportable 11/19/19 13:50 EPAP 10 11/19/19 13:50 IPAP 20 11/19/19 13:50 BiPAP Not Reportable 11/19/19 13:50 Sodium 141 mmol/L (135-145) 11/22/19 06:07 Potassium 3.7 mmol/L (3.5-5.0) 11/22/19 06:07 Chloride 103 mmol/L (101-111) 11/22/19 06:07 Carbon Dioxide 36 mmol/L (22-32) H 11/22/19 06:07 Anion Gap 2 mmol/L (2-11) 11/22/19 06:07 BUN 11 mg/dL (6-24) 11/22/19 06:07 Creatinine 0.59 mg/dL (0.51-0.95) 11/22/19 06:07 Est GFR ( Amer) 120.6 (>60) 11/22/19 06:07 Est GFR (Non-Af Amer) 99.6 (>60) 11/22/19 06:07 BUN/Creatinine Ratio 18.6 (8-20) 11/22/19 06:07 Glucose 76 mg/dL (70-100) 11/22/19 06:07 Lactic Acid 1.3 mmol/L (0.5-2.0) 11/17/19 17:40 Calcium 8.9 mg/dL (8.6-10.3) 11/22/19 06:07 Magnesium 2.0 mg/dL (1.9-2.7) 11/20/19 05:34 Total Bilirubin 0.20 mg/dL (0.2-1.0) 11/22/19 06:07 AST 21 U/L (13-39) 11/22/19 06:07 ALT 18 U/L (7-52) 11/22/19 06:07 Alkaline Phosphatase 85 U/L (34-104) 11/22/19 06:07 Troponin I 0.15 ng/mL (<0.03) H* 11/19/19 13:30 B-Natriuretic Peptide > 1300 pg/mL (<=100) H 11/17/19 13:08 Total Protein 5.2 g/dL (6.4-8.9) L 11/22/19 06:07 Albumin 2.6 g/dL (3.2-5.2) L 11/22/19 06:07 Globulin 2.6 g/dL (2-4) 11/22/19 06:07 Albumin/Globulin Ratio 1.0 (1-3) 11/22/19 06:07 Urine Color Yuliya 11/17/19 14:33 Urine Appearance Cloudy 11/17/19 14:33 Urine pH 6.0 (5-9) 11/17/19 14:33 Ur Specific [place] 1.021 (1.010-1.030) 11/17/19 14:33 Urine Protein 1+(30 mg/dl) (Negative) A 11/17/19 14:33 Urine Ketones Negative (Negative) 11/17/19 14:33 Urine Blood Negative (Negative) 11/17/19 14:33 Urine Nitrate Positive (Negative) A 11/17/19 14:33 Urine Bilirubin Negative (Negative) 11/17/19 14:33 Urine Urobilinogen Negative (Negative) 11/17/19 14:33 Ur Leukocyte Esterase Trace (Negative) A 11/17/19 14:33 Urine WBC (Auto) Trace(0-5/hpf) (Absent) 11/17/19 14:33 Urine RBC (Auto) 1+(3-5/hpf) (Absent) A 11/17/19 14:33 Ur Squamous Epith Cells Present (Absent) A 11/17/19 14:33 Urine Bacteria 1+ (Absent) A 11/17/19 14:33 Urine Glucose Negative (Negative) 11/17/19 14:33 Urine Ascorbic Acid * (Negative) A 11/17/19 14:33 Influenza A (Rapid) Negative (Negative) 11/17/19 13:09 Influenza B (Rapid) Negative (Negative) 11/17/19 13:09 - Objective Active Medications: Acetaminophen (Tylenol Tab*) 650 mg PO Q4H PRN PRN Reason: PAIN-MILD/TEMP >/= 100.4 Last Admin: 11/23/19 13:36 Dose: 650 mg Albuterol (Ventolin Hfa Inhaler*) 2 puff INH Q6H PRN PRN Reason: SHORTNESS OF BREATH Last Admin: 11/22/19 20:28 Dose: 2 puff Alprazolam (Xanax Tab*) 0.5 mg PO BID PRN PRN Reason: ANXIETY Last Admin: 11/24/19 02:53 Dose: 0.5 mg Aspirin (Aspirin Ec Tab*) 81 mg PO QAM [facility] Last Admin: 11/24/19 08:38 Dose: 81 mg Bumetanide (Bumex Tab*) 2 mg PO DAILY [facility] Disopyramide Phosphate (Norpace Cap*) 200 mg PO 1400 [facility] Last Admin: 11/23/19 13:36 Dose: 200 mg Disopyramide Phosphate (Norpace Cap*) 300 mg PO BID [facility] Last Admin: 11/24/19 10:21 Dose: 300 mg Docusate Sodium (Colace Cap*) 100 mg PO BID [facility] Last Admin: 11/24/19 08:38 Dose: 100 mg Enoxaparin Sodium (Lovenox(*)) 100 mg SUBCUT Q12H [facility] Last Admin: 11/24/19 08:38 Dose: 100 mg Famotidine (Pepcid Iv*) 20 mg IV SLOW PU BID [facility] Last Admin: 11/24/19 08:38 Dose: 20 mg Fluoxetine HCl (Prozac Cap*) 20 mg PO QPM [facility] Last Admin: 11/23/19 16:47 Dose: 20 mg Lactobacillus Rhamnosus (Lactobacillus Acidophilus*) 1 tab PO BID [facility] Last Admin: 11/24/19 08:38 Dose: 1 tab Magnesium Hydroxide (Milk Of Magnesia Liq*) 30 ml PO Q6H PRN PRN Reason: CONSTIPATION Last Admin: 11/20/19 20:46 Dose: 30 ml Metoprolol Tartrate (Lopressor Tab*) 75 mg PO BID [facility] Last Admin: 11/24/19 08:37 Dose: 75 mg Mometasone Furoate/Formoterol Fumar (Dulera 100/5 Mdi*) 2 puff INH BID [facility] Last Admin: 11/24/19 10:19 Dose: 2 puff Phenyleph/Shark Oil/Min Oil/Petrol (Preparation H*) 1 applic [place] QID PRN PRN Reason: hemorrhoids Simethicone (Mylicon Tab*) 80 mg PO Q6H PRN PRN Reason: bloating Last Admin: 11/22/19 10:06 Dose: 80 mg Spironolactone (Aldactone Tab*) 25 mg PO QAM [facility] Last Admin: 11/24/19 08:38 Dose: 25 mg Warfarin Sodium (Coumadin Tab(*)) 3 mg PO DAILY@1700 SHANTEL; Protocol Last Admin: 11/23/19 16:47 Dose: 3 mg Vital Signs: Vital Signs: Temp Pulse Resp BP Pulse Ox 98.3 F 71 18 112/32 94 11/24/19 08:00 11/24/19 10:25 11/24/19 10:25 11/24/19 08:00 11/24/19 10:25 Patient Weight: Weight 101.877 kg Intake and Output: Intake & Output 11/22/19 11/23/19 11/24/19 11/25/19 06:59 06:59 06:59 06:59 Intake Total 2400 240 Output Total 575 300 250 Balance 1825 -60 -250 Weight 101.877 kg Intake: Oral 2400 240 Output: Urine 575 300 250 Other: Estimated Void Large Medium # Bowel Movements 1 2 Estimated Stool Amount Small Small Small # Voids 1 2 ADLs: Meal Record Start: 11/17/19 14: 25 Freq: 09,13,18 Status: Inactive Protocol: Created 11/17/19 14:25 System (Rec: 11/17/19 14:25 System IMG-M07) Document 11/17/19 18:00 [id number] (Rec: 11/17/19 18:37 EUJ7112 ICU-C10) Document 11/18/19 09:00 IFW8931 (Rec: 11/18/19 15:56 BWP3633 ICU-C10) Document 11/18/19 13:00 LTF1264 (Rec: 11/18/19 15:56 KNG3293 ICU-C10) Document 11/18/19 18:00 WON2167 (Rec: 11/18/19 19:09 PEG6600 ICU-C10) Document 11/19/19 09:00 OAN3268 (Rec: 11/19/19 10:53 DGT3598 IMG-M07) Document 11/19/19 13:00 LSR8309 (Rec: 11/19/19 16:10 SHG3838 ICU-C10) Document 11/19/19 18:00 NYA4968 (Rec: 11/19/19 20:49 VYV2002 ICU-C10) Document 11/20/19 09:00 OAG2771 (Rec: 11/20/19 12:21 DJH1614 ICU-C10) Document 11/20/19 13:00 SNP5571 (Rec: 11/20/19 17:46 RNA9557 ICU-C10) Document 11/20/19 18:00 OHC9518 (Rec: 11/20/19 19:08 EXU0206 ICU-C10) Document 11/21/19 09:00 LHN7313 (Rec: 11/21/19 10:36 STI4214 ICU-C16) Document 11/21/19 13:00 QZA8350 (Rec: 11/21/19 13:35 CFH3815 ICU-C16) Document 11/21/19 18:00 NMQ5649 (Rec: 11/21/19 18:42 SFP1395 TELE-C09) ADLs: Meal Record Start: 11/22/19 01: 10 Freq: Status: Active Protocol: Created 11/22/19 01:10 WEG7001 (Rec: 11/22/19 01:10 AFV6218 TELE-C07) Document 11/22/19 18:00 WUV1106 (Rec: 11/22/19 18:36 SNM3543 CRM-C12) Intake and Output Start: 11/17/19 13: 42 Freq: Status: Active Protocol: Created 11/17/19 13:42 System (Rec: 11/17/19 13:42 System EDRM-C18) Document 11/22/19 06:39 ASU3161 (Rec: 11/22/19 06:40 TOL5394 TELE-C07) Document 11/23/19 06:18 ZWE5127 (Rec: 11/23/19 06:19 TOW3332 TELE-C08) Intake and Output Start: 11/17/19 14: 25 Freq: Q1HR Status: Inactive Protocol: Created 11/17/19 14:25 System (Rec: 11/17/19 14:25 System IMG-M07) Document 11/17/19 15:00 TTK6239 (Rec: 11/17/19 16:01 NNQ9462 ICU-C10) Document 11/17/19 16:00 QQQ5149 (Rec: 11/17/19 16:01 VTS7817 ICU-C10) Document 11/17/19 17:00 HWY7252 (Rec: 11/17/19 18:01 UAO7475 ICU-C10) Document 11/17/19 18:00 OXK5806 (Rec: 11/17/19 18:01 WUN0742 ICU-C10) Document 11/17/19 20:00 ODQ9191 (Rec: 11/17/19 20:08 GBU7252 IMG-M07) Document 11/17/19 21:00 PDH2146 (Rec: 11/17/19 21:28 MJS8178 ICU-C16) Document 11/17/19 22:00 GAL4268 (Rec: 11/17/19 22:45 GOY7080 IMG-M07) Document 11/17/19 23:00 HXV4264 (Rec: 11/18/19 00:46 WWA6569 ICU-C16) Document 11/18/19 01:00 GMQ0530 (Rec: 11/18/19 01:17 NAP1784 ICU-C16) Document 11/18/19 03:00 VRY0727 (Rec: 11/18/19 03:18 TLN9781 ICU-C16) Document 11/18/19 04:00 NOE4364 (Rec: 11/18/19 04:46 YOV0318 ICU-C16) Document 11/18/19 05:00 QRI1105 (Rec: 11/18/19 05:04 APK6215 IMG-M07) Document 11/18/19 05:48 TNZ0545 (Rec: 11/18/19 05:48 EXC8839 ICU-C16) Document 11/18/19 08:00 MLJ2432 (Rec: 11/18/19 15:54 RUB2058 ICU-C10) Document 11/18/19 10:00 YEZ0142 (Rec: 11/18/19 15:54 RCR4424 ICU-C10) Document 11/18/19 12:00 AXI9939 (Rec: 11/18/19 15:55 AWU5750 ICU-C10) Document 11/18/19 14:00 DMW4612 (Rec: 11/18/19 15:55 FXL6234 ICU-C10) Document 11/18/19 16:00 ZKF7185 (Rec: 11/18/19 19:18 TJT0935 ICU-C10) Document 11/18/19 18:00 HUC1457 (Rec: 11/18/19 19:18 TAT8071 ICU-C10) Document 11/18/19 21:00 MMK2532 (Rec: 11/18/19 21:36 DSM2945 ICU-C16) Document 11/18/19 22:00 SQN8142 (Rec: 11/18/19 22:44 QRU2293 ICU-C16) Document 11/18/19 23:00 EXM9931 (Rec: 11/18/19 23:28 YTK2247 IMG-M07) Document 11/19/19 01:00 MET3013 (Rec: 11/19/19 01:54 KWI5560 IMG-M07) Document 11/19/19 02:00 WCQ9749 (Rec: 11/19/19 02:07 WFB5412 ICU-C16) Document 11/19/19 03:00 KHZ1844 (Rec: 11/19/19 03:12 FCY6116 ICU-C16) Document 11/19/19 04:00 SRN9156 (Rec: 11/19/19 04:08 YAX7635 ICU-C16) Document 11/19/19 05:00 KOK8285 (Rec: 11/19/19 05:09 GQD5898 IMG-M07) Document 11/19/19 06:00 ORJ4100 (Rec: 11/19/19 06:36 AAQ5744 IMG-M07) Document 11/19/19 08:00 CWO7554 (Rec: 11/19/19 10:56 XRA1981 IMG-M07) Document 11/19/19 10:00 GQH2743 (Rec: 11/19/19 10:56 QTU5240 IMG-M07) Document 11/19/19 11:00 KJG1476 (Rec: 11/19/19 13:48 MIY5102 IMG-M07) Document 11/19/19 12:00 XYN6519 (Rec: 11/19/19 13:48 VIT7360 IMG-M07) Document 11/19/19 13:00 MVL0511 (Rec: 11/19/19 13:48 CFM3934 IMG-M07) Document 11/19/19 13:30 HZQ1397 (Rec: 11/19/19 13:48 FXT5114 IMG-M07) Document 11/19/19 14:00 LYT6269 (Rec: 11/19/19 17:32 ZUM4809 ICU-C10) Document 11/19/19 15:00 YGB3803 (Rec: 11/19/19 17:32 COK8292 ICU-C10) Document 11/19/19 16:00 OQL2890 (Rec: 11/19/19 17:32 KFE5523 ICU-C10) Document 11/19/19 17:00 EOC2236 (Rec: 11/19/19 17:32 BEK9565 ICU-C10) Document 11/19/19 20:00 ERN4975 (Rec: 11/19/19 20:25 JHV7376 IMG-M07) Document 11/19/19 21:00 BLS0263 (Rec: 11/19/19 21:11 NEA8834 ICU-C16) Document 11/19/19 22:00 LPW2854 (Rec: 11/19/19 22:55 WGU5607 ICU-M24) Document 11/19/19 23:00 FAR6772 (Rec: 11/19/19 23:11 LDB1645 ICU-C16) Document 11/20/19 00:00 RGP7257 (Rec: 11/20/19 00:09 XKW8550 ICU-C16) Document 11/20/19 01:00 XPX3346 (Rec: 11/20/19 01:02 IJT5698 ICU-C16) Document 11/20/19 03:00 MKE4534 (Rec: 11/20/19 03:32 TOF3551 ICU-C16) Document 11/20/19 04:00 PZM6239 (Rec: 11/20/19 04:56 SFD2972 ICU-C16) Document 11/20/19 05:00 HUC2161 (Rec: 11/20/19 05:13 RCA1146 ICU-C16) Document 11/20/19 06:00 LQN4776 (Rec: 11/20/19 06:13 OYD2509 IMG-M07) Document 11/20/19 07:00 NQW7109 (Rec: 11/20/19 09:25 OTQ9613 ICU-C10) Document 11/20/19 08:00 DRT8853 (Rec: 11/20/19 09:25 ZWK2130 ICU-C10) Document 11/20/19 09:00 MWF9078 (Rec: 11/20/19 09:25 HQS0740 ICU-C10) Document 11/20/19 09:52 PHF8622 (Rec: 11/20/19 09:52 MQR5953 IMG-M07) Document 11/20/19 10:45 CTR2768 (Rec: 11/20/19 10:46 AUI7848 IMG-M07) Document 11/20/19 12:00 QMV0648 (Rec: 11/20/19 13:56 SUA7950 ICU-C10) Document 11/20/19 13:00 SDD6901 (Rec: 11/20/19 13:56 DQX8315 ICU-C10) Document 11/20/19 14:00 YRL7323 (Rec: 11/20/19 16:00 DWC0747 IMG-M07) Document 11/20/19 15:00 SEE8963 (Rec: 11/20/19 16:00 HBV7887 IMG-M07) Document 11/20/19 17:00 FYW6360 (Rec: 11/20/19 17:42 KKQ5520 ICU-C10) Document 11/20/19 22:00 ZQG6355 (Rec: 11/20/19 22:19 AZG7161 ICU-C10) Document 11/20/19 23:52 LSX4350 (Rec: 11/20/19 23:52 IGD9965 ICU-C10) Document 11/21/19 02:00 WYK0254 (Rec: 11/21/19 02:16 GTV2066 ICU-C10) Document 11/21/19 03:00 VVM2971 (Rec: 11/21/19 03:51 GRC7715 ICU-C10) Document 11/21/19 06:15 JZW7702 (Rec: 11/21/19 06:15 KQY1564 IMG-M07) Document 11/21/19 07:00 PWR4401 (Rec: 11/21/19 08:10 RTT5903 ICU-C16) Document 11/21/19 07:00 QTP5854 (Rec: 11/21/19 08:10 CLH9846 ICU-L03) Document 11/21/19 08:00 BKF8747 (Rec: 11/21/19 09:32 BQK0125 ICU-L03) Document 11/21/19 09:30 GSP8617 (Rec: 11/21/19 10:21 QSC3943 ICU-L03) Document 11/21/19 10:20 AOM6853 (Rec: 11/21/19 10:22 MGP8039 ICU-L03) Document 11/21/19 11:00 TIO0478 (Rec: 11/21/19 12:27 GQU8599 ICU-C16) Document 11/21/19 12:00 AKF0200 (Rec: 11/21/19 13:14 VTY4094 ICU-C16) Document 11/21/19 13:00 XYO7685 (Rec: 11/21/19 13:35 DDP8235 ICU-C16) Document 11/21/19 14:00 AZN0576 (Rec: 11/21/19 14:59 LPK9823 TELE-C08) Document 11/21/19 15:00 YQL0276 (Rec: 11/21/19 15:00 WYP3753 TELE-C08) Document 11/21/19 16:00 OKP1662 (Rec: 11/21/19 16:22 HPW1384 TELE-C08) Document 11/21/19 17:00 FKH2045 (Rec: 11/21/19 17:33 UKF8632 TELE-C08) Document 11/21/19 18:00 NTM1763 (Rec: 11/21/19 18:42 HYV4847 TELE-C09) Eyes: No Scleral Icterus, PERRLA Ears/Nose/Mouth/Throat: NL Teeth, Lips, Gums, Mucous Membranes Moist Neck: NL Appearance and Movements; NL JVP Cardiovascular: NL Sounds; No Murmurs; No JVD, RRR Abdominal: NL Sounds; No Tenderness; No Distention, No Hepatosplenomegaly Extremities: No Clubbing, Cyanosis, - - trace ankle edema b/l Neurological: Alert and Oriented x 3, NL Muscle Strength and Tone - Assessment Assessment: 74yo female with COPD presents with acute on chronic hypoxic and hypercapnic respiratory failure - Plan Consult Plan (MU): Palliative Plan: Long discussion with pt and about goals of care. Pt feels her health is overall declining and is mostly bedbound at home. She would like to stay at home. Introduced/discussed hospice and brochure was given. Pt is to be discharged today so not able to make decision about hospice but they can self refer. [facility] were interested in [facility] and referral was sent. Pt still experiences sera she likes to read, watch TV mostly she is happy unless she learns about friends who have . Asked to talk about [facility] but she didn't want to discuss it. Hopefully if she engages with [facility] it can be reintroduced. Pt would be hospice eligible with diagnosis of end stage COPD and hypertrophic obstructive cardiomyopathy with multiple intubations in last year. KPS 40%, PPS 40% - Time On Unit Date of Evaluation: 11/24/19 Hospice Consult Time in: 11:45 Hospice Consult Time Out: 12:45 Hospice Consult Time Total: 60 > 50% of Time Spend In Counseling or Coordinating Care: Yes
[2019-11-24 14:49] VITALS: BP 120/40
--- NOTE | 2019-11-25 00:38 | DS ---
CC: Dr. Ness Dennis * DISCHARGE SUMMARY: DATE OF ADMISSION: 11/17/19 DATE OF DISCHARGE: 11/24/19 PRIMARY CARE PROVIDER: Dr. Ness Dennis. DISPOSITION AT DISCHARGE: Home. CONDITION ON DISCHARGE: Stable. DISCHARGE DIAGNOSES: 1. Septic shock with likely cause of this problem was Escherichia coli urinary tract infection. 2. Acute hypoxemic respiratory failure, on chronic respiratory failure, and the patient required intubation and ventilatory support. 3. Escherichia coli urinary tract infection. SECONDARY DIAGNOSES: 1. History of chronic hypoxemic respiratory failure, on oxygen at home continuously and on noninvasive ventilator at night. 2. Hypertrophic obstructive cardiomyopathy with congestive heart failure with preserved ejection fraction. 3. Chronic obstructive pulmonary disease. 4. Paroxysmal atrial fibrillation, on Coumadin. 5. AICD and pacemaker. 6. Anemia. 7. Depression. 8. Glaucoma. 9. Macular degeneration. 10. Chronic constipation. 11. Obesity hypoventilation syndrome. 12. Obstructive sleep apnea. 13. History of cardiac ablation for atrial fibrillation in the past 3 times. MEDICATIONS ON DISCHARGE: Include: 1. Lovenox 100 mg to inject every 12 hours. The patient was dispensed a prescription for a total of 10 syringes. The patient's INR today prior to discharge was 1.37. 2. Coumadin 5 mg a day. The patient's Coumadin was increased from 3 mg a day to 5 mg a day on the day of discharge. She had been on 3 mg for the past 3 days with no basic change in the INR. 3. Xanax 0.5 mg t.i.d. p.r.n. 4. Albuterol inhaler on a p.r.n. basis. 5. Aspirin 81 mg daily. 6. Tums 500 mg b.i.d. p.r.n. 7. Vitamin D3 at 1000 units daily. 8. Vitamin B12 at 1000 micrograms daily. 9. Disopyramide 200 mg 3 times a day. 10. Leonor 60 mg daily. 11. Prozac 20 mg daily. 12. Advair HFA 230/21 one puff inhalation b.i.d. 13. Folic acid 1 mg daily. 14. Guaifenesin 1200 mg b.i.d. 15. Probiotic 1 capsule daily. 16. Mag-Ox 400 mg daily. 17. Toprol-XL 75 mg daily. 18. MiraLAX 17 g daily p.r.n. 19. Simethicone 80 mg every 6 hours p.r.n. 20. Aldactone 25 mg daily. 21. Multivitamin with oghk-jdtkaw-ibtaut 1 to 2 capsules daily. 22. Bumex 2 mg every other day. DIAGNOSTIC STUDIES/LAB DATA: Laboratory data and studies performed during the hospital stay included: On 11/23/19, INR of 1.37. CBC on 11/22/19, showed white blood cell count of 10.8, hemoglobin 9.2, hematocrit 30, and platelets of 264. Sodium was 141, potassium 3.7, chloride 103, carbon dioxide 36, BUN 11, creatinine 0.59. Influenza testing was negative at admission. 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 EF of 60% to 65% with ventricular systolic function normal. There was irreversible deformity of the apical myocardium. The right ventricle systolic function is mildly reduced with systolic pressures moderately increased. The mitral valve findings consistent with mild stenosis. Aortic valve consistent with mild stenosis. Compared with September 2019, akinesis aneurysm of two apices was noted. The differential includes a remote infarct of the very distal left anterior descending, akinesis related to pacing or structural changes related to known hypertrophic cardiomyopathy. PROCEDURES DURING THE HOSPITAL STAY: Included placement of a triple-lumen catheter in the right internal jugular vein as well as intubation. The patient was extubated on 11/19/19. HOSPITALIZATION COURSE: Britni Barger is a 74-year-old female with severe respiratory illness due to her COPD and obesity hypoventilation syndrome as well as CHF. The patient is oxygen dependent at home and uses a Trilogy/ noninvasive ventilator at night instead of BiPAP that she could not tolerate. The patient was brought in on 11/17/19 in respiratory distress. She required to be placed on pressors and intubated. She was admitted to our intensive care unit and continued on broad-spectrum antibiotics and the urine came back positive for E. coli and suspected that it was not related to ceftriaxone. She was continued on ceftriaxone for 5 days for UTI treatment. Her blood cultures from 11/17/19 was positive for multiple organisms including Staphylococcus epidermidis, Staphylococcus capitis, enterococcus, viridans. Due to polybacterial positive blood cultures, it was suspected that is likely a contamination. Repeat cultures obtained on 11/22/19 were negative for any pathogens. Urine cultures are positive for E. coli. It was sensitive to most of the antibiotics tested. While in the ICU, the patient was able to be weaned to nasal cannula, she was transferred to the floor. While in the floor, she was still on her last dose of ceftriaxone when she started developing diarrhea. After her last dose of ceftriaxone, she was placed back on probiotics that she uses at home and her loose bowel movements started resolving. By the time of discharge, she had one loose bowel movement in the morning. She was off antibiotics. At this point, the suspicion for Clostridium difficile infection is very low. The patient had a transient discomfort of the abdomen prior to developing diarrhea that resolved. She is nontender on her abdominal evaluation. A long discussion with the patient about that she had second intubation this year and part of the problem is medical noncompliance. The patient's spouse has stated that patient is not using her noninvasive ventilator due to problems with humidification. I discussed it with [facility] providers who are going to set the patient up with a humidifier to be installed on the night the patient's arrival back to home. The patient was on Bumex 1 mg every day at home. Prior to her admission, she is going to be placed on Bumex 2 mg every other day. She had been taking Bumex on a daily basis during the post ICU stay. She is recommended to follow up with her primary care provider in approximately 4 to 7 days. The patient is going to be discharge home as disposition.. CONDITION ON DISCHARGE: Stable. The patient was recommended to continue on her oxygen. Currently, she is on 2.5 L but she could go up to 4 L if necessary. She is to continue her noninvasive ventilator at night. PHYSICAL EXAMINATION: At the time of discharge, blood pressure of 112/32, heart rate of 62 and regular, respiratory rate 20, oxygen saturation 100% on 2 L of oxygen nasal canula, temperature 98.3. General: The patient is a pleasant 74-year-old female who is in no acute distress. The patient is alert and oriented x3. Her BMI is 46. HEENT: Head atraumatic, normocephalic. Eyes : Pupils are equal, reactive to light and accommodation. Oropharynx is clear. Mucosa moist. Neck: Supple. No JVD. No bruits bilaterally. Cardiovascular: Regular rate and rhythm. No murmurs. Please note that on telemetry the patient is in a paced rhythm. Respiratory: Clear to auscultation bilaterally and distant breath sounds bilaterally. Abdomen: Soft, nontender. Bowel sounds are present in all 4 quadrants. Extremities: There is no pedal edema. Pulses are +2 bilaterally. There is no clubbing or cyanosis. On neuro evaluation, speech is clear. Cranial nerves II through XII are grossly intact. Motor strength is 5/5 bilaterally. On psychiatric evaluation, the patient is pleasant , cooperative with evaluation, oriented x3 with no evidence of anxiety or depression. Please note that we had problem obtaining INR on the day of discharge. The patient initially refused. She also has a difficult stick and we were unable to get it once and then the patient refused it again. At this point, the patient's INR prior to her discharge was 1.37. She had been on 3 mg of Coumadin for approximately 3 to 4 days. Increased it to 5 mg at home and to have followup in INR on 11/28/19. Please note this is a short summary of the patient's hospitalization. Please refer to further medical records for details. TIME SPENT: Approximately 50 minutes was spent in preparation of the patient's discharge. [id number]/[facility] #: [id number] TATUM
== END 2019-11-24 15:24 | disposition home or self-care (01) | DRG 871 ==
LOC: ED 12:37 → ICU 13:52 → MEDTELE 11-21 11:07
PROVIDERS: ADMIT Internal Medicine Critical Care Medicine; ATTEND Internal Medicine
PROC: 05HM33Z Insertion of Infusion Device into Right Internal Jugular Vein, Percutaneous Approach (ICD-10-PCS; principal; 2019-11-18)
PROC: 5A1945Z Respiratory Ventilation, 24-96 Consecutive Hours (ICD-10-PCS; 2019-11-18)
PROC: B543ZZA Ultrasonography of Right Jugular Veins, Guidance (ICD-10-PCS; 2019-11-18)
PROC: 0BH17EZ Insertion of Endotracheal Airway into Trachea, Via Natural or Artificial Opening (ICD-10-PCS; 2019-11-18)
PROC: 3E033XZ Introduction of Vasopressor into Peripheral Vein, Percutaneous Approach (ICD-10-PCS; 2019-11-18)
PROC: 5A09357 Assistance with Respiratory Ventilation, Less than 24 Consecutive Hours, Continuous Positive Airway Pressure (ICD-10-PCS; 2019-11-19)
DX: A41.51 Sepsis due to Escherichia coli [E. coli] (principal); J96.21 Acute and chronic respiratory failure with hypoxia; J96.22 Acute and chronic respiratory failure with hypercapnia; R65.21 Severe sepsis with septic shock; I42.1 Obstructive hypertrophic cardiomyopathy; I50.32 Chronic diastolic (congestive) heart failure; E66.2 Morbid (severe) obesity with alveolar hypoventilation; N39.0 Urinary tract infection, site not specified; J44.1 Chronic obstructive pulmonary disease with (acute) exacerbation; Z68.42 Body mass index [BMI] 45.0-49.9, adult; J44.9 Chronic obstructive pulmonary disease, unspecified; I48.0 Paroxysmal atrial fibrillation; F32.9 Major depressive disorder, single episode, unspecified; I35.0 Nonrheumatic aortic (valve) stenosis; D64.9 Anemia, unspecified; R19.7 Diarrhea, unspecified; I25.10 Atherosclerotic heart disease of native coronary artery without angina pectoris; E78.00 Pure hypercholesterolemia, unspecified; K21.9 Gastro-esophageal reflux disease without esophagitis; M16.11 Unilateral primary osteoarthritis, right hip; M17.11 Unilateral primary osteoarthritis, right knee; M19.012 Primary osteoarthritis, left shoulder; G89.29 Other chronic pain; M54.9 Dorsalgia, unspecified; H40.9 Unspecified glaucoma; F41.9 Anxiety disorder, unspecified; K59.09 Other constipation; H35.30 Unspecified macular degeneration; Z79.899 Other long term (current) drug therapy; Z99.81 Dependence on supplemental oxygen; Z79.01 Long term (current) use of anticoagulants; Z95.810 Presence of automatic (implantable) cardiac defibrillator; Z91.19 Patient's noncompliance with other medical treatment and regimen; Z88.8 Allergy status to other drugs, medicaments and biological substances; Z91.011 Allergy to milk products; Z87.891 Personal history of nicotine dependence; Z79.82 Long term (current) use of aspirin
CPT/HCPCS: 36415; 36600; 71045; 80048; 80053; 81003; 81015; 82803; 83605; 83735; 83880; 84484; 85025; 85610; 85730; 87040; 87077; 87086; 87150; 87186; 87205; 87641; 87899; 93005; 93306; 94003; 94640; 94660; 99285; A9270-GY; C8929; J0330; J0456; J0696; J1100; J1644; J1650; J1885; J1940; J2704; J3475; J3480